=== PATIENT | female | born 1980 | race Caucasian/White ===

== ENCOUNTER 2016-11-07 22:29 | Emergency (ER) | payer OTHER ==
[~2016-11-07] VITALS: Ht 162.6 cm; Wt 69.0 kg
[2016-11-07] MEDS ORDERED: BENADRYL25 MG PO (22:58)
[2016-12-12] MEDS ORDERED: FLAX SEED OIL1000 MG PO (12:15)
[2016-12-12] MEDS ORDERED: FALMINA1 EACH PO (12:15)
[2016-12-12] MEDS ORDERED: OMEPRAZOLE20 MG PO (12:15)
[2016-12-12] MEDS ORDERED: PROBIOTIC1 EAC1 PO (12:16)
[2016-12-12] MEDS ORDERED: PEPTO-BISM262 MG/15 PO (12:16)
== END 2016-11-08 00:51 | disposition home or self-care (01) ==
LOC: ED 22:29
DX: T78.40XA Allergy, unspecified, initial encounter (principal); R13.10 Dysphagia, unspecified; Z88.1 Allergy status to other antibiotic agents; Z88.2 Allergy status to sulfonamides
CPT/HCPCS: 96372; 96374; 96375; 99284; J1200; J2930; J7030

== ENCOUNTER 2017-11-23 06:50 | Day surgery (SDC) | payer OTHER ==
[~2017-11-23] VITALS: Ht 162.6 cm; Wt 72.1 kg
--- NOTE | ~2017-11-23 | OR ---
[facility] [address], [place] [address] Draft DATE OF OPERATION: 11/23/2017 SURGEON: Kurt Campos DO PREOPERATIVE DIAGNOSES: 1. Abnormal uterine bleeding. 2. Crohn disease. POSTOPERATIVE DIAGNOSES: 1. Abnormal uterine bleeding. 2. Endometrial polyp. 3. Asherman syndrome. 4. Crohn disease. SURGERY PERFORMED: 1. Hysteroscopy, dilation and curettage. 2. Endometrial polypectomy. 3. Lysis of intrauterine adhesions. ANESTHESIA: MAC. ESTIMATED BLOOD LOSS: 25 mL. SPECIMENS: Endometrial polyps and curettings. COMPLICATIONS: None. FINDINGS: Normal external genitalia, vagina, and cervix. On hysteroscopy, normal endocervical canal. The endometrial cavity is approximately 50% adhesed from the fundus up to the mid portion of the uterus in the midline. The lower uterine segment and 50 percentile of the uterine cavity showed a thickened endometrium and multiple polyps. The intrauterine adhesions were lysed and normal uterine anatomy appreciated . INDICATION: Ms. Nye is a pleasant 37-year-old female, who presents with abnormal bleeding and PATIENT NAME: CHIARA NYE OPERATIVE REPORT DATE OF : 80 REPORT #: [id number] PHYSICIAN: KURT CAMPOS DO PCP: JULIO CESAR GUZMAN MD REPORT IS CONFIDENTIAL AND NOT TO BE RELEASED WITHOUT AUTHORIZATION [address] [address] [place] dysmenorrhea. An ultrasound was performed that demonstrated thickened endometrium cavitary lesion. She has previously undergone two prior C-sections with a history of DIC with multiple uterine procedures performed at that time including . Recommended hysteroscopy, D and C with possible polypectomy and myomectomy. Risks, benefits, alternatives were discussed in detail with the patient. Patient understands and wished to proceed with the procedure. DESCRIPTION OF PROCEDURE: The patient was taken the operating room. Time-out was performed to confirm correct patient, correct procedure. MAC anesthesia was adequately established. Then, the patient was prepped and draped in dorsal lithotomy . No preop antibiotics or heparin were indicated. ICPs were on and running and the bladder drained. A weighted speculum was placed in the vagina. The anterior lip of the cervix was grasped with an Allis clamp. The cervix was gently dilated using Hegar dilators the internal os was somewhat tight. The cervix was again dilated with a #7 Hegar dilator and the Allis clamp. This was replaced with single-tooth tenaculum. The operative hysteroscope was replaced and advanced without difficulty into the uterine cavity. Normal endocervical os was appreciated, however, the uterine cavity multiple fibroids and endometrial thickening. A MyoSure Lite device was selected and circumferential curettage and polypectomy was performed. Once the cavity was cleared of polyp, it became evident that significant intrauterine adhesions and by visualization of the placement of the tubal ostia. Hysteroscopic scissors were selected and the intrauterine adhesions were very gently and carefully lysed. No bleeding was noted while lysing the tissue and this was brought back until normal uterine configuration was noted. It does not appear that myometrium was entered whatsoever. Once normal anatomy was achieved, the hysteroscope was withdrawn and the single-tooth tenaculum was removed. Brisk bleeding was noted from both lubhyx-ba-abbhb sutures. Good hemostasis was appreciated and the patient was taken to PACU in good and stable condition. Sponge, needle, and instrument count were correct x2 at the end of the procedure. Due to the patient's desire to not pursue future fertility due to her poor obstetrical history and Crohn's, a pediatric catheter was not inserted due to the upon completion of the intrauterine adhesion lysis. The patient will be treated with estradiol postoperatively. Kurt Campos DO PATIENT NAME: CHIARA NYE OPERATIVE REPORT DATE OF : [birth year] REPORT #: [id number] PHYSICIAN: KURT CAMPOS DO PCP: JULIO CESAR GUZMAN MD REPORT IS CONFIDENTIAL AND NOT TO BE RELEASED WITHOUT AUTHORIZATION [address] [address] [place] LIBAN/CAROLINE /[id number] Copies: ~ PATIENT NAME: CHIARA NYE OPERATIVE REPORT DATE OF : [birth year] REPORT #: [id number] PHYSICIAN: KURT CAMPOS DO PCP: JULIO CESAR GUZMAN MD REPORT IS CONFIDENTIAL AND NOT TO BE RELEASED WITHOUT AUTHORIZATION
[~2017-11-23 06:50] MED LIST: BENADRYL25 MG PO; FALMINA1 EACH PO; FLAX SEED OIL1000 MG PO; HUMIRA40 MG/0.1 SUB-Q; OMEPRAZOLE20 MG PO; PEPTO-BISM262 MG/15 PO; PROBIOTIC1 EAC1 PO; UCERIS9 MG PO
--- NOTE | 2017-11-23 11:36 | NUR ---
11/23/17 1136 Angelica Simons 1124- PT ARRIVES TO PACU ON 6L VIA MASK. OXYGEN SAT 100% ON THIS. PT IS ABLE TO MAINTAIN HER OWN AIRWAY. PT IS AROUSABLE TO STIMULI, DOES NOT FOLLOW COMMANDS OR ANSWER QUESTIONS. 1127- PT IS MORE AROUSABEL AND ABLE TO ANSWER SOME QUESTIONS. REPORTS NO PAIN OR NAUSEA. 1132- OXYGEN TURNED OFF. OXYGEN SAT HIGH 90'S TO 100% ON RA.
--- NOTE | 2017-11-23 11:47 | NUR ---
PT RESTING IN BED, ALERT, ORIENTED AND SUPPORTED BY HER . HE SEEMED TO BE SOMEWHAT UNCOMFORTABLE WITH MY PRESENCE. PT WAS POLITE, I EXTENDED A BLESSING. WILL FOLLOW NEEDED
--- NOTE | 2017-11-23 12:10 | NUR ---
FAMILY @ BS. ICED WATER GIVEN. CALL LIGHT W/IN REACH. CRACKERS AND APPLESAUCE GIVEN.
--- NOTE | 2017-11-23 14:12 | NUR ---
FINA 1245: DR. CLAYTON IN TO SPEAK WITH PATIENT AND HER FAMILY. DC INSTRUCTIONS GIVEN IN PRESENCE OF FAMILY AND ALL VERBALIZE UNDERSTANDING. PT GETTING DRESSED AND TRANSFERS SELF TO WC AND PERSONAL VEHICLE WELL.
== END 2017-11-23 12:58 | disposition home or self-care (01) ==
LOC: DS 06:50
PROVIDERS: Obstetrics & Gynecology
PROC: 0UB98ZX Excision of Uterus, Via Natural or Artificial Opening Endoscopic, Diagnostic (ICD-10-PCS; principal; 2017-11-23 08:45)
PROC: 0UDB8ZX Extraction of Endometrium, Via Natural or Artificial Opening Endoscopic, Diagnostic (ICD-10-PCS; 2017-11-23 08:45)
DX: N84.0 Polyp of corpus uteri (principal); K50.90 Crohn's disease, unspecified, without complications; J45.909 Unspecified asthma, uncomplicated; Z79.52 Long term (current) use of systemic steroids; Z79.899 Other long term (current) drug therapy; Z88.2 Allergy status to sulfonamides; Z88.1 Allergy status to other antibiotic agents
CPT/HCPCS: 00952; J0131; J2250; J2704; J3010; J7120

== ENCOUNTER 2020-01-09 12:56 | Emergency (ER) | payer OTHER ==
[~2020-01-09] VITALS: Ht 162.6 cm; Wt 72.1 kg
--- OUTSIDE RECORDS SUMMARY | ~2020-01-09 | XMS | Encounter Summary ---
Demographics + + + | Address | [address] | | | [place] [address] | + + + | Home Phone | | + + + | Preferred Language | Unknown | + + + | Marital Status | | + + + | Sabianism Affiliation | Unknown | + + + | Race | White | + + + | Ethnic Group | Not or | + + + Author + + + | Author | [facility] | | | and [place] | + + + | Organization | [facility] | | | and [place] | + + + | Address | Unknown | + + + | Phone | Unavailable | + + + Support + + +---------+ + | Name | Relationship | Address | Phone | + + +---------+ + | Enrique Nye | ECON | Unknown | | + + +---------+ + | Liborio Combs/Celine Maria Isabel | ECON | Unknown | | | Jose Juaninger | | | | + + +---------+ + Care Team Providers + +------+ + | Care Huc Name | Role | Phone | + +------+ + | Bird Talbot | PCP | | | MD | | | + +------+ + Reason for Visit Insurance Referral (Routine) +--------+--------+ + + + + | Status | Reason | Specialty | Diagnoses / | Referred By | Referred To | | | | | Procedures | Contact | Contact | +--------+--------+ + + + + | Closed | | Infusion | Diagnoses | [place], | [facility] | | | | Therapy | Crohn's | Felix W, | Infusion [address] | | | | | disease, | PharmD [address] | [address] | | | | | unspecified, | [address] | [place], | | | | | with | [place] | [place] [address] | | | | | unspecified | [place], [place] | Phone: | | | | | complication | [id number] | [phone] | | | | | s (HCC) | Phone: | Fax: | | | | | Procedures | [phone] | [phone] | | | | | [facility] [id number] | Fax: | | | | | | STELARA [facility] | [phone] | | | | | | USTEKINUMAB | | | | | | | SUB CU INJ, | | | | | | | 1 MG VA | | | | | | | INJECTION, | | | | | | | VEDOLIZUMAB, | | | | | | | 1MG VA IV | | | | | | | INFUSION, | | | | | | | THERAP/PROPH | | | | | | | /DIAGNOST,IN | | | | | | | ITIAL,1ST | | | | | | | HOUR | | | | | | | Now-Entyvio | | | | | | | Dose and | | | | | | | frequency: | | | | | | | 300mg at | | | | | | | week 0, 2 , | | | | | | | and 6 weeks | | | | | | | then every | | | | | | | 8 weeks | | | | | | | thereafter. | | | | | | | | | | | | | | Was-Stelara | | | | | | | 390mg as | | | | | | | single IV | | | | | | | dose | | | | | | | followed by | | | | | | | 90 mg SubQ | | | | | | | dose every 8 | | | | | | | weeks | | | | | | | after IV | | | | | | | induction | | | | | | | dose. | | | +--------+--------+ + + + + Encounter Details +--------+ + + + + | Date | Type | Department | Care Team | Description | +--------+ + + + + | 04/05/ | Hospital | [facility] | Bird Talbot | Crohn's disease with | | 2019 | Encounter | [facility] OP [facility]FUSION | MD Alber [address] | complication, | | | | [address] | [address] | unspecified | | | | [place]UC[place] [address] | [place] | gastrointestinal | | | | [address] | [address] | tract location (HCC) | | | | [phone] | [phone] | | | | | | | | +--------+ + + + + Social History + +-------+ +--------+------+ | Tobacco Use | Types | Packs/Day | Years | Date | | | | | Used | | + +-------+ +--------+------+ | Never Smoker | | | | | + +-------+ +--------+------+ + +---+---+---+ | Smokeless Tobacco: | | | | | Never Used | | | | + +---+---+---+ + + +---------+ + | Alcohol Use | Drinks/Week | oz/Week | Comments | + + +---------+ + | Yes | | | social drinker | + + +---------+ + + + + | Sex Assigned at | Date Recorded | | | | + + + | Not on file | | + + + documented as of this encounter Last Filed Vital Signs + + + + + | Vital Sign | Reading | Time Taken | Comments | + + + + + | Blood Pressure | 101/67 | 04/05/2018 12:30 PM | | | | | PST | | + + + + + | Pulse | 56 | 04/05/2018 12:30 PM | | | | | PST | | + + + + + | Temperature | 36 C (96.8 F) | 04/05/2018 10:32 AM | | | | | PST | | + + + + + | Respiratory Rate | 16 | 04/05/2018 12:30 PM | | | | | PST | | + + + + + | Oxygen Saturation | 98% | 04/05/2018 12:30 PM | | | | | PST | | + + + + + | Inhaled Oxygen | - | - | | | Concentration | | | | + + + + + | Weight | 75.7 kg (166 lb 14.2 | 04/05/2018 10:32 AM | | | | oz) | PST | | + + + + + | Height | - | - | | + + + + + | Body Mass Index | 28.65 | 04/18/2017 9:29 AM | | | | | PST | | + + + + + documented in this encounter Medications at Time of Discharge + + + +---------+ + + | Medication | Sig | Dispensed | Refills | Start | End Date | | | | | | Date | | + + + +---------+ + + | cetirizine (ZYRTEC | Take 10 mg by mouth | | 0 | | | | ALLERGY) 10 mg | Daily. | | | | | | tablet | | | | | | + + + +---------+ + + | diphenhydrAMINE | Take 50 mg by mouth | | 0 | | | | (BENADRYL) 25 mg | every 4 hours. | | | | | | tablet | | | | | | + + + +---------+ + + | Lactobacillus | Take by mouth. | | 0 | | | | (PROBIOTIC | | | | | | | ACIDOPHILUS PO) | | | | | | + + + +---------+ + + | Multiple | Take 1 tablet by | | 0 | | | | Vitamins-Minerals | mouth Daily. | | | | | | (ADULT MULTIVITAMIN | | | | | | | WITH MINERALS/IRON) | | | | | | | TABS | | | | | | + + + +---------+ + + | Olopatadine HCl | 2 drops. | | 0 | 02/07/20 | | | 0.2 % SOLN | | | | 18 | | + + + +---------+ + + | psyllium (KONSYL) | Take 1 packet by | | 0 | | | | 28.3 % PACK | mouth Daily. | | | | | + + + +---------+ + + | budesonide | Take 3 capsules by | 90 | 1 | 04/04/19 | | | (ENTOCORT EC) 3 mg | mouth every morning. | capsule | | 19 | 0 | | 24 hr | Continue to wean | | | | | | capsuleIndications: | off the medcation | | | | | | Crohn's disease of | | | | | | | small intestine with | | | | | | | complication (HCC) | | | | | | + + + +---------+ + + | cholecalciferol | Take 6,000 Units by | | 0 | | | | (VITAMIN D-3) 5000 | mouth Daily. | | | | 9 | | units TABS | | | | | | + + + +---------+ + + | cyanocobalamin | Take 50 mcg by mouth | | 0 | | | | (VITAMIN B-12) 100 | Daily. | | | | 9 | | MCG tablet | | | | | | + + + +---------+ + + | ferrous sulfate | Take 325 mg by mouth | | 0 | | | | 325 mg tablet | daily (with | | | | 9 | | | breakfast). | | | | | + + + +---------+ + + | | Inject into the | | 0 | | | | MedroxyPROGESTERone | muscle. | | | | 9 | | Acetate | | | | | | | (DEPO-PROVERA IM) | | | | | | + + + +---------+ + + | Olopatadine HCl | Place 2 drops into | | 1 | 02/07/20 | | | 0.2 % SOLN | both eyes nightly. | | | 18 | 9 | + + + +---------+ + + | Specialty Vitamins | Take by mouth. | | 0 | | | | Products (BIOTIN | | | | | 9 | | PLUS KERATIN PO) | | | | | | + + + +---------+ + + documented as of this encounter Progress Notes Helen Juarez RN - 04/05/2018 12:30 PM PST Vitals: 04/05/18 1032 04/05/18 1118 04/05/18 1140 04/05/18 1200 BP: 122/64 102/63 103/63 101/63 Pulse: 58 60 56 57 Resp: 16 16 16 Temp: 36 C (96.8 F) TempSrc: Oral SpO2: 99% 100% 98% 98% Weight: 75.7 kg (166 lb 14.2 oz) Administrations This Visit acetaminophen (TYLENOL) tablet 650 mg Admin Date 04/05/2018 Action Given Dose 650 mg Route Oral Administered By Helen Juarez RN loratadine (CLARITIN) tablet 10 mg Admin Date 04/05/2018 Action Given Dose 10 mg Route Oral Administered By Helen Juarez RN vedolizumab (ENTYVIO) 300 mg in sodium chloride 0.9% 250 mL IVPB Admin Date 04/05/2018 Action New Bag Dose 300 mg Rate 510 mL/hr Route Intravenous Administered By Helen Juarez RN Monitored throughout treatment; treatment completed without untoward effects from medicatio n noted. Next visit 2 weeks. Verbalizes understanding of plan of care. VS stable. Discharged ambulatory to home in stable condition. Monitored for 30 minutes post infusion Electronically signed by: Helen Juarez RN 04/05/2018 14:31 Helen Moreau RN - 04/05/2018 11:00 AM PSTFormatting o f this note might be different from the original. Vitals: 04/05/18 1032 BP: 122/64 Pulse: 58 Temp: 36 C (96.8 F) Nyla Nye received into room 440, independent ambulation accompanied by . States here for entyvio infusion. Reports no change in condition, plan of care since last M D visit. Alert, oriented x 4, cooperative. Electronically signed by: Helen Juarez RN 04/05/2018 11:13 Felix Ramos PharmD - 04/05/2018 10:30 AM PSTFormatti ng of this note might be different from the original. [facility] Inflammatory Bowel Disease Follow Up Provider: Felix Troy PharmD Encounter Date: 04/05/2018 Patient: Nyla Nye : 1980 CSN: [id number] ASSESSMENT Entyvio initiation Nyla Nye is a 38 y.o. female who [facility] by MICAELA Snider for DMT management. Nyla has been prescribed ENTY LUCIEN (vedolizumab) for Crohn's disease. The purpose of today's discussion is to assess for co mpliance, adverse reactions, and answer Nyla's questions. Signs and Symptoms of IBD Recent onset of the following symptoms: Yes No Diarrhea [x] [] Blood in stool [] [x] Severe abdominal pain [x] [] Number of bowel movements a day: 1-8+ Describes that the budesonide steroid causes constipation and then one or two days in a row she will have significant diarrhea where she cant leave the bathroom. Signs and Symptoms of Infection/TB Recent onset of the following symptoms: Yes No Fever [] [x] Chills and sweats [] [x] Change in cough or new cough [] [x] If new cough, has it lasted longer than 3 weeks [] [x] Sore throat or new mouth sore [] [x] Coughing up blood or sputum [] [x] Shortness of breath [] [x] Nasal congestion [] [x] Stiff neck [] [x] Burning or pain with urination [] [x] Unusual vaginal discharge or irritation [] [x] Increased urination [] [x] Redness, soreness, or swelling in any area [] [x] Diarrhea [] [x] Vomiting [] [x] Pain in the abdomen or rectum [] [x] New onset of pain [] [x] Last Hep B screenin06/20/17 Last TB screenin06/20/17 Nyla had question about side effects and when might we see full benefit from the medicatio n. Described that the most common side effects for entyvio are headache (12%), antibody dev elopment (4% to 13%; neutralizin%), arthralgia (12%), and nasopharyngitis (13%). Also r eview the dosing schedule of 300 mg at 0, 2, and 6 weeks and then every 8 weeks thereafter. If no evidence of therapeutic benefit by week 14 recommendations are to discontinue use. PLAN 1. Compliance was discussed and Nyla is agreeable to the infusion schedule. 2. Medication reconciliation was done and Nyla does not report any changes or new medicati ons including prescription, OTC, or herbal/supplements. 3. Since Nyla is on ENTYVIO (vedolizumab) signs and symptoms of infection (including TB);Eron radha denies all signs/symptoms. 4. General adverse drug reaction monitoring was done and Nyla denies any adverse drug reac tions. 5. Nyla was reminded that labs (CBC w/diff and CMP) will be due on 06/01/2018. Labs were r eviewed with Nyla and results are appropriate. 6. Nyla is on a biologic and the importance of sunscreen was reinforced. Last skin exam wa s less than one year ago. 7. Nyla is on a biologic and the importance of reporting upcoming procedures was discussed . Nyla denies any upcoming procedures. 8. Nyla does not have any questions at this time. Laboratory Findings No results found for: QUANTTB, CRP, HGB, HCT, PLT, AST, ALT, ANC, LIPASE, WBC Lab Results Component Value Date HCV <0.1 06/20/2017 HBV Negative 06/20/2017 Total time spent on the phone with Nyla was 15 minutes with greater than 50% of time spent reviewing medications with patient, counseling, education, and/or coordinating care as outl ined above. Felix Troy PharmD DATE/TIME: 04/05/2018 10:30 documented in this encounter Plan of Treatment +--------+ + + + + | Date | Type | Specialty | Care Team | Description | +--------+ + + + + | 01/20/ | Appointment | Infusion Therapy | | | | 2019 | | | | | +--------+ + + + + documented as of this encounter Visit Diagnoses + + | Diagnosis | + + | Crohn's disease with complication, unspecified gastrointestinal tract location (HCC) | + + documented in this encounter Administered Medications + +--------+ +--------+------+------+ | Medication Order | MAR | Action | Dose | Rate | Site | | | Action | Date | | | | + +--------+ +--------+------+------+ | acetaminophen (TYLENOL) tablet | Given | 04/05/19 | 650 mg | | | | 650 mg 650 mg, Oral, ONCE, Shaylee | | 19 11:02 | | | | | 04/05/18 at 1110, For 1 dose | | AM PST | | | | + +--------+ +--------+------+------+ +---+---+ | | | +---+---+ + +-------+ +-------+---+---+ | loratadine (CLARITIN) tablet 10 | Given | 04/05/19 | 10 mg | | | | mg 10 mg, Oral, ONCE, Shaylee | | 19 11:02 | | | | | 04/05/18 at 1110, For 1 dose | | AM PST | | | | + +-------+ +-------+---+---+ +---+---+ | | | +---+---+ + +---------+ +--------+-------+---+ | vedolizumab (ENTYVIO) 300 mg in | New Bag | 04/05/19 | 300 mg | 510 | | | sodium chloride 0.9% 250 mL IVPB | | 19 11:17 | | mL/hr | | | 300 mg, Intravenous, Administer | | AM PST | | | | | over 30 Minutes, ONCE, Shaylee | | | | | | | 04/05/18 at 1110, For 1 dose, WEEK | | | | | | | 0. Flush with 30 mL NS after | | | | | | | giving. Keep in refrigerator., | | | | | | + +---------+ +--------+-------+---+ +---+---+ | | | +---+---+ documented in this encounter"
--- OUTSIDE RECORDS SUMMARY | ~2020-01-09 | XMS | Encounter Summary ---
Demographics + + + | Address | [address] | | | [place] [address] | + + + | Home Phone | | + + + | Preferred Language | Unknown | + + + | Marital Status | | + + + | Druze Affiliation | Unknown | + + + | Race | White | + + + | Ethnic Group | Not or | + + + Author + + + | Author | [facility] | | | and [place] | + + + | Organization | [facility] | | | [...] Team Providers + +------+ + | Care Lieutenant General Name | Role | Phone | + +------+ + | Bird Talbot | PCP | | | MD | | | + +------+ + Encounter Details +--------+ + + + + | Date | Type | Department | Care Team | Description | +--------+ + + + + | 08/18/ | Orders Only | [facility] [place] [facility] Crohn's disease of | | 2020 | | GASTROENTEROLOGY | [address] | small intestine with | | | | [address] | [address] | complication (HCC) | | | | [address] [place], [place] | [place], [place] | (Primary Dx) | | | | [address] | [address] | | | | | [phone] | | | +--------+ + + + [...] + + documented as of this encounter Plan of Treatment +--------+ + + + + | Date | Type | Specialty | Care Team | Description | +--------+ + + + + | 01/20/ | Appointment | Infusion Therapy | | | | 2019 | | | | | +--------+ + + + + + +------+--------+ + + | Name | Type | Priori | Associated Diagnoses | Order Schedule | | | | ty | | | + +------+--------+ + + | Genetics Testing: | Lab | Routin | Crohn's disease of | Ordered: 08/19/2019 | | Thiopurine | | e | small intestine | | | Methyltransferase | | | with complication | | | (TPMT) | | | (HCC) | | + +------+--------+ + + documented as of this encounter Visit Diagnoses + + | Diagnosis | + + | Crohn's disease of small intestine with complication (HCC) - [facility] | | enteritis of small intestine | + + documented in this encounter"
--- OUTSIDE RECORDS SUMMARY | ~2020-01-09 | XMS | Encounter Summary ---
Demographics + + + | Address | [address] | | | [place] [address] | + + + | Home Phone | | + + + | Preferred Language | Unknown | + + + | Marital Status | | + + + | Congregation Affiliation | Unknown | + + + | Race | White | + + + | Ethnic Group | Not or | + + + Author + + + | Author | [facility] | | | and [place] | + + + | Organization | [facility] | | | [...] Team Providers + +------+ + | Care Deli Cutter Slicer Name | Role | Phone | + +------+ + | Bird Talbot | PCP | | | MD | | | + +------+ + Encounter Details +--------+ + + + + | Date | Type | Department | Care Team | Description | +--------+ + + + + | 01/08/ | Abstract | [facility] | Sumit Mariee MD | | | 2017 | | GASTROENTEROLOGY | [address], [place] | | | | | [address] [place] | [address] [place], [place] | | | | | [address] [place], [place] | [address] | | | | | [address] | | | | | | [phone] | | | +--------+ + + + [...] + + documented as of this encounter Procedures + +--------+ + + + | Procedure Name | Priori | Date/Time | Associated Diagnosis | Comments | | | ty | | | | + +--------+ + + + | EXTERNAL LAB: BUN | Routin | 01/01/2018 | | Results for this | | | e | | | procedure are in the | | | | | | results section. | + +--------+ + + + | EXTERNAL LAB: | Routin | 01/01/2018 | | Results for this | | GLUCOSE | e | | | procedure are in the | | | | | | results section. | + +--------+ + + + | EXTERNAL LAB: ALT | Routin | 01/01/2018 | | Results for this | | | e | | | procedure are in the | | | | | | results section. | + +--------+ + + + | EXTERNAL LAB: AST | Routin | 01/01/2018 | | Results for this | | | e | | | procedure are in the | | | | | | results section. | + +--------+ + + + | EXTERNAL LAB: | Routin | 01/01/2018 | | Results for this | | ALKALINE PHOSPHATASE | e | | | procedure are in the | | | | | | results section. | + +--------+ + + + | EXTERNAL LAB: | Routin | 01/01/2018 | | Results for this | | BILIRUBIN, TOTAL | e | | | procedure are in the | | | | | | results section. | + +--------+ + + + | EXTERNAL LAB: | Routin | 01/01/2018 | | Results for this | | ALBUMIN | e | | | procedure are in the | | | | | | results section. | + +--------+ + + + | EXTERNAL LAB: | Routin | 01/01/2018 | | Results for this | | PROTEIN, TOTAL | e | | | procedure are in the | | | | | | results section. | + +--------+ + + + | EXTERNAL LAB: | Routin | 01/01/2018 | | Results for this | | CALCIUM | e | | | procedure are in the | | | | | | results section. | + +--------+ + + + | EXTERNAL LAB: CARBON | Routin | 01/01/2018 | | Results for this | | DIOXIDE | e | | | procedure are in the | | | | | | results section. | + +--------+ + + + | EXTERNAL LAB: | Routin | 01/01/2018 | | Results for this | | CHLORIDE | e | | | procedure are in the | | | | | | results section. | + +--------+ + + + | EXTERNAL LAB: | Routin | 01/01/2018 | | Results for this | | POTASSIUM | e | | | procedure are in the | | | | | | results section. | + +--------+ + + + | EXTERNAL LAB: SODIUM | Routin | 01/01/2018 | | Results for this | | | e | | | procedure are in the | | | | | | results section. | + +--------+ + + + | EXTERNAL LAB: CBC | Routin | 01/01/2018 | | Results for this | | | e | | | procedure are in the | | | | | | results section. | + +--------+ + + + | EXTERNAL LAB: CBC | Routin | 01/01/2018 | | Results for this | | | e | | | procedure are in the | | | | | | results section. | + +--------+ + + + | EXTERNAL LAB: CAN | Routin | 01/01/2018 | | Results for this | | | e | | | procedure are in the | | | | | | results section. | + +--------+ + + + | EXTERNAL LAB: | Routin | 01/01/2018 | | Results for this | | CREATININE | e | | | procedure are in the | | | | | | results section. | + +--------+ + + + | SEDIMENTATION RATE | Routin | 01/01/2018 | | Results for this | | | e | | | procedure are in the | | | | | | results section. | + +--------+ + + + | CBC WITH | Routin | 01/01/2018 | | Results for this | | DIFFERENTIAL | e | | | procedure are in the | | | | | | results section. | + +--------+ + + + | COMPREHENSIVE | Routin | 01/01/2018 | | Results for this | | METABOLIC PANEL | e | | | procedure are in the | | | | | | results section. | + +--------+ + + + documented in this encounter Results External Lab: ZURI (01/01/2018) + +-------+ + + + | Component | Value | Ref Range | Performed | Pathologist | | | | | At | Signature | + +-------+ + + + | Monocytes | 5.2 | 0 - 12 | EXTERNAL | | | %, External | | | LAB | | + +-------+ + + + | Eosinophils | 1.3 | 0 - 6 | EXTERNAL | | | %, | | | LAB | | | External | | | | | + +-------+ + + + + +---------+ + + | Performing | Address | City/State/Zipcode | Phone Number | | Organization | | | | + +---------+ + + | EXTERNAL LAB | | | | + +---------+ + + Sedimentation Rate (01/01/2018) + +-------+ + + + | Component | Value | Ref Range | Performed | Pathologist | | | | | At | Signature | + +-------+ + + + | Erythrocyte | 3 | 0 - 20 mm/hr | | | | | | | | | | Sedimentati | | | | | | on Rate | | | | | + +-------+ + + + + + | Specimen | + + | Blood | + + CBC with Differential (01/01/2018) + + + + + + | Component | Value | Ref Range | Performed | Pathologist | | | | | At | Signature | + + + + + + | MCH | 34.0 (A) | 26.0 - 33.0 pg | | | + + + + + + | MCHC | 34.0 | 30.0 - 36.0 % | | | + + + + + + | % Basophils | 1.3 | 0.0 - 2.0 % | | | + + + + + + + + | Specimen | + + | Blood | + + Comprehensive Metabolic Panel (01/01/2018) + +-------+ + + + | Component | Value | Ref Range | Performed | Pathologist | | | | | At | Signature | + +-------+ + + + | Anion Gap | 15 | 7 - 21 mmol/L | | | + +-------+ + + + | Bun/Creatin | 13.5 | 6 - 28.6 Ratio | | | | ine | | | | | + +-------+ + + + | Globulin | 3.4 | 1.8 - 3.5 g/dl | | | + +-------+ + + + | Albumin/Zohreh | 1.1 | 1.1 - 2.4 Ratio | | | | bulin Ratio | | | | | + +-------+ + + + + + | Specimen | + + | Blood | + + External Lab: BUN (01/01/2018) + +-------+ + + + | Component | Value | Ref Range | Performed | Pathologist | | | | | At | Signature | + +-------+ + + + | BUN, | 13 | 6 - 23 | EXTERNAL | | | External | | | LAB | | + +-------+ + + + + +---------+ + + | Performing | Address | City/State/Zipcode | Phone Number | | Organization | | | | + +---------+ + + | EXTERNAL LAB | | | | + +---------+ + + External Lab: Glucose (01/01/2018) + +-------+ + + + | Component | Value | Ref Range | Performed | Pathologist | | | | | At | Signature | + +-------+ + + + | Glucose, | 78 | 70 - 100 | EXTERNAL | | | External | | | LAB | | + +-------+ + + + + +---------+ + + | Performing | Address | City/State/Zipcode | Phone Number | | Organization | | | | + +---------+ + + | EXTERNAL LAB | | | | + +---------+ + + External Lab: ALT (01/01/2018) + +-------+ + + + | Component | Value | Ref Range | Performed | Pathologist | | | | | At | Signature | + +-------+ + + + | ALT, | 9 | 7 - 52 | EXTERNAL | | | External | | | LAB | | + +-------+ + + + + +---------+ + + | Performing | Address | City/State/Zipcode | Phone Number | | Organization | | | | + +---------+ + + | EXTERNAL LAB | | | | + +---------+ + + External Lab: AST (01/01/2018) + +-------+ + + + | Component | Value | Ref Range | Performed | Pathologist | | | | | At | Signature | + +-------+ + + + | AST, | 15 | 13 - 39 | EXTERNAL | | | External | | | LAB | | + +-------+ + + + + +---------+ + + | Performing | Address | City/State/Zipcode | Phone Number | | Organization | | | | + +---------+ + + | EXTERNAL LAB | | | | + +---------+ + + External Lab: Alkaline Phosphatase (01/01/2018) + +-------+ + + + | Component | Value | Ref Range | Performed | Pathologist | | | | | At | Signature | + +-------+ + + + | ALP, | 53 | 31 - 130 | EXTERNAL | | | External | | | LAB | | + +-------+ + + + + +---------+ + + | Performing | Address | City/State/Zipcode | Phone Number | | Organization | | | | + +---------+ + + | EXTERNAL LAB | | | | + +---------+ + + External Lab: Bilirubin, Total (01/01/2018) + +-------+ + + + | Component | Value | Ref Range | Performed | Pathologist | | | | | At | Signature | + +-------+ + + + | Bilirubin, | 0.7 | 0 - 1.2 | EXTERNAL | | | Total, | | | LAB | | | External | | | | | + +-------+ + + + + +---------+ + + | Performing | Address | City/State/Zipcode | Phone Number | | Organization | | | | + +---------+ + + | EXTERNAL LAB | | | | + +---------+ + + External Lab: Albumin (01/01/2018) + +-------+ + + + | Component | Value | Ref Range | Performed | Pathologist | | | | | At | Signature | + +-------+ + + + | Albumin, | 3.9 | 3.5 - 6 | EXTERNAL | | | External | | | LAB | | + +-------+ + + + + +---------+ + + | Performing | Address | City/State/Zipcode | Phone Number | | Organization | | | | + +---------+ + + | EXTERNAL LAB | | | | + +---------+ + + External Lab: Protein, Total (01/01/2018) + +-------+ + + + | Component | Value | Ref Range | Performed | Pathologist | | | | | At | Signature | + +-------+ + + + | Protein, | 7.3 | 6 - 8.3 | EXTERNAL | | | Total, | | | LAB | | | External | | | | | + +-------+ + + + + +---------+ + + | Performing | Address | City/State/Zipcode | Phone Number | | Organization | | | | + +---------+ + + | EXTERNAL LAB | | | | + +---------+ + + External Lab: Calcium (01/01/2018) + +-------+ + + + | Component | Value | Ref Range | Performed | Pathologist | | | | | At | Signature | + +-------+ + + + | Calcium, | 9.0 | 8.5 - 10.3 | EXTERNAL | | | External | | | LAB | | + +-------+ + + + + +---------+ + + | Performing | Address | City/State/Zipcode | Phone Number | | Organization | | | | + +---------+ + + | EXTERNAL LAB | | | | + +---------+ + + External Lab: Carbon Dioxide (01/01/2018) + +-------+ + + + | Component | Value | Ref Range | Performed | Pathologist | | | | | At | Signature | + +-------+ + + + | Carbon | 24 | 19 - 31 | EXTERNAL | | | Dioxide, | | | LAB | | | External | | | | | + +-------+ + + + + +---------+ + + | Performing | Address | City/State/Zipcode | Phone Number | | Organization | | | | + +---------+ + + | EXTERNAL LAB | | | | + +---------+ + + External Lab: Chloride (01/01/2018) + +-------+ + + + | Component | Value | Ref Range | Performed | Pathologist | | | | | At | Signature | + +-------+ + + + | Chloride, | 102 | 95 - 112 | EXTERNAL | | | External | | | LAB | | + +-------+ + + + + +---------+ + + | Performing | Address | City/State/Zipcode | Phone Number | | Organization | | | | + +---------+ + + | EXTERNAL LAB | | | | + +---------+ + + External Lab: Potassium (01/01/2018) + +-------+ + + + | Component | Value | Ref Range | Performed | Pathologist | | | | | At | Signature | + +-------+ + + + | Potassium, | 3.9 | 3.6 - 5.1 | EXTERNAL | | | External | | | LAB | | + +-------+ + + + + +---------+ + + | Performing | Address | City/State/Zipcode | Phone Number | | Organization | | | | + +---------+ + + | EXTERNAL LAB | | | | + +---------+ + + External Lab: Sodium (01/01/2018) + +-------+ + + + | Component | Value | Ref Range | Performed | Pathologist | | | | | At | Signature | + +-------+ + + + | Sodium, | 137 | 132 - 143 | EXTERNAL | | | External | | | LAB | | + +-------+ + + + + +---------+ + + | Performing | Address | City/State/Zipcode | Phone Number | | Organization | | | | + +---------+ + + | EXTERNAL LAB | | | | + +---------+ + + External Lab: CBC (01/01/2018) + +-------+ + + + | Component | Value | Ref Range | Performed | Pathologist | | | | | At | Signature | + +-------+ + + + | WBC, | 8.5 | 4.5 - 11 | EXTERNAL | | | External | | | LAB | | + +-------+ + + + | HGB, | 12.9 | 12 - 16 | EXTERNAL | | | External | | | LAB | | + +-------+ + + + | HCT, | 37.5 | 35 - 45 | EXTERNAL | | | External | | | LAB | | + +-------+ + + + | PLT, | 265 | 140 - 440 | EXTERNAL | | | External | | | LAB | | + +-------+ + + + | Neutrophils | 61.4 | 39 - 80 | EXTERNAL | | | %, | | | LAB | | | External | | | | | + +-------+ + + + | Lymphocytes | 30.8 | 24 - 44 | EXTERNAL | | | %, | | | LAB | | | External | | | | | + +-------+ + + + | RBC, | 3.81 | 3.8 - 5.1 | EXTERNAL | | | External | | | LAB | | + +-------+ + + + | MCV, | 99 | 81 - 99 | EXTERNAL | | | External | | | LAB | | + +-------+ + + + | RDW, | 14.1 | 10.5 - 15 | EXTERNAL | | | External | | | LAB | | + +-------+ + + + + +---------+ + + | Performing | Address | City/State/Zipcode | Phone Number | | Organization | | | | + +---------+ + + | EXTERNAL LAB | | | | + +---------+ + + External Lab: eGFR (01/01/2018) + +-------+ + + + | Component | Value | Ref Range | Performed | Pathologist | | | | | At | Signature | + +-------+ + + + | eGFR, | 65 | 60 - 99,999 | EXTERNAL | | | External | | | LAB | | + +-------+ + + + + + | Specimen | + + | Blood | + + + +---------+ + + | Performing | Address | City/State/Zipcode | Phone Number | | Organization | | | | + +---------+ + + | EXTERNAL LAB | | | | + +---------+ + + External Lab: Creatinine (01/01/2018) + +-------+ + + + | Component | Value | Ref Range | Performed | Pathologist | | | | | At | Signature | + +-------+ + + + | Creatinine, | 0.96 | 0.6 - 1.35 | EXTERNAL | | | External | | | LAB | | + +-------+ + + + + + | Specimen | + + | Blood | + + + +---------+ + + | Performing | Address | City/State/Zipcode | Phone Number | | Organization | | | | + +---------+ + + | EXTERNAL LAB | | | | + +---------+ + + documented in this encounter Visit Diagnoses Not on filedocumented in this encounter"
--- OUTSIDE RECORDS SUMMARY | ~2020-01-09 | XMS | Encounter Summary ---
Demographics + + + | Address | [address] | | | [place] [address] | + + + | Home Phone | | + + + | Preferred Language | Unknown | + + + | Marital Status | | + + + | Adventism Affiliation | Unknown | + + + | Race | White | + + + | Ethnic Group | Not or | + + + Author + + + | Author | [facility] | | | and [place] | + + + | Organization | [facility] | | | and [...] | ECON | Unknown | | | Redinger | | | | + + +---------+ + Care Team Providers + +------+ + | Care Chamber Worker Name | Role | Phone | + +------+ + | Bird Talbot | PCP | | | MD | | | + +------+ + Reason for Visit + +--------+ + | Reason | Onset | Comments | | | Date | | + +--------+ + | Medication Prior | 09/17/ | Humira Starter kit | | Authorization | 2017 | | + +--------+ + Encounter Details +--------+ + + + + | Date | Type | Department | Care Team | Description | +--------+ + + + + | 12/18/ | Telephone | [facility] | Felix Troy, | Medication Prior | | 2017 | | MED CTR OP INFUSION | PharmD [address] | Authorization | | | | [address] | [address] [place], [place] | (Humira Starter kit | | | | [place], [place] | [address] | ) | | | | [address] | | | | | | [phone] | | | +--------+ + + + [...] + + documented as of this encounter Miscellaneous Notes Telephone Encounter - Felix Troy PharmD - 12/25/2017 3:52 PM PDTReceived denial of pr ior authorization for new humira starter kit. Reason includes that drug level is considered therapeutic and additional induction would be considered experimental. However, authorizat ion was approved for 4 pens in 28 days. Discussed with Heather Ko about the prior authorization and to make the most of the approval without changing her to a different drug yet we will have her give a dose of 2 pen s then two weeks later another 2 pens. If no improvement will change therapy to different m edication. Called and relayed the information to patient and sent new script to [facility] pharmacy. Electro nically signed by Felix Troy PharmD at 12/25/2017 4:20 PM PDTTelephone Encounter - Odessa Montoya - 12/18/2017 12:20 PM PDTReceived note from Felix regarding needing prior auth re quest on Humira starter kit. Referral was created, please see referral#[id number] on status det ails. Pending processing. do cumented in this encounter Plan of Treatment +--------+ + + + + | Date | Type | Specialty | Care Team | Description | +--------+ + + + + | 01/20/ | Appointment | Infusion Therapy | | | | 2020 | | | | | +--------+ + + + + documented as of this encounter Visit Diagnoses + + | Diagnosis | + + | Crohn's disease with complication, unspecified gastrointestinal tract location (HCC) - | | Primary | + + documented in this encounter"
--- OUTSIDE RECORDS SUMMARY | ~2020-01-09 | XMS | Encounter Summary ---
Demographics + + + | Address | [address] | | | [place] [address] | + + + | Home Phone | | + + + | Preferred Language | Unknown | + + + | Marital Status | | + + + | Adventist Affiliation | Unknown | + + + | Race | White | + + + | Ethnic Group | Not or | + + + Author + + + | Author | [facility] | | | and [place] | + + + | Organization | [facility] | | [...] Team Providers + +------+ + | Care Court Stenographer Name | Role | Phone | + +------+ + | Bird Talbot | PCP | | | MD | | | + +------+ + Reason for Referral Evaluate & Treat (Routine) + + + + + + + | Status | Reason | Specialty | Diagnoses / | Referred By | Referred To | | | | | Procedures | Contact | Contact | + + + + + + + | Authorized | Specialty | Gastroenterol | Diagnoses | Evie, | Rianal, | | | Services | ogy | Stricture | Nilson | Alice Rick, | | | Required | | of small | MD Brandon | [address] | | | | | intestine | [address] | [address] | | | | | ([facility]) | [facility] | [address] | | | | | | [place], [place] | [place], [place] | | | | | | [address] | [address] | | | | | | Phone: | Phone: | | | | | | [phone] | [phone] | | | | | | Fax: | Fax: | | | | | | [phone] | [phone] | + + + + + + + Encounter Details +--------+ + + + + | Date | Type | Department | Care Team | Description | +--------+ + + + + | 09/09/ | Orders Only | [facility] | Nilson Case | Stricture of small | | 2020 | | GASTROENTEROLOGY | MD Brandon [address] | intestine (HCC) | | | | [address] [place] | [address] [place] | (Primary Dx) | | | | [address] [place], [place] | [place] [address] | | | | | [address] | [phone] | | | | | [phone] | | | +--------+ + + + [...] | +--------+ + + + + + + +--------+ + + | Name | Type | Priori | Associated Diagnoses | Order Schedule | | | | ty | | | + + +--------+ + + | Ambulatory referral | Outpatient | Routin | Stricture of small | Expected: | | to Gastroenterology | Referral | e | intestine ([facility]) | 09/23/2019, Expires: | | ([facility]) | | | | 09/09/2020 | + + +--------+ + + documented as of this encounter Visit Diagnoses + + | Diagnosis | + + | Stricture of small intestine (HCC) - Primary Unspecified intestinal obstruction | + + documented in this encounter"
--- OUTSIDE RECORDS SUMMARY | ~2020-01-09 | XMS | Encounter Summary ---
Demographics + + + | Address | [address] | | | [place] [address] | + + + | Home Phone | | + + + | Preferred Language | Unknown | + + + | Marital Status | | + + + | Catholic Affiliation | Unknown | + + + | Race | White | + + + | Ethnic Group | Not or | + + + Author + + + | Author | [facility] | | | and [place] | + + + | Organization | [facility] | | | and [...] Team Providers + +------+ + | Care Town Clerk Name | Role | Phone | + +------+ + | Bird Talbot | PCP | | | MD | | | + +------+ + Reason for Visit +--------+--------+ + | Reason | Onset | Comments | | | Date | | +--------+--------+ + | Other | 07/18/ | | | | 2018 | | +--------+--------+ + Encounter Details +--------+ + + + + | Date | Type | Department | Care Team | Description | +--------+ + + + + | 07/18/ | Telephone | [facility] | [facility], | Other | | 2018 | | GASTROENTEROLOGY | MICAELA Romero [address] | | | | | [address] | [address] [facility] [address] | | | | | [address] [place], [place] | [place] | | | | | [address] | [address] | | | | | [phone] | | | +--------+ + + + [...] this encounter Miscellaneous Notes Telephone Encounter - Kary Fowler CMA - 07/19/2017 11:32 AM PDTNotified patient ifeoma Horan would like her to discuss this with the pharmacist Felix at [facility] pharmacy. Patient verbalized understanding and said she will see him tomorrow and will discuss then.Electronic ally signed by Kary Fowler CMA at 07/19/2017 11:34 AM PDTTelephone Encounter - Cathryn Rodriguez RN - 07/18/2017 3:32 PM PDTSpoke with patient and explained a small section of s tool that color is not as concerning as if whole BM was white so advised she keep evaluating stool, and to to go ER if develops jaundice, fever, increased pain and nausea or more white stool, and I will discuss with Brpiotr in morning for any further recommendations, she agreed and verbalized understanding. elephone Encounter - Cathryn Rodriguez RN - 07/18/2017 3:04 PM PDTPatient with Crohn 's had BM today where section of stool was "chalky and white;" she has increased nausea toda y; she has slightly increased pain around mid abdomen, a bit more than her baseline "but not jill severe like I have had in past;" denies fever or jaundice; taking Lialda and budesonide , and will start Humira on ; explained I will discuss with one of our providers and call her back since Marline gone for day, she agreed and vocalized understanding. Electronicall y signed by Cathryn Rodriguez RN at 07/18/2017 3:13 PM PDTdocumented in this encounter Plan of Treatment +--------+ + + + + | Date | Type | Specialty | Care Team | Description | +--------+ + + + + | 01/20/ | Appointment | Infusion Therapy | | | | 2020 | | | | | +--------+ + + + + documented as of this encounter Visit Diagnoses Not on filedocumented in this encounter
--- OUTSIDE RECORDS SUMMARY | ~2020-01-09 | XMS | Encounter Summary ---
Demographics + + + | Address | [address] | | | [place] [address] | + + + | Home Phone | | + + + | Preferred Language | Unknown | + + + | Marital Status | | + + + | Adventist Affiliation | Unknown | + + + | Race | White | + + + | Ethnic Group | Not or | + + + Author + + + | Author | [facility] | | | and [place] | + + + | Organization | [facility] | | | and [place] | + + + | Address | Unknown | + + + | Phone | Unavailable | + + + Support + + +---------+ + | Name | Relationship | Address | Phone | + + +---------+ + | Enrique Nye | ECON | Unknown | | + + +---------+ + | Liborio Combs/Celnie Maria Isabel | ECON | Unknown | | | [place] | | | | + + +---------+ + Care Team Providers + +------+ + | Care Family Dentist Name | Role | Phone | + +------+ + | Bird Talbot | PCP | | | MD | | | + +------+ + Reason for Visit + +--------+ + | Reason | Onset | Comments | | | Date | | + +--------+ + | Lab Results | 10/10/ | | | | 2018 | | + +--------+ + Encounter Details +--------+ + + + + | Date | Type | Department | Care Team | Description | +--------+ + + + + | 10/10/ | Telephone | [facility] | Felix Troy, | Lab Results | | 2018 | | MED CTR OP INFUSION | PharmD [address] | | | | | [address] | [place], [place] | | | | | [place], [place] | [address] | | | | | [address] | | | | | | [phone] | | | +--------+ + + + [...] Telephone Encounter - Felix Troy PharmD - 10/10/2017 2:30 PM PDTFormatting of this no te might be different from the original. [facility] Inflammatory Bowel Disease Follow Up Provider: Felix Troy PharmD Encounter Date: 10/10/2017 Patient: Nyla Nye : 1980 CSN: [id number] ASSESSMENT 3 month follow up Nyla Nye is a 37 y.o. female who has been referred to the [facility] by MICAELA Snider for DMT management. Nyla has been prescribed HUMI RA (adalimumab) for Crohn's disease. The purpose of today's discussion is to assess for comp liance, adverse reactions, and answer Nyla's questions. Signs and Symptoms of IBD Recent onset of the following symptoms: Yes No Diarrhea [] [x] Blood in stool [] [x] Severe abdominal pain [] [x] Number of bowel movements: 1 every other day Signs and Symptoms of Infection/TB Recent onset [...] Hep B screenin06/20/17 Last TB screenin06/20/17 Nyla says that her GI symptoms have continued to improve since last talking with her. She reports having diarrhea only about once a month, but is having more constipation now. She is only going to the bathroom once every other day and reports needing Doculax as needed to help with her constipation. I educated that as long as she is not going 2-3 days without groves ving a bowel movement, or needing the Doculax for greater then 3 days in a row, she is fine to continue with her PRN use. I also requested that if she needs it multiple time during a month to please let me or Meera know so we may discuss what may be causing her symptoms. She reports that her diet is slowly expanding and she is having less symptoms with certain food. However, Nyla does still report finding certain foods that upset her stomach and cause ab dominal pain. Nyla has successfully been able to taper off her steroid and stopped her lialda due to her not finding much benefit from its use. She has followed up with a OBGYN to discuss her ble eding concerns and will continue to follow up with them for control recommendations. She has also followed up with her PCP Dr. Talbot due to a sinus infection that spread to he r ears. She said he lectured her for a while about the increase risks of infection and bein g on the humira and she agrees to not wait as long next time she has a problem. Overall, s he is currently feeling good. PLAN 1. Compliance was discussed and Nyla denies any missed doses of the medication therapy. Will be due for refills in December 2. Medication reconciliation was done and Nyla does not report any changes or new medicati ons including prescription, OTC, or herbal/supplements. 3. Since Nyla is on HUMIRA (adalimumab) signs and symptoms of infection (including TB) and change in cardiac function were assessed; Nyla denies all signs/symptoms. 4. General adverse drug reaction monitoring was done and Nyla denies any adverse drug reac tions. 5. Nyla was reminded that labs (CBC w/diff and CMP) will be due on 01/2018. Labs were revi ewed with Nyla and results are appropriate. 6. Nyla is on a biologic and the importance of sunscreen was reinforced. Last skin exam wa s less than one year ago. 7. Nyla is on a biologic and the importance of reporting upcoming procedures was discussed . Nyla denies any upcoming procedures. 8. Nyla is on an injectable DMT and reports no issues with medication administration. 9. Nyla does not have any questions at this time. Laboratory Findings @LASTCREAT@ No results found for: QUANTTB, CRP, HGB, HCT, PLT, AST, ALT, ANC, LIPASE, WBC Lab Results Component Value Date HCV <0.1 06/20/2017 HBV Negative 06/20/2017 Total time spent on the phone with Nyla was 15 minutes with greater than 50% of time spent reviewing medications with patient, counseling, education, and/or coordinating care as outl ined above. Felix Troy PharmD DATE/TIME: 10/10/2017 14:30 elephone Encounte r - Felix Troy PharmD - 10/10/2017 11:36 AM PDT1st attemp: tried to call to review lab results with Nyla. Here CBC is normal and wanted to get a update on her IBD symptoms. No answer will try again tomorrow. Felix Troy PharmD 10/10/2017 11:42Electronically signed by Felix Troy PharmD at 10/01 11:42 AM PDTdocumented in this encounter Plan of Treatment [...]
--- OUTSIDE RECORDS SUMMARY | ~2020-01-09 | XMS | Encounter Summary ---
Demographics + + + | Address | [address] | | | [place] [address] | + + + | Home Phone | | + + + | Preferred Language | Unknown | + + + | Marital Status | | + + + | Mormonism Affiliation | Unknown | + + + | Race | White | + + + | Ethnic Group | Not or | + + + Author + + + | Author | [facility] | | | and [place] | + + + | Organization | [facility] | | | and [place] | + + + | Address | Unknown | + + + | Phone | Unavailable | + + + Support + + +---------+ + | Name | Relationship | Address | Phone | + + +---------+ + | Enrique Nye | ECON | Unknown | | + + +---------+ + | Liborio Lauryn/Celine Nicolas | ECON | Unknown | | | [place] | | | | + + +---------+ + Care Team Providers + +------+ + | Care Application Support Administrator Name | Role | Phone | + +------+ + PCP | Unavailable | + +------+ + Encounter Details +--------+ + + + + | Date | Type | Department | Care Team | Description | +--------+ + + + + | 06/28/ | Hospital | [facility] | [facility], | Supervision of Other | | 2006 - | Encounter | [facility] | Joel Leal MD [address] | | | | [address] DEL[address] | [address] | | | 07/04/ | | [address] | [place] [address] | | | 2006 | | [place], [place] | [phone] | | | | | [address] | | | | | | [phone] | | | +--------+ + + + + Social History + +-------+ +--------+------+ | Tobacco Use | Types | Packs/Day | Years | Date | | | | | Used | | + +-------+ +--------+------+ | Never Assessed | | | | | + +-------+ +--------+------+ + + + | Sex Assigned at | Date Recorded | | | | + + + | Not on file | | + + + documented as of this encounter Plan of Treatment +--------+ + + + + | Date | Type | Specialty | Care Team | Description | +--------+ + + + + | 10/20/ | Appointment | Infusion Therapy | | | | 2020 | | | | | +--------+ + + + + documented as of this encounter Visit Diagnoses + + | Diagnosis | + + | Supervision of other normal | + + documented in this encounter"
--- OUTSIDE RECORDS SUMMARY | ~2020-01-09 | XMS | Encounter Summary ---
Demographics + + + | Address | [address] | | | [place] [address] | + + + | Home Phone | | + + + | Preferred Language | Unknown | + + + | Marital Status | | + + + | Advent Affiliation | Unknown | + + + | Race | White | + + + | Ethnic Group | Not or | + + + Author + + + | Author | [facility] | | | and [place] | + + + | Organization | [facility] | | | [...] Providers + +------+ + | Care Court Manager Name | Role | Phone | + +------+ + | Bird Talbot | PCP | | | MD | | | + +------+ + Encounter Details +--------+ + + + + | Date | Type | Department | Care Team | Description | +--------+ + + + + | 03/20/ | Episode | [facility] [place] | Jamin Terri | | | 2016 | Changes | GASTROENTEROLOGY | L, RN | | | | | [address] | | | | | | [address] [place] | | | | | | [address] | | | | | | [phone] | | | +--------+ + + + [...]
--- OUTSIDE RECORDS SUMMARY | ~2020-01-09 | XMS | Encounter Summary ---
Demographics + + + | Address | [address] | | | [place] [address] | + + + | Home Phone | | + + + | Preferred Language | Unknown | + + + | Marital Status | | + + + | Taoist Affiliation | Unknown | + + + | Race | White | + + + | Ethnic Group | Not or | + + + Author + + + | Author | [facility] | | | and [place] | + + + | Organization | [facility] | | | and [...] Team Providers + +------+ + | Care Editorial Clerk Name | Role | Phone | + +------+ + | Bird Talbot | PCP | | | MD | | | + +------+ + Reason for Referral Diagnostic/Screening (Routine) +--------+--------+ + + + + | Status | Reason | Specialty | Diagnoses / | Referred By | Referred To | | | | | Procedures | Contact | Contact | +--------+--------+ + + + + | Closed | | | Diagnoses | | [address] | | | | | Crohn's | [facility] | | | | | disease of | Heather, | [address] | | | | | small | [employer] [address] | | | | | intestine | [address] | [place], [place] | | | | | with | [address] | [address] | | | | | complication | SHI NOELA, | Phone: | | | | | ([facility]) | [place] [address] | [phone] | | | | | Procedures | Phone: | Fax: | | | | | CT Abdomen | [phone] | [phone] | | | | | Pelvis w | Fax: | | | | | | Contrast | [phone] | | | | | | CHG CT | | | | | | | SCAN,ABDOMEN | | | | | | | T AND | | | | | | | PELVIS,W | | | | | | | CONTRAST | | | +--------+--------+ + + + + Encounter Details +--------+ + + + + | Date | Type | Department | Care Team | Description | +--------+ + + + + | 11/06/ | Orders Only | [facility] [place] | [facility], | Crohn's disease of | | 2018 | | GASTROENTEROLOGY | MICAELA Romero [address] | small intestine with | | | | [address] | [address] | complication (HCC) | | | | [address] [place], [place] | [place], [place] | (Primary Dx) | | | | [address] | [address] | | | | | [phone] | | | +--------+ + + + [...] | +--------+ + + + + + +---------+--------+ + + | Name | Type | Priori | Associated Diagnoses | Order Schedule | | | | ty | | | + +---------+--------+ + + | CT Abdomen Pelvis w | Imaging | Routin | Crohn's disease of | Expected: | | Contrast | | e | small intestine | 11/06/2017, Expires: | | | | | with complication | 11/06/2018 | | | | | (HCC) | | + +---------+--------+ + + documented as of this encounter Visit Diagnoses + + | Diagnosis | + + | Crohn's disease of small intestine with complication (HCC) - [facility] | | enteritis of small intestine | + + documented in this encounter"
--- OUTSIDE RECORDS SUMMARY | ~2020-01-09 | XMS | Encounter Summary ---
Demographics + + + | Address | [address] | | | [place] [address] | + + + | Home Phone | | + + + | Preferred Language | Unknown | + + + | Marital Status | | + + + | Confucianist Affiliation | Unknown | + + + | Race | White | + + + | Ethnic Group | Not or | + + + Author + + + | Author | [facility] | | | and [place] | + + + | Organization | [facility] | | [...] Team Providers + +------+ + | Care Crowning Inspector Name | Role | Phone | + +------+ + | Bird Talbot | PCP | | | MD | | | + +------+ + Reason for Visit Evaluate & Treat (Routine) +--------+--------+ + + + + | Status | Reason | Specialty | Diagnoses / | Referred By | Referred To | | | | | Procedures | Contact | Contact | +--------+--------+ + + + + | Closed | | Infusion | Diagnoses | [place], | [facility] | | | | Therapy | Crohn | Felix W, | Infusion [address] | | | | | disease | PharmD [address] | | | | | ([facility] | [address] | [place], | | | | | Felix Mohl, | [place] | [place] [address] | | | | | Entyvio | [facility], [place] | Phone: | | | | | 300mg. Q 8 | [address] | [phone] | | | | | wks., | Phone: | Fax: | | | | | Crohn's | [phone] | [phone] | | | | | Procedures | Fax: | | | | | | [place] | [phone] | | | | | | INJECTION, | | | | | | | VEDOLIZUMAB, | | | | | | | 1MG [place] IV | | | | | | | INFUSION, | | | | | | | THERAP/PROPH | | | | | | | /DIAGNOST,IN | | | | | | | ITIAL,1ST | | | | | | | HOUR [facility] | | | | | | | INF | | | +--------+--------+ + + + + Encounter Details +--------+ + + + + | Date | Type | Department | Care Team | Description | +--------+ + + + + | 09/30/ | Hospital | [facility] | [facility], | Crohn's disease with | | 2019 | Encounter | MED CTR OP INFUSION | [address]ICAELA Romero [address] | complication, | | | | [address] | [address] | unspecified | | | | [place], [place] | [place], [place] | gastrointestinal | | | | [address] | [address] | tract location (HCC) | | | | [phone] | | (Primary Dx) | +--------+ + + + + Social [...] + + + | Blood Pressure | 105/56 | 10/01/2019 11:43 AM | | | | | PDT | | + + + + + | Pulse | 57 | 10/01/2019 11:43 AM | | | | | PDT | | + + + + + | Temperature | 37.6 C (99.7 F) | 10/01/2019 10:00 AM | | | | | PDT | | + + + + + | Respiratory Rate | 18 | 10/01/2019 10:00 AM | | | | | PDT | | + + + + + | Oxygen Saturation | 98% | 10/01/2019 11:43 AM | | | | | PDT | | + + + + + | Inhaled Oxygen | - | - | | | Concentration | | | | + + + + + | Weight | - | - | | + + + + + | Height | - | - | | + + + + + | Body Mass Index | - | - | | + + + + + documented in this encounter Medications at Time of Discharge + + + +---------+ + + | Medication | Sig | Dispensed | Refills | Start | End Date | | | | | | Date | | + + + +---------+ + + | adalimumab | Inject 40 mg under | | 0 | | | | (HUMIRA) 40 mg/0.8 | the skin every 14 | | | | | | mL injection | days. | | | | | | (syringe) | | | | | | + + + +---------+ + + | albuterol 90 | Inhale 2 puffs into | | 0 | 03/19/20 | | | mcg/puff inhaler | the lungs every 2 | | | 20 | | | | hours as needed. | | | | | + + + +---------+ + + | ALPRAZolam (XANAX) | Take 0.5 mg by mouth | | 0 | | | | 0.5 mg tablet | 3 times daily as | | | | | | | needed for Anxiety. | | | | | + + + +---------+ + + | | Take 1 tablet by | | 0 | 07/12/19 | | | amoxicillin-clavulan | mouth 2 times daily. | | | 20 | | | ate (AUGMENTIN) | | | | | | | 500-125 mg per | | | | | | | tablet | | | | | | + + + +---------+ + + | azithromycin | Take 1 tablet by | | 0 | 06/19/19 | | | (ZITHROMAX) 500 MG | mouth Daily. | | | 20 | | | tablet | | | | | | + + + +---------+ + + | budesonide | Take 3 capsules by | 105 | 0 | 08/27/19 | | | (ENTOCORT EC) 3 mg | mouth every morning. | capsule | | 20 | | | 24 hr capsule | Take 9 mg daily for | | | | | | | 4 weeks. Then | | | | | | | decrease by 3 mg | | | | | | | every 7 days. | | | | | + + + +---------+ + + | cetirizine (ZYRTEC | Take 10 mg by mouth | | 0 | | | | ALLERGY) 10 mg | Daily. | | | | | | tablet | | | | | | + + + +---------+ + + | ciprofloxacin | Take 1 tablet by | | 0 | 06/30/19 | | | (CIPRO) 250 mg | mouth 2 times daily. | | | 20 | | | tablet | | | | | | + + + +---------+ + + | dicyclomine | Take 1 tablet by | 120 | 0 | 04/18/19 | | | (BENTYL) 20 MG | mouth every 6 hours | tablet | | 19 | | | tabletIndications: | as needed (abdominal | | | | | | Crohn's disease with | discomfort). | | | | | | complication, | | | | | | | unspecified | | | | | | | gastrointestinal | | | | | | | tract location (HCC) | | | | | | + + + +---------+ + + | diphenhydrAMINE | Take 50 mg by mouth | | 0 | | | | (BENADRYL) 25 mg | every 4 hours. | | | | | | tablet | | | | | | + + + +---------+ + + | EPINEPHrine | inject 0.3 | | 0 | 03/17/20 | | | auto-injector 0.3 | milliliters ( 0.3 | | | 20 | | | mg/0.3 mL injection | milligrams ) | | | | | | | intramuscularly in | | | | | | | OUTE... (REFER TO | | | | | | | PRESCRIPTION NOTES). | | | | | + + + +---------+ + + | EPINEPHRINE HCL IJ | Inject 1 applicator | | 0 | | | | | as directed as | | | | | | | needed. | | | | | + + + +---------+ + + | escitalopram | Take 10 mg by mouth | | 0 | | | | (LEXAPRO) 10 mg | Daily. | | | | | | tablet | | | | | | + + + +---------+ + + | ferrous sulfate | Take 325 mg by | | 0 | | | | 325 mg tablet | mouth. | | | | | + + + +---------+ + + | guaiFENesin | Take 1,200 mg by | | 0 | | | | (MUCINEX) 600 mg 12 | mouth Twice daily | | | | | | hr tablet | as needed for | | | | | | | Congestion. | | | | | + + [...] + + + +---------+ + + | NALTREXONE HCL PO | Take 1 capsule by | | 0 | 05/16/19 | | | | mouth Daily. | | | 20 | | + + + +---------+ + + | NALTREXONE HCL PO | Take 4.5 mLs by | | 0 | | | | | mouth nightly. | | | | | + + + +---------+ + + | Olopatadine HCl | 2 drops. | | 0 | 02/07/20 | | | 0.2 % SOLN | | | | 18 | | + + + +---------+ + + | ondansetron | Take 1-2 tablets by | | 0 | 01/01/20 | | | (ZOFRAN) 4 mg tablet | mouth every 6 hours | | | 19 | | | | as needed. | | | | | + + + +---------+ + + | oxyCODONE | Take 1-2 tablets by | 42 | 0 | 12/28/19 | | | (ROXICODONE) 5 mg | mouth every 6 hours | tablet | | 19 | | | tablet | as needed for Pain. | | | | | + + + +---------+ + + | phenazopyridine | Take 1 tablet by | | 0 | 06/30/19 | | | (PYRIDIUM) 200 mg | mouth 3 times daily | | | 20 | | | tablet | as needed. | | | | | + + + +---------+ + + | pseudoePHEDrine | Take 1 tablet by | | 0 | 06/19/19 | | | (SUDAFED) 120 mg 12 | mouth every 12 hours | | | 20 | | | hr tablet | as needed. | | | | | + + + +---------+ + + | psyllium (KONSYL) | Take 1 packet by | | 0 | | | | 28.3 % PACK | mouth Daily. | | | | | + + + +---------+ + + | SIMETHICONE PO | Take 1 tablet by | | 0 | | | | | mouth as needed. | | | | | + + + +---------+ + + | vedolizumab | Inject 300 mg into | | 0 | | | | (ENTYVIO) 60 mg/mL | the vein. | | | | | | injection | | | | | | + + + +---------+ + + documented as of this encounter Progress Notes Reny Eduardo RN - 10/01/2019 10:00 AM PDT Vitals: 10/01/19 1000 10/01/19 1143 BP: 115/61 105/56 Pulse: 61 57 Resp: 18 Temp: 37.6 C (99.7 F) TempSrc: Oral SpO2: 100% 98% Administrations This Visit acetaminophen (TYLENOL) tablet 650 mg Admin Date 10/01/2019 Action Given Dose 650 mg Route Oral Administered By Reny Eduardo RN loratadine (CLARITIN) tablet 10 mg Admin Date 10/01/2019 Action Given Dose 10 mg Route Oral Administered By Reny Eduardo RN vedolizumab (ENTYVIO) 300 mg in sodium chloride 0.9% 250 mL IVPB Admin Date 10/01/2019 Action New Bag Dose 300 mg Rate 510 mL/hr Route Intravenous Administered By Melvi Salinas RN Monitored throughout treatment; treatment completed without untoward effects from medicatio n noted. Next visit Nov 26, 2019. Verbalizes understanding of plan of care. VS stable. Disch arged ambulatory to home in stable condition. Electronically signed by: Reny Eduardo RN 10/01/2019 11:54 AM PDT Reny Villatoro RN - 0 10/01/2019 10:00 AM PDT Vitals: 10/01/19 1000 BP: 115/61 Pulse: 61 Resp: 18 Temp: 37.6 C (99.7 F) Nyla Nye received into room 442, independent ambulation accompanied by her husb and. States here for Entyvio infusion. Reports no change in condition, plan of care since pattie [facility] visit. Alert, oriented x 4, cooperative. Electronically signed by: Reny Eduardo RN 10/01/2019 10:18 AM PDT documented in this enc ounter Plan of Treatment +--------+ + + + [...] Primary | + + documented in this encounter Administered Medications + +--------+ +--------+------+------+ | Medication Order | MAR | Action | Dose | Rate | Site | | | Action | Date | | | | + +--------+ +--------+------+------+ | acetaminophen (TYLENOL) tablet | Given | 10/01/19 | 650 mg | | | | 650 mg 650 mg, Oral, ONCE, Tue | | 20 10:33 | | | | | 10/01/19 at 1025, For 1 dose | | AM PDT | | | | + +--------+ +--------+------+------+ +---+---+ | | | +---+---+ + +-------+ +-------+---+---+ | loratadine (CLARITIN) tablet 10 | Given | 10/01/19 | 10 mg | | | | mg 10 mg, Oral, ONCE, Tue | | 20 10:33 | | | | | 10/01/19 at 1025, For 1 dose | | AM PDT | | | | + +-------+ +-------+---+---+ +---+---+ | | | +---+---+ + +---------+ +--------+-------+---+ | vedolizumab (ENTYVIO) 300 mg in | New Bag | 10/01/19 | 300 mg | 510 | | | sodium chloride 0.9% 250 mL IVPB | | 20 11:05 | | mL/hr | | | 300 mg, Intravenous, Administer | | AM PDT | | | | | over 30 Minutes, ONCE, Tue | | | | | | | 10/01/19 at 1025, For 1 dose, | | | | | | | EVERY 8 WEEKS MAINTENANCE. Flush | | | | | | | with 30 mL NS after giving. Keep | | | | | | | in refrigerator., | | | | | | + +---------+ +--------+-------+---+ +---+---+ | | | +---+---+ documented in this encounter"
--- OUTSIDE RECORDS SUMMARY | ~2020-01-09 | XMS | Encounter Summary ---
Demographics + + + | Address | [address] | | | [place] [address] | + + + | Home Phone | | + + + | Preferred Language | Unknown | + + + | Marital Status | | + + + | Sabianist Affiliation | Unknown | + + + | Race | White | + + + | Ethnic Group | Not or | + + + Author + + + | Author | [facility] | | | and [place] | + + + | Organization | [facility] | | | and [place] | + + + | Address | Unknown | + + + | Phone | Unavailable | + + + Support + + +---------+ + | Name | Relationship | Address | Phone | + + +---------+ + | Enrique Nye | ECON | Unknown | | + + +---------+ + | Liborio Comsb/Celine Maria Isabel | ECON | Unknown | | | [place] | | | | + + +---------+ + Care Team Providers + +------+ + | Care Urban Anthropologist Name | Role | Phone | + +------+ + | Bird Talbot | PCP | | | MD | | | + +------+ + Reason for Visit + +--------+ + | Reason | Onset | Comments | | | Date | | + +--------+ + | Request For Medical | 01/04/ | | | Records | 2018 | | + +--------+ + Encounter Details +--------+ + + + + | Date | Type | Department | Care Team | Description | +--------+ + + + + | 01/04/ | Telephone | [facility] | [facility] | Request For Medical | | 2018 | | GASTROENTEROLOGY | MICAELA Romero [address] | Records | | | | [address] | [address] | | | | | [address] [place], [place] | [place], [place] | | | | | [address] | [id number] | | | | | [phone] | | | +--------+ + + + [...] encounter Miscellaneous Notes Telephone Encounter - Kary Jaeger - 01/04/2018 11:26 AM PDTCalcarlos Interpath for L ab results. documente d in this encounter Plan of Treatment +--------+ [...]
--- OUTSIDE RECORDS SUMMARY | ~2020-01-09 | XMS | Encounter Summary ---
Demographics + + + | Address | [address] | | | [place] [address] | + + + | Home Phone | | + + + | Preferred Language | Unknown | + + + | Marital Status | | + + + | Oriental Orthodox Affiliation | Unknown | + + + | Race | White | + + + | Ethnic Group | Not or | + + + Author + + + | Author | [facility] | | | and [place] | + + + | Organization | [facility] | | | [...] Team Providers + +------+ + | Care [employer] Name | Role | Phone | + +------+ + | Bird Talbot | PCP | | | MD | | | + +------+ + Reason for Visit + +--------+ + | Reason | Onset | Comments | | | Date | | + +--------+ + | Medication Follow-up | 02/05/ | | | | 2018 | | + +--------+ + Encounter Details +--------+ + + + + | Date | Type | Department | Care Team | Description | +--------+ + + + + | 02/05/ | Telephone | [facility] | nAa Cervantes, | Medication Follow-up | | 2018 | | MED CTR OP INFUSION | PharmD [address] | | | | | [address] | [address] [facility] | | | | | [place] | [place] [address] | | | | | [address] | [phone] | | | | | [phone] | | | +--------+ + + + [...] Telephone Encounter - Felix Troy PharmD - 02/05/2018 2:06 PM PSTKelly called back. Imelda viera to check in with her now that she started 1 pen every week. She reports that she is d oing better but is remaining on a limited diet thus far. I encouraged her to continue takin g things slowly when expanding her diet and if she has any problems while on the humira to l et us know. She agrees and will reach back out with any problems. Felix Troy PharmD 02/05/2018 14:29 elephone Ana Berger, Equipment Maintenance Technician - 02/05/2018 12:09 PM PSTCalled patient to follow marilyn villela regarding humira. No answer, left message requesting call back at [phone]. documented in this encounter Plan of Treatment [...]
--- OUTSIDE RECORDS SUMMARY | ~2020-01-09 | XMS | Encounter Summary ---
Demographics + + + | Address | [address] | | | [place] [address] | + + + | Home Phone | | + + + | Preferred Language | Unknown | + + + | Marital Status | | + + + | Mandaeism Affiliation | Unknown | + + + | Race | White | + + + | Ethnic Group | Not or | + + + Author + + + | Author | [facility] | | | and [place] | + + + | Organization | [facility] | | | and [...] Team Providers + +------+ + | Care Siebel Consultant Name | Role | Phone | + +------+ + | Bird Talbot | PCP | | | MD | | | + +------+ + Reason for Referral Evaluate & Treat (Routine) +--------+ + + + + + | Status | Reason | Specialty | Diagnoses / | Referred By | Referred To | | | | | Procedures | Contact | Contact | +--------+ + + + + + | Denied | Specialty | | Diagnoses | | Provider | | | Services | | Terminal | [place], | Not, In | | | Required | | ileitis with | Heather, | System | | | | | | PUBLIC HEALTH DENTIST [address] | [place] | | | | | complication | [address] | Health and | | | | | (HCC) | [address] | Service | | | | | Abdominal | [place], | | | | | | pain, | [place] [address] | | | | | | unspecified | Phone: | | | | | | abdominal | [phone] | | | | | | location | Fax: | | | | | | Diarrhea, | [phone] | | | | | | unspecified | | | | | | | type | | | | | | | Procedures | | | | | | | CHG | | | | | | | IMMUNOASSAY | | | | | | | ANALYTE | | | | | | | QUANTITATIVE | | | | | | | NOS CHG | | | | | | | CHEMILUMINES | | | | | | | CENT ASSAY | | | | | | | CHG UNLISTED | | | | | | | MOLELCULAR | | | | | | | PATHOLOGY | | | | | | | PROCEDURE | | | | | | | CHG | | | | | | | C-REACTIVE | | | | | | | PROTEIN CHG | | | | | | | | | | | | | | IMMUNOFLUORE | | | | | | | SCENCE PER | | | | | | | SPEC 1ST | | | | | | | SINGL ANTB | | | | | | | STAIN CHG | | | | | | | IMMUNOFLUORE | | | | | | | SCENCE PER | | | | | | | SPEC ADD | | | | | | | SINGL ANTB | | | | | | | STAIN | | | +--------+ + + + + + Reason for Visit + + + | Reason | Comments | + + + | Follow-up | colonoscopy follow up | + + + Encounter Details +--------+---------+ + + + | Date | Type | Department | Care Team | Description | +--------+---------+ + + + | 04/18/ | Office | [facility] [place] | [facility], | Terminal ileitis | | 2018 | Visit | GASTROENTEROLOGY | MICAELA Romero [address] | with complication | | | | [address] | [address] | ([facility]) (Primary Dx); | | | | [address] [place], [place] | [place], [place] | Abdominal pain, | | | | [address] | [address] | unspecified | | | | [phone] | | abdominal location; | | | | | | Diarrhea, | | | | | | unspecified type | +--------+---------+ + + + Social History + +-------+ [...] + + + | Blood Pressure | 98/70 | 04/18/2017 9:29 AM | | | | | PST | | + + + + + | Pulse | 75 | 04/18/2017 9:29 AM | | | | | PST | | + + + + + | Temperature | - | - | | + + + + + | Respiratory Rate | 14 | 04/18/2017 9:29 AM | | | | | PST | | + + + + + | Oxygen Saturation | 98% | 04/18/2017 9:29 AM | | | | | PST | | + + + + + | Inhaled Oxygen | - | - | | | Concentration | | | | + + + + + | Weight | 70.5 kg (155 lb 6.8 | 04/18/2017 9:29 AM | | | | oz) | PST | | + + + + + | Height | 162.6 cm (5' 4") | 04/18/2017 9:29 AM | | | | | PST | | + + + + + | Body Mass Index | 26.68 | 04/18/2017 9:29 AM | | | | | PST | | + + + + + documented in this encounter Progress Heather Pendleton ARNP - 04/18/2017 9:30 AM PSTFormatting of this note might be differe nt from the original. PATIENT NAME: Nyla Nye : 1980: AGE: 37 y.o. REFERRED BY: No additional provider found PRIMARY CARE: Bird Talbot MD Subjective: CHIEF COMPLAINT: Nyla Nye is a 37 y.o. female is here for a follow up. She is being seen today for jaimes spected Crohn's disease following colonoscopy. HISTORY OF PRESENT ILLNESS: Patient here for follow up of colonoscopy. Since procedure, she was placed on budesonide 9 mg once daily. She feels better on the budesonide. However, she did drink a Redbull yesterda y and thinks that this is why she is not feeling well today. She is here with her with multiple questions regarding the new diagnosis. MEDICAL, SURGICAL, AND PERSONAL HISTORY Allergies Allergen Reactions Clarithromycin Nausea And Vomiting Nitrofuran Derivatives Hives, Diarrhea, Nausea And Vomiting and Rash Sulfa Antibiotics Hives and Rash Past Medical History: Diagnosis Date Abnormal weight gain Acrochordon Allergic rhinitis due to pollen Allergic urticaria Anaphylaxis Asthma, intrinsic Chronic pansinusitis Compound nevus Constipation Fecal urgency Heartburn Hemorrhagic condition (HCC) Nausea Umbilical hernia Past Surgical History: Procedure Laterality Date APPENDECTOMY 2003 CEASAREAN SECTION, MULTIPLES 2004 2004 and 2007 COLONOSCOPY COLONOSCOPY N/A 03/21/2017 Procedure: COLONOSCOPY; Surgeon: Sumit Mariee MD; Location: [facility] EGD AND COLONOSCOPY 12/13/2016 mild gastroduodenitis. Internal hemorrhoids.~ BRENDA Dr. Cason TONSILLECTOMY AND ADENOIDECTOMY 2005 UPPER GASTROINTESTINAL ENDOSCOPY WISDOM TOOTH EXTRACTION 1999 Family History Problem Relation Age of Onset Arthritis Mother Other (see comment) Mother lumbar problems Hepatitis C Father Cancer Father Stomach Social History Social History Marital status: Spouse name: N/A Number of children: N/A Years of education: N/A Occupational History Not on file. Social History Main Topics Smoking status: Never Smoker Smokeless tobacco: Never Used Alcohol use Yes Comment: social drinker Drug use: No Sexual activity: Not on file Other Topics Concern Not on file Social History Narrative No narrative on file Review Of Systems Constitutional: Denies any fevers, chills, or unintentional weight loss. Respiratory:Denies shortness of breath, cough or wheezing. Gastrointestinal:Negative except as stated above. Cardiovascular:Denies chest pain, palpitations, or swelling to legs Objective: PHYSICAL EXAM: General: Alert and oriented, NAD Eyes: Sclera clear Mouth: Mucous membranes moist Extremities: No clubbing or edema Skin: Warm, dry, intact. No rashes noted Neuro: Cranial nerves 2-12 grossly intact. Psych: Appropriate mood and affect. Abstract on 03/31/2017 Component Date Value Ref Range Status Colonoscopy Impression, External 03/21/2017 Impression: Redundant colon. One small poly p in the distal sigmoid colon, removed with a hot snare. Resected and retrieved. Stricture i n the terminal ileum and at the ileocecal valve. Biopsied. Friable (with contact bleeding), inflamed, scarred and ulcer Final Admission on 03/21/2017, Discharged on 03/21/2017 Component Date Value Ref Range Status Test, Urine, POC 03/21/2017 Negative Negative Final Internal QC 03/21/2017 Acceptable Acceptable Final Lot Number 03/21/2017 [id number] Final Expiration Date 03/21/2017 2018-07-19 Final Assessment: 1. Terminal ileitis with complication (HCC) Ambulatory referral to Gastroenterology 2. Abdominal pain, unspecified abdominal location Ambulatory referral to Gastroenterology 3. Diarrhea, unspecified type Ambulatory referral to Gastroenterology Plan: Due to ileitis with non-specific chronic inflammation, will order [employer] labs to ensure diagnosis. IBD diagnosis: Patient was diagnosed with inflammatory bowel disease last month. Last colo noscopy was 03/2017. Due for repeat endoscopy procedure in 8-10 years or sooner if symptoms indicate. IBD therapy: Patient is currently taking budesonide. Changes to medications include the ad dition of Delzicol 400 mg, 2 tabs three times daily. She is to remain on budesonide for 8 weeks total, then taper off by 3 mg every 7 days. Ideally abdominal pain and diarrhea will be adequately controlled with mesalamine alone. If symptoms return, will then need to discuss further treatment options. Would like to follow up in 3 months. IBD flare prevention: Discussed the avoidance of NSAID, avoidance of antibiotics without cl early documented bacterial infection, and avoidance of tobacco. Bone health: Recommend baseline DEXA scans PCP. It is known that extensive steroid use is found to cause osteoporosis. Depending on the results of DEXA scan, the patient may benefit from calcium, vitamin D, or bisphosphonate supplementation, as well as examination to evalu ate improvement in bone density. Nutrition: Do to our climate in the [facility], recommend periodic vitamin D testin g I PCP. If small bowel Crohn's disease present, patient also may benefit from periodic mon itoring of B12, ferritin, folate, and zinc. Healthcare maintenance: Recommend annual flu shots. Pneumovax every 5 years to reduce the risk of severe pneumonia. Recommend annual skin examinations by PCP or dermatology. Immunosuppressive therapy: While on immunosuppressive therapy, recommend CBC every 3 months . Reproductive health: Recommend routine pelvic exam/Pap smears as recommended by PCP or ObGy n. she only be considered if IBD is very well controlled. Will follow up with results. Patient is to call with any question or concerns. Any fevers, chills, chest pain, SOB or other serious symptoms patient is to call the office or go to ER . Cc: Bird Talbot MD This note was dictated using voice recognition software. Please contact me if there are an y questions regarding its content. Cathryn Dahl RN - 04/18/2017 9:30 AM PSTReferral entered for [facility] and will c all patient once approved or denied; given information on Links program to see cost to her i f denied and find out if certain labs will cost more to have drawn at. documented in this encounter Plan of Treatment [...] Ambulatory referral | Outpatient | Routin | Terminal ileitis | Expected: 04/18/2017 | | to Gastroenterology | Referral | e | with complication | (Approximate), | | | | | (HCC) Abdominal | Expires: 10/16/2017 | | | | | pain, unspecified | | | | | | abdominal location | | | | | | Diarrhea, | | | | | | unspecified type | | + + +--------+ + + documented as of this encounter Procedures + +--------+ + + + | Procedure Name | Priori | Date/Time | Associated Diagnosis | Comments | | | ty | | | | + +--------+ + + + | LABS - EXTERNAL SCAN | | 04/27/2017 | | Results for this | | | | 12:00 AM | | procedure are in the | | | | PST | | results section. | + +--------+ + + + | LABS - EXTERNAL SCAN | | 04/27/2017 | | Results for this | | | | 12:00 AM | | procedure are in the | | | | PST | | results section. | + +--------+ + + + | LABS - EXTERNAL SCAN | | 04/27/2017 | | Results for this | | | | 12:00 AM | | procedure are in the | | | | PST | | results section. | + +--------+ + + + documented in this encounter Results LABS - EXTERNAL SCAN (04/27/2017 12:00 AM PST) + + + | Narrative | Performed At | + + + | Ordered by an | | | unspecified provider. | | + + + LABS - EXTERNAL SCAN (04/27/2017 12:00 AM PST) + + + | Narrative | Performed At | + + + | Ordered by an | | | unspecified provider. | | + + + LABS - EXTERNAL SCAN (04/27/2017 12:00 AM PST) + + + | Narrative | Performed At | + + + | Ordered by an | | | unspecified provider. | | + + + documented in this encounter Visit Diagnoses + + | Diagnosis | + + | Terminal ileitis with complication (HCC) - Primary | + + | Abdominal pain, unspecified abdominal location | + + | Diarrhea, unspecified type | + + documented in this encounter
--- OUTSIDE RECORDS SUMMARY | ~2020-01-09 | XMS | Encounter Summary ---
Demographics + + + | Address | [address] | | | [place] [address] | + + + | Home Phone [...] + + + | Author | [facility] | | | and [place] | + + + | Organization | [facility] | | | and [...] Team Providers + +------+ + | Care Ball Rolling Machine Operator Name | Role | Phone | + +------+ + | Bird Talbot | PCP | | | MD | | | + +------+ + Encounter Details +--------+ + + + + | Date | Type | Department | Care Team | Description | +--------+ + + + + | 05/04/ | Orders Only | [facility] [place] | [facility], | Crohn's disease with | | 2018 | | GASTROENTEROLOGY | [address] Romero [address] | complication, | | | | [address] | [address] | unspecified | | | | [address] [place], [place] | [place], [place] | gastrointestinal | | | | [address] | [address] | tract location (HCC) | | | | [phone] | | (Primary Dx) | +--------+ + [...]
--- OUTSIDE RECORDS SUMMARY | ~2020-01-09 | XMS | Encounter Summary ---
Demographics + + + | Address | [address] | | | [place] [address] | + + + | Home Phone | | + + + | Preferred Language | Unknown | + + + | Marital Status | | + + + | Faith Affiliation | Unknown | + + + | Race | White | + + + | Ethnic Group | Not or | + + + Author + + + | Author | [facility] | | | and [place] | + + + | Organization | [facility] | | | and [...] Team Providers + +------+ + | Care Oncology Physician Name | Role | Phone | + [...] System | | | | | | WOODWORKER HELPER [address] | [place] | | | | | complication | [address] | Health and | | | | | (HCC) | [address] | Service | | | | | Diarrhea, | [place], | | | | | | unspecified | [place] [address] | | | | | | type | Phone: | | | | | | Abdominal | [phone] | | | | | | pain, | Fax: | | | | | | unspecified | [phone] | | | | | | abdominal | | | | | | | location | | | | | | | Procedures | | | | | | | CHG ENZYME | | | | | | | CELL | | | | | | | ACTIVITY, | | | | | | | EACH CHG | | | | | | | COL-CHR/MS | | | | | | | NONDRUG | | | | | | | ANALYTE JENNYFER | | | | | | | QUAL/AURORA EA | | | | | | | SPEC | | | +--------+ + + + + + Reason for Visit +--------+--------+ + | Reason | Onset | Comments | | | Date | | +--------+--------+ + | LABS | 05/11/ | TPMT | | | 2017 | | +--------+--------+ + Encounter Details +--------+ + + + + | Date | Type | Department | Care Team | Description | +--------+ + + + + | 05/11/ | Telephone | [facility] | [facility], | LABS (TPMT) | | 2017 | | GASTROENTEROLOGY | [address] | | | | | [address] | [address] | | | | | [address] [place] | [place], [place] | | | | | [address] | [id number] | | | | | [phone] | | | +--------+ + + + [...] Telephone Encounter - Kary Fowler CMA - 05/11/2017 11:24 AM PSTNotified patient by email. elephone En counter - Cathryn Rodriguez RN - 05/11/2017 8:23 AM PSTReferral for TPMT lab entered to be jessica strong at [facility] in [place]; will call patient once approved to have drawn documented in this encounter Plan of Treatment [...] | + + +--------+ + + | [facility]- | Outpatient | Routin | Terminal ileitis | Expected: 05/11/2017 | | Thiopurine | Referral | e | with complication | (Approximate), | | Methyltransferase | | | (HCC) Diarrhea, | Expires: 11/08/2017 | | Enzyme (TPMT) | | | unspecified type | | | | | | Abdominal pain, | | | | | | unspecified | | | | | | abdominal location | | + + +--------+ + + documented as of this encounter Visit Diagnoses + + | Diagnosis | + + | Terminal ileitis with complication (HCC) - Primary | + + | Diarrhea, unspecified type | + + | Abdominal pain, unspecified abdominal location | + + documented in this encounter"
--- OUTSIDE RECORDS SUMMARY | ~2020-01-09 | XMS | Encounter Summary ---
Demographics + + + | Address | [address] | | | [place] [address] | + + + | Home Phone [...] + + + | Author | [facility] | | | and [place] | + + + | Organization | [facility] | | | [...] Team Providers + +------+ + | Care Kiln Stoker Name | Role | Phone | + +------+ + | Bird Talbot | PCP | | | MD | | | + +------+ + Encounter Details +--------+ + + + + | Date | Type | Department | Care Team | Description | +--------+ + + + + | 08/26/ | Orders Only | [facility] [place] | [place], | Crohn's disease with | | 2019 | | GASTROENTEROLOGY | [address] Romero [address] | complication, | | | | [address] | [address] | unspecified | | | | [address] [place], [place] | [place], [place] | gastrointestinal | | | | [address] | [address] | tract location (HCC) | | | | [phone] | | (Primary Dx) | +--------+ + [...]
--- OUTSIDE RECORDS SUMMARY | ~2020-01-09 | XMS | Encounter Summary ---
Demographics + + + | Address | [address] | | | [place] [address] | + + + | Home Phone | | + + + | Preferred Language | Unknown | + + + | Marital Status | | + + + | Quaker Affiliation | Unknown | + + + | Race | White | + + + | Ethnic Group | Not or | + + + Author + + + | Author | [facility] | | | and [place] | + + + | Organization | [facility] | | | and [...] Team Providers + +------+ + | Care Continuous [employer] Supervisor Name | Role | Phone | + +------+ + | Bird Talbot | PCP | | | MD | | | + +------+ + Reason for Visit + + + | Reason | Comments | + + + | Abdominal Pain | | + + + Evaluate & Treat (Routine) +--------+--------+ + + + + | Status | Reason | Specialty | Diagnoses / | Referred By | Referred To | | | | | Procedures | Contact | Contact | +--------+--------+ + + + + | Closed | | Gastroenterol | Diagnoses | Juventino, | Jaylene, | | | | ogy | Unspecified | Brisa | Sumit Andres MD | | | | | abdominal | OTIS Sadler | [address], | | | | | pain | [address] | [address] | | | | | Procedures | Dg Quezada | SHI OSULLIVAN, | | | | | Office Visit | [place], | [place] [address] | | | | | | [place] | Phone: | | | | | | [address] | [phone] | | | | | | Phone: | Fax: | | | | | | [phone] | [phone] | | | | | | Fax: | | | | | | | [phone] | | +--------+--------+ + + + + Encounter Details +--------+---------+ + + + | Date | Type | Department | Care Team | Description | +--------+---------+ + + + | 02/13/ | Office | [facility] [place] | [place], | Diarrhea, | | 2016 | Visit | GASTROENTEROLOGY | MICAELA Romero [address] | unspecified type | | | | [address] [place] | [address] | (Primary Dx); | | | | [address], [place] | [place], [place] | Abdominal pain, | | | | [address] | [address] | generalized; | | | | [phone] | | Gastritis, presence | | | | | | of bleeding | | | | | | unspecified, | | | | | | unspecified | | | | | | chronicity, | | | | | | unspecified | | | | | | gastritis type; | | | | | | Duodenitis | +--------+---------+ + + + Social History [...] + + + | Blood Pressure | 116/66 | 02/13/2017 8:32 AM | | | | | PST | | + + + + + | Pulse | 69 | 02/13/2017 8:32 AM | | | | | PST | | + + + + + | Temperature | 37 C (98.6 F) | 02/13/2017 8:32 AM | | | | | PST | | + + + + + | Respiratory Rate | 14 | 02/13/2017 8:32 AM | | | | | PST | | + + + + + | Oxygen Saturation | 98% | 02/13/2017 8:32 AM | | | | | PST | | + + + + + | Inhaled Oxygen | - | - | | | Concentration | | | | + + + + + | Weight | 72.7 kg (160 lb 4.4 | 02/13/2017 8:32 AM | | | | oz) | PST | | + + + + + | Height | 162.6 cm (5' 4") | 02/13/2017 8:32 AM | | | | | PST | | + + + + + | Body Mass Index | 27.51 | 02/13/2017 8:32 AM | | | | | PST | | + + + + + documented in this encounter Patient Instructions Patient Instructions Heather KoMICAELA - 02/13/2017 12:14 PM PST Uncertain Causes of Diarrhea (Adult) Diarrhea is when stools are loose and watery. This can be caused by: Viral infections Bacterial infections Food poisoning Parasites Irritable bowel syndrome (IBS) Inflammatory bowel diseases such as ulcerative colitis, Crohn's disease, and celiac dise ase Food intolerance, such as to lactose, the sugar found in milk and milk products Reaction to medicines like antibiotics, laxatives, cancer drugs, and antacids Along with diarrhea, you may also have: Abdominal pain and cramping Nausea and vomiting Loss of bowel control Fever and chills Bloody stools In some cases, antibiotics may help to treat diarrhea. You may have a stool sample test. Th is is done to see what is causing your diarrhea, and if antibiotics will help treat it. The results of a stool sample test may take up to 2 days. The healthcare provider may not give y ou antibiotics until he or she has the stool test results. Diarrhea can cause dehydration. This is the loss of too much water and other fluids from th e body. When this occurs, body fluid must be replaced. This can be done with oral rehydratio n solutions. Oral rehydration solutions are available at drugstores and grocery stores witho ut a prescription. Home care Follow all instructions given by your healthcare provider. Rest at home for the next 24 veronica rs, or until you feel better. Avoid caffeine, tobacco, and alcohol. These can make diarrhea, cramping, and pain worse. If taking medicines: Don t take bafz-vxi-qugysaq diarrhea or nausea medicines unless your healthcare provid er tells you to. You may use acetaminophen or NSAID medicines like ibuprofen or naproxen to reduce pain a nd fever. Don t use these if you have chronic liver or kidney disease, or ever had a stoma ch ulcer or gastrointestinalbleeding. Don't use NSAID medicines if you are already taking one for another condition (like arthritis) or are on daily aspirin therapy (such as for hear t disease or after a stroke). Talk with your healthcare provider first. If antibiotics were prescribed, be sure you take them until they are finished. Don t s top taking them even when you feel better. Antibiotics must be taken as a full course. To prevent the spread of illness: Remember that washing with soap and water and using alcohol-based rn case mgr is the best way to prevent the spread of infection. Clean the toilet after each use. Wash your hands before eating. Wash your hands before and after preparing food. Keep in mind that people with diarrhea or vomiting should not prepare food for others. Wash your hands after using cutting boards, countertops, and knives that have been in co ntact with raw foods. Wash and then peel fruits and vegetables. Keep uncooked meats away from cooked and izuxu-km-tmg foods. Use a food thermometer when cooking. Cook poultry to at least 165F (74C). Cook groun d meat (beef, veal, pork, pat) to at least 160F (71C). Cook fresh beef, veal, pat, and pork to at least 145F (63C). Don t eat raw or undercooked eggs (poached or sheree side up), poultry, meat, or unpast eurized milk and juices. Food and drinks The main goal while treating vomiting or diarrhea is to prevent dehydration. This is done b y taking small amounts of liquids often. Keep in mind that liquids are more important than food right now. Drink only small amounts of liquids at a time. Don t force yourself to eat, especially if you arehaving cramping, vomiting, or diar dunia. Don t eat large amounts at a time, even if you are hungry. If you eat, avoid fatty, greasy, spicy, or fried foods. Don t eat dairy foods or drink milk if you have diarrhea.These can makediarrhea wo rse. During the first 24 hours you can try: Oral rehydration solutions. Do not use sports drinks. They have too much sugar and not e nough electrolytes. Soft drinks without caffeine Mara dariusz Water (plain or flavored) Decaf tea or coffee Clear broth, consomm, or bouillon Gelatin, popsicles, or frozen fruit juice bars The second 24 hours, if you are feeling better, you can add: Hot cereal, plain toast, bread, rolls, or crackers Plain noodles, rice, mashed potatoes, chicken noodle soup, or rice soup Unsweetened canned fruit (no pineapple) Bananas As you recover: Limit fat intake to less than 15 grams per day. Don t eat margarine, butter, oils, may onnaise, sauces, gravies, fried foods, peanut butter, meat, poultry, or fish. Limit fiber. Don t eat raw or cooked vegetables, fresh fruits except bananas, or bran cereals. Limit caffeine and chocolate. Limit dairy. Don t use spices or seasonings except salt. Go back to your normal diet over time, as you feel better and your symptoms improve. If the symptoms come back, go back to a simple diet or clear liquids. Follow-up care Follow up with your healthcare provider, or as advised. If a stool sample was taken or cult ures were done, call the healthcare provider for the results as instructed. Call 911 Call 911 if you have any of these symptoms: Trouble breathing Confusion Extreme drowsiness or trouble walking Loss of consciousness Rapid heart rate Chest pain Stiff neck Seizure When to seek medical advice Call your healthcare provider right away if any of these occur: Abdominal pain that gets worse Constant lower right abdominal pain Continued vomiting and inability to keep liquids down Diarrhea more than 5 times a day Blood in vomit or stool Dark urine or no urine for 8 hours, dry mouth and tongue, tiredness, weakness, or dizzin ess Drowsiness New rash You don t get better in 2 to 3 days Fever of 100.4F (38C) or higher that doesn t get lower with medicine Date Last Reviewed: 04/05/201519991336-9681 [employer] [address] [place] [id number]. All righ ts reserved. This information is not intended as a substitute for professional medical care. Always follow your healthcare professional's instructions. documented in this encounter Progress Notes Heather Ko ARNP - 02/13/2017 8:30 AM PSTFormatting of this note might be differe nt from the original. PATIENT NAME: Nyla Nye : 1980: AGE: 36 y.o. REFERRED BY: Brisa Anguiano PRIMARY CARE: Bird Talbot MD Subjective: CHIEF COMPLAINT: Nyla Nye is a 36 y.o. female referred by Bird Talbot MD for evaluation and treatment of diarrhea with Abdominal pain. HISTORY OF PRESENT ILLNESS: Patient reports that about 6 months ago, she started to have diarrhea since. She wakes up i n the night to have diarrhea. It is worse with eating anything. She has tried to discontinue coffee. On the days she is not having the diarrhea, she can have loose stools, formed, or n o BM at all. She is typically taking Pepto bismol on these days. This is when she wakes up i n the night due to abdominal cramping and diarrhea. She has not figured out what can cause t he days without diarrhea. She has had 2.5 days where she is not having diarrhea. On her days that she is having diarrhea, she is having about 8 BM per day. She had 1 episod e of rectal bleeding. Eating in general can worsen. She reports that she has significant abd ominal cramping with her diarrhea. She is having nocturnal diarrhea. She has not lost weight due to diarrhea. She reports that she has had increased abdominal issues since she childbirth in 2006. She h ad C-sections. She has had 3 abdominal surgeries including 2 C-sections and an appendectomy. She also reports a significant family history of endometriosis. She has recently restarted oral contraceptives due to long painful periods. She has never been diagnosed with endometri osis. She was in [facility] in [facility]. Denies fevers or chills. Reports that sugar substitutes can definitely cause diarrhea. She has been taking allergy shots. She remembers being told that she does not have Celiac d isease. She is lactose intolerant. She can have some dairy, just not milk. MEDICAL, SURGICAL, AND PERSONAL HISTORY: Vitals: 02/13/17 0832 BP: 116/66 Pulse: 69 Resp: 14 Temp: 37 C (98.6 F) PainSc: 2 PainLoc: Abdomen Allergies Allergen Reactions Clarithromycin Other (See Comments) Reaction unknown Nitrofuran Derivatives Hives, Diarrhea, Nausea And Vomiting and Rash Sulfa Antibiotics Hives and Rash Past Medical History: Diagnosis Date Abnormal weight gain Acrochordon Allergic rhinitis due to pollen Allergic urticaria Anaphylaxis Asthma, intrinsic Chronic pansinusitis Compound nevus Constipation Fecal urgency Heartburn Hemorrhagic condition (HCC) Nausea Umbilical hernia Past Surgical History: Procedure Laterality Date APPENDECTOMY 2002 CEASAREAN SECTION, MULTIPLES 2003 2003 and 2006 COLONOSCOPY EGD AND COLONOSCOPY 12/13/2016 mild gastroduodenitis. Internal hemorrhoids.~ BRENDA Dr. Cason TONSILLECTOMY AND ADENOIDECTOMY 2006 UPPER GASTROINTESTINAL ENDOSCOPY WISDOM TOOTH EXTRACTION 1999 [...] any fevers, chills, or unintentional weight loss. Skin: Denies rashes ENT: Complains of ringing or buzzing in ears, constantly runny nose, and hayfever. Denies hearing loss, use of hearing aids, or hoarseness for greater than one month. Eye: Denies using glaucoma eye drops. Denies dry, burning, painful eyes Cardiovascular: Complains of heart palpitations. Denies chest pain or bothersome ankle swe lling. Respiratory:Complains of shortness of breath. Denies constant coughing or wheezing. Gastrointestinal:complains of constipation, diarrhea, nausea, hemorrhoids, heartburn, or ab dominal pain. Denies bloody or black stools, Hematemesis, or dysphagia. Genitourinary: complains of urine incontinence. Denies painful urination, waking up on ave rage more than once per night to urinate, bloody urine, or impotence Musculoskeletal: Denies swollen joints, painful back, or painful joints. Endocrine: Denies enlarged thyroid Neurological: Complains of numbness and tingling. Denies memory difficulties, muscle weakn ess, paralysis of arms or legs, epilepsy or seizure, or frequent bothersome and headaches Hematology/ Lymph: Complains of anemia. Denies enlarged lymph glands. Psychiatric: Complains of depression. Denies anxiety. Objective: PHYSICAL EXAM: General: well developed, well nourished, in no acute distress. Head: normocephalic and atraumatic Eyes: Sclera clear Mouth: MMM Lungs: Clear to auscultate bilaterally and throughout Heart: regular rate and rhythm Abdomen: Soft, non tender, non distended, dullness with percussion over most of bowel tympany no theo over LUQ> bowel tones positive times 4 quadrants, negative Hathaway's sign, negative rebo und tenderness, no guarding, no hepatosplenomegaly palpated. Msk: symmetrical with no deformity, with normal posture and gait, normal strength. Extremities: no clubbing, cyanosis, edema, or deformity noted Neurologic: no focal deficits, cranial nerves II-XII grossly intact Skin: intact without lesions or rashes. Psych: alert and cooperative; normal mood and affect; normal attention span and concentration. Abstract on 02/09/2017 Component Date Value Ref Range Status Hemoccult 1 Result, External 10/13/2016 Negative Final Helicobactor pylori Ag 10/13/2016 Negative Final Result 10/13/2016 10-13-16 no white blood cells seen Final Result 10/13/2016 10-14-16 no growth of normal enteric gram-negative bacilli after overn ight Corrected Ova + Parasite Exam 10/13/2016 10-14-16 no ova and parasites seen. Final Giardia Antigen, Stool 10/13/2016 Negative Negative Final Clostridium Diff 12/13/2016 Negative Negative, X, Not Detected, Detected, Invalid, Mela t not performed, Pass, Fail Final Colonoscopy Impression, External 12/13/2016 mild gastroduodenitis. Internal hemorrhoids .~ [facility] Dr. Cason Final DIAGNOSIS: 12/13/2016 A) Mucosa, Duodenum, Biopsy: No pathologic diagnosis. Final DIAGNOSIS: 12/13/2016 B) Mucosa, Pyloric Bulb Biopsy: Mild chronic duodenitis. Final DIAGNOSIS: 12/13/2016 C) Mucosa, Antrum, Biopsy: Mild inactive gastritis Final DIAGNOSIS: 12/13/2016 D) Mucosa, Gastroesophageal Junction, Biopsy: Gastric type mucosa with mild to moderate chronic gastritis, diease activity minimal. Final DIAGNOSIS: 12/13/2016 E) Mucosa, Mid Esophagus, Biopsy: mild chronic esophagitis. no ev idence of eosinophilic esophagitis. Final DIAGNOSIS: 12/13/2016 F) Mucosa, Colon, Random Biopsies: No pathologic diagnosis. [place] EGD and colonoscopy 12/13/2016: Post operative diagnosis: Mild gastroduodenitis. Internal hemorrhoids. Pathology 12/13/2016: Diagnosis: A. Duodenum mucosa biopsy: - No pathologic diagnosis. B. Pyloric bulb biopy: - Mild chronic Duodenitis C. Antrum mucosa biopsy: - Mild inactive gastritis D. gastroesophageal junction Mucosa. - gastric catarina mucosa withmil to modrate chronic gastrti, iease activiy mimal. Assessment: 1. Diarrhea, unspecified type CT Abdomen Pelvis w Contrast Zinc Celiac Panel, IgA and IgG 2. Abdominal pain, generalized CT Abdomen Pelvis w Contrast Zinc Celiac Panel, IgA and IgG 3. Gastritis, presence of bleeding unspecified, unspecified chronicity, unspecified gastrit is type 4. Duodenitis Plan: Ordered CT abdomen pelvis due to continued diarrhea and abdominal pain. Patient given a prescription for Bentyl to help with abdominal pain. Ordered Zinc level due to chronic diarrhea. Ordered celiac sprue screen to check for potential allergy to wheat or gluten as cause for symptoms. Will follow up with results. Patient is to call with any question or concerns. Any fevers, chills, chest pain, SOB or other serious symptoms patient is to call the office or go to ER . Cc: Bird Talbot MD This note was dictated using voice recognition software. Please contact me if there are an y questions regarding its content. Electronically signed by MICAELA Snider at 02/01 12:14 PM PSTdocumented in this encounter Plan of Treatment +--------+ + + + + | Date | Type | Specialty | Care Team | Description | +--------+ + + + + | 01/20/ | Appointment | Infusion Therapy | | | | 2020 | | | | | +--------+ + + + + documented as of this encounter Results Celiac Panel, IgA and IgG (02/13/2017 10:23 AM PST) + + + + + + | Component | Value | Ref Range | Performed | Pathologist | | | | | At | Signature | + + + + + + | Tissue | <0.5Comment: Negative | <15.0 U/mL | REFERENCE | | | Transglutam | < | | [facility] | | | inase IgA | 15.0Positive | | | | | | Equal to or > | | | | | | 15.0 | | | | + + + + + + | Tissue | 0.8Comment: Negative | <15.0 U/mL | REFERENCE | | | Transglutam | < | | [facility] | | | inase IgG | 15.0Positive | | | | | | Equal to or > | | | | | | 15.0tTG antibody, | | | | | | especially IgA, is | | | | | | sensitive and specific | | | | | | for untreatedCeliac | | | | | | Disease. Levels can | | | | | | decrease significantly | | | | | | in response to agluten | | | | | | free diet. The IgG assay | | | | | | is used mainly to | | | | | | detect celiacpatients | | | | | | who are IgA | | | | | | deficient.Testing | | | | | | Performed: [facility], [address] | | | | | | [address], [place] | | | | | | [address] | | | | + + + + + + + + | Specimen | + + | Blood | + + + + + + + | Performing | Address | City/State/Zipcode | Phone Number | | Organization | | | | + + + + + | [facility] | [address] | [place] [address] | [phone] | + + + + + Zinc (02/13/2017 10:23 AM PST) + + + + + + | Component | Value | Ref Range | Performed | Pathologist | | | | | At | Signature | + + + + + + | ZINC | 78Comment: Circulating | 60 - 120 ug/dL | REFERENCE | | | | zinc concentrations are | | [facility] | | | | dependent on albumin | | | | | | status andare depressed | | | | | | with malnutrition. Zinc | | | | | | may also be lowered | | | | | | withinfection, | | | | | | inflammation, stress, | | | | | | oral contraceptives, and | | | | | | .Zinc may be | | | | | | elevated with zinc | | | | | | supplementation or | | | | | | fasting. Elevatedzinc | | | | | | concentrations may | | | | | | interfere with copper | | | | | | adsorption.This test was | | | | | | developed and its | | | | | | performance | | | | | | characteristics | | | | | | determinedby [facility]. The | | | | | | U.S. Food and Drug | | | | | | Administration (FDA) has | | | | | | not approvedor cleared | | | | | | this test. However, FDA | | | | | | approval or clearance is | | | | | | currentlynot required | | | | | | for clinical use of this | | | | | | test.The results are | | | | | | not intended to be used | | | | | | as the sole means for | | | | | | clinicaldiagnosis or | | | | | | patient management | | | | | | decisions. [facility] is | | | | | | authorized underClinical | | | | | | Laboratory Improvement | | | | | | Amendments (CLIA) to | | | | | | performhigh-complexity | | | | | | testing.Testing | | | | | | Performed: [facility], [address] | | | | | | [address], [place] | | | | | | [address] | | | | + + + + + + + + | Specimen | + + | Blood | + + + + + + + | Performing | Address | City/State/Zipcode | Phone Number | | Organization | | | | + + + + + | [facility] | [address] | [place] [address] | [phone] | + + + + + documented in this encounter Visit Diagnoses + + | Diagnosis | + + | Diarrhea, unspecified type - Primary | + + | Abdominal pain, generalized | + + | Gastritis, presence of bleeding unspecified, unspecified chronicity, unspecified | | gastritis type | + + | Duodenitis Duodenitis without mention of hemorrhage | + + documented in this encounter
--- OUTSIDE RECORDS SUMMARY | ~2020-01-09 | XMS | Encounter Summary ---
Demographics + + + | Address | [address] | | | [place] [address] | + + + | Home Phone | | + + + | Preferred Language | Unknown | + + + | Marital Status | | + + + | Christian Affiliation | Unknown | + + + | Race | White | + + + | Ethnic Group | Not or | + + + Author + + + | Author | [facility] | | | and [place] | + + + | Organization | [facility] | | | [...] Team Providers + +------+ + | Care Security Services Manager Name | Role | Phone | + +------+ + | Bird Talbot | PCP | | | MD | | | + +------+ + Encounter Details +--------+ + + + + | Date | Type | Department | Care Team | Description | +--------+ + + + + | 04/04/ | Orders Only | [facility] | Moh[facility]ix W, | Crohn's disease with | | 2019 | | [facility] | PharmD [address] | complication, | | | | PHARMACOTHERAPY | [facility] | unspecified | | | | CLINIC [address] | [id number] | gastrointestinal | | | | ST [place], [place] | | tract location (HCC) | | | | [address] | | (Primary Dx); | | | | [phone] | | Crohn's disease of | | | | | | small intestine with | | | | | | complication (HCC) | +--------+ + + + + Social [...] - | | Primary | + + | Crohn's disease of small intestine with complication (HCC) Regional enteritis of | | small intestine | + + documented in this encounter"
--- OUTSIDE RECORDS SUMMARY | ~2020-01-09 | XMS | Encounter Summary ---
Demographics + + + | Address | [address] | | | [place] [address] | + + + | Home Phone | | + + + | Preferred Language | Unknown | + + + | Marital Status | | + + + | Anglican Affiliation | Unknown | + + + | Race | White | + + + | Ethnic Group | Not or | + + + Author + + + | Author | [facility] | | | and [place] | + + + | Organization | [facility] | | | [...] Team Providers + +------+ + | Care Jail Keeper Name | Role | Phone | + [...] | disease, | PharmD [address] | | | | | unspecified, | [address] | [place], | | | | | with | [place] | [place] [address] | | | | | unspecified | [place], [place] | Phone: | | | | | complication | [phone] | [phone] | | | | | s (HCC) | Phone: | Fax: | | | | | Procedures | [phone] | [phone] | | | | | [facility] [place] [id number] | Fax: | | | | | | [place] | [phone] | | | | | | USTEKINUMAB | | | | | | | SUB CU INJ, | | | | | | | 1 MG NH | | | | | | | INJECTION, | | | | | | | VEDOLIZUMAB, | | | | | | | 1MG NH IV | | | | | | [...] | +--------+ + + + + | 05/17/ | Hospital | [facility] | Bird Talbot | Crohn's disease with | | 2019 | Encounter | MED CTR OP INFUSION | MD Alber [address] | complication, | | | | [address] | [address] | unspecified | | | | LUCINDA Enriquez | [place] | gastrointestinal | | | | [address] | [phone] | tract location (HCC) | | | | [phone] | [phone] | | | | | | | [...] + + + | Blood Pressure | 115/68 | 05/17/2018 1:00 PM | | | | | PST | | + + + + + | Pulse | 86 | 05/17/2018 1:00 PM | | | | | PST | | + + + + + | Temperature | 36.7 C (98.1 F) | 05/17/2018 1:00 PM | | | | | PST | | + + + + + | Respiratory Rate | 16 | 05/17/2018 1:00 PM | | | | | PST | | + + + + + | Oxygen Saturation | 100% | 05/17/2018 1:00 PM | | | | | PST [...] documented as of this encounter Progress Notes Monalisa Miranda RN - 05/17/2018 1:07 PM PSTMonitored throughout treatment; treatment c ompleted without untoward effects from medication noted. Next visit in July 12 Verbalizes understanding of plan of care. VS stable. Discharged ambulatory to home in stable condition . ohlFelix, Magan armD - 05/17/2018 12:02 PM PST [facility] Inflammatory Bowel Disease Follow Up Provider: Felix Troy, Pauline Encounter Date: 05/17/2018 Patient: Nyla Nye : 1980 CSN: [id number] ASSESSMENT 6 week follow up Nyla Nye is a 38 y.o. female who [facility] by MICAELA Snider for DMT management. Nyla has been prescribed ENTY LUCIEN (vedolizumab) for Crohn's disease. The purpose of today's discussion is to assess for co mpliance, adverse reactions, and answer Nyla's questions. Signs and Symptoms of IBD Recent onset of the following symptoms: Yes No Diarrhea [] [x] Blood in stool [] [x] Severe abdominal pain [] [x] Number of bowel movements a day: every other day Signs and Symptoms of [...] Hep B screenin06/20/17 Last TB screenin06/20/17 Nyla reports that she is feeling better on the Entyvio but is skeptical as this is how the Humira went for her. She reported no side effect or any additional GI symptoms then what i s listed above. Says that the Dicyclomine did help take away some of the cramping but she groves s only needed it once or twice. Symptoms overall appear improved and Nyla says she feels b francheska. Nyla asked about inflammatory markers and any other way to monitor the efficacy of the Entyvio. I explained that the inflammatory markers we could draw and asses are not spec ific to Crohns or Ulcerative Colitis. This means they can be miss leading and not show us w hat is really going on. Our main focus will be on her symptom management. PLAN 1. Compliance was discussed and Nyla denies any missed doses of the medication therapy. 2. Medication reconciliation was done and Nyla does not report any changes or new medicati ons including prescription, OTC, or herbal/supplements. 3. Since Nyla is on ENTYVIO (vedolizumab) signs and symptoms of infection (including TB);Eron garcia denies all signs/symptoms. 4. General adverse drug reaction monitoring was done and Nyla denies any adverse drug reac tions. 5. Nyla was reminded that labs (CBC w/diff and CMP) will be due on 07/12/18. 6. Nyla is on a biologic and [...] outl ined above. Felix Troy PharmD DATE/TIME: 05/17/2018 12:02 aterence, Reny Bolivar RN - 05/17/2018 11:55 AM PST Vitals: 05/17/18 1153 BP: 121/64 Pulse: 77 Resp: 16 Temp: 37.3 C (99.1 F) Nyla Nye received into room 441, independent ambulation accompanied by her husb and. States here for Entyvio infusion. Reports no change in condition, plan of care since [facility] visit. Alert, oriented x 4, cooperative. Electronically signed by: Reny Eduardo RN 05/17/2018 11:55 documented in this enc ounter Plan of [...] | acetaminophen (TYLENOL) tablet | Given | 05/17/19 | 650 mg | | | | 650 mg 650 mg, Oral, ONCE, Shaylee | | 19 12:11 | | | | | 05/17/18 at 1210, For 1 dose | | PM PST | | | | + +--------+ +--------+------+------+ +---+---+ | | | +---+---+ + +-------+ +-------+---+---+ | loratadine (CLARITIN) tablet 10 | Given | 05/17/19 | 10 mg | | | | mg 10 mg, Oral, ONCE, Shaylee | | 19 12:11 | | | | | 05/17/18 at 1210, For 1 dose | | PM PST | | | | + +-------+ +-------+---+---+ +---+---+ | | | +---+---+ + +---------+ +--------+-------+---+ | vedolizumab (ENTYVIO) 300 mg in | New Bag | 05/17/19 | 300 mg | 510 | | | sodium chloride 0.9% 250 mL IVPB | | 19 12:26 | | mL/hr | | | 300 mg, Intravenous, Administer | | PM PST | | | | | over 30 Minutes, ONCE, Shaylee | | | | | | | 05/17/18 at 1225, For 1 dose, WEEK | | | | | | | 6. Flush with 30 mL NS after | | | | | | | giving. Keep in refrigerator., | | | | | | + +---------+ +--------+-------+---+ +---+---+ | | | +---+---+ documented in this encounter"
--- OUTSIDE RECORDS SUMMARY | ~2020-01-09 | XMS | Encounter Summary ---
Demographics + + + | Address | [address] | | | [place] [address] | + + + | Home Phone | | + + + | Preferred Language | Unknown | + + + | Marital Status | | + + + | Hinduism Affiliation | Unknown | + + + | Race | White | + + + | Ethnic Group | Not or | + + + Author + + + | Author | [facility] | | | and [place] | + + + | Organization | [facility] | | | [...] Team Providers + +------+ + | Care Value Engineer Name | Role | Phone | + +------+ + | Bird Talbot | PCP | | | MD | | | + +------+ + Reason for Visit + +--------+ + | Reason | Onset | Comments | | | Date | | + +--------+ + | Financial | 06/05/ | | | | 2019 | | + +--------+ + Encounter Details +--------+ + + + + | Date | Type | Department | Care Team | Description | +--------+ + + + + | 06/05/ | Telephone | [facility] | Felix Troy W, | Financial | | 2019 | | MED CTR | PharmD [address] | | | | | PHARMACOTHERAPY | [place], [place] | | | | | CLINIC [address] | [phone] | | | | | [place], [place] | | | | | | [address] | | | | | | [phone] | | | +--------+ + + + [...] Telephone Encounter - Felix Troy PharmD - 06/05/2018 3:32 PM PSTKelly called asking a bout copay assistance through the [employer]. I suggested that she go the [employer] web site and click on the tab that talks about financial support. There she can get jaquan venegas with who she needs to about copay assistance or free drug from the company. If there wa s issues she was instructed to call me back and I can help facilitate the conversation. Felix Troy PharmD 06/05/2018 15:34 documented in this encounter Plan of Treatment [...]
--- OUTSIDE RECORDS SUMMARY | ~2020-01-09 | XMS | Encounter Summary ---
Demographics + + + | Address | [address] | | | [place] [address] | + + + | Home Phone | | + + + | Preferred Language | Unknown | + + + | Marital Status | | + + + | Scientologist Affiliation | Unknown | + + + | Race | White | + + + | Ethnic Group | Not or | + + + Author + + + | Author | [facility] | | | and [place] | + + + | Organization | [facility] | | | and [place] | + + + | Address | Unknown | + + + | Phone | Unavailable | + + + Support + + +---------+ + | Name | Relationship | Address | Phone | + + +---------+ + | Enrique Nye | ECON | Unknown | | + + +---------+ + | Liborio Combs/Celine Nicolas | ECON | Unknown | | | Jose Juaninger | | | | + + +---------+ + Care Team Providers + +------+ + | Care Histology Assistant Name | Role | Phone | + +------+ + | Bird Talbot | PCP | | | MD | | | + +------+ + Reason for Visit Auth/Cert +--------+--------+ + + + + | Status | Reason | Specialty | Diagnoses / | Referred By | Referred To | | | | | Procedures | Contact | Contact | +--------+--------+ + + + + | | | | Diagnoses | | | | | | | Abnormal CT | | | | | | | of the | | | | | | | abdomen | | | | | | | (R93.5), | | | | | | | Diarrhea, | | | | | | | unspecified | | | | | | | type | | | | | | | (R19.7), | | | | | | | Generalized | | | | | | | abdominal | | | | | | | pain | | | | | | | (R10.84) | | | | | | | Procedures | | | | | | | NC | | | | | | | COLONOSCOPY | | | | | | | FLX DX | | | | | | | W/COLLJ SPEC | | | | | | | WHEN PFRMD | | | | | | | NC | | | | | | | COLONOSCOPY | | | | | | | W/BIOPSY | | | | | | | SINGLE/MULTI | | | | | | | PLE NC | | | | | | | COLSC FLX | | | | | | | W/RMVL OF | | | | | | | TUMOR POLYP | | | | | | | LESION SNARE | | | | | | | TQ | | | | | | | COLONOSCOPY | | | +--------+--------+ + + + + Encounter Details +--------+ + + + + | Date | Type | Department | Care Team | Description | +--------+ + + + + | 03/21/ | Hospital | [facility] | Sumit Mariee MD | Diarrhea, | | 2017 | Encounter | [facility] | [address], [place] | unspecified type | | | | [address] | [address] [place], [place] | (Primary Dx); | | | | [place], [place] | [address] | Generalized | | | | [id number] | | abdominal pain; | | | | [phone] | | Abnormal CT of the | | | | | | abdomen | +--------+ + + + + Social [...] + + + | Blood Pressure | 103/53 | 03/21/2017 12:00 PM | | | | | PST | | + + + + + | Pulse | 60 | 03/21/2017 12:00 PM | | | | | PST | | + + + + + | Temperature | 36.6 C (97.9 F) | 03/21/2017 9:22 AM | | | | | PST | | + + + + + | Respiratory Rate | 16 | 03/21/2017 12:00 PM | | | | | PST | | + + + + + | Oxygen Saturation | 97% | 03/21/2017 12:00 PM | | | | | PST | | + + + + + | Inhaled Oxygen | - | - | | | Concentration | | | | + + + + + | Weight | 70.8 kg (156 lb 1.4 | 03/21/2017 9:22 AM | | | | oz) | PST | | + + + + + | Height | 162.6 cm (5' 4") | 03/21/2017 9:22 AM | | | | | PST | | + + + + + | Body Mass Index | 26.79 | 03/21/2017 9:22 AM | | | | | PST | | + + + + + documented in this encounter Discharge Instructions Instructions Mini Angel RN - 03/21/2017 Recovery After Procedural Sedation (Adult) You have been given medicine by vein to make you sleep during your surgery. This may have i ncluded both a pain medicine and sleeping medicine. Most of the effects have worn off. But y ou may still have some drowsiness for the next 6 to 8 hours. Home care Follow these guidelines when you get home: For the next 8 hours, you should be watched by a responsible adult. This person should m jessica sure your condition is not getting worse. Don't drink any alcoholfor the next [address], operate dangerous machinery, or make important business or personal decisio nsduring the next 24 hours. Note: Your healthcare provider may tell you not to take any medicine by mouth for pain or s leep in the next 4 hours. These medicines may react with the medicines you were given in the hospital. This could cause a much stronger response than usual. Follow-up care Follow up with your healthcare provider if you are not alert and back to your usual level o f activity within 12 hours. When to seek medical advice Call your healthcare provider right away if any of these occur: Drowsiness gets worse Weakness or dizziness gets worse Repeated vomiting You can't be awakened Date Last Reviewed: 01/19/201619997826-3297 [employer]. [address] [place] [address], [place] [address]. All righ ts reserved. This information is not intended as a substitute for professional medical care. Always follow your healthcare professional's instructions. Understanding Colon and Rectal Polyps The colon (also called the large intestine) is a muscular tube that forms the last part of the digestive tract. It absorbs water and stores food waste. The colon is about 4 to 6 feet long. The rectum is the last 6 inches of the colon. The colon and rectum have a smooth linin g composed of millions of cells. Changes in these cells can lead to growths in the colon ifeoma t can become cancerous and should be removed. Multiple tests are available to screen for col on cancer, but the colonoscopy is the most recommended test. During colonoscopy, these polyp s can be removed. How often you need this test depends on many things including your conditi on, your family history, symptoms, and what the findings were at the previous colonoscopy. When the colon lining changes Changes that happen in the cells that line the colon or rectum can lead to growths called p olyps. Over a period of years, polyps can turn cancerous. Removing polyps early may prevent cancer from ever forming. Polyps Polyps are fleshy clumps of tissue that form on the lining of the colon or rectum. Small po lyps are usually benign (not cancerous). However, over time, cells in a polyp can change and become cancerous. Certain types of polyps known as adenomatous polyps are premalignant. The risk for invasive cancer increases with the size of the polyp and certain cell and gene fea tures. This means that they can become cancerous if they're not removed.Hyperplastic polyp s are benign. They can grow quite large and not turn cancerous. Cancer Almost all colorectal cancers start when polyp cells begin growing abnormally. As a cancero us tumor grows, it may involve more and more of the colon or rectum. In time, cancer can als o grow beyond the colon or rectum and spread to nearby organs or to glands called lymph node s. The cells can also travel to other parts of the body. This is known as metastasis. The ea rlier a cancerous tumor is removed, the better the chance of preventing its spread. Date Last Reviewed: 11/02/201519999412-4352 [employer]. [address] [place] [address]. All righ ts reserved. This information is not intended as a substitute for professional medical care. Always follow your healthcare professional's instructions. documented in this encounter Medications at Time of Discharge + + + +---------+--------+ + | Medication | Sig | Dispensed | Refills | Start | End Date | | | | | | Date | | + + + +---------+--------+ + | cetirizine (ZYRTEC | Take 10 mg by mouth | | 0 | | | | ALLERGY) 10 mg | Daily. | | | | | | tablet | | | | | | + + + +---------+--------+ + | diphenhydrAMINE | Take 50 mg by mouth | | 0 | | | | (BENADRYL) 25 mg | every 4 hours. | | | | | | tablet | | | | | | + + + +---------+--------+ + | psyllium (KONSYL) | Take 1 packet by | | 0 | | | | 28.3 % PACK | mouth Daily. | | | | | + + + +---------+--------+ + documented as of this encounter H&P Notes Sumit Mariee MD - 03/21/2017 10:37 AM PSTThe patient's questions are answered consent fo rm is signed pulse is 86 O2 sat 100% blood pressure 120/83 we will proceed with colonoscopyE lectronically signed by Sumit Mariee MD at 03/21/2017 10:45 AM Heather Crespo ARN P - 03/20/2017 9:00 AM PST PATIENT NAME: Nyla Nye : 1980: AGE: 37 y.o. REFERRED BY: No additional provider found PRIMARY CARE: Bird Talbot MD Subjective: CHIEF COMPLAINT: Nyla Nye is a 37 y.o. female is here for a follow up. She is being seen today for fo llow-up CT scan due to abdominal pain. HISTORY OF PRESENT ILLNESS: Patient is here following up CT scan for abdominal pain. She has had upper endoscopy and c olonoscopy 12/2016. Upper endoscopy and colonoscopy did not show any cause for her abdominal pain. She continues report discomfort in the right side of her abdomen. It is worse with eating. She reports alternating thin narrow stools and diarrhea. Denies blood in her stool. Does feel as though there is significant mucus in her bowel movements. Stool studies have been negative for infection. No evidence of celiac disease. Testing has been negative for celiac disease. LMP: 03/12/2017. She is not taking oral contraceptives at this time. However, her and hus band report that due to her abdominal pain they have not been sexually active. MEDICAL, SURGICAL, AND PERSONAL HISTORY Allergies Allergen Reactions Clarithromycin Other (See Comments) [...] SECTION, MULTIPLES 2004 2004 and 2007 COLONOSCOPY EGD AND COLONOSCOPY 12/13/2016 mild gastroduodenitis. Internal hemorrhoids.~ BRENDA Dr. Cason TONSILLECTOMY AND ADENOIDECTOMY 2006 UPPER GASTROINTESTINAL ENDOSCOPY WISDOM TOOTH EXTRACTION 2000 Family History Problem Relation Age of Onset [...] swelling to legs Objective: PHYSICAL EXAM: General: well developed, well nourished, in no acute distress. Head: normocephalic and atraumatic Eyes: Sclera clear Mouth: MMM Lungs: Clear to auscultate bilaterally and throughout Heart: regular rate and rhythm Abdomen: Soft, tender to palpation over right side of abdomen, non distended, bowel tones positi ve times 4 quadrants, negative Hathaway's sign, negative rebound tenderness, no guarding, no h epatosplenomegaly palpated. Rectal: Will be done prior to procedure Msk: symmetrical with no deformity, with normal posture and gait, normal strength. Extremities: no clubbing, cyanosis, edema, or deformity noted Neurologic: no focal deficits, cranial nerves II-XII grossly intact Skin: intact without lesions or rashes. Psych: alert and cooperative; normal mood and affect; normal attention span and concentration. No visits with results within 1 Month(s) from this visit. Latest known visit with results is: Appointment on 02/13/2017 Component Date Value Ref Range Status ZINC 02/14/2017 78 60 - 120 ug/dL Final Tissue Transglutaminase IgA 02/14/2017 <0.5 <15.0 U/mL Final Tissue Transglutaminase IgG 02/14/2017 0.8 <15.0 U/mL Final EGDT 02/13/2017 Done Final Assessment: 1. Abnormal CT of the abdomen Case request: colonoscopy; N/A 2. Diarrhea, unspecified type Case request: colonoscopy; N/A 3. Generalized abdominal pain Case request: colonoscopy; N/A Plan: Patient to have colonoscopy for further evaluation. The procedural techniques, risks, indic ations, and alternatives were discussed. Among the risks, are perforation, bleeding, infect ion, allergic/adverse reactions to medications, and cardiovascular complications. Each of t hese could result in hospitalization, additional procedures (including surgery), or other li fe threatening complications. Patient verbalized understanding. Risk factors to colo-rectal cancer discussed with patient including smoking, obesity, excessive red meat ingestion, adv ancing age and first degree family relative with history of colo-rectal cancer discussed wit h patient. Patient to call with any questions or concerns prior to procedure. Will follow up with results of colonoscopy. Considered starting budesonide or prednisone. However, due to procedure being completed so quickly, will wait to results of colonoscopy. Will follow up with results. Patient is to call with any question or concerns. Any fevers, chills, chest pain, SOB or other serious symptoms patient is to call the office or go to ER . Cc: Bird Talbot MD This note was dictated using voice recognition software. Please contact me if there are an y questions regarding its content. documented in t his encounter Miscellaneous Notes Op Note - Sumit Mariee MD - 03/21/2017 11:31 AM PSTColonoscopy was remarkable for extra sitting in the entire colon. The terminal ileum was intubated and was scarred and there was active inflammation with linear ulcerations. Terminal ileum could not be deeply intubated due to the limited length of the scope available and the scarring and narrowing of the termi nal ileum. Biopsies were obtained however from the distal terminal ileum. In addition ther e was a small benign-appearing polyp removed from the sigmoid colon via polypectomy techniqu e. The patient will be discharged with post polypectomy instructions, the patient will follow up with. Maikel with respect to biopsy and polypectomy results and possible therapeutic interventions directed by the same IV conscious sedation was administered or supervised from 10:40 AM until 11:20 AMElectronic ally signed by Sumit Mariee MD at 03/21/2017 11:33 AM PSTD-C Instructions Provation - Sumit Jones i, MD - 03/21/2017 10:27 AM PSTDischarge Instructions for Colonoscopy Exams Patient: Nyla Nye : 1980 Acct: [id number] Exam Date: Tuesday, March 21, 2017 Doctor: Sumit Mariee MD You have had an examination of the gastrointestinal tract. The chances of difficulty following this procedure are minimal. The following instructions will assist you in your recovery. ACTIVITIES: Rest quietly until sedation wears off. DO NOT drive a motor vehicle or operate machinery for 24 hours after sedation. Be cautious making critical decisions for 24 hours after sedation. DIET: If throat has been sprayed, do not eat or drink for 1 hour after. Start with a swallow of tap water, if you experience any lack of sensation in your throat, wait another 30 - 60 minutes and start with water again. Once swallowing has returned to normal you may resume your usual diet unless otherwise instructed by your physician. DISCOMFORT: If you had a bowel exam, you may have some abdominal discomfort from the air put into your bowel during the exam. Moving about will help you pass this air. Sometimes the medications given to you during the exam can aggravate the veins. The chemical irritation can cause inflammation or pain along the arm with redness, swelling and warmth. This does not mean there is an infection. You can treat the affected area by applying warm,wet compresses (towels) 4 times a day for 20 minutes at a time until inflammation is resolved. REPORT TO YOUR DOCTOR: Unusual abdominal pain Chest pain or unusual shortness of breath Shoulder pain Nausea, vomiting Fever over 100 degrees, chills Signs of rectal bleeding (red or black stools) Any concern you have resulting from procedure You may reach your physician at Work: . If unable to reach your physician, call [facility] Emergency Department at Ext. [phone] Your doctor recommends these additional instructions: You have a contact number available for emergencies. The signs and symptoms of potential delayed complications were discussed with you. You may return to normal activities tomorrow. Written discharge instructions were provided to you. You are being discharged to home. Eat a mechanical soft diet for three days. Continue your present medications. We are waiting for your pathology results. Telephone your GI clinic for pathology results in one week. Return to your nurse practitioner as previously scheduled. These instructions have been explained to the patient and/or escort. A copy has been given to the patient/escort. Nurse Signature Patient Signature Escort Signature Date Sumit Mariee MD 03/21/2017 11:39:17 AM This report has been signed electronically.Electronically signed by Sumit Mariee MD at 11:39 AM PSTdocumented in this encounter Plan of Treatment [...] | + +--------+ + + + | COLONOSCOPY | | 03/21/2017 | Abnormal CT of the | | | | | 10:38 AM | abdomen (R93.5), | | | | | PST | Diarrhea, | | | | | | unspecified type | | | | | | (R19.7), Generalized | | | | | | abdominal pain | | | | | | (R10.84) | | + +--------+ + + + | COLONOSCOPY | Routin | 03/21/2017 | | Results for this | | | e | 10:27 AM | | procedure are in the | | | | PST | | results section. | + +--------+ + + + | POCT TEST, | STAT | 03/21/2017 | | Results for this | | URINE, QUAL | | 10:01 AM | | procedure are in the | | | | PST | | results section. | + +--------+ + + + | SURGICAL PATHOLOGY | Routin | 03/21/2017 | | Results for this | | EXAM | e | 12:00 AM | | procedure are in the | | | | PST | | results section. | + +--------+ + + + documented in this encounter Results COLONOSCOPY (03/21/2017 10:27 AM PST) + + | Specimen | + + | | + + + + -+ | Narrative | Performed At | + + -+ | | [facility] | | GastroenterologyPatient Name: Nyla Bose Date: 03/21/2017 | [facility]ATION | | 10:27 AMMRN: [id number] #: [id number] of : | | | 1980Admit Type: AmbulatoryAge: 37Room: [facility]Gender: | | | FemaleNote Status: FinalizedAttending MD: Sumit Mariee , | | | MDProcedure: ColonoscopyIndications: Generalized | | | abdominal pain, Clinically significant | | | diarrhea of unexplained origin, Abnormal CT of the GI tractProviders: | | | Sumit Mariee MD, Liya Hollins RN, Tiffanie Dougherty | | | SANJANA Quispe, Gisselle Juarez, | | | TechnicianReferring MD: Hiram Talbot MD (Referring | | | MD)Medicines: Midazolam 3 mg IV, Meperidine 125 mg | | | IVComplications: No immediate complications. Estimated blood | | | loss: Minimal.Procedure: Pre-Anesthesia Assessment: - | | | Prior to the procedure, a History and Physical was performed, and | | | patient medications, allergies and sensitivities were reviewed. The | | | patient's tolerance of previous anesthesia was reviewed. | | | - Prior to the procedure, a History and Physical was performed, and | | | patient medications and allergies were reviewed. The patient is | | | competent. The risks and benefits of the procedure and the | | | sedation options and risks were discussed with the patient. All | | | questions were answered and informed consent was obtained. | | | Patient identification and proposed procedure were verified by | | | the physician, the nurse and the park maintenance technician in the endoscopy | | | suite. Mental Status Examination: alert and oriented. Airway | | | Examination: normal oropharyngeal airway and neck mobility and | | | Mallampati Class II (the uvula but not tonsillar pillars | | | visualized). Respiratory Examination: clear to auscultation. CV | | | Examination: normal. Prophylactic Antibiotics: The patient does not | | | require prophylactic antibiotics. Prior Anticoagulants: The | | | patient has taken no previous anticoagulant or antiplatelet | | | agents. ASA Grade Assessment: II - A patient with mild systemic | | | disease. After reviewing the risks and benefits, the patient | | | was deemed in satisfactory condition to undergo the procedure. | | | The anesthesia plan was to use moderate sedation / analgesia | | | (conscious sedation). Immediately prior to administration of | | | medications, the patient was re-assessed for adequacy to | | | receive sedatives. The heart rate, respiratory rate, oxygen | | | saturations, blood pressure, adequacy of pulmonary ventilation, and | | | response to care were monitored throughout the procedure. The | | | physical status of the patient was re-assessed after the | | | procedure. - After reviewing the risks and benefits, the patient | | | was deemed in satisfactory condition to undergo the procedure. | | | - Immediately prior to administration of medications, the | | | patient was re-assessed for adequacy to receive sedatives. | | | - The heart rate, respiratory rate, oxygen saturations, blood | | | pressure, adequacy of pulmonary ventilation, and response to | | | care were monitored throughout the procedure. - The | | | physical status of the patient was re-assessed after the procedure. | | | After I obtained informed consent, the scope was passed under | | | direct vision. Throughout the procedure, the patient's blood | | | pressure, pulse, and oxygen saturations were monitored | | | continuously. The Colonoscope was introduced through the anus | | | and advanced to 10 cm into the ileum. The colonoscopy was | | | unusually difficult due to significant looping and a tortuous | | | colon. Successful completion of the procedure was aided by | | | using manual pressure and straightening and shortening the scope to | | | obtain bowel loop reduction. The patient tolerated the procedure | | | well. The quality of the bowel preparation was | | | excellent.Findings: The perianal and digital rectal examinations | | | were normal. Pertinent negatives include normal sphincter tone | | | and no palpable rectal lesions. The colon (entire examined | | | portion) was grossly redundant. Advancing the scope required | | | using manual pressure. A small polyp was found in the distal | | | sigmoid colon. The polyp was sessile. The polyp was removed | | | with a hot snare. Resection and retrieval were complete. | | | Verification of patient identification for the specimen was | | | done. Estimated blood loss was minimal. The terminal ileum and | | | ileocecal valve contained a benign-appearing, intrinsic | | | moderate stenosis that was traversed. Biopsies were taken with | | | a cold forceps for histology. Verification of patient identification | | | for the specimen was done. Estimated blood loss was minimal. | | | A diffuse area of mucosa in the terminal ileum and at the | | | ileocecal valve was severely friable (with contact bleeding), | | | inflamed, scarred and ulcerated. Biopsies were taken with a | | | cold forceps for histology. Verification of patient | | | identification for the specimen was done. Estimated blood loss | | | was minimal. The exam was otherwise without abnormality. | | | The retroflexed view of the distal rectum and anal verge was normal | | | and showed no anal or rectal abnormalities.Impression: - | | | Redundant colon. - One small polyp in the distal sigmoid colon, | | | removed with a hot snare. Resected and retrieved. 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 Biopsied. | | | - Friable (with contact bleeding), inflamed, scarred and | | | ulcerated mucosa in the terminal ileum and at the ileocecal | | | valve. Biopsied. - The examination was otherwise normal. - | | | The distal rectum and anal verge are normal on retroflexion | | | view.Recommendation: - Patient has a contact number available | | | for emergencies. The signs and symptoms of potential delayed | | | complications were discussed with the patient. Return to normal | | | activities tomorrow. Written discharge instructions were | | | provided to the patient. - Discharge patient to home | | | (ambulatory). - Mechanical soft diet for 3 days. - | | | Continue present medications. - Await pathology results. - | | | Telephone GI clinic for pathology results in 1 week. - Return | | | to nurse practitioner as previously scheduled.Sumit Mariee, | | | 03/21/2017 11:39:17 AMThis report has been signed | | | electronically.Number of Addenda: 0Note Initiated On: 03/21/2017 10:27 | | | AMScope Withdrawal Time: 0 hours 7 minutes 51 seconds Total Procedure | | | Duration: 0 hours 26 minutes 12 seconds Scope In: 10:49:59 AMScope | | | Out: 11:16:11 AM [facility], [address] | | | [place] [address] | | | - Await pathology results. | | | - Telephone GI clinic for pathology results in 1 week. | | | - Return to nurse practitioner as previously scheduled. | | |Sumit Mariee MD | | |03/21/2017 11:39:17 AM | | |This report has been signed electronically. | | |Number of Addenda: 0 | | |Note Initiated On: 03/21/2017 10:27 AM | | |Scope Withdrawal Time: 0 hours 7 minutes 51 seconds | | |Total Procedure Duration: 0 hours 26 minutes 12 seconds | | |Scope In: 10:49:59 AM | | |Scope Out: 11:16:11 AM | | | [facility], [address] [facility], [place], [place] | | | [id number] | | + + -+ + +---------+ + + | Performing | Address | City/State/Zipcode | Phone Number | | Organization | | | | + +---------+ + + | [facility] | | | | + +---------+ + + POCT Test, Urine, QUAL (03/21/2017 10:01 AM PST) + + + + + + | Component | Value | Ref Range | Performed | Pathologist | | | | | At | Signature | + + + + + + | | Negative | Negative | | | | Test, | | | | | | Urine, POC | | | | | + + + + + + | Internal QC | Acceptable | Acceptable | | | + + + + + + | Specific | | 1.010, 1.015, | | | | [place], | | 1.020, 1.025 | | | | POC | | | | | + + + + + + | Lot Number | [id number] | | | | + + + + + + | Expiration | 2018-07-19 | | | | | Date | | | | | + + + + + + + + | Specimen | + + | Urine | + + Surgical Pathology Exam (03/21/2017 12:00 AM PST) + + | Specimen | + + | | + + + + + | Narrative | Performed At | + + + | SPECIMEN(S): A ILEUM BIOPSY SPECIMEN(S): B SIGMOID POLYP SPECIMEN | [facility] | | SOURCE: A. ILEUM BIOPSY B. SIGMOID POLYP CLINICAL HISTORY: R19.7 | [facility] | | (diarrhea, unspecified), R93.5 (abnormal findings on diagnostic | | | imaging of other abdominal regions, including retroperitoneum), R10.84 | | | (generalized abdominal pain) MICROSCOPIC DESCRIPTION: Histologic | | | sections of all submitted blocks are examined by light microscopy. | | | These findings, together with the gross examination, support the | | | pathologic diagnosis. A. A CK AE1/3 immunostain is performed on block | | | (A1) with appropriate controls and is negative for occult malignancy. | | | J[facility] FINAL PATHOLOGIC DIAGNOSIS: A. Ileum biopsy: - Small | | | bowel mucosa with epithelial erosion and focal ulceration with mixed | | | acute and chronic inflammation. - Negative for unequivocal | | | dysplasia. B. Sigmoid polyp, biopsy: - Polypoid colonic mucosa | | | with adenomatous change (one fragment). JVR:[facility]:[email or web address] GROSS | | | DESCRIPTION: Received in two parts. A. Received in formalin labeled | | | "Nyla Nye, biopsy ileum" is a multiple mccain-pink and joshi colored | | | tissue fragment, measuring from 0.25-0.5 cm, submitted, all in (A1). | | | B. Received in formalin labeled "Nyla Nye, sigmoid polyp" is a | | | 0.4 x 0.35 x 0.25 cm red-pink colored tissue fragment, submitted, all | | | in (B1). ka:JVR:[facility] PERFORMING LABORATORY: Tissue processing and | | | slide preparation were performed by [facility], [facility] | | | [address], [address], [place] [address] (Health Information Clerk: Daniel Hester | | | [place] CLIA#: [id number]). Professional interpretation was performed | | | by [employer], [facility], [address] | | | [place] [address] (Health Information Clerk: Daniel | | | [place] Hester; CLIA#: [id number]). Diagnostician: Daniel Jones | | | Kacie [facility] Pathologist Electronically Signed 03/22/2017 | | + + + + +---------+ + + | Performing | Address | City/State/Zipcode | Phone Number | | Organization | | | | + +---------+ + + | [facility] | | | | | [facility] | | | | + +---------+ + + documented in this encounter Visit Diagnoses + + | Diagnosis | + + | Diarrhea, unspecified type - Primary | + + | Generalized abdominal pain Abdominal pain, generalized | + + | Abnormal CT of the abdomen Nonspecific (abnormal) findings on radiological and other | | examination of abdominal area, including retroperitoneum | + + documented in this encounter Administered Medications + +---------+ +------+-------+--------+ | Medication Order | MAR | Action | Dose | Rate | Site | | | Action | Date | | | | + +---------+ +------+-------+--------+ | lactated ringers (LR) infusion | New Bag | 03/21/20 | | 100 | Right | | at 100 mL/hr, Intravenous, | | 17 11:13 | | mL/hr | Arm | | CONTINUOUS, Starting Mon03/21/17 | | AM PST | | | | | at 1000, Pre-op | | | | | | + +---------+ +------+-------+--------+ +---------+ +---+-------+--------+ | New Bag | 03/21/20 | | 100 | Right | | | 17 10:00 | | mL/hr | Arm | | | AM PST | | | | +---------+ +---+-------+--------+ +---+---+ | | | +---+---+ + +-------+ +-------+---+---+ | meperidine (DEMEROL) 100 mg/mL | Given | 03/21/20 | 25 mg | | | | injection PRN, Starting Mon | | 17 10:47 | | | | | 03/21/17 at 1044 | | AM PST | | | | + +-------+ +-------+---+---+ +-------+ +--------+---+---+ | Given | 03/21/20 | 100 mg | | | | | 17 10:44 | | | | | | AM PST | | | | +-------+ +--------+---+---+ +---+---+ | | | +---+---+ + +-------+ +------+---+---+ | midazolam (VERSED) 5 mg/mL | Given | 03/21/20 | 1 mg | | | | injection PRN, Starting Tue | | 17 11:07 | | | | | 03/21/17 at 1048 | | AM PST | | | | + +-------+ +------+---+---+ +-------+ +------+---+---+ | Given | 03/21/20 | 1 mg | | | | | 17 10:48 | | | | | | AM PST | | | | +-------+ +------+---+---+ | Given | 03/21/20 | 1 mg | | | | | 17 10:48 | | | | | | AM PST | | | | +-------+ +------+---+---+ + +---+ | | | + +---+ | ondansetron (ZOFRAN) injection | | | 4 mg 4 mg, Oral, EVERY 4 HOURS | | | PRN, Nausea, Vomiting, Starting | | | 03/21/17 at 1141, | | | Recovery/Phase I | | + +---+ | | | + +---+ documented in this encounter
--- OUTSIDE RECORDS SUMMARY | ~2020-01-09 | XMS | Encounter Summary ---
Demographics + + + | Address | [address] | | | [place] [address] | + + + | Home Phone | | + + + | Preferred Language | Unknown | + + + | Marital Status | | + + + | Mormonism Affiliation | Unknown | + + + | Race | White | + + + | Ethnic Group | Not or | + + + Author + + + | Author | [facility] | | | and [place] | + + + | Organization | [facility] | | | and [...] Team Providers + +------+ + | Care Neurology Technologist Name | Role | Phone | + +------+ + | Bird Talbot | PCP | | | MD | | | + +------+ + Reason for Visit + +--------+ + | Reason | Onset | Comments | | | Date | | + +--------+ + | Medication Refill | 05/04/ | | | | 2017 | | + +--------+ + Encounter Details +--------+--------+ + + + | Date | Type | Department | Care Team | Description | +--------+--------+ + + + | 05/04/ | Refill | [facility] | [facility] | Medication Refill | | 2017 | | GASTROENTEROLOGY | MICAELA Romero [address] | | | | | [address] | [address] | | | | | [address] [place] | [place] | | | | | [address] | [id number] | | | | | [phone] | | | +--------+--------+ + + + Social History + +-------+ [...]
--- OUTSIDE RECORDS SUMMARY | ~2020-01-09 | XMS | Encounter Summary ---
Demographics + + + | Address | [address] | | | [place] [address] | + + + | Home Phone | | + + + | Preferred Language | Unknown | + + + | Marital Status | | + + + | Shinto Affiliation | Unknown | + + + | Race | White | + + + | Ethnic Group | Not or | + + + Author + + + | Author | [facility] | | | and [place] | + + + | Organization | [facility] | | [...] Team Providers + +------+ + | Care Sewer Pipe Cleaner Name | Role | Phone | + +------+ + | Bird Talbot | PCP | | | MD | | | + +------+ + Encounter Details +--------+ + + + + | Date | Type | Department | Care Team | Description | +--------+ + + + + | 03/31/ | Abstract | [facility] | [facility], | | | 2016 | | GASTROENTEROLOGY | Heather MICAELA [address] | | | | | [address] | [address] | | | | | [address] [place], [place] | [place], [place] | | | | | [address] | [address] | | | | | [phone] | | | +--------+ + + + [...] | +--------+ + + + + | 10// Appointment | Infusion Therapy | | | | 2020 | | | | | +--------+ + + + + documented as of this encounter Procedures + +--------+ + + + | Procedure Name | Priori | Date/Time | Associated Diagnosis | Comments | | | ty | | | | + +--------+ + + + | EXTERNAL: | Routin | 03/21/2017 | | Results for this | | COLONOSCOPY | e | | | procedure are in the | | | | | | results section. | + +--------+ + + + documented in this encounter Results EXTERNAL: COLONOSCOPY (03/21/2017) + + + + + + | Component | Value | Ref Range | Performed | Pathologist | | | | | At | Signature | + + + + + + | Colonoscopy | Impression: Redundant | | | | | | colon. One small polyp | | | | | Impression, | in the distal sigmoid | | | | | External | colon, removed with a | | | | | | hot snare. Resected and | | | | | | retrieved. Stricture in | | | | | | the terminal ileum and | | | | | | at the ileocecal valve. | | | | | | Biopsied. Friable (with | | | | | | contact bleeding), | | | | | | inflamed, scarred and | | | | | | ulcer | | | | + + + + + + documented in this encounter Visit Diagnoses Not on filedocumented in this encounter"
--- OUTSIDE RECORDS SUMMARY | ~2020-01-09 | XMS | Encounter Summary ---
Demographics + + + | Address | [address] | | | [place] [address] | + + + | Home Phone | | + + + | Preferred Language | Unknown | + + + | Marital Status | | + + + | Congregational Affiliation | Unknown | + + + | Race | White | + + + | Ethnic Group | Not or | + + + Author + + + | Author | [facility] | | | and [place] | + + + | Organization | [facility] | | [...] Team Providers + +------+ + | Care Washroom Cleaner Name | Role | Phone | + +------+ + | Bird Talbot | PCP | | | MD | | | + +------+ + Encounter Details +--------+ + + + + | Date | Type | Department | Care Team | Description | +--------+ + + + + | 12/25/ | Imaging | [facility] | Provider, | | | 2019 | Exam | [facility] | [address] | | | | | IMAGING [address] | [address] | | | | | [address] [place] | [place] [address] | | | | | [place] [address] | | | | | | [phone] | | | +--------+ + + + [...] | + +--------+ + + + | XR SHOULDER RIGHT 2 | Routin | 07/14/2017 | | Results for this | | + VW | e | 12:00 AM | | procedure are in the | | | | PDT | | results section. | + +--------+ + + + documented in this encounter Results XR Shoulder Right 2 + Vw (07/14/2017 12:00 AM PDT) + + | Specimen | + + | | + + + + + | Narrative | Performed At | + + + | External films for comparison only | [facility] | | | | | No results will be in the chart. | | + + + + +---------+ + + | Performing | Address | City/State/Zipcode | Phone Number | | Organization | | | | + +---------+ + + | [facility] | | | | + +---------+ + + documented in this encounter Visit Diagnoses Not on filedocumented in this encounter"
--- OUTSIDE RECORDS SUMMARY | ~2020-01-09 | XMS | Encounter Summary ---
Demographics + + + | Address | [address] | | | [place] [address] | + + + | Home Phone | | + + + | Preferred Language | Unknown | + + + | Marital Status | | + + + | Anabaptism Affiliation | Unknown | + + + [...] | + + +---------+ + | Liborio Lauryn/eCline Nicolas | ECON | Unknown | | | Redinger | | | | + + +---------+ + Care Team Providers + +------+ + | Care Hot Mill Observer Name | Role | Phone | + +------+ + PCP | Unavailable | + +------+ + Encounter Details +--------+ + + + + | Date | Type | Department | Care Team | Description | +--------+ + + + + | 06/17/ | Hospital | [facility] | [place], | | | 2007 | Encounter | [facility] | Joel Leal MD [address] | | | | [address] | [address] | | | | | [address] | [place] [address] | | | | | [place], [place] | [phone] | | | | | [address] | | | | | | [phone] | | | +--------+ + + + [...]
--- OUTSIDE RECORDS SUMMARY | ~2020-01-09 | XMS | Encounter Summary ---
Demographics + + + | Address | [address] | | | [place] [address] | + + + | Home Phone | | + + + | Preferred Language | Unknown | + + + | Marital Status | | + + + | Adventism Affiliation | Unknown | + + + | Race | White | + + + | Ethnic Group | Not or | + + + Author + + + | Author | [facility] | | | and [place] | + + + | Organization | [facility] | | | and [...] Team Providers + +------+ + | Care Bailiff Name | Role | Phone | + +------+ + | Bird Talbot | PCP | | | MD | | | + +------+ + Encounter Details +--------+ + + + + | Date | Type | Department | Care Team | Description | +--------+ + + + + | 03/29/ | Orders Only | [facility] | Mohl, Felix W, | Crohn's disease with | | 2018 | | MED CTR | PharmD [address] | complication, | | | | PHARMACOTHERAPY | [place], [place] | unspecified | | | | CLINIC [address] | [address] | gastrointestinal | | | | [place], [place] | | tract location (HCC) | | | | [address] | | | | | | [phone] | | | +--------+ + + + [...] (HCC) | + + documented in this encounter"
--- OUTSIDE RECORDS SUMMARY | ~2020-01-09 | XMS | Encounter Summary ---
Demographics + + + | Address | [address] | | | [place] [address] | + + + | Home Phone | | + + + | Preferred Language | Unknown | + + + | Marital Status | | + + + | Druze Affiliation | Unknown | + + + | Race | White | + + + | Ethnic Group | Not or | + + + Author + + + | Author | [facility] | | | and [place] | + + + | Organization | [facility] | | | [...] Team Providers + +------+ + | Care Analog Ic Design Engineer Name | Role | Phone | + +------+ + | Bird Talbot | PCP | | | MD | | | + +------+ + Reason for Visit + +--------+ + | Reason | Onset | Comments | | | Date | | + +--------+ + | Appointment | 04/09/ | | | | 2020 | | + +--------+ + Encounter Details +--------+ + + + + | Date | Type | Department | Care Team | Description | +--------+ + + + + | 04/09/ | Telephone | [facility] | Felix Troy, | Appointment | | 2020 | | MED CTR | PharmD [address] | | | | | PHARMACOTHERAPY | [place], [place] | | | | | CLINIC [address] | [address] | | | | | [place], [place] | | | | | | [address] | | | | | | [phone] | | | +--------+ + + + [...] Telephone Encounter - Felix Troy PharmD - 04/09/2019 10:53 AM MELVAKelly called wanting to move her appointment from 04/17/2019 @1300 to 04/19/2019 @ 1300. The schedule is open and said I would move her appointment. This has been done. Felix Troy PharmD 04/09/2019 10:54 AM documented in this encounter Plan of Treatment [...]
--- OUTSIDE RECORDS SUMMARY | ~2020-01-09 | XMS | Encounter Summary ---
Demographics + + + | Address | [address] | | | [place] [address] | + + + | Home Phone | | + + + | Preferred Language | Unknown | + + + | Marital Status | | + + + | Tenriism Affiliation | Unknown | + + + [...] Team Providers + +------+ + | Care Tank Terminal Gauger Name | Role | Phone | + +------+ + | Bird Talbot | PCP | | | MD | | | + +------+ + Reason for Visit + + + | Reason | Comments | + + + | Follow-up | CT | + + + Encounter Details +--------+---------+ + + + | Date | Type | Department | Care Team | Description | +--------+---------+ + + + | 03/20/ | Office | [facility] | [facility], | Abnormal CT of the | | 2017 | Visit | GASTROENTEROLOGY | MICAELA Romero [address] | abdomen (Primary | | | | [address] | [address] | Dx); Diarrhea, | | | | [address] [place], [place] | [place], [place] | unspecified type; | | | | [address] | [address] | Generalized | | | | [phone] | | abdominal pain | +--------+---------+ + + + Social History [...] + + + | Blood Pressure | 104/72 | 03/20/2017 9:16 AM | | | | | PST | | + + + + + | Pulse | 74 | 03/20/2017 9:16 AM | | | | | PST | | + + + + + | Temperature | 36.8 C (98.2 F) | 03/20/2017 9:16 AM | | | | | PST | | + + + + + | Respiratory Rate | 16 | 03/20/2017 9:16 AM | | | | | PST | | + + + + + | Oxygen Saturation | 98% | 03/20/2017 9:16 AM | | | | | PST | | + + + + + | Inhaled Oxygen | - | - | | | Concentration | | | | + + + + + | Weight | 72.8 kg (160 lb 7.9 | 03/20/2017 9:16 AM | | | | oz) | PST | | + + + + + | Height | - | - | | + + + + + | Body Mass Index | 27.55 | 02/13/2017 8:32 AM | | | | | PST | | + + + + + documented in this encounter Progress Notes Heather Ko ARNP - 03/20/2017 9:00 AM PSTFormatting of this note might be [...] Date APPENDECTOMY 2003 CEASAREAN SECTION, MULTIPLES 2004 2003 and 2006 COLONOSCOPY EGD AND COLONOSCOPY [...] its content. documented in t his encounter Plan of Treatment +--------+ + + [...] | + +--------+ + + + | IMAGING REPORT - | | 03/03/2017 | | Results for this | | EXTERNAL SCAN | | 12:00 AM | | procedure are in the | | | | PST | | results section. | + +--------+ + + + documented in this encounter Results IMAGING REPORT - EXTERNAL SCAN (03/03/2017 12:00 AM PST) + + + | Narrative | Performed At | + + + | Ordered by an | | | unspecified provider. | | + + + documented in this encounter Visit Diagnoses + + | Diagnosis | + + | Abnormal CT of the abdomen - Primary Nonspecific (abnormal) findings on radiological | | and other examination of abdominal area, including retroperitoneum | + + | Diarrhea, unspecified type | + + | Generalized abdominal pain Abdominal pain, generalized | + + documented in this encounter"
--- OUTSIDE RECORDS SUMMARY | ~2020-01-09 | XMS | Encounter Summary ---
Demographics + + + | Address | [address] | | | [place] [address] | + + + | Home Phone | | + + + | Preferred Language | Unknown | + + + | Marital Status | | + + + | Sikhism Affiliation | Unknown | + + + | Race | White | + + + | Ethnic Group | Not or | + + + Author + + + | Author | [facility] | | | and [place] | + + + | Organization | [facility] | | | [...] Team Providers + +------+ + | Care Personal Banking Assistant Name | Role | Phone | [...] W Anamaria | | | | | ([facility]) | [address] | [place], | | | | | Felix Mohl, | [place] | [place] [address] | | | | | Entyvio | [place], [place] | Phone: | | | | | 300mg. Q 8 | [address] | [phone] | | | | | wks., | Phone: | Fax: | | | | | Crohn's | [phone] | [phone] | | | | | Procedures | Fax: | | | | | | NV | [phone] | | | | | | INJECTION, | | | | | | | VEDOLIZUMAB, | | | | | | | 1MG NV IV | | | | | | [...] | +--------+ + + + + | 08/05/ | Hospital | [facility] | [facility], | Crohn's disease with | | 2019 | Encounter | MED CTR OP INFUSION | MICAELA Romero [address] | complication, | | | | [address] | [address] | unspecified | | | | [place], [place] | [place], [place] | gastrointestinal | | | | [address] | [id number] | tract location (HCC) | | | | [phone] | | (Primary Dx) | +--------+ + [...] + + + | Blood Pressure | 113/65 | 08/06/2019 11:16 AM | | | | | PDT | | + + + + + | Pulse | 52 | 08/06/2019 11:16 AM | | | | | PDT | | + + + + + | Temperature | 37.1 C (98.8 F) | 08/06/2019 11:16 AM | | | | | PDT | | + + + + + | Respiratory Rate | 16 | 08/06/2019 11:16 AM | | | | | PDT | | + + + + + | Oxygen Saturation | 99% | 08/06/2019 11:16 AM | | | | | PDT [...] 2 puffs into | | 0 | 06/20/19 | | | mcg/puff inhaler | the [...] | inject 0.3 | | 0 | 06/18/19 | | | auto-injector 0.3 | milliliters [...] encounter Progress Notes Reny Eduardo RN - 08/06/2019 10:00 AM PDT Vitals: 08/06/19 0900 08/06/19 1116 BP: 122/74 113/65 Pulse: 70 52 Resp: 18 16 Temp: 37.2 C (99 F) 37.1 C (98.8 F) TempSrc: Oral Oral SpO2: 98% 99% Administrations This Visit acetaminophen (TYLENOL) tablet 650 mg Admin Date 08/06/2019 Action Given Dose 650 mg Route Oral Administered By Reny Eduardo RN loratadine (CLARITIN) tablet 10 mg Admin Date 08/06/2019 Action Given Dose 10 mg Route Oral Administered By Reny Eduardo RN vedolizumab (ENTYVIO) 300 mg in sodium chloride 0.9% 250 mL IVPB Admin Date 08/06/2019 Action New Bag Dose 300 mg Rate 510 mL/hr Route Intravenous Administered By Reny Eduardo RN Monitored throughout treatment; treatment completed without untoward effects from medicatio n noted. Next visit October 01, 2019. Verbalizes understanding of plan of care. VS stable. Disc harged ambulatory to home in stable condition. Electronically signed by: Reny Eduardo RN 08/06/2019 11:32 AM Reny Villatoro RN - 0 08/06/2019 10:00 AM PDT Vitals: 08/06/19 1116 BP: 113/65 Pulse: 52 Resp: 16 Temp: 37.1 C (98.8 F) Nyla Nye received into room 438, independent ambulation . States here for Entyv io infusion. Reports no change in condition, plan of care since last MD visit. Alert, orient ed x 4, cooperative. Electronically signed by: Reny Eduardo RN 08/06/2019 11:32 AM documented in this enc ounter Plan of [...] | LABS - EXTERNAL SCAN | | 08/19/2019 | | Results for this | | | | 12:00 AM | | procedure are in the | | | | PDT | | results section. | + +--------+ + + + | COMPREHENSIVE | Routin | 08/06/2019 | Crohn's disease | Results for this | | METABOLIC PANEL | e | 10:02 AM | with complication, | procedure are in the | | | | PDT | unspecified | results section. | | | | | gastrointestinal | | | | | | tract location (HCC) | | + +--------+ + + + | CBC WITH | STAT | 08/06/2019 | Crohn's disease | Results for this | | DIFFERENTIAL | | 9:47 AM | with complication, | procedure are in the | | | | PDT | unspecified | results section. | | | | | gastrointestinal | | | | | | tract location (HCC) | | + +--------+ + + + documented in this encounter Results LABS - EXTERNAL SCAN (08/19/2019 12:00 AM PDT) + + + | Narrative | Performed At | + + + | Ordered by an | | | unspecified provider. | | + + + Comprehensive Metabolic Panel (08/06/2019 10:02 AM PDT) + + + + + + | Component | Value | Ref Range | Performed | Pathologist | | | | | At | Signature | + + + + + + | Na | 140 | 136 - 145 | [facility] | | | | | mmol/L | [facility] | | | | | | [facility] | | | | | | [facility] - | | | | | | LABORATORY | | + + + + + + | K | 3.8 | 3.4 - 5.1 | [facility] | | | | | mmol/L | [facility] | | | | | | [facility] | | | | | | CENTER - | | | | | | LABORATORY | | + + + + + + | Cl | 105 | 98 - 107 mmol/L | [facility] | | | | | | [facility] | | | | | | MEDICAL | | | | | | CENTER - | | | | | | LABORATORY | | + + + + + + | CO2 | 28 | 20 - 31 mmol/L | [facility] | | | | | | [facility] | | | | | | MEDICAL | | | | | | CENTER - | | | | | | LABORATORY | | + + + + + + | Anion Gap | 7 | 3 - 16 mmol/L | [facility] | | | | | | [facility] | | | | | | [facility]ICAL | | | | | | CENTER - | | | | | | LABORATORY | | + + + + + + | Glucose | 114 (H) | 60 - 106 mg/dL | [facility] | | | | | | [facility] | | | | | | MEDICAL | | | | | | CENTER - | | | | | | LABORATORY | | + + + + + + | BUN | 9 | 9 - 23 mg/dL | [facility] | | | | | | [facility] | | | | | | MEDICAL | | | | | | CENTER - | | | | | | LABORATORY | | + + + + + + | Creatinine | 0.88 | 0.55 - 1.02 | [facility] | | | | | mg/dL | [facility] | | | | | | MEDICAL | | | | | | CENTER - | | | | | | LABORATORY | | + + + + + + | eGFR, | >60Comment: GLOMERULAR | >=60 | [facility] | | | non- | FILTRATION | mL/min/1.73m2 | [facility] | | | Faroese | RATE,ESTIMATED | | MEDICAL | | | | mL/min/1.47g9Pvfg than | | CENTER - | | | | 60 Chronic kidney | | LABORATORY | | | | disease,if found over a | | | | | | 3-month period.Less than | | | | | | 15 Kidney failureFor | | | | | | | | | | | | Americans,multiply the | | | | | | calculated GFR by 1.21. | | | | | | | | | | + + + + + + | Calcium | 9.4 | 8.7 - 10.4 | [facility] | | | | | mg/dL | [facility] | | | | | [facility] | | | | | | CENTER - | | | | | | LABORATORY | | + + + + + + | Albumin | 4.4 | 3.2 - 4.8 g/dL | [facility] | | | | | | [facility] | | | | | | [facility] | | | | | | CENTER - | | | | | | LABORATORY | | + + + + + + | Bilirubin | 1.0 | 0.3 - 1.2 mg/dL | [facility] | | | Total | | | [facility] | | | | | | MEDICAL | | | | | | CENTER - | | | | | | LABORATORY | | + + + + + + | Total | 6.9 | 5.7 - 8.2 g/dL | [facility] | | | Protein | | | [facility] | | | | | | MEDICAL | | | | | | CENTER - | | | | | | LABORATORY | | + + + + + + | AST | 14 | 0 - 34 U/L | [facility] | | | | | | [facility] | | | | | | MEDICAL | | | | | | CENTER - | | | | | | LABORATORY | | + + + + + + | ALT | 8 (L) | 10 - 49 U/L | [facility] | | | | | | [facility] | | | | | | MEDICAL | | | | | | CENTER - | | | | | | LABORATORY | | + + + + + + | Alkaline | 50 | 46 - 116 U/L | [facility] | | | Phosphatase | | | [facility] | | | | | | MEDICAL | | | | | | CENTER - | | | | | | LABORATORY | | + + + + + + | Globulin | 2.5 | 2.1 - 3.8 g/dL | [facility] | | | | | | [facility] | | | | | | MEDICAL | | | | | | CENTER - | | | | | | LABORATORY | | + + + + + + | Albumin/Zohreh | 1.8 | 0.8 - 1.9 | [facility] | | | bulin Ratio | | | [facility] | | | | | | MEDICAL | | | | | | CENTER - | | | | | | LABORATORY | | + + + + + + | BUN/Creatin | 10.2 | | [facility] | | | ine Ratio | | | [facility] | | | | | | [facility]ICAL | | | | | | CENTER - | | | | | | LABORATORY | | + + + + + + + + | Specimen | + + | Blood | + + + + + + + | Performing | Address | City/State/Zipcode | Phone Number | | Organization | | | | + + + + + | [facility] | [address] | [place] | [phone] | | [facility] | | [address] | | | - LABORATORY | | | | + + + + + CBC with Differential (08/06/2019 9:47 AM PDT) + + + + + + | Component | Value | Ref Range | Performed | Pathologist | | | | | At | Signature | + + + + + + | White Blood | 7.5 | 4.0 - 11.0 K/uL | [facility] | | | Cells | | | [facility] | | | | | | MEDICAL | | | | | | CENTER - | | | | | | LABORATORY | | + + + + + + | Red Blood | 3.98 | 3.70 - 5.20 | [facility] | | | Cells | | M/uL | [facility] | | | | | | MEDICAL | | | | | | CENTER - | | | | | | LABORATORY | | + + + + + + | Hemoglobin | 13.5 | 11.5 - 16.0 | [facility] | | | | | g/dL | [facility] | | | | | | MEDICAL | | | | | | CENTER - | | | | | | LABORATORY | | + + + + + + | Hematocrit | 39.1 | 34.0 - 47.0 % | [facility] | | | | | | [facility] | | | | | | MEDICAL | | | | | | CENTER - | | | | | | LABORATORY | | + + + + + + | MCV | 98.2 | 83.0 - 101.0 fL | [facility] | | | | | | [facility] | | | | | | MEDICAL | | | | | | CENTER - | | | | | | LABORATORY | | + + + + + + | MCH | 33.9 | 28.0 - 35.0 pg | [facility] | | | | | | [facility] | | | | | | MEDICAL | | | | | | CENTER - | | | | | | LABORATORY | | + + + + + + | MCHC | 34.5 | 32.0 - 36.0 | [facility] | | | | | g/dL | [facility] | | | | | | MEDICAL | | | | | | CENTER - | | | | | | LABORATORY | | + + + + + + | RDW-CV | 12.7 | <15.0 % | [facility] | | | | | | [facility] | | | | | | MEDICAL | | | | | | CENTER - | | | | | | LABORATORY | | + + + + + + | RDW-SD | 45.6 | 35.1 - 46.3 fL | [facility] | | | | | | [facility] | | | | | | MEDICAL | | | | | | CENTER - | | | | | | LABORATORY | | + + + + + + | Platelet | 262 | 140 - 440 K/uL | [facility] | | | Count | | | [facility] | | | | | | MEDICAL | | | | | | CENTER - | | | | | | LABORATORY | | + + + + + + | MPV | 9.8 | 6.5 - 12.4 fL | [facility] | | | | | | [facility] | | | | | | MEDICAL | | | | | | CENTER - | | | | | | LABORATORY | | + + + + + + | % | 76.6 | 45.0 - 82.0 % | [facility] | | | Neutrophils | | | [facility] | | | | | | MEDICAL | | | | | | CENTER - | | | | | | LABORATORY | | + + + + + + | % | 17.6 (L) | 20.0 - 45.0 % | [facility] | | | Lymphocytes | | | [facility] | | | | | | MEDICAL | | | | | | CENTER - | | | | | | LABORATORY | | + + + + + + | % Monocytes | 3.7 (L) | 4.0 - 12.0 % | [facility] | | | | | | [facility] | | | | | | MEDICAL | | | | | | CENTER - | | | | | | LABORATORY | | + + + + + + | % | 0.8 | 0.0 - 5.0 % | [facility] | | | Eosinophils | | | [facility] | | | | | | MEDICAL | | | | | | CENTER - | | | | | | LABORATORY | | + + + + + + | % Basophils | 0.8 | 0.0 - 1.0 % | [facility] | | | | | | [facility] | | | | | | MEDICAL | | | | | | CENTER - | | | | | | LABORATORY | | + + + + + + | % Immature | 0.5 (H)Comment: | 0.0 - 0.4 % | [facility] | | | Granulocyte | Preliminary studies have | | [facility] | | | s | indicated the IG% | | MEDICAL | | | | and/or IG# show promise | | CENTER - | | | | as an early indicator | | LABORATORY | | | | for infection. For | | | | | | patients, use | | | | | | the special reference | | | | | | ranges listed below. | | | | + + + + + + | Absolute | 5.76 | 1.80 - 8.50 | [facility] | | | Neutrophils | | K/uL | [facility] | | | | | | MEDICAL | | | | | | CENTER - | | | | | | LABORATORY | | + + + + + + | Absolute | 1.32 | 0.60 - 3.20 | [facility] | | | Lymphocytes | | K/uL | [facility] | | | | | | MEDICAL | | | | | | CENTER - | | | | | | LABORATORY | | + + + + + + | Absolute | 0.28 | 0.00 - 1.00 | [facility] | | | Monocytes | | K/uL | [facility] | | | | | | MEDICAL | | | | | | CENTER - | | | | | | LABORATORY | | + + + + + + | Absolute | 0.06 | 0.00 - 0.40 | [facility] | | | Eosinophils | | K/uL | [facility] | | | | | | MEDICAL | | | | | | CENTER - | | | | | | LABORATORY | | + + + + + + | Absolute | 0.06 | 0.00 - 0.10 | [facility] | | | Basophils | | K/uL | [facility] | | | | | | MEDICAL | | | | | | CENTER - | | | | | | LABORATORY | | + + + + + + | Absolute | 0.04 (H)Comment: For | 0.00 - 0.03 | [facility] | | | Immature | patients, use | K/uL | [facility] | | | Granulocyte | the special reference | | MEDICAL | | | s | ranges listed below. | | CENTER - | | | | | | LABORATORY | | + + + + + + | % nRBC | 0 | 0 - 2 per 100 | [facility] | | | | | WBCs | [facility] | | | | | | MEDICAL | | | | | | CENTER - | | | | | | LABORATORY | | + + + + + + | Absolute | 0.00 | 0.00 - 0.01 | [facility] | | | nRBC | | K/uL | [facility] | | | | | | MEDICAL | | | | | | CENTER - | | | | | | LABORATORY | | + + + + + + + + | Specimen | + + | Blood | + + + + + | Narrative | Performed At | + + + | IMMATURE GRANULOCYTES - For patients, use the following | [facility] | | reference ranges: Trim. Absolute (K/uL) Percentage (%) | [facility] | | 1st 0.003-0.091 K/uL 0.0-0.9% 2nd 0.007-0.247 K/uL | [facility] | | 0.1-2.0% 3rd 0.018-0.456 K/uL 0.1-2.0% | - LABORATORY | + + + + + + + + | Performing | Address | City/State/Zipcode | Phone Number | | Organization | | | | + + + + + | [facility] | [address] | [place] | [phone] | | [facility] | | [address] | | | - LABORATORY | | | | + + + [...] | acetaminophen (TYLENOL) tablet | Given | 08/06/19 | 650 mg | | | | 650 mg 650 mg, Oral, ONCE, Tue | | 20 9:59 | | | | | 08/06/19 at 1000, For 1 dose | | AM PDT | | | | + +--------+ +--------+------+------+ +---+---+ | | | +---+---+ + +-------+ +-------+---+---+ | loratadine (CLARITIN) tablet 10 | Given | 08/06/19 | 10 mg | | | | mg 10 mg, Oral, ONCE, Tue | | 20 9:59 | | | | | //20 at 1000, For 1 dose | | AM PDT | | | | + +-------+ +-------+---+---+ +---+---+ | | | +---+---+ + +---------+ +--------+-------+---+ | vedolizumab (ENTYVIO) 300 mg in | New Bag | 08/06/19 | 300 mg | 510 | | | sodium chloride 0.9% 250 mL IVPB | | 20 10:33 | | mL/hr | | | 300 mg, Intravenous, Administer | | AM PDT | | | | | over 30 Minutes, ONCE, Tue | | | | | | | 08/06/19 at 1000, For 1 dose, EVERY | | | | | | | 8 WEEKS MAINTENANCE. Flush with | | | | | | | 30 mL NS after giving. Keep in | | | | | | | refrigerator., | | | | | | + +---------+ +--------+-------+---+ +---+---+ | | | +---+---+ documented in this encounter"
--- OUTSIDE RECORDS SUMMARY | ~2020-01-09 | XMS | Encounter Summary ---
Demographics + + + | Address | [address] | | | [place] [address] | + + + | Home Phone [...] + + | Author | [facility] | | | and [place] | + + + | Organization | [facility] | | [...] Team Providers + +------+ + | Care Event Set Up Specialist Name | Role | Phone | + [...] | disease, | PharmD [address] | | | | | unspecified, | [address] | [place], | | | | | with | [place] | [place] [address] | | | | | unspecified | [place], [place] | Phone: | | | | | complication | [phone] | [phone] | | | | | s (HCC) | Phone: | Fax: | | | | | Procedures | [phone] | [phone] | | | | | [place] | Fax: | | | | | | ADALIMUMAB | [phone] | | | | | | INJECTION, | | | | | | | 20 MG | | | | | | | Provider | | | | | | | Felix Mohl | | | | | | | Humira: | | | | | | | Inject the | | | | | | | contents of | | | | | | | 4 pens for | | | | | | | an initial | | | | | | | dose. Then | | | | | | | two weeks | | | | | | | later inject | | | | | | | the | | | | | | | contents of | | | | | | | 2 pens. | | | | | | | Then two | | | | | | | weeks later | | | | | | | start | | | | | | | injecting 1 | | | | | | | pen every | | | | | | | other week. | | | +--------+--------+ + + + + Encounter Details +--------+ + + + + | Date | Type | Department | Care Team | Description | +--------+ + + + + | 07/20/ | Hospital | [facility] | [facility], | Crohn's disease with | | 2018 | Encounter | MED [facility] OP [facility]ION | MICAELA Romero [address] | complication, | | | | [address] | [address] | unspecified | | | | [place], [place] | [place], [place] | gastrointestinal | | | | [phone] | [phone] | tract location ([facility]) | | | | [phone] | | | | | | | Felix Troy W, | | | | | | PharmBenjamin [address] | | | | | [address] [place], [place] | | | | | | [id number] | | | | | | | [...] + + + | Blood Pressure | 111/68 | 07/20/2017 9:00 AM | | | | | PDT | | + + + + + | Pulse | 62 | 07/20/2017 9:00 AM | | | | | PDT | | + + + + + | Temperature | 36.2 C (97.2 F) | 07/20/2017 9:00 AM | | | | | PDT | | + + + + + | Respiratory Rate | - | - | | + + + + + | Oxygen Saturation | 98% | 07/20/2017 9:00 AM | | | | | PDT [...] documented in this encounter Discharge Instructions Instructions Felix Troy, PharmD - 07/20/2017 HUMIRA AFTER VISIT SUMMARY [facility] Pharmac[facility] [phone] INSTRUCTIONS FOR TODAY 1. Start HUMIRA (adilimamab) subcutaneous injections. Inject 160 mg subcutaneously as soon as you receive your medication. Inject 80 mg subcutaneously 2 weeks after your first dose (d ay 15). Maintain with 40 mg every other week starting at week 4 (day 29). 2. Lab will be due in September. You will receive a phone call or [employer] message as a reminder to have them drawn.. 3. You will receive a phone call in 2 weeks from me to see how you are doing with your IBD. . 4. Please call our clinic if you plan to receive a vaccine. Some vaccines are live and shou ld not be given when on immune suppressing therapy. 5. Please call our clinic if you plan to have a procedure. Sometimes disease modifying ther apy must be held prior to or after certain procedures. 6. Seek emergency medical attention right away if you experience any hypersensitivity react ion (including anaphylaxis) or signs/symptoms of infection, tuberculosis and new or worsenin g heart failure. 7. Please call our clinic right away if you experience any injection site reaction that is intolerable. 8. Start Budesonide taper August 03 by decreasing dose to 6mg daily. Then continue to taper down one capsule every 2 weeks. Dates and doses are as follows: 07/20-08/02: 9mg daily 08/03-08/16: 6mg daily 08/17-08/30: 3mg daily 08/31: Stop If you have any issues or flares while on your taper please stop decreasing your dose and c all the clinic to discuss how you should continue. For urgent needs, call 911 or go to the nearest urgent care clinic or emergency room. WHAT YOU NEED TO KNOW* Medical treatment for Crohn s disease and ulcerative colitis has two main goals: achievin g remission (control or resolution of inflammation leading to symptom resolution) and then m aintaining remission. Over the last several years, new treatments called biologics have been available for the tr eatment of inflammatory bowel disease (IBD) and other inflammatory diseases. These treatment s are called biologics because, unlike chemical medications, they are made out of materials found in life. Biologics are antibodies grown in the laboratory that stop certain proteins in the body fro m causing inflammation. Biologic therapies offer a distinct advantage in IBD treatment becau se their mechanisms of action are more precisely targeted to the factors responsible for IBD . For example, unlike corticosteroids, which affect the whole body and may produce major derek e effects, biologic agents act more selectively. These therapies are targeted to particular proteins that have already been proven to be involved in people with IBD. Biologics known as anti-tumor necrosis factor (anti-TNF) agents bind and block a small prot ein called tumor necrosis factor alpha (TNF-alpha) that promotes inflammation in the intesti ne as well as other organs and tissues. All anti-TNF medications have been shown to not only reduce the symptoms of IBD, but also result in healing of inflamed intestine. While anti-TN F medications are not effective for every individual, many patients benefit from this class of medication. It may take up to 8 weeks after starting an anti-TNF to notice an improvement in symptoms, though many experience more immediate improvement. HUMIRA (adilimamab) is a biologic medication that is injected under the skin and used for m [id number]-wrbmdf inflammatory bowel disease (IBD). HUMIRA (adilimamab) reduces signs and sy mptoms, and maintains clinical response, in adult patients with moderatey to severely active IBD who have had inadequate response to conventional therapy. The most common side effects of HUMIRA (adilimamab) are injection site reactions such as redness, rash, swelling, itching , pain, or bruising; upper respiratory infections (including sinus infections); headaches, r rajesh, and nausea. On rare occasion certain types of cancer, including lymphoma, have been rep orted. Biologic therapies have been rarely associated with changes in liver function. If you develop jaundice (yellowing of skin and/or eyes) while using biologics, inform your gastroe nterologist immediately. Since HUMIRA (adilimamab) suppresses your immune system you are at an increased risk for de veloping an infection that could progress to a serious infection that could lead to hospital ization or . Infections could be bacterial, viral, or fungal. Please remember that even if you have tested negative for tuberculosis (TB) we will still monitor for signs and sympt oms and you will need to be retested every 1-2 years while on therapy. Signs and symptoms of infection include fever (sometimes this is the only sign of an infect ion), chills and sweats, change in cough or a new cough, sore throat or new mouth sore(s), s hortness of breath, nasal congestion, stiff neck, burning or pain with urination, increased urination, redness, soreness, or swelling in any area, diarrhea, vomiting, pain in the abdom en or rectum, and new onset of pain. Signs and symptoms of TB a bad cough that lasts 3 weeks or longer, pain in the chest, cough ing up blood or sputum (mucus from deep inside the lungs), weakness or fatigue, unintentiona l weight loss, loss of appetite, chills, fever, and night sweats. Very rarely HUMIRA (adilimamab) can also cause worsening or new onset heart failure. Signs and symptoms of heart failure include shortness of breath, chronic coughing or wheezing, elmore ld-up of fluid in your lower extremities, nausea or lack of appetite, confusion or impaired thinking, and elevated heart rate. If you experience any of the above symptoms of infection, TB and heart failure or think yo u might be experiencing any of these conditions please seek emergency medical attention righ t away. Your IBD therapy can put you at risk for developing certain types of skin cancer. Try to re main in the shade and wear a hat if able. If you are out in the sun it is very important to apply a water resistant sunscreen (SPF 45) to your skin or wear clothing that will provid e sufficient protection. Apply sunscreen to clean dry skin and reapply at least every 90 min utes (more often if you get wet). In addition to wearing sunscreen you will need to have yea rly skin checks for non-melonoma skin cancers. Due to increase risk of cancer you will need to have annual PAP, annual skin examinations, you will be checked for lymphoma, and any changes in lab work (RBC/PLT) Avoid supplements as the contents may be highly variable as they are not tested for effecti veness, dose authenticity, or for interactions with other medications. Limit your exposure to antibiotics as your IBD therapy will put you at greater risk of developing opportunistic infections associated with antibiotic use such as Colstridum Difficile (also known as C. Dif f). *The majority of the information provided is taken directly from the [facility] [place] [facility] [place] ([facility]) patient education materials HOW TO ADMINISTER YOUR DOSE You will inject HUMIRA (adilimamab) just under your skin using a pre-filled syringe and nee dle. Administer your injection at the same time of day each time it is due. What supplies do I need? Alcohol Wipes Adhesive Bandage Sharps Container Medication INSTRUCTIONS FOR USE HUMIRA (Hu-MARE-ah) (adalimumab) 40 MG/0.8 ML SINGLE-USE PEN Do not try to inject HUMIRA yourself until you have been shown the right way to give the injections and have read and understand this Instructions for Use. If your doctor decides t hat you or a caregiver may be able to give your injections of HUMIRA at home, you should rec eive training on the right way to prepare and inject HUMIRA. It is important that you read, understand, and follow these instructions so that you inject HUMIRA the right way. It is als o important to talk to your doctor to be sure you understand your HUMIRA dosing instructions . To help you remember when to inject HUMIRA, you can deja your calendar ahead of time. Call your healthcare provider if you or your caregiver have any questions about the right way to inject HUMIRA. IMPORTANT: Do not use HUMIRA if frozen, even if it has been thawed. The HUMIRA Pen contains glass. Do not drop or crush the Pen because the glass inside may break. Each HUMIRA Pen has 2 caps on it. Do not remove the seo cap (Cap #1) or the plum colore d cap (Cap #2) until right before your injection. When the plum-colored button on the HUMIRA Pen is pressed to give your dose of HUMIRA, you will hear a loud click sound. You must practice injecting HUMIRA with your doctor or nurse so that you are not startle d by this click when you start giving yourself the injections at home. The loud click sound means the start of the injection. You will know that the injection has finished when the yellow marker appears fully in th e window view and stops moving. If more comfortable, take your HUMIRA Pen out of the refrigerator 15 to 30 minutes before i njecting to allow the liquid to reach room temperature. Do not remove the seo cap (Cap #1) or the plum-colored cap (Cap #2) while allowing it to reach room temperature. Do not warm HU ESTEFANIA in any other way (for example, do not warm it in a microwave or in hot water). How should I dispose of the used HUMIRA Pen? Put your Pen in a FDA-cleared sharps disposal container right away after use. Do not thr ow away the Pen in your household trash. Do not try to touch the needle. The white needle sleeve is there to prevent you from court trish the needle. If you do not have a FDA-cleared sharps disposal container, you may use a household cont ainer that is: made of a heavy-duty plastic, can be closed with a tight-fitting, puncture-resistant lid, without sharps being able to come out, upright and stable during use, leak-resistant, and properly labeled to warn of hazardous waste inside the container. When your sharps disposal container is almost full, you will need to follow your communi ty guidelines for the right way to dispose of your sharps disposal container. There may be s [place] or local laws about how you should throw away used needles and syringes. For more infor mation about safe sharps disposal, and for specific information about sharps disposal in the state that you live in, go to the FDA s website at: http://www.fda.gov/safesharpsdisposal . For the safety and health of you and others, never re-use your HUMIRA Pens. The used alcohol pads, cotton balls, dose trays and packaging may be placed in your hous ehold trash. Do not dispose of your used sharps disposal container in your household trash unless you r community guidelines permit this. Do not recycle your used sharps disposal container. Always keep the sharps container out of the reach of children. How should I store HUMIRA? Store HUMIRA in the refrigerator between 36F to 46F (2C to 8C). Store HUMIRA in the original carton until use to protect it from light. Do not freeze HUMIRA. Do not use HUMIRA if frozen, even if it has been thawed. Refrigerated HUMIRA may be used until the expiration date printed on the HUMIRA carton, dose tray or Pen. Do not use HUMIRA after the expiration date. If needed, for example when you are traveling, you may also store HUMIRA at room tempera ture up to 77F (25C) for up to 14 days. Store HUMIRA in the original carton until use to protect it from light. Throw away HUMIRA if it has been kept at room temperature and not been used within 14 da ys. Record the date you first remove HUMIRA from the refrigerator in the spaces provided on the carton and dose tray. Do not store HUMIRA in extreme heat or cold. Do not use a Pen if the liquid is cloudy, discolored, or has flakes or particles in it. Do not drop or crush HUMIRA. Keep HUMIRA, injection supplies, and all other medicines out of the reach of children. This Instructions for Use has been approved by the U.S. Food and Drug Administration. Manufactured by: [place] [address], [place] License Number [id number] Revised: 01/2017 Step 1: CHECK THE CARTON, DOSE TRAY, AND HUMIRA PEN Make sure the name HUMIRA appears on the carton, dose tray, and HUMIRA pen label. DO NOT US E and call the clinic right away if: you drop or crush your HUMIRA Pen. the seals on the top or bottom of the carton are broken or missing. the expiration date on the carton, dose tray, and Pen has passed. the HUMIRA Pen has been frozen or left in direct sunlight. HUMIRA has been kept at room temperature for longer than 14 days or HUMIRA has been stor ed above 77F (25C). Step 2: CHECK THE AMOUNT OF MEDICATION Hold the pen with the seo cap (cap 1) pointed down. Make sure the amount of liquid in the pen is at the fill line or close to the fill line seen through the window. This is the full dose of HUMIRA that you will inject. If the pen does not have the full amount of liquid, DO NOT USE THAT PEN and call our cli viri right away. Step 3: CHECK THE COLOR OF THE MEDICATION Turn the pen over and hold the pen with the seo cap (cap 1) pointed up. Check the solution through the windows on the side of the pen to make sure the liquid is clear and colorless. DO NOT USE your HUMIRA pen if the liquid is cloudy, discolored, or if it has flakes or p articles in it and call our clinic right away. It is normal to see one or more bubbles in the window. Step 4: WASH YOUR HANDS Wash and dry your hands well Step 5: CHOOSE AN INJECTION SITE Site can be on the front of your thighs or your lower abdomen (belly). If you choose your abdomen, do not use the area 2 inches around your belly button (navel ). Choose a different site each time you give yourself an injection. Each new injection should be given at least one inch from the site you used before. DO NOT inject into skin that is sore (tender), bruised, red, hard, scarred, or where you have stretch herbert. If you have psoriasis, DO NOT inject directly into any raised, thick, red or scaly skin patches, or lesions on your skin. Do not inject through your clothes. Step 6: PREPARE THE INJECTION SITE Wipe the injection site with an alcohol prep (swab) using a circular motion. DO NOT touch this area again before giving the injection. Allow the skin to dry before injecting. DO NOT fan or blow on the clean area Step 7: PREPARE THE HUMIRA PEN DO NOT remove the seo cap (cap 1) or the plum-colored cap (cap 2) until right before yo ur injection. Hold the middle of the pen (seo body) with one hand so that you are not touching the gr ay cap (cap 1) or the plum-colored cap (cap 2). Turn the pen so that the seo cap (cap 1) is pointing up. Step 8: REMOVE THE SEO CAP With your other hand, pull the seo cap (cap 1) straight off (do not twist the cap); elliott e sure the small needle cover of the syringe has come off with the seo cap (cap 1). Throw away the seo cap. DO NOT put the seo cap (cap 1) back on the pen because that could damage the needle. The white needle sleeve, which covers the needle, can now be seen. DO NOT tough the needle with your fingers or let the needle touch anything. You may see a few drops of liquid come out of the needle; that is normal. Step 9: REMOVE THE PLUM-COLORED CAP Remove the plum-colored cap (cap 2) from the bottom of the pen by pulling it straight of f (do not twist the cap). The pen is now activated. Throw away the plum colored cap (cap 2); do not put the plum-colored cap (cap 2) back on the pen because it could cause medicine to come out of the syringe. Turn the pen so the plum-colored activator button is pointed up. DO NOT press the plum-colored activator button until you are ready to inject HUMIRA; pre ssing the plum-colored activator button will release the medicine from the pen. Hold the pen so that you can see the window. Step 10: SQUEEZE THE SKIN Gently squeeze the area of the cleaned skin and hold it firmly, you will inject into thi s raised area of skin. Step 12: PLACE THE PEN Place the white end of the pen straight up (at a 90 degree angle) and flat against the r aised area of your skin that you are squeezing. Place the pen so that it will not inject the needle into your fingers that are holding t he raised skin. Step 11: INJECT HUMIRA With your index finger or your thumb, press the plum-colored activator button to begin t he injection. Try not to cover the window. You will hear a loud 'click' when you press the plum-colored activator button. The loud click means the start of the injection. Keep pressing the plum-colored activator button and continue to hold the pen against you r squeezed, raised skin until all the medicine is injected. This can take up to 10 seconds, so count slowly to ten. Keep holding the pen against the squeezed, raised skin of your injection site for the wh ole time so you get the full dose of the medicine. Step 12: COMPLETE THE INJECTION You will know that the injection has finished when the yellow marker fully appears in th e window view and stops moving. When the injection is finished, slowly pull the pen from your skin. The white needle sleeve will move to cover the needle tip DO NOT touch the needle. The white needle sleeve is there to prevent you from touching t he needle. Press a cotton ball or gauze pad over the injection site and hold it for 10 seconds. DO NOT rub the injection site. You may have slight bleeding; this is normal. Step 13: DISPOSE OF THE PEN Throw away (dispose of) your used HUMIRA pen in a sharps disposal container right away a fter use. Keep a record of the dates and location of your injection sites. To help you remember when to take HUMIRA, you can deja your calendar ahead of time. documented in this encounter Medications at Time [...] + + +---------+ + + | adalimumab (HUMIRA | Inject 160 mg | 1 kit | 0 | 07/05/19 | | | PEN - CROHN'S | (contents of 4 pens) | | | 18 | 8 | | STARTER KIT) 40 | sub-q as initial | | | | | | mg/0.8 mL injection | dose, then, 2 weeks | | | | | | (pen)Indications: | after initial dose, | | | | | | Crohn's disease with | inject 80 mg | | | | | | complication, | (contents of 2 pens) | | | | | | unspecified | sub-q. | | | | | | gastrointestinal | | | | | | | tract location (HCC) | | | | | | + + + +---------+ + + | adalimumab (HUMIRA | Inject 0.8 mLs under | 2 each | 5 | 07/21/19 | | | PEN) 40 mg/0.8 mL | the skin every 14 | | | 18 | 8 | | injection | days. | | | | | | (pen)Indications: | | | | | | | Crohn's disease with | | | | | | | complication, | | | | | | | unspecified | | | | | | | gastrointestinal | | | | | | | tract location (HCC) | | | | | | + + + +---------+ + + | budesonide | Take 3 capsules by | 90 | 2 | 06/21/19 | | | (ENTOCORT EC) 3 mg | mouth every morning. | capsule | | 18 | 8 | | 24 hr | Take 3 tablets by | | | | | | capsuleIndications: | mouth daily. | | | | | | Crohn's disease of | Continue to wean off | | | | | | small intestine with | the medcation | | | | | | complication (HCC) | | | | | | + + + +---------+ + + | mesalamine | Take 3 tablets by | 90 | 2 | 05/04/19 | | | (LIALDA) 1.2 g EC | mouth Daily. | tablet | | 18 | 8 | | tablet | | | | | | + + + +---------+ + + documented as of this encounter Progress Notes Felix Troy, Pauline - 07/20/2017 8:23 AM PDT [facility] Inflammatory Bowel Disease Follow Up Provider: Felix Troy PharmD Encounter Date: 07/20/2017 Patient: Nyla Nye : 1980 CSN: [id number] ASSESSMENT New Biologic Start Nyla Nye is a 37 y.o. female who has been referred to the [facility] by MICAELA Snider for DMT management. Nyla has been prescribed HUMI RA (adalimumab) for Crohn's disease. The purpose of today's discussion is to assess for comp liance, adverse reactions, and answer Nyla's questions. Signs and Symptoms of IBD Recent onset of the following symptoms: Yes No Diarrhea [x] [] Blood in stool [x] [] Severe abdominal pain [x] [] Number of bowel movements a day: 4-6 depending on diet Signs and Symptoms of Infection/TB Recent onset [...] Hep B screenin06/20/17 Last TB screenin06/20/17 Nyla was educated on how to do Humira self injections today at the clinic. She gave herse lf 4 injections and will plan on giving herself 2 more on 08/03. She reported that she is h aving more abdominal pain today but has also started her period which she says always makes things worse. Decided that because she is not sick and having GI symptoms that it would be best to start her biologic today. Vitals: 07/20/17 0900 BP: 111/68 Pulse: 62 Temp: 36.2 C (97.2 F) PLAN 1. Compliance was discussed and Nyla has been educated about the importaince of staying on her humira schedule 2. Medication reconciliation was done and Nyla does not report any changes or new medicati ons including prescription, OTC, or herbal/supplements. 3. Will call Nyla in 2 weeks to follow up with how she is doing with her Humira and educat e to start her budesonide taper. 4. Plan will be to decrease budesonide dose by 1 capsule (3mg) every 2 weeks. This will familia th allow adequate time for her humira to start working and the body to adjust to a lower dos e of steroid. 5. Nyla was reminded that labs (CBC w/diff and CMP) will be due in September. 6. Nyla is on a biologic and [...] spent on the phone with Nyla was 30 minutes with greater than 50% of time spent reviewing medications with patient, counseling, education, and/or coordinating care as outl ined above. Felix Troy, PharmD DATE/TIME: 07/20/2017 8:23 documented in this encounter Plan of Treatment [...]
--- OUTSIDE RECORDS SUMMARY | ~2020-01-09 | XMS | Encounter Summary ---
Demographics + + + | Address | [address] | | | [place] [address] | + + + | Home Phone | | + + + | Preferred Language | Unknown | + + + | Marital Status | | + + + | Yarsani Affiliation | Unknown | + + + [...] Team Providers + +------+ + | Care Horse And Wagon Driver Name | Role | Phone | + [...] [facility] | | | | | ([facility]LY [facility]) | [address] | [place], | | | | | Felix Mohl, | [place] | [place] [address] | | | | | Entyvio | [facility], [place] | Phone: | | | | | 300mg. Q 8 | [address] | [phone] | | | | | wks., | Phone: | Fax: | | | | | Crohn's | [phone] | [phone] | | | | | Procedures | Fax: | | | | | | CA | [phone] | | | | | | INJECTION, | | | | | | | VEDOLIZUMAB, | | | | | | | 1MG CA IV | | | | | | [...] | +--------+ + + + + | 11/01/ | Hospital | [facility] | [facility], | Crohn's disease with | | 2019 | Encounter | MED CTR OP INFUSION | MICAELA Romero [address] | complication, | | | | [address] | [address] | unspecified | | | | [place], [place] | [place], [place] | gastrointestinal | | | | [address] | [address] | tract location (HCC) | | | | [phone] | | (Primary Dx) | +--------+ + [...] + + + | Blood Pressure | 108/69 | 11/01/2018 2:07 PM | | | | | PDT | | + + + + + | Pulse | 67 | 11/01/2018 2:07 PM | | | | | PDT | | + + + + + | Temperature | 36.8 C (98.2 F) | 11/01/2018 2:07 PM | | | | | PDT | | + + + + + | Respiratory Rate | 16 | 11/01/2018 2:07 PM | | | | | PDT | | + + + + + | Oxygen Saturation | 98% | 11/01/2018 2:07 PM | | | | | PDT | [...] | | 0 | | | | Levonorgestrel-Ethin | mouth Daily. | | | | 9 | | yl Estrad (ALESSE, | | | | | | | 28, PO) | | | | | | [...] encounter Progress Notes Reny Eduardo RN - 11/01/2018 2:15 PM PDT Vitals: 11/01/18 1300 11/01/18 1407 BP: 132/60 108/69 Pulse: 74 67 Resp: 18 16 Temp: 36.8 C (98.2 F) 36.8 C (98.2 F) TempSrc: Oral Oral SpO2: 98% 98% Administrations This Visit acetaminophen (TYLENOL) tablet 650 mg Admin Date 11/01/2018 Action Given Dose 650 mg Route Oral Administered By Reny Eduardo RN loratadine (CLARITIN) tablet 10 mg Admin Date 11/01/2018 Action Given Dose 10 mg Route Oral Administered By Reny Eduardo RN vedolizumab (ENTYVIO) 300 mg in sodium chloride 0.9% 250 mL IVPB Admin Date 11/01/2018 Action New Bag Dose 300 mg Rate 510 mL/hr Route Intravenous Administered By Reny Eduardo RN Monitored throughout treatment; treatment completed without untoward effects from medicatio n noted. Next visit December 26. Verbalizes understanding of plan of care. VS stable. Disch arged ambulatory to home in stable condition. Electronically signed by: Reny Eduardo RN 11/01/2018 17:35 Felix Godoy PharmD - 11/01/2018 1:30 PM PDT [facility] Inflammatory Bowel Disease Follow Up Provider: Felix Troy PharmD Encounter Date: 11/01/2018 Patient: Nyla Nye : 1980 CSN: [id number] ASSESSMENT Entyvio follow up Nyla Nye is a 38 y.o. female who has [facility] by MICAELA Snider for DMT management. Nyla has been prescribed ENTYV IO (vedolizumab) for Crohn's disease. The purpose of today's discussion is to assess for com pliance, adverse reactions, and answer Nyla's questions. Inflamatory Bowel Disease Therapy Medication being managed: ENTYVIO (vedolizumab) Referring Provider: MICAELA Snider Diagnosis: Crohn's disease Next Referral Needed: 11/01/19 PA Exp: 09/04/19 Last TB Test: 06/20/17 Last Hep B Test: 06/20/17 Next Lab Monitorin11/01/18 Signs and Symptoms of IBD Recent onset of the following symptoms: Yes No Diarrhea [] [x] Blood in stool [] [x] Severe abdominal pain [x] [] Number of bowel movements a day: once daily to every other day Signs and Symptoms of [...] [x] New onset of pain [] [x] Nyla reports that she is still doing well. However, she has continued to have some break through symptoms. Symptoms include abdominal pain and urgency to go. Symptoms only last fo r a few days but they seem to occur more frequently closer to her next infusion. Last time she had a issue was yesterday. Nyla then asked about doing a small dose of steroid for a week to help control her pain. I am reluctant to put her back on steroids but as she has be en having these small breakthroughs am open to as short course. We also discussed her upcomming rotator cuff surgery. Explained that as long as she has di scussed with Dr. Newsome and Meera about getting a surgery and being on a biologic then we ar e good to move forkacy. She has done both and everyone is ok with the plan. Reassured her t hat the way Entyvio works it mainly works in the gut so we dont have all the same risks as o ther biologics and surgeries issues. PLAN 1. Compliance was discussed and Nyla [...] (CBC w/diff and CMP) will be due 4th quarter. Labs were rev iewed with Nyla and results are appropriate. 6. Nyla is on a biologic and the importance of sunscreen was reinforced. Last skin exam wa s less than one year ago. 7. Nyla is on a biologic and the importance of reporting upcoming procedures was discussed . Plan has already been discuss with both GI and Surgeon. 8. Nyla will take 3mg of budesonide for 1 week. I will mychart her to check in and if bet ter we can just stop the steroid. If not improved will discuss with Meera her thoughts. 9. Nyla does not have any questions at this time. Laboratory Findings Lab Results Component Value Date HGB 14.4 11/01/2018 HCT 42.8 11/01/2018 PLT 280 11/01/2018 AST 22 07/12/2018 ALT 12 07/12/2018 WBC 9.8 11/01/2018 Lab Results Component Value Date HCV <0.1 06/20/2017 HBV Negative 06/20/2017 Total time spent on the phone with Nyla was 15 minutes with greater than 50% of time spent reviewing medications with patient, counseling, education, and/or coordinating care as outl ined above. Felix Troy PharmD DATE/TIME: 11/01/2018 13:31 Reny Villatoro RN - 11/01/2018 1:06 PM PDT Vitals: 11/01/18 1300 BP: 132/60 Pulse: 74 Resp: 18 Temp: 36.8 C (98.2 F) Nyla Nye received into room 440, independent ambulation accompanied by her fami ly. States here for Entyvio infusion. Reports no change in condition, plan of care since juliette lainez MD visit. Alert, oriented x 4, cooperative. Electronically signed by: Reny Eduardo, RN 11/01/2018 13:07 documented in this enc ounter Plan of [...] + | CBC WITH | STAT | 11/01/2018 | Crohn's disease | Results for this | | DIFFERENTIAL | | 1:12 PM | with complication, | procedure are in the | | | | PDT | unspecified | results section. | | | | | gastrointestinal | | | | | | tract location (HCC) | | + +--------+ + + + | COMPREHENSIVE | Routin | 11/01/2018 | Crohn's disease | Results for this | | METABOLIC PANEL | e | 1:12 PM | with complication, | procedure are in the | | | | PDT | unspecified | results section. | | | | | gastrointestinal | | | | | | tract location (HCC) | | + +--------+ + + + documented in this encounter Results Comprehensive Metabolic Panel (11/01/2018 1:12 PM PDT) + + + + + + | Component | Value | Ref Range | Performed | Pathologist | | | | | At | Signature | + + + + + + | Na | 138 | 136 - 145 | [facility] | | | | | mmol/L | [facility] | | | | | | MEDICAL | | | | | | CENTER - | | | | | | LABORATORY | | + + + + + + | K | 3.8 | 3.4 - 5.1 | [facility] | | | | | mmol/L | [facility] | | | | | | MEDICAL | | | | | | CENTER - | | | | | | LABORATORY | | + + + + + + | Cl | 104 | 98 - 107 mmol/L | [facility] | | | | | | [facility] | | | | | | MEDICAL | | | | | | CENTER - | | | | | | LABORATORY | | + + + + + + | CO2 | 27 | 20 - 31 mmol/L | [facility] [...] + + + + | Glucose | 77 | 60 - 106 mg/dL | [facility] | | | | | | [facility] | | | | | | MEDICAL | | | | | | CENTER - | | | | | | LABORATORY | | + + + + + + | BUN | 11 | 9 - 23 mg/dL | [facility] | | | | | | [facility] | | | | | | MEDICAL | | | | | | CENTER - | | | | | | LABORATORY | | + + + + + + | Creatinine | 0.91 | 0.55 - 1.02 | [facility] | | | | | mg/dL | [facility] | | | | | | MEDICAL | | | | | | CENTER - | | | | | | LABORATORY | | + + + + + + | eGFR, | >60Comment: GLOMERULAR | >=60 | [facility] | | | non- | FILTRATION | mL/min/1.73m2 | [facility] | | | Indonesian | RATE,ESTIMATED | | MEDICAL | | | | mL/min/1.48m3Pvnu than | | CENTER - | | [...] | 9.4 | 8.7 - 10.4 | [facility] | | | | | mg/dL | [facility] | | | | | | MEDICAL | | | | | | CENTER - | | | | | | LABORATORY | | + + + + + + | Albumin | 4.6 | 3.2 - 4.8 g/dL | [facility] | | | | [...] + + + + | Total | 7.5 | 5.7 - 8.2 g/dL | [facility] | | | Protein | | | [facility] | | | | | | MEDICAL | | | | | | CENTER - | | | | | | LABORATORY | | + + + + + + | AST | 20 | 0 - 34 U/L | [facility] | | | | | | [facility] | | | | | | MEDICAL | | | | | | CENTER - | | | | | | LABORATORY | | + + + + + + | ALT | 12 | 10 - 49 U/L | [facility] | | | | | | [facility] | | | | | | MEDICAL | | | | | | CENTER - | | | | | | LABORATORY | | + + + + + + | Alkaline | 73 | 46 - 116 U/L | [facility] | | | Phosphatase | | | [facility] | | | | | | MEDICAL | | | | | | CENTER - | | | | | | LABORATORY | | + + + + + + | Globulin | 2.9 | 2.1 - 3.8 g/dL | [facility] | | | | | | [facility] | | | | | | MEDICAL | | | | | | CENTER - | | | | | | LABORATORY | | + + + + + + | Albumin/Zohreh | 1.6 | 0.8 - 1.9 | [facility] | | | bulin Ratio | | | [facility] | | | | | | MEDICAL | | | | | | CENTER - | | | | | | LABORATORY | | + + + + + + | BUN/Creatin | 12.1 | | [facility] | | | ine Ratio | | | [facility] | [...] | + + + + + | [facility] | [address] | [place] | [phone] | | [facility] | | [address] | | | - LABORATORY | | | | + + + + + CBC with Differential (11/01/2018 1:12 PM PDT) + + + + + + | Component | Value | Ref Range | Performed | Pathologist | | | | | At | Signature | + + + + + + | White Blood | 9.8 | 4.0 - 11.0 K/uL | [facility] | | | Cells | | | [facility] | | | | | | MEDICAL | | | | | | CENTER - | | | | | | LABORATORY | | + + + + + + | Red Blood | 4.37 | 3.70 - 5.20 | [facility] | | | Cells | | M/uL | [facility] | | | | | | MEDICAL | | | | | | CENTER - | | | | | | LABORATORY | | + + + + + + | Hemoglobin | 14.4 | 11.5 - 16.0 | [facility] | | | | | g/dL | [facility] | | | | | | MEDICAL | | | | | | CENTER - | | | | | | LABORATORY | | + + + + + + | Hematocrit | 42.8 | 34.0 - 47.0 % | [facility] | | | | | | [facility] | | | | | | MEDICAL | | | | | | CENTER - | | | | | | LABORATORY | | + + + + + + | MCV | 97.9 | 83.0 - 101.0 fL | [facility] | | | | | | [facility] | | | | | | MEDICAL | | | | | | CENTER - | | | | | | LABORATORY | | + + + + + + | MCH | 33.0 | 28.0 - 35.0 pg | [facility] | | | | | | [facility] | | | | | | MEDICAL | | | | | | CENTER - | | | | | | LABORATORY | | + + + + + + | MCHC | 33.6 | 32.0 - 36.0 | [facility] | [...] + + + + | RDW-SD | 45.3 | 35.1 - 46.3 fL | [facility] | | | | | | [facility] | | | | | | MEDICAL | | | | | | CENTER - | | | | | | LABORATORY | | + + + + + + | Platelet | 280 | 140 - 440 K/uL | [facility] | | | Count | | | [facility] | | | | | | MEDICAL | | | | | | CENTER - | | | | | | LABORATORY | | + + + + + + | MPV | 9.7 | 6.5 - 12.4 fL | [facility] | | | | | | [facility] | | | | | | MEDICAL | | | | | | CENTER - | | | | | | LABORATORY | | + + + + + + | % | 63.6 | 45.0 - 82.0 % | [facility] | | | Neutrophils | | | [facility] | | | | | | MEDICAL | | | | | | CENTER - | | | | | | LABORATORY | | + + + + + + | % | 25.7 | 20.0 - 45.0 % | [facility] | | | Lymphocytes | | | [facility] | | | | | | MEDICAL | | | | | | CENTER - | | | | | | LABORATORY | | + + + + + + | % Monocytes | 6.9 | 4.0 - 12.0 % | [facility] | | | | | | [facility] | | | | | | MEDICAL | | | | | | CENTER - | | | | | | LABORATORY | | + + + + + + | % | 2.8 | 0.0 - 5.0 % | [facility] | | | Eosinophils | | | [facility] | | | | | | MEDICAL [...] + + + | % Immature | 0.2Comment: For | 0.0 - 0.4 % | [facility] | | | Granulocyte | patients, use the | | [facility] | | | s | special reference ranges | | MEDICAL | | | | listed below. | | CENTER - | | | | | | LABORATORY | | + + + + + + | Absolute | 6.21 | 1.80 - 8.50 | [facility] | | | Neutrophils | | K/uL | [facility] | | | | | | MEDICAL | | | | | | CENTER - | | | | | | LABORATORY | | + + + + + + | Absolute | 2.51 | 0.60 - 3.20 | [facility] | | | Lymphocytes | | K/uL | [facility] | | | | | | MEDICAL | | | | | | CENTER - | | | | | | LABORATORY | | + + + + + + | Absolute | 0.67 | 0.00 - 1.00 | [facility] | | | Monocytes | | K/uL | [facility] | | | | | | MEDICAL | | | | | | CENTER - | | | | | | LABORATORY | | + + + + + + | Absolute | 0.27 | 0.00 - 0.40 | [facility] | | | Eosinophils | | K/uL | [facility] | | | | | | MEDICAL | | | | | | CENTER - | | | | | | LABORATORY | | + + + + + + | Absolute | 0.08 | 0.00 - 0.10 | [facility] | | | Basophils | | K/uL | [facility] | | | | | | MEDICAL | | | | | | CENTER - | | | | | | LABORATORY | | + + + + + + | Absolute | 0.02Comment: For | 0.00 - 0.03 | [facility] [...] ranges: Trim. Absolute (K/uL) Percentage (%) | [facility] | | 1st 0.003-0.091 K/uL 0.0-0.9% 2nd 0.007-0.247 K/uL | [facility] | | 0.1-2.0% 3rd 0.018-0.456 K/uL 0.1-2.0% | - LABORATORY | + + + + + + + + | Performing | Address | City/State/Zipcode | Phone Number | | Organization | | | | + + + + + | [facility] | [address] | [place] | [phone] | | [facility] | | [address] | | | - LABORATORY | | [...] | acetaminophen (TYLENOL) tablet | Given | 11/02/19 | 650 mg | | | | 650 mg 650 mg, Oral, ONCE, Shaylee | | 19 1:16 | | | | | 11/01/18 at 1320, For 1 dose | | PM PDT | | | | + +--------+ +--------+------+------+ +---+---+ | | | +---+---+ + +-------+ +-------+---+---+ | loratadine (CLARITIN) tablet 10 | Given | 11/02/19 | 10 mg | | | | mg 10 mg, Oral, ONCE, Shaylee | | 19 1:16 | | | | | 11/01/18 at 1320, For 1 dose | | PM PDT | | | | + +-------+ +-------+---+---+ +---+---+ | | | +---+---+ + +---------+ +--------+-------+---+ | vedolizumab (ENTYVIO) 300 mg in | New Bag | 11/02/19 | 300 mg | 510 | | | sodium chloride 0.9% 250 mL IVPB | | 19 1:35 | | mL/hr | | | 300 mg, Intravenous, Administer | | PM PDT | | | | | over 30 Minutes, ONCE, Shaylee | | | | | | | 11/01/18 at 1320, For 1 dose, EVERY | | | | | | | 8 WEEKS MAINTENANCE. Flush with | | | | | | | 30 mL NS after giving. Keep in | | | | | | | refrigerator., | | | | | | + +---------+ +--------+-------+---+ +---+---+ | | | +---+---+ documented in this encounter"
--- OUTSIDE RECORDS SUMMARY | ~2020-01-09 | XMS | Encounter Summary ---
Demographics + + + | Address | [address] | | | [place] [address] | + + + | Home Phone | | + + + | Preferred Language | Unknown | + + + | Marital Status | | + + + | Mandaeism Affiliation | Unknown | + + + | Race | White | + + + | Ethnic Group | Not or | + + + Author + + + | Author | [facility] | | | and [place] | + + + | Organization | [facility] | | [...] Team Providers + +------+ + | Care Coder Operator Name | Role | Phone | + +------+ + | Bird Talbot | PCP | | | MD | | | + +------+ + Reason for Visit + +--------+ + | Reason | Onset | Comments | | | Date | | + +--------+ + | Lab Results | 12/15/ | | | | 2018 | | + +--------+ + Encounter Details +--------+ + + + + | Date | Type | Department | Care Team | Description | +--------+ + + + + | 12/15/ | Telephone | [facility] | Felix Troy, | Lab Results | | 2018 | | MED CTR OP INFUSION | PharmD [address] | | | | | [address] | [place], [place] | | | | | [place], [place] | [address] | | | | | [address] | | | | | | [phone] | | | +--------+ + + + [...] this encounter Miscellaneous Notes Telephone Encounter - Heather Ko ARNP - 12/25/2017 10:12 AM PDTLet me know how th ings are going. Thank you 10 :12 AM PDTTelephone Encounter - Felix Troy PharmD - 12/15/2017 12:00 PM PDTFormatting o f this note might be different from the original. [facility]ARMACOTHERAPY CLINIC Inflammatory Bowel Disease Follow Up Provider: Feilx Troy PharmD Encounter Date: 12/15/2017 Patient: Nyla Nye : 1980 CSN: [id number] ASSESSMENT Humira follow up Nyla Nye is a 37 y.o. female who has been referred to the [facility] by MICAELA Snider for DMT management. Nyla has been prescribed HUMI RA (adalimumab) for Crohn's disease. The purpose of today's discussion is to assess for comp liance, adverse reactions, and answer Nyla's questions. Signs and Symptoms of IBD Recent onset of the following symptoms: Yes No Diarrhea [x] [] Blood in stool [] [x] Mild abdominal pain [x] [] Number of bowel movements a day: 1-2 Signs and Symptoms of Infection/TB Recent onset [...] Hep B screenin06/20/17 Last TB screenin06/20/17 Nyla in the last month had a flare of her crohn's disease that promoted us to start a burs t of steroid. This has helped her with her disease control but she continues to have bout o f diarrhea and mild abdominal pain. She had a CT of her Abdomen and Pelvis that showed "Si gnificant thickening of the distal and terminal ileum wall, consistent with crohn's disease. This is not significantly changed from the prior study." Adalimumab drug level and test for antibodies was also assessed. These test resulted to sh ow a adalimumab level of 13.1 ug/mL and a antibody concentration of <1.7U/mL. Guidelines jaimes ggest that a therapeutic level for adalimumab is >7.5 ug/mL, however the quality of evidence to support that is rated as "very low quality" and the comes with a conditional recommendat ion. Discussed these results with MICAELA Snider and plan was decided to re-induc e patient to the adalimumab. Because she has no antibodies detected the drug class of TNF-a lpha is still a option for treatment. She was a responder after initial induction to being almost fully controlled on adalimumab alone. Re-inducing Nyla would help provide valuable information to if we will be able to continue to use adalimumab or any of the TNF-alphas to control her crohn's disease. ~Kamla BolivarD, Destiny GC, Will SS, Aubrey Y, Jason S. [employer] [place] Guideline on Therapeutic Drug Monitoring in Inflammatory Bowel Disease . Gastroenterology. 2017;153(3):827-834. PLAN 1. Compliance was discussed and Nyla denies any missed doses of the medication therapy. N ext dose would be due 12/28/17. Has been instructed to stay on 1 capsule of the 3 mg budeson sancho until we get her more adalimumab pens. 2. Medication reconciliation was done and Nyla [...] w/diff and CMP) will be due on 01/01/18. 6. Will start to begin working on getting Nyla set up with another Humira starter kit so t hat we may have to redo the induction dosing. Laboratory Findings @LASTCREAT@ No results found for: QUANTTB, CRP, HGB, HCT, PLT, AST, ALT, ANC, LIPASE, WBC Lab Results Component Value Date HCV <0.1 06/20/2017 HBV Negative 06/20/2017 Total time spent on the phone with Nyla was 15 minutes with greater than 50% of time spent reviewing medications with patient, counseling, education, and/or coordinating care as outl ined above. Felix Troy PharmD DATE/TIME: 12/15/2017 12:04 documented in this encounter Plan of Treatment [...] intestine | + + documented in this encounter
--- OUTSIDE RECORDS SUMMARY | ~2020-01-09 | XMS | Encounter Summary ---
Demographics + + + | Address | [address] | | | [place] [address] | + + + | Home Phone | | + + + | Preferred Language | Unknown | + + + | Marital Status | | + + + | Evangelical Affiliation | Unknown | + + + | Race | White | + + + | Ethnic Group | Not or | + + + Author + + + | Author | [facility] | | | and [place] | + + + | Organization | [facility] | | [...] Team Providers + +------+ + | Care Odd Piece Checker Name | Role | Phone | + +------+ + | Bird Talbot | PCP | | | MD | | | + +------+ + Encounter Details +--------+ + + + + | Date | Type | Department | Care Team | Description | +--------+ + + + + | 03/13/ | Abstract | [facility] [place] | [facility], | | | 2017 | | GASTROENTEROLOGY | Heather MICAELA [address] | | | | | [address] | [address] | | | | | [address] [place], [place] | [place], [place] | | | | | [address] | [address] | | | | | [phone] | | | +--------+ + + + [...] +--------+ + + + + | 10// | Appointment | Infusion Therapy | | | | 2020 | | | | | +--------+ + + + + documented as of this encounter Visit Diagnoses Not on filedocumented in this encounter"
--- OUTSIDE RECORDS SUMMARY | ~2020-01-09 | XMS | Encounter Summary ---
Demographics + + + | Address | [address] | | | [place] [address] | + + + | Home Phone | | + + + | Preferred Language | Unknown | + + + | Marital Status | | + + + | Buddhist Affiliation | Unknown | + + + | Race | White | + + + | Ethnic Group | Not or | + + + Author + + + | Author | [facility] | | | and [place] | + + + | Organization | [facility] | | | [...] Team Providers + +------+ + | Care Core Checker Name | Role | Phone | + +------+ + | Bird Talbot | PCP | | | MD | | | + +------+ + Reason for Visit + +--------+ + | Reason | Onset | Comments | | | Date | | + +--------+ + | Medication Question | 11/17/ | | | | 2017 | | + +--------+ + Encounter Details +--------+ + + + + | Date | Type | Department | Care Team | Description | +--------+ + + + + | 11/17/ | Telephone | [facility] | Felix Troy, | Medication Question | | 2018 | | MED CTR OP INFUSION | PharmD [address] | | | | | [address] | [place], [place] | | | | | [place] | [address] | | | | | [address] | | | | | | [phone] | | | +--------+ + + + [...] Telephone Encounter - Felix Troy PharmD - 11/17/2017 9:[address] Campos's off ice and passed along the message. They will not do stress dose of steroid. Felix Troy PharmD 11/17/2017 9:21Electronically signed by Felix Troy PharmD at 11/17 9:22 AM PDTTelephone Encounter - Felix Troy PharmD - 11/17/2017 8:54 AM PDTKell y called with a question from her wom[facility] clinic provider Dr. Campos. She has a small elective surgery planned for Monday next week that Dr. Campos is wondering if she will need a stress dose of steroids as I recently just started her back on the budesonide for her Crohn's disea se flare. I discussed with Heather Olguinmoo who agree with me that because she was just p ut back on this burst she will not need a stress dose of steroid. Will call Dr. Campos office and let them know as well. Felix Troy PharmD 11/17/2017 9:17 documented in this encounter Plan of Treatment [...]
--- OUTSIDE RECORDS SUMMARY | ~2020-01-09 | XMS | Encounter Summary ---
Demographics + + + | Address | [address] | | | [place] [address] | + + + | Home Phone | | + + + | Preferred Language | Unknown | + + + | Marital Status | | + + + | Jew Affiliation | Unknown | + + + [...] Team Providers + +------+ + | Care Technology Auditor Name | Role | Phone | + [...] | | | | Diagnoses | | [place], | | | | | Incomplete | | Rm Bolivar DO | | | | | tear of | | [address] | | | | | right | | [address] [place] | | | | | rotator | | [place], [place] | | | | | cuff, | | [id number] | | | | | unspecified | | Phone: | | | | | whether | | [phone] | | | | | traumatic | | Fax: | | | | | Impingement | | [phone] | | | | | syndrome of | | | | | | | right | | | | | | | shoulder | | | | | | | Solitary | | | | | | | bone cyst of | | | | | | | humerus, | | | | | | | unspecified | | | | | | | laterality | | | | | | | Procedures | | | | | | | LA EXCIS | | | | | | | BENNAYAN TUMR | | | | | | | PROX | | | | | | | HUMER,JOANNA | | | | | | | FT LA | | | | | | | SHOULDER | | | | | | | SCOPE BONE | | | | | | | SHAVING LA | | | | | | | SHLDR | | | | | | | ARTHROSCOP,S | | | | | | | URG,W/ROTAT | | | | | | | CUFF REPR | | | | | | | Right | | | | | | | Shoulder | | | | | | | Scope, | | | | | | | Rotator Cuff | | | | | | | Repair, | | | | | | | Subacromial | | | | | | | Decompressio | | | | | | | n, Bone | | | | | | | Grafting of | | | | | | | Humeral Head | | | | | | | Bone Cyst | | | +--------+--------+ + + + + Encounter Details +--------+---------+ + + + | Date | Type | Department | Care Team | Description | +--------+---------+ + + + | 12/27/ | Surgery | [facility] | Rm Garcia | Right Shoulder | | 2019 | | [facility] | DO Osmel [address] | Scope, Rotator Cuff | | | | [address] | [place] | Repair, Subacromial | | | | [place] | [address] | Decompression, Bone | | | | [phone] | [phone] | Grafting of Humeral | | | | [phone] | | Head Bone Cyst | +--------+---------+ + + + Social History [...] + + + | Blood Pressure | 120/69 | 12/27/2018 12:10 PM | | | | | PDT | | + + + + + | Pulse | 78 | 12/27/2018 12:10 PM | | | | | PDT | | + + + + + | Temperature | 36.4 C (97.5 F) | 12/27/2018 11:42 AM | | | | | PDT | | + + + + + | Respiratory Rate | 14 | 12/27/2018 12:10 PM | | | | | PDT | | + + + + + | Oxygen Saturation | 96% | 12/27/2018 12:10 PM | | | | | PDT | | + + + + + | Inhaled Oxygen | - | - | | | Concentration | | | | + + + + + | Weight | 75.4 kg (166 lb 3.6 | 12/27/2018 7:57 AM | | | | oz) | PDT | | + + + + + | Height | 162.6 cm (5' 4") | 12/27/2018 7:57 AM | | | | | PDT | | + + + + + | Body Mass Index | 28.53 | 12/27/2018 7:57 AM | | | | | PDT | | + + + + + documented in this encounter Discharge Instructions Instructions Rm Garcia DO - 12/25/2018[facility] Post-op Instructions - Shoulder Surgery The following instructions are meant to guide you following any shoulder surgery until your first post-operative visit 7-12 days later. For any problems or questions, please call our office at [phone], Monday through Monday, 9:00 am - 5:00 pm. 1) Sleep at least 45 degrees upright from the horizontal position (there is less pain and s welling that way) until comfortable laying flat. A recliner works best. 2) Ice the shoulder for at least the first 3-5 days. 3) Keep the dressing clean and dry for 2 days. You may remove the dressing and shower for t he first time, 2 days after surgery. Then cover your incisions with gauze or band-aids depen ding on incision size. Do not immerse your wound in a bath, pool, or hot tub. Do not put oin tments, peroxide or creams on your incisions 4) Begin pendulum exercises the next day after your surgery. Bend at the waist and let your arm dangle at your side. Gentle 6 to 12 inch circles (let gravity do the work) for 1-2 carli rebecca, then put the arm back in the sling. Repeat 4-6 times daily. 5) Remain in your sling at all times, except when you are showering or doing your pendulum exercises. 6) Unless you enjoy shoulder surgery so much that you want to do it again, please do not re ach / push / pull / lift / or carry anything with your operative arm. Writing and typing (wi th arm in the sling) are about the only appropriate and safe uses of your arm. 7) Take your pain medications on a regular scheduled dose (every 4-6 hours) for the first 2 4 hours, starting the moment you get home. When the nerve block wears off, it is usually taylor y abrupt. You will be chasing the pain (bad strategy) if you are not already medicated. 8) After the first 24 hours, you can adjust your intake of pain medications on an as needed basis. Try not to completely cut off all medications at once. 9) All medicine refills must be handled during regular business hours. On-call doctors afte r hours and on week-ends don't know you and will not give you any refills. These instructions supersede any conflicting orders that you may have received from the [facility], advice from friends, family members, [employer], grocery store clerks, Arnold mendez, Dr. Antoine, Dr. Carvalho, sports heroes, etc. If unsure, please call our office. Thank you, Rm Garcia D.O. [facility] [address] [place] [address] Your post op appointment is scheduled for Sunday 01/07 at 9:30 am. Please check in at 9:15 am for X-rays at the [facility]. documented in this encounter Medications at Time [...] + + documented as of this encounter H&P Notes Rm Garcia DO - 12/27/2018 9:35 AM PDTSURGICAL INTERIM HISTORY & PHYSICAL UPDATE Pt. Name/Age/: Nyla Nye 38 y.o. 1980 Date of admission: 12/27/2018 The current H&P was reviewed. The patient was reexamined. Re-evaluation of the patient co nfirms the necessity for the scheduled procedure. No change has occurred in the patient s condition since the H&P was completed less than 30 days ago. VERIFICATION OF CONSENT (PARQ) The patient was counseled regarding the procedure, its indications, risks, potential compli cations and alternatives. Any questions were answered. Consent was obtained. Electronically signed by: Rm Garcia DO, 12/27/2018 9:37 [facility] Nikolay Mendoza PA-C - 12/26/2018 7:42 AM PDTSubjective F/u Right Shoulder Pain History of Present Illness Nyla is scheduled to undergo a right shoulder scope with RTC, SAD, and Bone Grafting of H umeral Head Bone Cyst on , 12/27/18, at [facility]. To Review: Nyla is a 38 year old RHD female,originally referred by Dr. Talbot, with right shoulder pain due to a humeral cyst and incomplete rotator cuff tear. I last evaluated her on 05/30/18 and administered a subacromial injection. She has been receiving very short term relief from the injections. She states it has been bothering her again for the last couple o f months. She states the shoulder is bothering her again and waking her from sleep at night. She states she has spoken with her GI doctor concerning her Crohn's disease and her medicat ions. Her doctor is worried about the stress from the surgery creating a flare-up, but she h as no other concerns. She was evaluated by Dr. Paul about a year ago and was diagnosed with calcific tendonitis . She had a previous MRI of the shoulder done at [facility] in 2016. She had a subacromia l injection administered by Dr. Paul and received about a year of relief until she "tweake d" her shoulder at the gym. She states her pain initially started around 2 years ago with no known injury or incident occurring. She complains of constant pain. She rates her pain a t a 5/10. Her pain does wake her from sleep at night. Aggravating factors include abduct ion of the shoulder. She is currently taking nothing for pain. She states she was recently d iagnosed with Crohn's disease and is unable to take NSAIDs. She states that her shoulder pérez sn't feel unstable but reports frequent popping in the shoulder. She has participated in p hysical therapy at [facility] about a year or so ago for 12 weeks with some relief. She states she continues to perform the exercises she learned in therapy at home. Review of Systems Constitutional: no fever and no chills. . The patient presents with complaints of right shoulder pain. Integumentary: no rashes and no skin lesions. Social History ?? Never a smoker Current Meds ?? Entocort EC 3 MG CP24; Therapy: (Recorded:14Jul2017) to Recorded ?? Lialda 1.2 GM Oral Tablet Delayed Release; Therapy: (Recorded:14Jul2017) to Recorded Allergies ?? Sulfa Drugs ?? clarithromycin ?? Macrobid Vitals Vitals Panel Recorded: 10Dec2018 03:45PM Heart Rate: 56 Blood Pressure: 130 / 78 Height: 5 ft 4 in Weight: 167 lb BMI Calculated: 28.67 BSA Calculated: 1.81 Physical Exam Nyla remains well appearing 38yo female seen with her son today Heart - regular and no murmurs Lungs - Clear to auscultation bilaterally Neuro - intact and without lateralizing deficits Abs - soft, non tender and non distended Neurologic: Mental status:. the patient was oriented to person, place and time. Observed mood and affect was appropriate. Cervical Spine: no deformity, erythema, ecchymosis, edema, or tenderness, ROM full in all planes of motion, strength normal in all planes of motion and no instability appreciated. Right Shoulder: Appearance: no AC joint hypertrophy, but no biceps abraham deformity, no superior migration of the proximal portion of the clavicle, no proximal clavicle deformity, no midshaft clavicl e deformity, no deformity, no ecchymosis, no erythema, no scapular winging, no skin blanchin g, no skin tenting and no swelling. Tenderness: no AC joint tenderness and lesser tuberosity, but tenderness in the bicipital groove, tenderness in the subacromial bursa, tenderness in the supraspinatus muscle, tendern ess in the greater tuberosity and all other anatomic structures non-tender. Forward flexion: active range of motion ~U degrees, painful and 4/5 strength. Extension: painful and 5-/5 strength. Abduction: active range of motion 95 degrees, painful, passive range of motion 145 degrees, painful and 4/5 strength. Adduction: 5-/5 strength. Internal rotation: painful and 4+/5 strength. External rotation: painful and 3+/5 strength. Rotator Cuff: equivocal Drop Arm test, but positive Painful Arc, positive Roa test, pos itive Neer test and positive Empty Can test. Labrum and Stability: equivocal Wilkerson's test, but negative Anterior-Posterior Slide, negat kristan Sulcus sign and negative Apprehension test. Biceps Testing: positive Yergason's test. ---- Left Shoulder: Appearance: no AC joint hypertrophy, no belly of the biceps abraham deformity, no superior m igration of the proximal portion of the clavicle, no proximal clavicle deformity, no midshaf t clavicle deformity, no deformity, no ecchymosis, no erythema, no scapular winging, no skin blanching, no skin tenting and no swelling. Tenderness: None, not the AC joint, not the bicipital groove, not the deltoid, not the scap alivia, not the subacromial bursa, not the supraspinatus muscle, not the trapezius, not the gre ater tuberosity, not the lesser tuberosity and all other anatomic structures non-tender. Palpatory Findings: no crepitus, no warmth and no masses. Range of Motion: Full. Strength Testing: Normal strength examination . Forward flexion: normal active ROM, not painful, normal passive ROM, not painful and 5/5 st rength. Extension: normal active ROM, not painful, normal passive ROM, not painful and 5/5 strength . Abduction: normal active ROM, not painful, normal passive ROM, not painful and 5/5 strength . Adduction: normal active ROM, not painful, normal passive ROM, not painful and 5/5 strength . Internal rotation: normal active ROM, not painful, normal passive ROM, not painful and 5/5 strength. External rotation: normal active ROM, not painful, normal passive ROM, not painful and 5/5 strength. Rotator Cuff: negative Painful Arc, negative Roa test, negative Neer test, negative Donte p Arm test and negative Empty Can test. Labrum and Stability: negative Wilkerson's test, negative Anterior-Posterior Slide, negative S ulcus sign and negative Apprehension test. AC Joint: negative AC provocation and negative Scarf test. Biceps Testing: negative Yergason's test and negative Speed's test. Results/Data MRI reviewed again today showing the partial RTC tear and her humeral head bone cysts Assessment ?? Incomplete rotator cuff tear or rupture of right shoulder, not specified as traumatic (M75.111) ?? Right shoulder pain (M25.511) ?? Shoulder impingement, right (M75.41) ?? 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 The se include, but are not limited to, bleeding; infection; blood clots; breathing difficulty; pulmonary embolism; need for more surgery; damage to nerves, blood vessels, muscles and othe r anatomic structures; complications associated with anesthesia, up to and including . The patient understands that orthopedic implants may be used during the surgery. The patient understands these risks and understands the proposed surgery and has had their questions an swered. CS-Active Problems 1. Crohn's disease (K50.90) 2. Incomplete rotator cuff tear or rupture of right shoulder, not specified as traumatic (M75.111) 3. Right shoulder pain (M25.511) 4. Shoulder impingement, right (M75.41) 5. 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 Tendinopathy of right biceps tendon (M67.921) Signatures Electronically signed by : Rm Garcia D.O.; Dec 10 2018 3:58PM PST (Author)Electro nically signed by Nikolay Duncan PA-C at 12/26/2018 7:42 AM PDTdocumented in this enc ounter Miscellaneous Notes Op Note - Rm Garcia DO - 12/27/2018 11:29 AM PDT OPERATIVE REPORT PREOPERATIVE DIAGNOSES: 1. right shoulder rotator cuff tear. 2. right shoulder impingement. 3. right shoulder humeral head bone cyst POSTOPERATIVE DIAGNOSES: 1. same PROCEDURES: 1. right shoulder arthroscopy with rotator cuff repair. 2. right shoulder arthroscopy with subacromial decompression. 3. right shoulder arthroscopy humeral head bone graft SURGEON: Rm Garcia DO. HORSE RACE TIMER: Nikolay Duncan PA-C ANESTHESIA: General with interscalene block. ESTIMATED BLOOD LOSS: 10 mL. INDICATIONS FOR SURGERY: The patient is a 38 y.o.. female who has had pain in her shoulder over the past several months. she has a feeling of a arm and an exam consistent with a rotator cuff tear. An MRI confirms this diagnosis, but also shows significant biceps and jaimes perior labral degeneration. He presents for the above-mentioned procedures after lengthy dis cussion with me regarding the surgery and its risks and benefits. DESCRIPTION OF OPERATIVE EVENTS: In the preoperative area, the operative shoulder was gabrielle d. The patient was then taken back to the operative suite, and placed in the supine position whereupon all bony prominences were well padded. Gaivno Kraus DO had administered an ultrasound-guided interscalene block in the preoperative area. At this time, general anes thetic was then administered through an LMA. The patient was then sat upright in the beach c hair position and again all bony prominences were well padded. I then examined his right cali ulder under anesthesia, and it showed full range of motion without evidence of instability. The operative shoulder was then sterilely prepped and draped in the standard fashion. A oanh gical pause was then performed ensuring the proper operative field. I then anesthetized the portal sites using 0.5% Marcaine with epinephrine and entered the shoulder using a standard posterior approach. I inspected the shoulder in a stepwise fashion and the following finding s were encountered: GLENOHUMERAL JOINT: The humeral head was well centered in the glenoid. There was no chondro malacia of the humeral head and no chondromalacia of the glenoid surface. The superior labrum and biceps tendon attachment were normal. ANTERIOR SHOULDER: The subscapularis tendon was normal. The middle glenohumeral ligament wa s normal. There were no loose bodies noted in the anterior shoulder. AXILLARY RECESS: This was of normal size and consistency and free of loose bodies. POSTERIOR SHOULDER: Posterior labrum was normal. There were no loose bodies noted in the po sterior shoulder. ROTATOR CUFF: The undersurface of the supraspinatus was nomral. The infraspinatus had a par tial-thickness undersurface tear. At this point, I established an anterior incision and use a probe to define the pathology a s noted above. I then inserted the camera into the subacromial space and debrided the thick bursa which wa s noted there. There was a decent sized spur on the anterior acromion was then resected usin g a 4 mm barrel bur. A flat acromion was achieved. Attention was then directed out laterally to the rotator cuff where I further cleaned out b ursa in the deltoid gutter and then also noted the area of the torn infraspinatus that we groves d marked with Prolene suture. I completed the tear and cleaned up the torn portions of the t endon and also denuded the rotator cuff attachment of soft tissue and gently decorticated th e area with the bur to achieve a bleeding bed of bone. I then noted the bone cyst and curetted the cyst. We mixed Ossilix bone graft on the back t able and then this was injected into the cyst and held in place while it cured. I then repai red the rotator cuff over the cyst and bone graft, using an Arthrex SpeedBridge pattern of r epair with 2 medial and 2 lateral anchors with FiberTape bridging over the top. I also tied the medial row of sutures. This was a very nice repair and the rotator cuff laid down very n icely on its footprint and, taking the arm through a range of motion, I noted no lifting up of the repair, nor was there any further impingement noted in the subacromial space. The arthroscopy equipment was removed from the shoulder and the portals were closed using a 3-0 nylon. A sterile dressing was then applied as well as a shoulder immobilizer. A PolarCa re cooling unit will be applied in the postoperative area. The patient was then awakened, ex tubated, and transferred to the recovery room in stable condition, having tolerated this pro cedure well. DICTATED BY: Rm Garcia DO 12/27/2018 documented in this encounter Plan of Treatment [...] | + +--------+ + + + | ARTHROSCOPY SHOULDER | | 12/27/2018 | Incomplete tear of | | | OPEN | | 10:03 AM | right rotator cuff, | | | | | PDT | unspecified whether | | | | | | traumatic | | | | | | Impingement syndrome | | | | | | of right shoulder | | | | | | Solitary bone cyst | | | | | | of humerus, | | | | | | unspecified | | | | | | laterality | | + +--------+ + + + +---+--------+ | | | | | Specia | | | l | | | Needs | | | | | | Arthre | | | x | | | Suture | | | | | | Clayhole | | | sOssil | | | ix 5cc | | | & | | | 10cc | | | bone | | | filler | | | in | | | Bea | | | 's | | | office | | | (Hold | | | for | | | case) | +---+--------+ + +--------+ +---+ + | POCT TEST, | Routin | 12/27/2018 | | Results for this | | URINE, QUAL | e | 8:27 AM | | procedure are in the | | | | PDT | | results section. | + +--------+ +---+ + documented in this encounter Results POCT Test, Urine, QUAL (12/27/2018 8:27 AM PDT) + + + + + [...] + + + + | Specific | 1.010 | 1.010, 1.015, | | | | [place], | | 1.020, 1.025 | | | | POC | | | | | + + + + + + | Lot Number | [id number] | | | | + + + + + + | Expiration | 2020-04-11 | | | | | Date | | | | | + + + + + + + + | Specimen | + + | Urine | + + documented in this encounter Visit Diagnoses + + | Diagnosis | + + | Incomplete tear of right rotator cuff, unspecified whether traumatic | + + | Impingement syndrome of right shoulder Other affections of shoulder region, not | | elsewhere classified | + + | Solitary bone cyst of humerus, unspecified laterality | + + documented in this encounter Administered Medications + +--------+ + +------+------+ | Medication Order | MAR | Action | Dose | Rate | Site | | | Action | Date | | | | + +--------+ + +------+------+ | acetaminophen (TYLENOL) tablet | Given | 12/28/19 | 1,000 mg | | | | 1,000 mg 1,000 mg, Oral, ONCE, | | 19 8:27 | | | | | Shaylee 12/27/18 at 0830, For 1 dose, | | AM PDT | | | | | Pre-op | | | | | | + +--------+ + +------+------+ + +---+ | | | + +---+ | albuterol 2.5 mg/3 mL nebulizer | | | solution 2.5 mg 2.5 mg, | | | Nebulization, ONCE PRN, Wheezing, | | | Starting [facility] 12/27/18 at 1132, | | | For 1 dose, Notify anesthesia if | | | patient is wheezing and does not | | | have a history of asthma or COPD | | | or current smoking., | | | Recovery/Phase I | | + +---+ | | | + +---+ + +-------+ +--------+---+ + | bupivacaine 0.5%-EPINEPHrine | Given | 12/28/19 | 30 mLs | | Surgical | | 1:200,000 injection PRN, | | 19 10:31 | | | Site | | Starting [facility] 12/27/18 at 1031, | | AM PDT | | | | | Intra-op | | | | | | + +-------+ +--------+---+ + + +---+ | | | + +---+ | dextrose 50% injection 12.5-25 | | | g 12.5-25 g, Intravenous, EVERY | | | 15 MIN PRN, Low Blood Sugar, Give | | | 12.5g (25 mL) IV if blood | | | glucose 50-69 mg/dL. Give 25g | | | (50 mL) IV if blood glucose < 50, | | | Starting [facility] 12/27/18 at 0813, | | | Repeat in 15 min if blood glucose | | | remains < 70 mg/dL. Repeat | | | blood glucose in 30 min once | | | blood glucose > 70., Pre-op | | + +---+ | | | + +---+ | dextrose 50% injection 12.5-25 | | | g 12.5-25 g, Intravenous, EVERY | | | 15 MIN PRN, Low Blood Sugar, For | | | hypoglycemia. Give 12.5g (25ml) | | | IV if blood glucose 50-69 | | | mg/dL. Give 25g (50ml) IV if | | | blood glucose < 50, Starting Shaylee | | | 12/27/18 at 1132, Give over 2 min. | | | Repeat in 15 min if blood | | | glucose remains < 70 mg/dL. | | | Repeat blood glucose in 30 min | | | once blood glucose > 70., | | | Recovery/Phase I | | + +---+ | | | + +---+ | fentaNYL (PF) injection 25-50 | | | mcg 25-50 mcg, Intravenous, | | | EVERY 5 MIN PRN, Pain, Initial | | | postop urgent pain or escalating | | | pain, Starting Shaylee 12/27/18 at | | | 1132, For 4 doses, Every 5 | | | minutes PRN for initial postop | | | urgent pain or escalating pain up | | | to 2 doses maximum. If patient | | | meets opioid tolerant definition, | | | can give up to 4 doses maximum. | | | First dose must be lowest dose. | | | Use Pasero Sedation Scale. | | | [Opioid tolerant = One week or | | | longer, [id number] use of | | | at least the following DAILY | | | dose: 60mg oral morphine, 60mg | | | oral hydrocodone, 30mg oral | | | oxycodone, 8mg oral | | | hydromorphone, fentanyl patch | | | 25mcg/hr, or equivalent dose of | | | another opioid], Recovery/Phase I | | + +---+ | | | + +---+ + +-------+ +--------+---+---+ | gabapentin (NEURONTIN) capsule | Given | 12/28/19 | 600 mg | | | | 600 mg 600 mg, Oral, ONCE, Shaylee | | 19 8:27 | | | | | 12/27/18 at 0830, For 1 dose, | | AM PDT | | | | | Pre-op | | | | | | + +-------+ +--------+---+---+ + +---+ | | | + +---+ | HYDROmorphone (DILAUDID) | | | injection 0.2-0.6 mg 0.2-0.6 mg, | | | Intravenous, EVERY 5 MIN PRN, | | | Pain, Starting Shaylee 12/27/18 at | | | 1132, First dose must be lowest | | | dose, can increase subsequent | | | doses by 0.2mg within dosing | | | range. If patient meets opioid | | | tolerant definition, can start | | | with 0.4mg dose. [Maximum total | | | PACU dose 4mg] Use Pasero | | | Sedation Scale. [Opioid tolerant | | | = One week or longer, | | | [id number]-ijb-zhhmk use of at least | | | the following DAILY dose: 60mg | | | oral morphine, 60mg oral | | | hydrocodone, 30mg oral oxycodone, | | | 8mg oral hydromorphone, fentanyl | | | patch 25mcg/hr, or equivalent | | | dose of another opioid], | | | Recovery/Phase I | | + +---+ | | | + +---+ | labetalol (TRANDATE) 5 mg/mL | | | injection 5 mg 5 mg, | | | Intravenous, EVERY 5 MIN PRN, For | | | SBP > 180, DBP > 100, Starting | | | Shaylee 12/27/18 at 1132, Hold if HR < | | | 60. Maximum total dose 300mg. | | | Notify anesthesia if patient | | | requires more than 50mg., | | | Recovery/Phase I | | + +---+ | | | + +---+ + +---------+ +---+ +---+ | lactated ringers (LR) infusion | New Bag | 12/28/19 | | 50 mL/hr | | | at 10-100 mL/hr, Intravenous, | | 19 8:30 | | | | | CONTINUOUS, Starting Shaylee 12/27/18 | | AM PDT | | | | | at 0830, TKO., Pre-op | | | | | | + +---------+ +---+ +---+ + +---+ | | | + +---+ | meperidine (DEMEROL) injection | | | 12.5-25 mg 12.5-25 mg, | | | Intravenous, PRN, Shivering, | | | Starting Shaylee 12/27/18 at 1132, For | | | 2 doses, May Repeat once in 5 | | | min., Recovery/Phase I | | + +---+ | | | + +---+ + +-------+ +------+---+---+ | ondansetron (ZOFRAN) injection | Given | 12/28/19 | 4 mg | | | | 4 mg 4 mg, Intravenous, ONCE | | 19 12:00 | | | | | PRN, Nausea, Starting Shaylee 12/27/18 | | PM PDT | | | | | at 1132, For 1 dose, | | | | | | | Recovery/Phase I | | | | | | + +-------+ +------+---+---+ +---+---+ | | | +---+---+ + +---------+ +---------+---+ + | scopolamine (TRANSDERM-SCOP) 1 | Patch | 12/28/19 | 1 patch | | Ear-Behi | | mg/3 days 1 patch 1 patch, | Applied | 19 8:53 | | | nd Left | | Transdermal, ONCE, Shaylee 12/27/18 at | | AM PDT | | | | | 0900, For 1 dose, If prophylaxis | | | | | | | fails, do not repeat dose. Use | | | | | | | drug from a different class. Each | | | | | | | patch is designed to deliver 1 | | | | | | | mg over 3 days. DO NOT CUT | | | | | | | patch., Pre-op | | | | | | + +---------+ +---------+---+ + +---+---+ | | | +---+---+ documented in this encounter
--- OUTSIDE RECORDS SUMMARY | ~2020-01-09 | XMS | Encounter Summary ---
Demographics + + + | Address | [address] | | | [place] [address] | + + + | Home Phone | | + + + | Preferred Language | Unknown | + + + | Marital Status | | + + + | Hinduism Affiliation | Unknown | + + + | Race | White | + + + | Ethnic Group | Not or | + + + Author + + + | Author | [facility] | | | and [place] | + + + | Organization | [facility] | | | [...] Team Providers + +------+ + | Care Coal Tower Operator Name | Role | Phone | + +------+ + | Bird Talbot | PCP | | | MD | | | + +------+ + Reason for Visit + +--------+ + | Reason | Onset | Comments | | | Date | | + +--------+ + | Medication Problem | 11/15/ | | | | 2017 | | + +--------+ + Encounter Details +--------+ + + + + | Date | Type | Department | Care Team | Description | +--------+ + + + + | 11/15/ | Telephone | [facility] | Felix Troy, | Medication Problem | | 2018 | | MED CTR OP INFUSION | PharmD [address] | | | | | [address] | [place], [place] | | | | | [place], [place] | [address] | | | | | [address] | | | | | | [phone] | | | +--------+ + + + [...] Telephone Encounter - Felix Troy PharmD - 11/15/2017 3:29 PM PDTNyla sent a [employer] message complaining of some GI symptoms for about 3 weeks. She has been having constipation and diarrhea bouts, abdominal pain, and needing to use Pepto Bismol the last few days. She also has a rash on her front/back that she thinks is allergy related to the smoke in the ai r as she had something similar last year. She said she should have said something sooner bu t does say she does not feel good. I explained it does sound like she is in a flair and rec ommended she start back on the 9mg of budesonide. If she does not have any improvement in t he next couple weeks we can look at getting some humira lab levels and assess if her dosing frequency needs to be adjusted. As well her Humira PA is . Will have referral team start work on updating the paper work. Plan: 1. Start Budesonide 9mg daily will follow up in a week to see how she is doing. If doing we ll will provide tapering schedule 2. Work on updating Humira PA 3. Nyla will call sooner if she does not start to feel better. Felix Troy PharmD 11/15/2017 15:53 documented in this encounter Plan of Treatment [...]
--- OUTSIDE RECORDS SUMMARY | ~2020-01-09 | XMS | Encounter Summary ---
Demographics + + + | Address | [address] | | | [place] [address] | + + + | Home Phone | | + + + | Preferred Language | Unknown | + + + | Marital Status | | + + + | Nondenominational Affiliation | Unknown | + + + | Race | White | + + + | Ethnic Group | Not or | + + + Author + + + | Author | [facility] | | | and [place] | + + + | Organization | [facility] | | | [...] Providers + +------+ + | Care Technology Program Manager Name | Role | Phone | + +------+ + | Bird Talbot | PCP | | | MD | | | + +------+ + Reason for Visit + +--------+ + | Reason | Onset | Comments | | | Date | | + +--------+ + | Inflammatory Bowel | 03/09/ | | | Disease | 2018 | | + +--------+ + Encounter Details +--------+ + + + + | Date | Type | Department | Care Team | Description | +--------+ + + + + | 03/09/ | Telephone | [facility] | Felix Troy, | Inflammatory Bowel | | 2018 | | MED CTR OP INFUSION | PharmD [address] | Disease | | | | [address] | [address] [place] | | | | | [place] | [id number] | | | | | [address] | | | | | | [phone] | | | +--------+ + + + [...] Telephone Encounter - Felix Troy PharmD - 03/09/2018 10:29 AM Андрей called as I was replying to her [employer] message. She has had more symptoms develop and has not been able t o get away from the bathroom today. I restarted her on 9mg of budesonide and instructed her to take this through the weekend and will discuss with Meera on Monday about her overall ther apy. We could either add an oral immune suppressant to her humira or change drug class to s telara / entyvio. Nyla did not have a preference, she just wants to start feeling better. Please call me Monday to discuss her therapy plan. I will not be in the clinic Monday and Monday as I will orienting a pharmacy services director to the ICU. But please call [phone] an d they can transfer you to me. Patient will probably need visit with Bir or me to discuss the change in therapy and have a ny questions answered. Will request that GI take care of contacting the patient until I can get back on Monday to the clinic. Felix Troy PharmD 03/09/2018 10:40 documented in this encounter Plan of Treatment [...]
--- OUTSIDE RECORDS SUMMARY | ~2020-01-09 | XMS | Encounter Summary ---
Demographics + + + | Address | [address] | | | [place] [address] | + + + | Home Phone [...] + + + | Author | [facility] | | | and [place] | + + + | Organization | [facility] | | | [...] Team Providers + +------+ + | Care Cast Shell Grinder Name | Role | Phone | + [...] | | | | | | | NM | | | | | | | COLONOSCOPY | | | | | | | FLX DX | | | | | | | W/COLLJ SPEC | | | | | | | WHEN PFRMD | | | | | | | NM | | | | | | | COLONOSCOPY | | | | | | | W/BIOPSY | | | | | | | SINGLE/MULTI | | | | | | | PLE NM | | | | | | | [...] Description | +--------+---------+ + + + | 03/21/ | Surgery | [facility] | Sumit Mariee MD | COLONOSCOPY | | 2017 | | MED CTR MP INTRA OP | [address], [place] | | | | | [address] | [address] [place], [place] | | | | | [place], [place] | [address] | | | | | [address] | | | | | | [phone] | | | +--------+---------+ + + + Social History [...] + + + | Blood Pressure | 117/89 | 03/21/2017 11:00 AM | | | | | PST | | + + + + + | Pulse | 107 | 03/21/2017 11:00 AM | | | | | PST | | + + + + + | Temperature | 36.6 C (97.9 F) | 03/21/2017 9:22 AM | | | | | PST | | + + + + + | Respiratory Rate | 21 | 03/21/2017 11:00 AM | | | | | PST | | + + + + + | Oxygen Saturation | 100% | 03/21/2017 11:00 AM | | | | | PST [...] You can't be awakened Date Last Reviewed: 01/19/201619990092-2939 [employer] [address] [place] [address]. All righ ts reserved. This information is [...] of preventing its spread. Date Last Reviewed: 11/02/201519995873-4284 [employer] [address] [place] [address], [place] [address]. All righ ts reserved. This information is [...] Exams Patient: Nyla Nye : 1980 Acct: [id number] Exam Date: Tuesday, March 21, 2017 Doctor: [...] If unable to reach your physician, call [facility] Emergency Department at [address]. [address] Your doctor [...] | [facility] | | GastroenterologyPatient Name: Nyla Juice Date: 03/21/2017 | PROVATION | | 10:27 AMMRN: [id number] #: [id number] of : | | | 1980Admit Type: AmbulatoryAge: 37Room: WSMMP 01Gender: | | | FemaleNote Status: FinalizedAttending [...] | the physician, the nurse and the special effects technician in the endoscopy | | | [...] | to nurse practitioner as previously scheduled.Sumit Mariee | | | 03/21/2017 11:39:17 AMThis report has been signed | | | electronically.Number of Addenda: 0Note Initiated On: 03/21/2017 10:27 | | | AMScope Withdrawal Time: 0 hours 7 minutes 51 seconds Total Procedure | | | Duration: 0 hours 26 minutes 12 seconds Scope In: 10:49:59 AMScope | | | Out: 11:16:11 AM [facility], [address] | | | [place] [address] | | | - Await pathology results. [...] |Scope Out: 11:16:11 AM | | | [facility], [address] [facility], [place], [place] | | | [address] | | + + -+ + +---------+ [...] | 1.010, 1.015, | | | | [place], | | 1.020, 1.025 | | | | POC | | | | | + + + + + + | Lot Number | [id number] | | | | + + + [...] negative for occult malignancy. | | | JVR:[facility] FINAL PATHOLOGIC DIAGNOSIS: A. Ileum biopsy: - Small | | | bowel mucosa with epithelial erosion and focal ulceration with mixed | | | acute and chronic inflammation. - Negative for unequivocal | | | dysplasia. B. Sigmoid polyp, biopsy: - Polypoid colonic mucosa | | | with adenomatous change (one fragment). JVR:[facility]:C2NR GROSS | | | DESCRIPTION: Received in [...] submitted, all | | | in (B1). ka:JVR:[facility] PERFORMING LABORATORY: Tissue processing and | | | slide preparation were performed by [facility], [address] [place] [address] | | | [facility] [place] [address] (Manager State: Daniel Hester | | | [place] CLIA#: [id number]). Professional interpretation was performed | | | by [facility], [facility], [facility] | | | [place] [address] (Manager State: Daniel | | | [place] Hester; CLIA#: [id number]). Diagnostician: Daniel Jones | | | Kacie [...] Diagnoses Not on filedocumented in this encounter Administered Medications + +---------+ [...] mL/hr | Arm | | CONTINUOUS, Starting 03/21/17 | | AM PST | | | [...] | | | | injection PRN, Starting Tu | | 17 10:47 | | | [...]
--- OUTSIDE RECORDS SUMMARY | ~2020-01-09 | XMS | Encounter Summary ---
Demographics + + + | Address | [address] | | | [place] [address] | + + + | Home Phone | | + + + | Preferred Language | Unknown | + + + | Marital Status | | + + + | Rastafarian Affiliation | Unknown | + + + | Race | White | + + + | Ethnic Group | Not or | + + + Author + + + | Author | [facility] | | | and [place] | + + + | Organization | [facility] | | [...] Team Providers + +------+ + | Care University Demonstrator Name | Role | Phone | + +------+ + | Bird Talbot | PCP | | | MD | | | + +------+ + Reason for Visit + +--------+ + | Reason | Onset | Comments | | | Date | | + +--------+ + | Abdominal Pain | 03/28/ | | | | 2016 | | + +--------+ + Encounter Details +--------+ + + + + | Date | Type | Department | Care Team | Description | +--------+ + + + + | 03/28/ | Telephone | [facility] | Sumit Mariee MD | Abdominal Pain | | 2017 | | GASTROENTEROLOGY | [address], [place] | | | | | [address] [place] | [address] [place], [place] | | | | | [address] [place], [place] | [address] | | | | | [address] | | | | | | [phone] | | | +--------+ + + + [...] this encounter Miscellaneous Notes Telephone Encounter - Oralia Burgos RN - 03/29/2017 12:52 PM PSTNotified patient th at Dr. Mariee recommends a trial of budesonide 9 mg every morning. [facility] Per [facility]. Mariee must be controlled ileal release formulation not the MMX formulat ion She will call if cost prohibitive.Electronically signed by Oralia Burgos RN at 12:56 PM PSTTelephone Encounter - Oralia Burgos RN - 03/28/2017 9:36 AM PS TNotified patient that biopsies from terminal ileum positive for ulceration. Suspect Crohn' s disease. Patient has follow-up appointment with Marline on April 17. Patient asks if we c an phone her in something like a steroid to "get her through this flare". Questioned patien t what she means by flare and she says diarrhea and every time she eats she feels sick. Elec tronically signed by Oralia Burgos RN at 03/28/2017 9:38 AM PSTdocumented in this en counter Plan of Treatment +--------+ + + + [...]
--- OUTSIDE RECORDS SUMMARY | ~2020-01-09 | XMS | Encounter Summary ---
Demographics + + + | Address | [address] | | | [place] [address] | + + + | Home Phone | | + + + | Preferred Language | Unknown | + + + | Marital Status | | + + + | Hoahaoism Affiliation | Unknown | + + + | Race | White | + + + | Ethnic Group | Not or | + + + Author + + + | Author | [facility] | | | and [place] | + + + | Organization | [facility] | | | [...] Team Providers + +------+ + | Care Biodiesel Operations Manager Name | Role | Phone | + +------+ + | Bird Talbot | PCP | | | MD | | | + +------+ + Reason for Visit + + + | Reason | Comments | + + + | Medication Refill | | + + + Encounter Details +--------+--------+ + + + | Date | Type | Department | Care Team | Description | +--------+--------+ + + + | 01/19/ | Refill | [facility] | Felix Troy, | Medication Refill | | 2017 | | MED CTR OP INFUSION | PharmD [address] | | | | | [address] | [place] | | | | | [place] | [id number] | | | | | [address] | | | | | | [phone] | | | +--------+--------+ + + + [...]
--- OUTSIDE RECORDS SUMMARY | ~2020-01-09 | XMS | Encounter Summary ---
Demographics + + + | Address | [address] | | | [place] [address] | + + + | Home Phone | | + + + | Preferred Language | Unknown | + + + | Marital Status | | + + + | Zoroastrian Affiliation | Unknown | + + + | Race | White | + + + | Ethnic Group | Not or | + + + Author + + + | Author | [facility] | | | and [place] | + [...] Team Providers + +------+ + | Care Aeronautical Inspector Name | Role | Phone | + +------+ + | Bird Talbot | PCP | | | MD | | | + +------+ + Encounter Details +--------+---------+ + + + | Date | Type | Department | Care Team | Description | +--------+---------+ + + + | 10/05/ | E-Visit | [facility] | Felix Troy, | 3 month labs | | 2018 | | MED CTR OP INFUSION | PharmD [address] | | | | | [address] | [address] [place], [place] | | | | | [place], [place] | [address] | | | | | [address] | | | | | | [phone] | | | +--------+---------+ + + + [...]
--- OUTSIDE RECORDS SUMMARY | ~2020-01-09 | XMS | Encounter Summary ---
Demographics + + + | Address | [address] | | | [place] [address] | + + + | Home Phone [...] Team Providers + +------+ + | Care Broiler Supervisor Name | Role | Phone | [...] | disease, | PharmD [address] | | | | | unspecified, | [address] | [place], | | | | | with | [place] | [place] [address] | | | | | unspecified | [place] | Phone: | | | | | complication | [phone] | [phone] | | | | | s (HCC) | Phone: | Fax: | | | | | Procedures | [phone] | [phone] | | | | | [place] [id number] | Fax: | | | | | | [place] | [phone] | | | | | | USTEKINUMAB | | | | | | | SUB CU INJ, | | | | | | | 1 MG AK | | | | | | | INJECTION, | | | | | | | VEDOLIZUMAB, | | | | | | | 1MG AK IV | | | | | | [...] | +--------+ + + + + | 04/19/ | Hospital | [facility] | Bird Talbot | Crohn's disease with | | 2019 | Encounter | MED CTR OP INFUSION | MD Alber [address] | complication, | | | | [address] | [address] | unspecified | | | | [place] | [place] | gastrointestinal | | | | [address] | [address] | tract location (HCC) | | | | [phone] | [phone] | | | | | | | [...] + + + | Blood Pressure | 103/60 | 04/19/2018 3:39 PM | | | | | PST | | + + + + + | Pulse | 61 | 04/19/2018 3:39 PM | | | | | PST | | + + + + + | Temperature | 36.1 C (97 F) | 04/19/2018 3:39 PM | | | | | PST | | + + + + + | Respiratory Rate | 16 | 04/19/2018 3:39 PM | | | | | PST | | + + + + + | Oxygen Saturation | 100% | 04/19/2018 3:39 PM | | | | | PST [...] encounter Progress Notes Reny Eduardo RN - 04/19/2018 3:48 PM PST Vitals: 04/19/18 1416 04/19/18 1539 BP: 116/71 103/60 Pulse: 56 61 Resp: 16 16 Temp: 36.1 C (97 F) 36.1 C (97 F) TempSrc: Oral Oral SpO2: 100% 100% Administrations This Visit acetaminophen (TYLENOL) tablet 650 mg Admin Date 04/19/2018 Action Given Dose 650 mg Route Oral Administered By Reny Eduardo RN loratadine (CLARITIN) tablet 10 mg Admin Date 04/19/2018 Action Given Dose 10 mg Route Oral Administered By Reny Eduardo RN vedolizumab (ENTYVIO) 300 mg in sodium chloride 0.9% 250 mL IVPB Admin Date 04/19/2018 Action New Bag Dose 300 mg Rate 510 mL/hr Route Intravenous Administered By Reny Eduardo RN Monitored throughout treatment; treatment completed without untoward effects from medicatio n noted. Next visit May 17. Verbalizes understanding of plan of care. VS stable. Discha rged ambulatory to home in stable condition. Electronically signed by: Reny Eduardo RN 04/19/2018 15:48 ason, Reny Bolivar RN - 0 04/19/2018 2:22 PM PST Vitals: 04/19/18 1416 BP: 116/71 Pulse: 56 Resp: 16 Temp: 36.1 C (97 F) Nyla Nye received into room 440, independent ambulation accompanied by her husb and. States here for Entyvio infusion. Reports no change in condition, plan of care since [facility] visit. Alert, oriented x 4, cooperative. Electronically signed by: Reny Eduardo RN 04/19/2018 14:23 documented in this enc ounter Plan of [...] | acetaminophen (TYLENOL) tablet | Given | 04/19/19 | 650 mg | | | | 650 mg 650 mg, Oral, ONCE, Shaylee | | 19 2:35 | | | | | 04/19/18 at 1440, For 1 dose | | PM PST | | | | + +--------+ +--------+------+------+ +---+---+ | | | +---+---+ + +-------+ +-------+---+---+ | loratadine (CLARITIN) tablet 10 | Given | 04/19/19 | 10 mg | | | | mg 10 mg, Oral, ONCE, Shaylee | | 19 2:35 | | | | | 04/19/18 at 1440, For 1 dose | | PM PST | | | | + +-------+ +-------+---+---+ +---+---+ | | | +---+---+ + +---------+ +--------+-------+---+ | vedolizumab (ENTYVIO) 300 mg in | New Bag | 04/19/19 | 300 mg | 510 | | | sodium chloride 0.9% 250 mL IVPB | | 19 3:06 | | mL/hr | | | 300 mg, Intravenous, Administer | | PM PST | | | | | over 30 Minutes, ONCE, Shaylee | | | | | | | 04/19/18 at 1440, For 1 dose, WEEK | | | | | | | 2. Flush with 30 mL NS after | | | | | | | giving. Keep in refrigerator., | | | | | | + +---------+ +--------+-------+---+ +---+---+ | | | +---+---+ documented in this encounter"
--- OUTSIDE RECORDS SUMMARY | ~2020-01-09 | XMS | Encounter Summary ---
Demographics + + + | Address | [address] | | | [place] [address] | + + + | Home Phone | | + + + | Preferred Language | Unknown | + + + | Marital Status | | + + + | Gnosticism Affiliation | Unknown | + + + | Race | White | + + + | Ethnic Group | Not or | + + + Author + + + | Author | [facility] | | | and [place] | + + + | Organization | [facility] | | [...] Team Providers + +------+ + | Care Barrel Inspector Tight Name | Role | Phone | + +------+ + | Bird Talbot | PCP | | | MD | | | + +------+ + Reason for Visit +---------+--------+ + | Reason | Onset | Comments | | | Date | | +---------+--------+ + | Imaging | 08/26/ | | | | 2020 | | +---------+--------+ + Encounter Details +--------+ + + + + | Date | Type | Department | Care Team | Description | +--------+ + + + + | 08/26/ | Telephone | [facility] | [facility], | Imaging | | 2019 | | GASTROENTEROLOGY | MICAELA Romero [address] | | | | | [address] | [address] [facility] [address] | | | | | [address] [place], [place] | [place], [place] | | | | | [address] | [phone] | | | | | [phone] | | | +--------+ + + + [...] Telephone Encounter - Kary Fowler CMA - 08/27/2019 12:57 PM PDTNotified patient ifeoma t CT has been approved to schedule. Patient is wanting this to be done in [place]. Will as k authorizations to change location on referral. documented in this encounter Plan of Treatment [...]
--- OUTSIDE RECORDS SUMMARY | ~2020-01-09 | XMS | Encounter Summary ---
Demographics + + + | Address | [address] | | | [place] [address] | + + + | Home Phone | | + + + | Preferred Language | Unknown | + + + | Marital Status | | + + + | Restoration Affiliation | Unknown | + + + | Race | White | + + + | Ethnic Group | Not or | + + + Author + + + | Author | [facility] | | | and [place] | + + + | Organization | [facility] | | | [...] Team Providers + +------+ + | Care Welder Gas Name | Role | Phone | + +------+ + | Bird Talbot | PCP | | | MD | | | + +------+ + Reason for Visit + +--------+ + | Reason | Onset | Comments | | | Date | | + +--------+ + | Imaging Only | 02/28/ | CT | | | 2016 | | + +--------+ + Encounter Details +--------+ + + + + | Date | Type | Department | Care Team | Description | +--------+ + + + + | 02/28/ | Telephone | [facility] | [facility] | Imaging Only (CT) | | 2016 | | GASTROENTEROLOGY | MICAELA Romero [address] | | | | | [address] | [address] | | | | | [address] [place] | [facility] [place] | | | | | [address] | [id number] | | | | | [phone] | | | +--------+ + + + [...] Telephone Encounter - Kary Fowler CMA - 02/28/2017 4:26 PM PSTPatient called [facility] she is to have CT done? (she spoke to PSR) PSR told her for me that CT has just b een approved by insurance and I am faxing to [facility] for her to call and schedule.Electro nically signed by Kary Fowler CMA at 02/28/2017 4:28 PM PSTdocumented in this encoun ter Plan of Treatment +--------+ + + + [...]
--- OUTSIDE RECORDS SUMMARY | ~2020-01-09 | XMS | Encounter Summary ---
Demographics + + + | Address | [address] | | | [place] [address] | + + + | Home Phone | | + + + | Preferred Language | Unknown | + + + | Marital Status | | + + + | Synagogue Affiliation | Unknown | + + + [...] Providers + +------+ + | Care Kiln Tester Name | Role | Phone | + +------+ + | Bird Talbot | PCP | | | MD | | | + +------+ + Reason for Visit + +--------+ + | Reason | Onset | Comments | | | Date | | + +--------+ + | Appointment | 11/06/ | | | | 2018 | | + +--------+ + Encounter Details +--------+ + + + + | Date | Type | Department | Care Team | Description | +--------+ + + + + | 11/06/ | Telephone | [facility] | [facility], | [facility] | | 2018 | | GASTROENTEROLOGY | MICAELA Romero [address] | | | | | [address] | [address] | | | | | [address] [place], [place] | [place], [place] | | | | | [address] | [address] | | | | | [phone] | | | +--------+ + + + [...] this encounter Miscellaneous Notes Telephone Encounter - Misty Milan RN - 11/07/2017 2:59 PM PDTCalled patient and she prefers to have CT scan completed at [facility] in [place]. Notified authorizations. El ectronically signed by Misty Milan RN at 11/07/2017 3:01 PM PDTTelephone Encounter - N reMisty RN - 11/06/2017 10:11 AM PDTCalled and left a message for patient to return call. Called Nyla to ask where she would like to have the CT scan completed, [facility] in [place] or [facility] in [place]. documented in this encounter Plan of Treatment [...]
--- OUTSIDE RECORDS SUMMARY | ~2020-01-09 | XMS | Encounter Summary ---
Demographics + + + | Address | [address] | | | [place] [address] | + + + | Home Phone [...] + + + | Author | [facility] | | | and [place] | + + + | Organization | [facility] | | | [...] Team Providers + +------+ + | Care Chargemaster Specialist Name | Role | Phone | + +------+ + | Bird Talbot | PCP | | | MD | | | + +------+ + Encounter Details +--------+ + + + + | Date | Type | Department | Care Team | Description | +--------+ + + + + | 12/19/ | Orders Only | [facility] | Sydni, Felix W, | | | 2019 | | MED CTR OP INFUSION | PharmD [address] | | | | | [address] | [address] [place], [place] | | | | | [place], [place] | [address] | | | | | [address] | | | | | | [phone] | | | +--------+ + + + [...]
--- OUTSIDE RECORDS SUMMARY | ~2020-01-09 | XMS | Encounter Summary ---
Demographics + + + | Address | [address] | | | [place] [address] | + + + | Home Phone | | + + + | Preferred Language | Unknown | + + + | Marital Status | | + + + | Synagogue Affiliation | Unknown | + + + | Race | White | + + + | Ethnic Group | Not or | + + + Author + + + | Author | [facility] | | | and [place] | + + + | Organization | [facility] | | | [...] Team Providers + +------+ + | Care Quality Assurance Qa Lab Technician Name | Role | Phone | + [...] +--------+ + + + + + | Closed | Specialty | Infusion | Diagnoses | | Mohl, | | | Services | Therapy | Crohn's | [place], | Felix W, | | | Required | | disease of | Heather, | PharmD [address] | | | | | small | BANK 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 AND SERVICE 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 [address] | | | | | intestine | [address] | [place], | | | | | with | [address] | [place] [address] | | | | | complication | [place], | Phone: | | | | | ([facility]) | [place] [address] | [phone] | | | | | | Phone: | Fax: | | | | | | [phone] | [phone] | | | | | | Fax: | | | | | | | [phone] | | +--------+ + + + + + Encounter Details +--------+ + + + + | Date | Type | Department | Care Team | Description | +--------+ + + + + | 06/21/ | Orders Only | [facility] [place] | [facility], | Crohn's disease of | | 2018 | | GASTROENTEROLOGY | MICAELA Romero [address] | small intestine with | | | | [address] | [address] | complication (HCC) | | | | [address] [place], [place] | [place], [place] | (Primary Dx) | | | | [address] | [address] | | | | | [phone] | | | +--------+ + + + [...] documented as of this encounter Progress Notes Cathryn Rodriguez RN - 06/21/2017 9:20 AM PDTReferral entered for [facility] out-patient infusion/ Felix Mohl for Crohn's disease; will call to schedule once approved. documented in this encounter Plan of Treatment [...] | + + +--------+ + + | * [facility] OP Infusion | Outpatient | Routin | Crohn's disease of | Expected: 06/21/2017 | | PharmD - AMB | Referral | e | small intestine | (Approximate), | | Referral | | | with complication | Expires: 06/21/2018 | | | | | (HCC) | | + + +--------+ + + documented as of this encounter Visit Diagnoses + + | Diagnosis | + + | Crohn's disease of small intestine with complication (HCC) - [facility] | | enteritis of small intestine | + + documented in this encounter"
--- OUTSIDE RECORDS SUMMARY | ~2020-01-09 | XMS | Encounter Summary ---
Demographics + + + | Address | [address] | | | [place] [address] | + + + | Home Phone | | + + + | Preferred Language | Unknown | + + + | Marital Status | | + + + | Yazidism Affiliation | Unknown | + + + | Race | White | + + + | Ethnic Group | Not or | + + + Author + + + | Author | [facility] | | | and [place] | + + + | Organization | [facility] | | [...] Team Providers + +------+ + | Care Aerophysicist Name | Role | Phone | + +------+ + | Bird Talbot | PCP | | | MD | | | + +------+ + Encounter Details +--------+ + + + + | Date | Type | Department | Care Team | Description | +--------+ + + + + | 03/20/ | Episode | [facility] [place] | Oralia Burgos | | | 2016 | Changes | GASTROENTEROLOGY | M, RN | | | | | [address] | | | | | | [address] [place], [place] | | | | | | [address] | | | | | | [phone] | | | +--------+ + + + [...]
--- OUTSIDE RECORDS SUMMARY | ~2020-01-09 | XMS | Encounter Summary ---
Demographics + + + | Address | [address] | | | [place] [address] | + + + | Home Phone [...] Team Providers + +------+ + | Care Automotive Lot Attendant Name | Role | Phone | + [...] [address] | | | | | ([facility]) | [address] | [place], | | | | | Felix Mohl, | [place] | [place] [address] | | | | | Entyvio | [facility], [place] | Phone: | | | | | 300mg. Q 8 | [address] | [phone] | | | | | wks., | Phone: | Fax: | | | | | Crohn's | [phone] | [phone] | | | | | Procedures | Fax: | | | | | | [place] | [phone] | | | | | | INJECTION, | | | | | | | VEDOLIZUMAB, | | | | | | | 1MG [place] IV | | | | | | [...] | +--------+ + + + + | 12/26/ | Hospital | [facility] | [facility], | Crohn's disease with | | 2019 | Encounter | MED CTR OP INFUSION | MICAELA Romero [address] | complication, | | | | [address] | [address] | unspecified | | | | [place], [place] | [place], [place] | gastrointestinal | | | | [address] | [address] | tract location (HCC) | | | | [phone] | | (Primary Dx) | +--------+ + [...] + + + | Blood Pressure | 110/63 | 12/26/2018 5:48 PM | | | | | PDT | | + + + + + | Pulse | 54 | 12/26/2018 5:48 PM | | | | | PDT | | + + + + + | Temperature | 36.9 C (98.4 F) | 12/26/2018 4:28 PM | | | | | PDT | | + + + + + | Respiratory Rate | 16 | 12/26/2018 5:48 PM | | | | | PDT | | + + + + + | Oxygen Saturation | 100% | 12/26/2018 4:28 PM | | | | | PDT [...] documented as of this encounter Progress Notes Melvi Salinas RN - 12/26/2018 6:33 PM PDTFormatting of this note might be diffe rent from the original. Vitals: 12/26/18 1628 12/26/18 1748 BP: 131/63 110/63 Pulse: 63 54 Resp: 16 16 Temp: 36.9 C (98.4 F) TempSrc: Oral SpO2: 100% Administrations This Visit acetaminophen (TYLENOL) tablet 650 mg Admin Date 12/26/2018 Action Given Dose 650 mg Route Oral Administered By Melvi Salinas RN loratadine (CLARITIN) tablet 10 mg Admin Date 12/26/2018 Action Given Dose 10 mg Route Oral Administered By Melvi Salinas RN vedolizumab (ENTYVIO) 300 mg in sodium chloride 0.9% 250 mL IVPB Admin Date 12/26/2018 Action New Bag Dose 300 mg Rate 510 mL/hr Route Intravenous Administered By Melvi Salinas RN Monitored throughout treatment; treatment completed without untoward effects from medicatio n noted. Next visit February 20. Verbalizes understanding of plan of care. VS stable. Disc harged ambulatory to home in stable condition. Electronically signed by: Melvi Salinas RN 12/26/2018 18:33 Melvi Deleon RN - 019 4:30 PM PDT Vitals: 12/26/18 1748 BP: 110/63 Pulse: 54 Resp: 16 Temp: Nyla Nye received into room 441, independent ambulation accompanied by spouse. States here for entyvio infusion. Reports no change in condition, plan of care since last MD visit. Alert, oriented x 4, cooperative. Electronically signed by: Melvi Salinas RN 12/26/2018 18:34 documented in this encounter Plan of Treatment [...] | acetaminophen (TYLENOL) tablet | Given | 12/27/19 | 650 mg | | | | 650 mg 650 mg, Oral, ONCE, Mon | | 19 4:44 | | | | | 12/26/18 at 1645, For 1 dose | | PM PDT | | | | + +--------+ +--------+------+------+ +---+---+ | | | +---+---+ + +-------+ +-------+---+---+ | loratadine (CLARITIN) tablet 10 | Given | 12/27/19 | 10 mg | | | | mg 10 mg, Oral, ONCE, Mon | | 19 4:44 | | | | | 12/26/18 at 1645, For 1 dose | | PM PDT | | | | + +-------+ +-------+---+---+ +---+---+ | | | +---+---+ + +---------+ +--------+-------+---+ | vedolizumab (ENTYVIO) 300 mg in | New Bag | 12/27/19 | 300 mg | 510 | | | sodium chloride 0.9% 250 mL IVPB | | 19 5:07 | | mL/hr | | | 300 mg, Intravenous, Administer | | PM PDT | | | | | over 30 Minutes, ONCE, Wed | | | | | | | 12/26/18 at 1645, For 1 dose, | | | | | | | EVERY 8 WEEKS MAINTENANCE. Flush | | | | | | | with 30 mL NS after giving. Keep | | | | | | | in refrigerator., | | | | | | + +---------+ +--------+-------+---+ +---+---+ | | | +---+---+ documented in this encounter"
--- OUTSIDE RECORDS SUMMARY | ~2020-01-09 | XMS | Encounter Summary ---
Demographics + + + | Address | [address] | | | [place] [address] | + + + | Home Phone | | + + + | Preferred Language | Unknown | + + + | Marital Status | | + + + | Worship Affiliation | Unknown | + + + | Race | White | + + + | Ethnic Group | Not or | + + + Author + + + | Author | [facility] | | | and [place] | + + + | Organization | [facility] | | [...] Team Providers + +------+ + | Care Landscaping Manager Name | Role | Phone | + +------+ + | Bird Talbot | PCP | | | MD | | | + +------+ + Reason for Visit + +--------+ + | Reason | Onset | Comments | | | Date | | + +--------+ + | Medication Problem | 01/02/ | | | | 2017 | | + +--------+ + Encounter Details +--------+ + + + + | Date | Type | Department | Care Team | Description | +--------+ + + + + | 01/02/ | Telephone | [facility] | Felix Troy, | Medication Problem | | 2018 | | MED CTR OP INFUSION | PharmD [address] | | | | | [address] | [address] [place], [place] | | | | | [place], [place] | [address] | | | | | [address] | | | | | | [phone] | | | +--------+ + + + [...] Telephone Encounter - Kary Fowler CMA - 01/04/2018 10:46 AM PDTAsked PSR Mirella lorenzo call PCP to get the labs. 10: 46 AM PDTTelephone Encounter - Heather Ko ARNP - 01/03/2018 1:[address] ease look for labs that were supposed to be sent from PCP. Thank you elephone Encounter - Felix Troy P harmD - 01/02/2018 9:36 AM PDTCalled and spoke with Nyla as Meera had a voicemail from her P A saying that Nyla may be having a crohn's disease flare. Nyla said that they were unsure if it was a crohn's flare or a stomach bug that has made her feel ill. She reports a eleva theo temp/low grade fever for the last two weeks (99.4-101*F) and general body fatigue/pain. She has not taken any over the counter medication for her symptoms and did get some blood w ork completed yesterday. Nyla is still on her steroid and is excepted to get a double dose (80mg) of her humira on thrusday. Only GI symptom she reports are some diarrhea and mild st omach upset/pain, these are no change from when we last discussed about her crohn's control. I suggested she take some tylenol to help with her fever and body pain as it was not gettin g improved with out any intervention. I did say that depending on her lab work there may be a delay in humira therapy or if further tests are needed, howeverI still encouraged her to back tender pulp drier herself the humira injection on thrusday when it arrives. Discussed this with Meera and apparently the lab work they did yesterday showed a normal WBC, ESR, and CRP. Meera did order stool cultures based off of patient symptom of diarrhea but is in agreement with wanting to give the humira dose in the presence of a elevated temp. Suzy arzate PA is supposed to reach back out to her with the plan later today. Felix Troy PharmD 01/02/2018 10:44 documented in this encounter Plan of Treatment [...]
--- OUTSIDE RECORDS SUMMARY | ~2020-01-09 | XMS | Encounter Summary ---
Demographics + + + | Address | [address] | | | [place] [address] | + + + | Home Phone | | + + + | Preferred Language | Unknown | + + + | Marital Status | | + + + | Uatsdin Affiliation | Unknown | + + + | Race | White | + + + | Ethnic Group | Not or | + + + Author + + + | Author | [facility] | | | and [place] | + + + | Organization | [facility] | | | and [...] Team Providers + +------+ + | Care Clinical Care Manager Name | Role | Phone | + +------+ + | Bird Talbot | PCP | | | MD | | | + +------+ + Reason for Visit +--------+--------+ + | Reason | Onset | Comments | | | Date | | +--------+--------+ + | LABS | 05/05/ | | | | 2020 | | +--------+--------+ + Encounter Details +--------+ + + + + | Date | Type | Department | Care Team | Description | +--------+ + + + + | 08/05/ | Telephone | [facility] [place] | [facility] | LABS | | 2020 | | GASTROENTEROLOGY | MICAELA Romero [address] | | | | | [address] | [address] [facility] [address] | | | | | [address] [place], [place] | [place] | | | | | [address] | [address] | | | | | [phone] | | | +--------+ + + + [...] Telephone Encounter - Kary Fowler CMA - 08/06/2019 1:00 PM PDTNotified patient ifeoma Horan has ordered stool studies. Patient would like these faxed to [facility] in [place].E lectronically signed by Kary Fowler CMA at 08/06/2019 1:01 PM PDTdocumented in this encounter Plan of Treatment +--------+ + + + + | Date | Type | Specialty | Care Team | Description | +--------+ + + + + | 01/20/ | Appointment | Infusion Therapy | | | 2019 | | | | | +--------+ + + + + documented as of this encounter Visit Diagnoses Not on filedocumented in this encounter"
--- OUTSIDE RECORDS SUMMARY | ~2020-01-09 | XMS | Encounter Summary ---
Demographics + + + | Address | [address] | | | [place] [address] | + + + | Home Phone | | + + + | Preferred Language | Unknown | + + + | Marital Status | | + + + | Shinto Affiliation | Unknown | + + + | Race | White | + + + | Ethnic Group | Not or | + + + Author + + + | Author | [facility] | | | and [place] | + + + | Organization | [facility] | | | and [...] Team Providers + +------+ + | Care Chemical Preparer Name | Role | Phone | + [...] [address] | | | | | ([facility]) | [address] | [place], | | | | | Felix Mohl, | [place] | [place] [address] | | | | | Entyvio | [facility], [place] | Phone: | | | | | 300mg. Q 8 | [address] | [phone] | | | | | wks., | Phone: | Fax: | | | | | Crohn's | [phone] | [phone] | | | | | Procedures | Fax: | | | | | | [place] | [phone] | | | | | | INJECTION, | | | | | | | VEDOLIZUMAB, | | | | | | | 1MG [place] IV | | | | | | [...] | +--------+ + + + + | 06/13/ | Hospital | [facility] | [facility], | Crohn's disease with | | 2019 | Encounter | MED CTR OP INFUSION | MICAELA Romero [address] | complication, | | | | [address] | [address] | unspecified | | | | [place], [place] | [place], [place] | gastrointestinal | | | | [address] | [address] | tract location (HCC) | | | | [phone] | | (Primary Dx) | +--------+ + [...] + + + | Blood Pressure | 110/58 | 06/14/2019 2:29 PM | | | | | PDT | | + + + + + | Pulse | 65 | 06/14/2019 1:04 PM | | | | | PDT | | + + + + + | Temperature | 36.6 C (97.9 F) | 06/14/2019 1:04 PM | | | | | PDT | | + + + + + | Respiratory Rate | 18 | 06/14/2019 2:29 PM | | | | | PDT | | + + + + + | Oxygen Saturation | 99% | 06/14/2019 2:29 PM | | | | | PDT [...] encounter Progress Notes Helen Juarez RN - 06/14/2019 2:33 PM PDT Vitals: 06/14/19 1304 06/14/19 1429 BP: 120/69 110/58 Pulse: 65 Resp: 18 18 Temp: 36.6 C (97.9 F) TempSrc: Oral SpO2: 100% 99% Administrations This Visit acetaminophen (TYLENOL) tablet 650 mg Admin Date 06/14/2019 Action Given Dose 650 mg Route Oral Administered By Luz Andrade RN loratadine (CLARITIN) tablet 10 mg Admin Date 06/14/2019 Action Given Dose 10 mg Route Oral Administered By Luz Andrade RN vedolizumab (ENTYVIO) 300 mg in sodium chloride 0.9% 250 mL IVPB Admin Date 06/14/2019 Action New Bag Dose 300 mg Rate 510 mL/hr Route Intravenous Administered By Luz Andrade RN Monitored throughout treatment; treatment completed without untoward effects from medicatio n noted. Next visit 08/05. Verbalizes understanding of plan of care. VS stable. Discharged amb ulatory to home in stable condition. Electronically signed by: Helen Juarez RN 06/14/2019 2:33 PM Helen pitts RN - 0 06/14/2019 1:00 PM PDT Vitals: 06/14/19 1429 BP: 110/58 Pulse: Resp: 18 Temp: Nyla Nye received into room 440, independent ambulation accompanied by self. St ates here for entivio infusion. Reports no change in condition, plan of care since last MD ashish florence. Alert, oriented x 4, cooperative. Electronically signed by: Helen Juarez RN 06/14/2019 2:34 PM Felix Godoy PharmD - 06/14/2019 1:00 PM PDT [facility] Inflammatory Bowel Disease Follow Up Provider: Felix Troy PharmD Encounter Date: 06/14/2019 Patient: Nyla Nye : 1980 CSN: [id number] ASSESSMENT Entyvio follow up Nyla Nye is a 39 y.o. female who [facility] by MICAELA Snider for DMT management. [...] [] [x] Severe abdominal pain [] [x] Signs and Symptoms of Infection/TB Recent onset [...] [x] New onset of pain [] [x] Checked in with Nyla and she has been doing well. Reports that her symptoms are controlle d for the most part. Every so often she has some diarrhea, which she controls with imodium. No other symptoms or updates to report. Discussed with Nyla about COVID-19. She understands to remain vigilant of her own symptom s and seek treatment if she feels ill. Recommended she call her providers office first if s he develops sign of infection but to seek treatment because she is on a biologic medication. PLAN 1. Compliance was discussed and Nyla [...] w/diff and CMP) will be due on . 6. Nyla is on a biologic and the importance of sunscreen was reinforced. Last skin exam wa s less than one year ago. 7. Nyla is on a biologic and the importance of reporting upcoming procedures was discussed . Nyla denies any upcoming procedures. 8. Nyla does not have any questions at this time. Laboratory Findings Lab Results Component Value Date HGB 12.3 04/19/2019 HCT 36.1 04/19/2019 PLT 282 04/19/2019 AST 23 04/19/2019 ALT 21 04/19/2019 WBC 8.2 04/19/2019 Lab Results Component Value Date HCV <0.1 06/20/2017 HBV Negative 06/20/2017 Total time spent on the phone with Nyla was 10 minutes with greater than 50% of time spent reviewing medications with patient, counseling, education, and/or coordinating care as outl ined above. Felix Troy PharmD DATE/TIME: 06/14/2019 1:03 PM documented in this encounter Plan of Treatment [...] | acetaminophen (TYLENOL) tablet | Given | 06/14/19 | 650 mg | | | | 650 mg 650 mg, Oral, ONCE, Fri | | 20 1:29 | | | | | 06/14/19 at 1320, For 1 dose | | PM PDT | | | | + +--------+ +--------+------+------+ +---+---+ | | | +---+---+ + +-------+ +-------+---+---+ | loratadine (CLARITIN) tablet 10 | Given | 06/14/19 | 10 mg | | | | mg 10 mg, Oral, ONCE, Fri | | 20 1:29 | | | | | 06/14/19 at 1320, For 1 dose | | PM PDT | | | | + +-------+ +-------+---+---+ +---+---+ | | | +---+---+ + +---------+ +--------+-------+---+ | vedolizumab (ENTYVIO) 300 mg in | New Bag | 06/14/19 | 300 mg | 510 | | | sodium chloride 0.9% 250 mL IVPB | | 20 1:47 | | mL/hr | | | 300 mg, Intravenous, Administer | | PM PDT | | | | | over 30 Minutes, ONCE, Fri | | | | | | | 06/14/19 at 1320, For 1 dose, | | | | | | | EVERY 8 WEEKS MAINTENANCE. Flush | | | | | | | with 30 mL NS after giving. Keep | | | | | | | in refrigerator., | | | | | | + +---------+ +--------+-------+---+ +---+---+ | | | +---+---+ documented in this encounter"
--- OUTSIDE RECORDS SUMMARY | ~2020-01-09 | XMS | Encounter Summary ---
Demographics + + + | Address | [address] | | | [place] [address] | + + + | Home Phone | | + + + | Preferred Language | Unknown | + + + | Marital Status | | + + + | Buddhism Affiliation | Unknown | + + + [...] Team Providers + +------+ + | Care Laborer Sawmill Name | Role | Phone | + [...] | | | | cuff, | | [address] | | | | | unspecified | | Phone: | | | | | whether | | [phone] | | | | | traumatic | | Fax: | | | | | Impingement | | [phone] | | | | | syndrome of [...] | | | | | | | MD EXCIS | | | | | | | BENNAYAN TUMR | | | | | | | PROX | | | | | | | HUMER,JOANNA | | | | | | | FT MD | | | | | | | SHOULDER | | | | | | | SCOPE BONE | | | | | | | SHAVING MD | | | | | | | [...] | +--------+ + + + + | 12/27/ | Hospital | [facility] | Rm Garcia | | | 2019 | Encounter | MED CTR OR INTRA OP | J, DO [address] | | | | | [address] | [address] [place], [place] | | | | | [place], [place] | [address] | | | | | [address] | [phone] | | | | | [phone] | | | +--------+ + + + [...] + + + | Blood Pressure | 105/64 | 12/27/2018 1:30 PM | | | | | PDT | | + + + + + | Pulse | 91 | 12/27/2018 1:30 PM | | | | | PDT | | + + + + + | Temperature | 36.4 C (97.5 F) | 12/27/2018 11:42 AM | | | | | PDT | | + + + + + | Respiratory Rate | 14 | 12/27/2018 1:30 PM | | | | | PDT | | + + + + + | Oxygen Saturation | 98% | 12/27/2018 1:30 PM | | | | | PDT [...] in this encounter Discharge Instructions Instructions Rm Garcia, - 12/25/2018[facility] Post-op Instructions - Shoulder Surgery The following instructions are meant to guide you following any shoulder surgery until your first post-operative visit 7-12 days later. For any problems or questions, please call our office at [phone], Monday through Monday, 9:00 am - 5:00 [...] that you may have received from the [facility], advice from friends, family members, Sport/Life leaders, Raiseworks[employer] store clerks, christie smith, Arnold, Dr. Antoine, Dr. Carvalho, sports heroes, etc. If unsure, please call our office. Thank you, Rm Garcia D.O. [facility] [address] [place] [address] Your post op appointment is scheduled for Sunday 01/07 at 9:30 am. Please check in at 9:15 am for X-rays at the [facility]. documented in this encounter Medications [...] signed by: Rm Garcia DO, 12/27/2018 9:37 [facility] Nikolay Mendoza PA-C - 12/26/2018 7:42 AM PDTSubjective F/u Right Shoulder Pain History of Present Illness Nyla is scheduled to undergo a right shoulder scope with RTC, SAD, and Bone Grafting of H umeral Head Bone Cyst on , 12/27/18, at [facility]. To Review: Nyla is a 38 year [...] previous MRI of the shoulder done at [facility] in 2016. She had a subacromia l [...] clarithromycin ?? Macrobid Vitals Vitals Panel Recorded: [id number] 03:45PM Heart Rate: 56 Blood Pressure: 130 [...] head bone graft SURGEON: Rm Garcia DO. TELEPHONE APPOINTMENT CLERK: Nikolay Duncan PA-C ANESTHESIA: General with interscalene [...] whereupon all bony prominences were well padded. Gavino Kraus DO had administered an ultrasound-guided interscalene [...] on the anterior acromion was then resected ricardo rodarte a 4 mm barrel bur. A flat [...] +--------+ + + + + | 01/20/ Appointment | Infusion Therapy | | | [...] Suture | | | | | | [place] | | | [place] | | | [...] | 1.010, 1.015, | | | | [place], | | 1.020, 1.025 | | | | POC | | | | | + + + + + + | Lot Number | [id number] | | | | + + + + + + | Expiration | 2020-04-11 | | | | | Date | | | | | + + + + + + + + | Specimen | + + | Urine | + + documented in this encounter Visit Diagnoses + + | Diagnosis | + + | Incomplete tear of right rotator cuff - Primary | + + | Asthma, intrinsic Intrinsic asthma, unspecified | + + | Crohn's disease with complication (HCC) Regional enteritis of unspecified site | + + documented in this encounter [...] ONCE PRN, Wheezing, | | | Starting Shaylee 12/27/18 at 1132, | | | For [...] glucose < 50, | | | Starting Shaylee 12/27/18 at 0813, | | | Repeat [...] One week or | | | longer, awneca-fuo-votlx use of | | | at least [...] One week or longer, | | | kqaypw-rck-ijwhx use of at least | | | [...] Intravenous, PRN, Shivering, | | | Starting [facility] 12/27/18 at 1132, For | | | [...] | | | | PRN, Nausea, Starting [facility] 12/27/18 | | PM PDT | | [...]
--- OUTSIDE RECORDS SUMMARY | ~2020-01-09 | XMS | Encounter Summary ---
Demographics + + + | Address | [address] | | | [place] [address] | + + + | Home Phone | | + + + | Preferred Language | Unknown | + + + | Marital Status | | + + + | Scientologist Affiliation | Unknown | + + + | Race | White | + + + | Ethnic Group | Not or | + + + Author + + + | Author | [facility] | | | and [place] | + + + | Organization | [facility] | | [...] Team Providers + +------+ + | Care Marketing Underwriter Name | Role | Phone | + +------+ + | Bird Talbot | PCP | | | MD | | | + +------+ + Encounter Details +--------+ + + + + | Date | Type | Department | Care Team | Description | +--------+ + + + + | 09/09/ | Virtual | [facility] [place] | [place], | Stricture of small | | 2019 | Office | GASTROENTEROLOGY | [address] | intestine (HCC) | | | Visit | [address] | [address] | (Primary Dx); | | | | [address] [place], [place] | [place], [place] | Unintentional weight | | | | [address] | [address] | loss; Abdominal | | | | [phone] | | pain, generalized; | | | | | | Renal calculi | +--------+ + + + + Social [...] documented as of this encounter Progress Notes Heather Ko ARNP - 09/10/2019 9:30 AM PDTFormatting of this note might be differe nt from the original. This exam was initially conducted via a secure 256-bit AES encrypted bidirectional video se [employer]. Service was provided esnw-pe-fbrs with the patient via interactive videoconferencing Video start time 926 Video end time 949 Total time (in minutes) including non hbhi-em-yzhw time (reviewing records, documentation, etc..) 23 minutes You have chosen to receive care through the use of telemedicine. Telemedicine enables [facility] care providers at different locations to provide safe, effective and convenient care throu gh the use of technology. As with any health care service, there are risks associated with t he use of telemedicine, including equipment failure, poor image resolution and information s ecurity issues. Do you understand the risks and benefits of telemedicine as I have explained them to you? " Yes" Have your questions regarding telemedicine been answered? "Yes" Patient is currently at home Do you consent to the use of telemedicine in your medical care today? Yes. Last question, I need to confirm where are you physically located right now? [place], [place] Answer: Patient confirms they are located in a state where Heather Thao ARNP i s licensed. PATIENT NAME: Nyla Nye : 1980: AGE: 39 y.o. REFERRED BY: No additional provider found PRIMARY CARE: Bird Talbot MD Subjective: CHIEF COMPLAINT: Nyla Nye is a 39 y.o. female is here for a follow up. She is being seen today for Crohn's disease. HISTORY OF PRESENT ILLNESS: Patient states that she continues to have pain. She feels like she is unable to eat because of pain. She will also have urgency with her bowel movements. The majority of discomfort is in RLQ. The discomfort can move. She has lost about 20 lbs over the last 1.5 months. She restarted budesonide about 3 days ago. She is unsure if this has helped as of yet. She has had some increased anxiety. Lexapro has been increased. The stress with the Crohn's has caused increased stress. She has taken her vital signs. Weight 146, BP 110/68, Pulse 61 MEDICAL, SURGICAL, AND PERSONAL HISTORY There were no vitals taken for this visit. Allergies Allergen Reactions Nitrofuran Derivatives Hives, Diarrhea, Nausea And Vomiting and Rash Sulfa Antibiotics Hives and Rash Clarithromycin Nausea And Vomiting Past Medical History: Diagnosis Date Abnormal weight gain Acrochordon; one skin tag in the past, removed Acute allergic otitis media of right ear Acute pansinusitis Acute pharyngitis Acute right otitis media Allergic rhinitis due to pollen Allergic urticaria Anaphylaxis Asthma, intrinsic Chronic pansinusitis Compound nevus Constipation Crohn's disease of colon (moderate to severe) with complication (HCC) Fecal urgency Heartburn Hemorrhagic condition (HCC) Nausea Pharyngitis, acute Umbilical hernia Past Surgical History: Procedure Laterality Date APPENDECTOMY 2003 CEASAREAN SECTION, MULTIPLES 2004 2004 and 2007 COLONOSCOPY COLONOSCOPY N/A 03/21/2017 Procedure: COLONOSCOPY; Surgeon: Sumit Mariee MD; Location: [facility] MEDICAL PROCEDURE UNIT EGD AND COLONOSCOPY 12/13/2016 mild gastroduodenitis. Internal hemorrhoids.~ BRENDA Dr. Cason SHOULDER ARTHROSCOPY Right 12/27/2018 Procedure: Right Shoulder Scope, Rotator Cuff Repair, Subacromial Decompression, Bone [place] ting of Humeral Head Bone Cyst; Surgeon: Rm Garcia DO; Location: [facility] MAIN OR TONSILLECTOMY AND ADENOIDECTOMY 2006 UPPER GASTROINTESTINAL ENDOSCOPY UTERINE FIBROID SURGERY WISDOM TOOTH EXTRACTION 1999 Family History Problem Relation Age of Onset Arthritis Mother Other (see comment) Mother lumbar problems Hepatitis C Father Cancer Father Stomach Social History Socioeconomic History Marital status: Spouse name: Not on file Number of children: Not on file Years of education: Not on file Highest education level: Not on file Occupational History Not on file Social Needs Financial resource strain: Not on file Food insecurity: Worry: Not on file Inability: Not on file Transportation needs: Medical: Not on file Non-medical: Not on file Tobacco Use Smoking status: Never Smoker Smokeless tobacco: Never Used Substance and Sexual Activity Alcohol use: Yes Comment: social drinker Drug use: No Sexual activity: Not on file Comment: Not on file Lifestyle Physical activity: Days per week: Not on file Minutes per session: Not on file Stress: Not on file Relationships Social connections: Talks on phone: Not on file Gets together: Not on file Attends baptism service: Not on file Active member of club or organization: Not on file Attends meetings of clubs or organizations: Not on file Relationship status: Not on file Intimate partner violence: Fear of current or ex partner: Not on file Emotionally abused: Not on file Physically abused: Not on file Forced sexual activity: Not on file Other Topics Concern Not on file Social History Narrative Not on file Review of Systems Constitutional: Negative for chills, fever and unexpected weight change. Respiratory: Negative for cough, shortness of breath and wheezing. Cardiovascular: Negative for chest pain, palpitations and leg swelling. Gastrointestinal: Negative except as stated above Objective: Physical Exam Nursing note reviewed. Constitutional: General: She is not in acute distress. Appearance: Normal appearance. She is not ill-appearing. Comments: Complete physical exam not performed-this was a telephone visit. HENT: Head: Normocephalic and atraumatic. Pulmonary: Effort: Pulmonary effort is normal. Neurological: General: No focal deficit present. Mental Status: She is alert. Psychiatric: Attention and Perception: Attention normal. Mood and Affect: Mood normal. Speech: Speech normal. Behavior: Behavior normal. Thought Content: Thought content normal. Abstract on 09/03/2019 Component Date Value Ref Range Status Result 08/08/2019 08/09/2019 Specimen has been received and plated by Microbiology Lab. Final Result 08/08/2019 08/10/2019 Heavy growth normal enteric anyi. Final Result 08/08/2019 08/12/2019 No change in growth. No Salmonella, Shigella, Escherichia coli O157, Campylobacter, or yersinia isolated. Not specifically tested for other enteric p athogens. Final Ova + Parasite Exam 08/08/2019 08/09/2019 No ova and parasites seen. (Direct, concentr ate, and trichrome performed as indicated.) Final CALPROTECTIN FECAL 08/08/2019 179* 0 - 50 ug/g Final Assessment: 1. 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 Unintentional weight loss 3. Abdominal pain, generalized 4. Renal calculi Plan: Due to distal ileum stricture, will refer to [facility] in [place]. Will determine i f she should have consult with colo-rectal surgeon. Continue with budesonide. If this does not help with symptoms, she may need a more systemic steroid. Continue follow up with GI pharmacy. Follow up with PCP regarding renal calculi. Patient is to call with any question or concerns. Any fevers, chills, chest pain, SOB or o ther serious symptoms patient is to call the office or go to ER Spent 23 minutes with over half of the time spent in discussion with the patient regarding diagnostics and possible treatment options for Crohn's disease. CC: MD Felix Greene, Pharm-D This note was dictated using voice recognition [...] + | IMAGING REPORT - | | 09/03/2019 | | Results for this | | EXTERNAL SCAN | | 12:00 AM | | procedure are in the | | | | PDT | | results section. | + +--------+ + + + documented in this encounter Results IMAGING REPORT - EXTERNAL SCAN (09/03/2019 12:00 AM PDT) + + + | Narrative | Performed At | + + + | Ordered by an | | | unspecified provider. | | + + + documented in this encounter Visit Diagnoses + + | Diagnosis | + + | Stricture of small intestine (HCC) - Primary Unspecified intestinal obstruction | + + | Unintentional weight loss Loss of weight | + + | Abdominal pain, generalized | + + | Renal calculi Calculus of kidney | + + documented in this encounter
--- OUTSIDE RECORDS SUMMARY | ~2020-01-09 | XMS | Clinical Summary ---
Demographics + + + | Address | [address] [facility] | | | [place] [address] | + + + | Home Phone | | + + + | Preferred Language | Unknown | + + + | Marital Status | | + + + | Episcopal Affiliation | Unknown | + + + | Race | White | + + + | Ethnic Group | Not or | + + + Author + + + | Author | [facility] | | | and [place] | + + + | Organization | [facility] | | | [...] Team Providers + +------+ + | Care Recordist Chief Name | Role | Phone | + +------+ + | Bird Talbot | PCP | | | MD | | | + +------+ + Allergies + + + + + + | Active Allergy | Reactions | Severity | Noted | Comments | | | | | Date | | + + + + + + | Clarithromycin | Nausea And Vomiting | Low | 02/10/20 | | | | | | 17 | | + + + + + + | Nitrofuran | Hives, Diarrhea, | Medium | 02/10/20 | | | Derivatives | Nausea And Vomiting, | | 17 | | | | Rash | | | | + + + + + + | Sulfa Antibiotics | Hives, Rash | Medium | 02/10/20 | | | | | | 17 | | + + + + + + Medications + + + +---------+------+------+-------+ | Medication | Sig | Dispensed | Refills | Star | End | Statu | | | | | | t | Date | s | | | | | | Date | | | + + + +---------+------+------+-------+ | diphenhydrAMINE | Take 50 mg by mouth | | 0 | | | Activ | | (BENADRYL) 25 mg | every 4 hours. | | | | | e | | tablet | | | | | | | + + + +---------+------+------+-------+ | cetirizine (ZYRTEC | Take 10 mg by mouth | | 0 | | | Activ | | ALLERGY) 10 mg | Daily. | | | | | e | | tablet | | | | | | | + + + +---------+------+------+-------+ | psyllium (KONSYL) | Take 1 packet by | | 0 | | | Activ | | 28.3 % PACK | mouth Daily. | | | | | e | + + + +---------+------+------+-------+ | Multiple | Take 1 tablet by | | 0 | | | Activ | | Vitamins-Minerals | mouth Daily. | | | | | e | | (ADULT MULTIVITAMIN | | | | | | | | WITH MINERALS/IRON) | | | | | | | | TABS | | | | | | | + + + +---------+------+------+-------+ | Lactobacillus | Take by mouth. | | 0 | | | Activ | | (PROBIOTIC | | | | | | e | | ACIDOPHILUS PO) | | | | | | | + + + +---------+------+------+-------+ | dicyclomine | Take 1 tablet by | 120 | 0 | 01/1 | | Activ | | (BENTYL) 20 MG | mouth every 6 hours | tablet | | 6/20 | | e | | tabletIndications: | as needed (abdominal | | | 19 | | | | Crohn's disease with | discomfort). | | | | | | | complication, | | | | | | | | unspecified | | | | | | | | gastrointestinal | | | | | | | | tract location (HCC) | | | | | | | + + + +---------+------+------+-------+ | guaiFENesin | Take 1,200 mg by | | 0 | | | Activ | | (MUCINEX) 600 mg 12 | mouth Twice daily | | | | | e | | hr tablet | as needed for | | | | | | | | Congestion. | | | | | | + + + +---------+------+------+-------+ | vedolizumab | Inject 300 mg into | | 0 | | | Activ | | (ENTYVIO) 60 mg/mL | the vein. | | | | | e | | injection | | | | | | | + + + +---------+------+------+-------+ | ferrous sulfate | Take 325 mg by | | 0 | | | Activ | | 325 mg tablet | mouth. | | | | | e | + + + +---------+------+------+-------+ | Olopatadine HCl | 2 drops. | | 0 | 11/0 | | Activ | | 0.2 % SOLN | | | | 6/20 | | e | | | | | | 18 | | | + + + +---------+------+------+-------+ | oxyCODONE | Take 1-2 tablets by | 42 | 0 | 09/2 | | Activ | | (ROXICODONE) 5 mg | mouth every 6 hours | tablet | | 6/20 | | e | | tablet | as needed for Pain. | | | 19 | | | + + + +---------+------+------+-------+ | escitalopram | Take 10 mg by mouth | | 0 | | | Activ | | (LEXAPRO) 10 mg | Daily. | | | | | e | | tablet | | | | | | | + + + +---------+------+------+-------+ | ALPRAZolam (XANAX) | Take 0.5 mg by mouth | | 0 | | | Activ | | 0.5 mg tablet | 3 times daily as | | | | | e | | | needed for Anxiety. | | | | | | + + + +---------+------+------+-------+ | budesonide | Take 3 capsules by | 105 | 0 | 05/2 | | Activ | | (ENTOCORT EC) 3 mg | mouth every morning. | capsule | | 6/20 | | e | | 24 hr capsule | Take 9 mg daily for | | | 20 | | | | | 4 weeks. Then | | | | | | | | decrease by 3 mg | | | | | | | | every 7 days. | | | | | | + + + +---------+------+------+-------+ | NALTREXONE HCL PO | Take 1 capsule by | | 0 | 02/1 | | Activ | | | mouth Daily. | | | 3/20 | | e | | | | | | 20 | | | + + + +---------+------+------+-------+ | EPINEPHRINE HCL IJ | Inject 1 applicator | | 0 | | | Activ | | | as directed as | | | | | e | | | needed. | | | | | | + + + +---------+------+------+-------+ | NALTREXONE HCL PO | Take 4.5 mLs by | | 0 | | | Activ | | | mouth nightly. | | | | | e | + + + +---------+------+------+-------+ | SIMETHICONE PO | Take 1 tablet by | | 0 | | | Activ | | | mouth as needed. | | | | | e | + + + +---------+------+------+-------+ | albuterol 90 | Inhale 2 puffs into | | 0 | 03/1 | | Activ | | mcg/puff inhaler | the lungs every 2 | | | 9/20 | | e | | | hours as needed. | | | 20 | | | + + + +---------+------+------+-------+ | | Take 1 tablet by | | 0 | 04/1 | | Activ | | amoxicillin-clavulan | mouth 2 times daily. | | | 0/20 | | e | | ate (AUGMENTIN) | | | | 20 | | | | 500-125 mg per | | | | | | | | tablet | | | | | | | + + + +---------+------+------+-------+ | azithromycin | Take 1 tablet by | | 0 | 03/1 | | Activ | | (ZITHROMAX) 500 MG | mouth Daily. | | | 8/20 | | e | | tablet | | | | 20 | | | + + + +---------+------+------+-------+ | ciprofloxacin | Take 1 tablet by | | 0 | 03/2 | | Activ | | (CIPRO) 250 mg | mouth 2 times daily. | | | 9/20 | | e | | tablet | | | | 20 | | | + + + +---------+------+------+-------+ | EPINEPHrine | inject 0.3 | | 0 | 03/1 | | Activ | | auto-injector 0.3 | milliliters ( 0.3 | | | 7/20 | | e | | mg/0.3 mL injection | milligrams ) | | | 20 | | | | | intramuscularly in | | | | | | | | OUTE... (REFER TO | | | | | | | | PRESCRIPTION NOTES). | | | | | | + + + +---------+------+------+-------+ | ondansetron | Take 1-2 tablets by | | 0 | 09/3 | | Activ | | (ZOFRAN) 4 mg tablet | mouth every 6 hours | | | 0/20 | | e | | | as needed. | | | 19 | | | + + + +---------+------+------+-------+ | phenazopyridine | Take 1 tablet by | | 0 | 03/2 | | Activ | | (PYRIDIUM) 200 mg | mouth 3 times daily | | | 9/20 | | e | | tablet | as needed. | | | 20 | | | + + + +---------+------+------+-------+ | pseudoePHEDrine | Take 1 tablet by | | 0 | 03/1 | | Activ | | (SUDAFED) 120 mg 12 | mouth every 12 hours | | | 8/20 | | e | | hr tablet | as needed. | | | 20 | | | + + + +---------+------+------+-------+ | adalimumab | Inject 40 mg under | | 0 | | | Activ | | (HUMIRA) 40 mg/0.8 | the skin every 14 | | | | | e | | mL injection | days. | | | | | | | (syringe) | | | | | | | + + + +---------+------+------+-------+ Active Problems + + + | Problem | Noted Date | + + + | Acute pharyngitis | 09/03/2019 | + + + | Allergic rhinitis | 09/03/2019 | + + + | Anemia | 09/03/2019 | + + + | Asymptomatic varicose veins | 09/03/2019 | + + + | Neoplasm of digestive system | 09/03/2019 | + + + | Other diseases of pharynx, not elsewhere classified | 09/03/2019 | + + + | Syncope and collapse | 09/03/2019 | + + + | Urinary tract infection | 09/03/2019 | + + + | Depression | 03/19/2019 | + + + | Incomplete tear of right rotator cuff | 12/26/2018 | + + + | Altered nutrition greater than body requirements | 04/09/2018 | + + + + + | Overview: Last Assessment & Plan: | | Not addressed during this call. | | Noreen Mccauley RN 03/19/2019 | + + + + + | Crohn's disease with complication | 03/29/2018 | + + + | Diarrhea | 03/20/2017 | + + + | Generalized abdominal pain | 03/20/2017 | + + + | Abnormal CT of the abdomen | 03/20/2017 | + + + | Asthma, intrinsic | | + + + | Cannabis use, unspecified, CBD Oil | | + + + + + | Overview: CBD Oil; taking multivitamin for supplement. | | Notes increased pain after eating (taking bentyl, CBD oil- pain | | goes from 6 to 2) | + + Encounters +--------+ + + + + | Date | Type | Specialty | Care Team | Description | +--------+ + + + + | 09/18/ | Orders Only | Infusion Therapy | Felix Troy, | | | 2019 | | | PharmD | | +--------+ + + + + | 12/03/ | Telephone | Pharmacotherapy | Felix Troy, | Referral | | 2020 | | | PharmD | (PreAuthorization) | +--------+ + + + + | 11/25/ | Hospital | Infusion Therapy | [facility], | Crohn's disease with | | 2019 | Encounter | | MICAELA Romero | complication, | | | | | | unspecified | | | | | | gastrointestinal | | | | | | tract location (HCC) | | | | | | (Primary Dx) | +--------+ + + + + from Last 3 Months Family History + + +------+ + | Medical History | Relation | Name | Comments | + + +------+ + | Cancer | Father | | Stomach | + + +------+ + | Hepatitis C | Father | | | + + +------+ + | Arthritis | Mother | | | + + +------+ + | Other (see comment) | Mother | | lumbar problems | + + +------+ + + +------+ + + | Relation | Name | Status | Comments | + +------+ + + | Father | | | | | | | (Age | | | | | 59) | | + +------+ + + | Mother | | Alive | | + +------+ + + Social History + +-------+ +--------+------+ [...] on file | | + + + Last Filed Vital Signs + + + + + | Vital Sign | Reading | Time Taken | Comments | + + + + + | Blood Pressure | 103/62 | 11/26/2019 11:31 AM | | | | | PDT | | + + + + + | Pulse | 57 | 11/26/2019 11:31 AM | | | | | PDT | | + + + + + | Temperature | 37.6 C (99.7 F) | 11/26/2019 9:56 AM | | | | | PDT | | + + + + + | Respiratory Rate | 16 | 11/26/2019 11:31 AM | | | | | PDT | | + + + + + | Oxygen Saturation | 100% | 11/26/2019 9:56 AM | | | | | PDT [...] | | + + + + + Plan of Treatment +--------+ + + + + | Date | Type | Specialty | Care Team | Description | +--------+ + + + + | 01/20/ | Appointment | Infusion Therapy | | | | 2020 | | | | | +--------+ + + + + + + + + + | Health Maintenance | Due Date | Last | Comments | | | | Done | | + + + + + | Vaccine: | | | | | Pneumococcal 19-64 | 6 | | | | (1 of 1 - PPSV23) | | | | + + + + + | Vaccine: | | 11/03/18 | | | Dtap/Tdap/Td (2 - | 1 | 99 | | | Tdap) | | | | + + + + + | Cervical Cancer | | | | | Screening (Pap) | 0 | | | + + + + + | Vaccine: Influenza | | 03/13/20 | | | (#1) | 0 | 19, | | | | | 03/16/20 | | | | | 12, | | | | | 12/01/19 | | | | | 11 | | + + + + + | Med Mgmt: HCT | | 11/26/19 | | | | 1 | 20, | | | | | 08/06/19 | | | | | 20, | | | | | 04/19/19 | | | | | 20, | | | | | Addition | | | | | al | | | | | history | | | | | exists | | + + + + + | Med Mgmt: HGB | | 11/26/19 | | | | 1 | 20, | | | | | 08/06/19 | | | | | 20, | | | | | 04/19/19 | | | | | 20, | | | | | Addition | | | | | al | | | | | history | | | | | exists | | + + + + + | Med Mgmt: PLT | | 11/26/19 | | | | 1 | 20, | | | | | 08/06/19 | | | | | 20, | | | | | 04/19/19 | | | | | 20, | | | | | Addition | | | | | al | | | | | history | | | | | exists | | + + + + + | Med Mgmt: WBC | | 11/26/19 | | | | 1 | 20, | | | | | 08/06/19 | | | | | 20, | | | | | 04/19/19 | | | | | 20, | | | | | Addition | | | | | al | | | | | history | | | | | exists | | + + + + + | Medication | | 11/26/19 | | | Management | 1 | 20 | | + + + + + | Hepatitis C | Completed | 06/21/19 | | | Screening | | 18 | | + + + + + Implants + +--------+--------+ +--------+--------+--------+ | Implanted | Type | Area | Manufacture | Device | Shelf | Model | | | | | r | | Expira | / | | | | | | Identi | tion | Serial | | | | | | fier | Date | / Lot | + +--------+--------+ +--------+--------+--------+ | Gertrudis Ordoñez [id number] | Generi | Right: | [employer] | | 07/31/ | AR-260 | | - [id number]: Qty: | c | | - ARTX | | 2020 | [id number] | | 1 on 12/27/2018 by Radha, | | Should | | | | / | | Rm Bolivar DO at [facility] | | er | | | | /[id number] | | LOCATED WITHIN [facility] | | | | | | [facility] | | CENTER | | | | | | | + +--------+--------+ +--------+--------+--------+ | Ca Phos Fast Set 5cc - | | Right: | SKELETAL | | 02/01/ | - | | [id number]: Qty: 1 | | | KINETICS - | | 2018 | -05 / | | on 12/27/2018 by Radha, | | Should | SKIN | | | /[id number] | | Rm Bolivar DO at [facility] | | er | | | | [phone] | | LOCATED WITHIN [facility] | | | | | | | | CENTER | | | | | | | + +--------+--------+ +--------+--------+--------+ Procedures + +--------+ + + + | Procedure Name | Priori | Date/Time | Associated Diagnosis | Comments | | | ty | | | | + +--------+ + + + | CBC WITH | STAT | 11/26/2019 | Crohn's disease | Results for this | | DIFFERENTIAL | | 10:00 AM | with complication, | procedure are in the | | | | PDT | unspecified | results section. | | | | | gastrointestinal | | | | | | tract location (HCC) | | + +--------+ + + + | COMPREHENSIVE | Routin | 11/26/2019 | Crohn's disease | Results for this | | METABOLIC PANEL | e | 9:55 AM | with complication, | procedure are in the | | | | PDT | unspecified | results section. | | | | | gastrointestinal | | | | | | tract location (HCC) | | + +--------+ + + + from Last 3 Months Results CBC with Differential (11/26/2019 10:00 AM PDT) + + + + + + | Component | Value | Ref Range | Performed | Pathologist | | | | | At | Signature | + + + + + + | White Blood | 10.4 | 4.0 - 11.0 K/uL | [facility] | | | Cells | | | [facility] | | | | | | [facility] | | | | | | [facility] - | | | | | | LABORATORY | | + + + + + + | Red Blood | 3.76 | 3.70 - 5.20 | [facility] | | | Cells | | M/uL | [facility] | | | | | | [facility] | | | | | | C[facility] - | | | | | | LABORATORY | | + + + + + + | Hemoglobin | 13.0 | 11.5 - 16.0 | [facility] | | | | | g/dL | [facility] | | | | | | [facility] | | | | | | C[facility] - | | | | | | LABORATORY | | + + + + + + | Hematocrit | 38.0 | 34.0 - 47.0 % | [facility] | | | | | | [facility] | | | | | | [facility] | | | | | | C[facility] - | | | | | | LABORATORY | | + + + + + + | MCV | 101.1 (H) | 83.0 - 101.0 fL | [facility] | | | | | | [facility] | | | | | | [facility] | | | | | | C[facility] - | | | | | | LABORATORY | | + + + + + + | MCH | 34.6 | 28.0 - 35.0 pg | [facility] | | | | | | [facility] | | | | | | [facility] | | | | | | CENTER - | | | | | | LABORATORY | | + + + + + + | MCHC | 34.2 | 32.0 - 36.0 | [facility] | | | | | g/dL | [facility] | | | | | | [facility]ICAL | | | | | | CENTER - | | | | | | LABORATORY | | + + + + + + | RDW-CV | 12.9 | <15.0 % | [facility] | | | | | | [facility] | | | | | | [facility] | | | | | | CENTER - | | | | | | LABORATORY | | + + + + + + | RDW-SD | 47.8 (H) | 35.1 - 46.3 fL | [facility] | | | | | | [facility] | | [facility] | | | [facility] | | | | | | C[facility] - | | | | | | LABORATORY | | + + + + + + | Platelet | 272 | 140 - 440 K/uL | [facility] | | | Count | | | [facility] | | | | | | [facility]ICAL | | | | | | C[facility] - | | | | | | LABORATORY | | + + + + + + | MPV | 9.0 | 6.5 - 12.4 fL | [facility] | | | | | | [facility] | | | | | | [facility]ICAL | | | | | | CENTER - | | | | | | LABORATORY | | + + + + + + | % | 72.2 | 45.0 - 82.0 % | [facility] | | | Neutrophils | | | [facility] | | | | | | MEDICAL | | | | | | CENTER - | | | | | | LABORATORY | | + + + + + + | % | 19.0 (L) | 20.0 - 45.0 % | [facility] | | | Lymphocytes | | | [facility] | | | | | | MEDICAL | | | | | | CENTER - | | | | | | LABORATORY | | + + + + + + | % Monocytes | 6.3 | 4.0 - 12.0 % | [facility] | | | | | | [facility] | | | | | | [facility] | | | | | | C[facility] - | | | | | | LABORATORY | | + + + + + + | % | 1.3 | 0.0 - 5.0 % | [facility] | | | Eosinophils | | | [facility] | | | | | | MEDICAL | | | | | | CENTER - | | | | | | LABORATORY | | + + + + + + | % Basophils | 0.6 | 0.0 - 1.0 % | [facility] | | | | | | [facility] | | | | | | [facility] | | | | | | CENTER - | | | | | | LABORATORY | | + + + + + + | % Immature | 0.6 (H)Comment: | 0.0 - 0.4 % | [facility] | | | Granulocyte | Preliminary studies have | | [facility] | | | s | indicated the [...] + + + + | Absolute | 7.53 | 1.80 - 8.50 | [facility] | | | Neutrophils | | K/uL | [facility] | | | | | | MEDICAL | | | | | | CENTER - | | | | | | LABORATORY | | + + + + + + | Absolute | 1.98 | 0.60 - 3.20 | [facility] | | | Lymphocytes | | K/uL | [facility] | | | | | | MEDICAL | | | | | | CENTER - | | | | | | LABORATORY | | + + + + + + | Absolute | 0.66 | 0.00 - 1.00 | [facility] | | | Monocytes | | K/uL | [facility] | | | | | | MEDICAL | | | | | | CENTER - | | | | | | LABORATORY | | + + + + + + | Absolute | 0.14 | 0.00 - 0.40 | [facility] | [...] + + + | Absolute | 0.06 (H)Comment: For | 0.00 - 0.03 | [...] | nRBC | | K/uL | [facility] | [...] ranges: Trim. Absolute (K/uL) Percentage (%) | [facility] | | 1st 0.003-0.091 K/uL 0.0-0.9% 2nd 0.007-0.247 K/uL | [facility] | | 0.1-2.0% 3rd 0.018-0.456 K/uL 0.1-2.0% | - LABORATORY | + + + + + + + + | Performing | Address | City/State/Zipcode | Phone Number | | Organization | | | | + + + + + | [facility] | [address] | [place] | [phone] | | [facility] | | [address] | | | - LABORATORY | | | | + + + + + Comprehensive Metabolic Panel (11/26/2019 9:55 AM PDT) + + + + + [...] + + + + | K | 3.7 | 3.4 - 5.1 | [facility] | | | | | mmol/L | [facility] | | | | | | MEDICAL | | | | | | CENTER - | | | | | | LABORATORY | | + + + + + + | Cl | 103 | 98 - 107 mmol/L | [facility] | | | | | | [facility] | | | | | | MEDICAL | | | | | | CENTER - | | | | | | LABORATORY | | + + + + + + | CO2 | 31 | 20 - 31 mmol/L | [facility] | | | | | | [facility] | | | | | | MEDICAL | | | | | | CENTER - | | | | | | LABORATORY | | + + + + + + | Anion Gap | 6 | 3 - 16 mmol/L | [facility] | | | | | | [facility] | | [facility] | | | MEDICAL | | | | | | CENTER - | | | | | | LABORATORY | | + + + + + + | Glucose | 76 | 60 - 106 mg/dL | [facility] | | | | | | [facility] | | | | | | MEDICAL | | | | | | CENTER - | | | | | | LABORATORY | | + + + + + + | BUN | 9 | 9 - 23 mg/dL | [facility] | | | | | | [facility] | | | | | | MEDICAL | | | | | | CENTER - | | | | | | LABORATORY | | + + + + + + | Creatinine | 0.97 | 0.55 - 1.02 | [facility] | | | | | mg/dL | [facility] | | | | | | MEDICAL | | | | | | CENTER - | | | | | | LABORATORY | | + + + + + + | eGFR, | >60Comment: GLOMERULAR | >=60 | [facility] | | | non- | FILTRATION | mL/min/1.73m2 | [facility] | | | [place] | RATE,ESTIMATED | | MEDICAL | | | | mL/min/1.34a8Kgzw than | | CENTER - | | | | 60 Chronic kidney | | LABORATORY | | | | disease,if found over a | | | | | | 3-month period.Less than | | | | | | 15 Kidney failure | | | | + + + + + + | eGFR, | >60Comment: GLOMERULAR | >=60 | [facility] | | | | FILTRATION | mL/min/1.73m2 | [facility] | | | [place] | RATE,ESTIMATED | | MEDICAL | | | | mL/min/1.27u8Ehek than | | CENTER - | | | | 60 Chronic kidney | | LABORATORY | | | | disease,if found over a | | | | | | 3-month period.Less than | | | | | | 15 Kidney failure | | | | + + + + + + | Calcium | 9.1 | 8.7 - 10.4 | [facility] | | | | | mg/dL | [facility] | | | | | | MEDICAL | | | | | | CENTER - | | | | | | LABORATORY | | + + + + + + | Albumin | 4.1 | 3.2 - 4.8 g/dL | [facility] | | | | | | [facility] | | | | | | MEDICAL | | | | | | CENTER - | | | | | | LABORATORY | | + + + + + + | Bilirubin | 0.9 | 0.3 - 1.2 mg/dL | [facility] | | | Total | | | [facility] | | | | | | MEDICAL | | | | | | CENTER - | | | | | | LABORATORY | | + + + + + + | Total | 6.4 | 5.7 - 8.2 g/dL | [facility] [...] + + + + | ALT | <7 (L) | 10 - 49 U/L | [facility] | | | | | | [facility] | | | | | | MEDICAL | | | | | | CENTER - | | | | | | LABORATORY | | + + + + + + | Alkaline | 51 | 46 - 116 U/L | [facility] | | | Phosphatase | | | [facility] | | | | | | MEDICAL | | | | | | CENTER - | | | | | | LABORATORY | | + + + + + + | Globulin | 2.3 | 2.1 - 3.8 g/dL | [facility] [...] + + + + | BUN/Creatin | 9.3 | | [facility] | | | ine [...] | + + + + + | [facility] | [address] | [place] | [phone] | | [facility] | | [address] | | | - LABORATORY | | | | + + + + + from Last 3 Months Insurance + +--------+ +--------+ +---------+------+ | Payer | Benefi | Subscriber | Effect | Phone | Address | Type | | | t Plan | ID | kristan | | | | | | / | | Dates | | | | | | Group | | | | | | + +--------+ +--------+ +---------+------+ | [employer] | [employer] | [id number] | 11/02/19 | [phone] | | PPO | | | [employer] | | 17-Pre | 2 | | | | | E | | sent | | | | | | VOYAGE | | | | | | | | R | | | | | | + +--------+ +--------+ +---------+------+ + +--------+ +--------+ + + | Guarantor Name | Accoun | Relation to | Date | Phone | Billing Address | | | t Type | Patient | of | | | | | | | | | | + +--------+ +--------+ + + | Nyla Nye | Person | Self [birth year] | [address] | | | al/Fam | | [phone] | [phone] | [place] [address] | | | ty | | | 5 (Home) | | | | | | | [phone] | | | | | | | 8 (Work) | | + +--------+ +--------+ + + Advance Directives + + + + + | Type | Date Recorded | Patient | Explanation | | | | 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
--- OUTSIDE RECORDS SUMMARY | ~2020-01-09 | XMS | Encounter Summary ---
Demographics + + + | Address | [address] | | | [place] [address] | + + + | Home Phone | | + + + | Preferred Language | Unknown | + + + | Marital Status | | + + + | Yazdanism Affiliation | Unknown | + + + | Race | White | + + + | Ethnic Group | Not or | + + + Author + + + | Author | [facility] | | | and [place] | + + + | Organization | [facility] | | [...] Providers + +------+ + | Care Security System Administrator Name | Role | Phone | [...] [address] Anamaria | | | | | ([facility]) | [address] | [place], | | | | | Felix Mohl, | [place] | [place] [address] | | | | | Entyvio | [facility], [place] | Phone: | | | | | 300mg. Q 8 | [address] | [phone] | | | | | wks., | Phone: | Fax: | | | | | Crohn's | [phone] | [phone] | | | | | Procedures | Fax: | | | | | | NE | [phone] | | | | | | INJECTION, | | | | | | | VEDOLIZUMAB, | | | | | | | 1MG NE IV | | | | | | [...] + + | 04/19/ | Hospital | [facility] | [facility], | Crohn's disease with | | 2019 | Encounter | MED CTR OP INFUSION | MICAELA Romero [address] | complication, | | | | [address] | [address] | unspecified | | | | [place], [place] | [place], [place] | gastrointestinal | | | | [address] | [address] | tract location (HCC) | | | | [phone] | | (Primary Dx) | +--------+ + [...] + + + | Blood Pressure | 120/75 | 04/19/2019 1:36 PM | | | | | PST | | + + + + + | Pulse | 81 | 04/19/2019 1:36 PM | | | | | PST | | + + + + + | Temperature | 36.8 C (98.2 F) | 04/19/2019 12:22 PM | | | | | PST | | + + + + + | Respiratory Rate | 18 | 04/19/2019 12:22 PM | | | | | PST | | + + + + + | Oxygen Saturation | 100% | 04/19/2019 1:36 PM | | | | | PST [...] encounter Progress Notes Helen Juarez RN - 04/19/2019 1:45 PM PST Vitals: 04/19/19 1222 04/19/19 1336 BP: 126/73 120/75 Pulse: 74 81 Resp: 18 Temp: 36.8 C (98.2 F) TempSrc: Oral SpO2: 100% 100% Administrations This Visit acetaminophen (TYLENOL) tablet 650 mg Admin Date 04/19/2019 Action Given Dose 650 mg Route Oral Administered By Helen Juarez RN loratadine (CLARITIN) tablet 10 mg Admin Date 04/19/2019 Action Given Dose 10 mg Route Oral Administered By Helen Juarez RN vedolizumab (ENTYVIO) 300 mg in sodium chloride 0.9% 250 mL IVPB Admin Date 04/19/2019 Action New Bag Dose 300 mg Rate 510 mL/hr Route Intravenous Administered By Helen Juarez RN Monitored throughout treatment; treatment completed without untoward effects from medicatio n noted. Next visit 06/13. Verbalizes understanding of plan of care. VS stable. Discharged am bulatory to home in stable condition. Electronically signed by: Helen Juarez RN 04/19/2019 2:09 PM / Helen Moreau RN - 04/19/2019 1:00 PM PST Vitals: 04/19/19 1222 BP: 126/73 Pulse: 74 Resp: 18 Temp: 36.8 C (98.2 F) Nyla Nye received into room 441, independent ambulation accompanied by self. [facility] here for entvio infusion. Reports no change in condition, plan of care since last MD berg sit. Alert, oriented x 4, cooperative. Electronically signed by: Helen Juarez RN 04/19/2019 12:26 PM documented in this enc ounter Plan of [...] + | CBC WITH | STAT | 04/19/2019 | Crohn's disease | Results for this | | DIFFERENTIAL | | 12:37 PM | with complication, | procedure are in the | | | | PST | unspecified | results section. | | | | | gastrointestinal | | | | | | tract location (HCC) | | + +--------+ + + + | COMPREHENSIVE | Routin | 04/19/2019 | Crohn's disease | Results for this | | METABOLIC PANEL | e | 12:37 PM | with complication, | procedure are in the | | | | PST | unspecified | results section. | | | | | gastrointestinal | | | | | | tract location (HCC) | | + +--------+ + + + documented in this encounter Results Comprehensive Metabolic Panel (04/19/2019 12:37 PM PST) + + + + + + | Component | Value | Ref Range | Performed | Pathologist | | | | | At | Signature | + + + + + + | Na | 139 | 136 - 145 | [facility] | | | | | mmol/L | [facility] | | | | | | MEDICAL | | | | | | CENTER - | | | | | | LABORATORY | | + + + + + + | K | 3.3 (L) | 3.4 - 5.1 | [facility] | [...] + + + + | CO2 | 29 | 20 - 31 mmol/L | [facility] | | | | | | [facility] | | | | | | MEDICAL | | | | | | CENTER - | | | | | | LABORATORY | | + + + + + + | Anion Gap | 7 | 3 - 16 mmol/L | [facility] | | | | | | [facility] | | | | | | MEDICAL | | | | | | CENTER - | | | | | | LABORATORY | | + + + + + + | Glucose | 87 | 60 - 106 mg/dL | [facility] | | | | | | [facility] | | | | | | MEDICAL | | | | | | CENTER - | | | | | | LABORATORY | | + + + + + + | BUN | 11 | 9 - 23 mg/dL | [facility] | | | | | | [facility] | | | | | | MEDICAL | | | | | | CENTER - | | | | | | LABORATORY | | + + + + + + | Creatinine | 0.90 | 0.55 - 1.02 | [facility] | [...] | mL/min/1.73m2 | [facility] | | | [place] | RATE,ESTIMATED | | MEDICAL | | | | mL/min/1.97k8Uhog than | | CENTER - | | [...] | 9.1 | 8.7 - 10.4 | [facility] | | | | | mg/dL | [facility] | | | | | | MEDICAL | | | | | | CENTER - | | | | | | LABORATORY | | + + + + + + | Albumin | 4.2 | 3.2 - 4.8 g/dL | [facility] [...] + + + + | Total | 6.8 | 5.7 - 8.2 g/dL | [facility] | | | Protein | | | [facility] | | | | | | MEDICAL | | | | | | CENTER - | | | | | | LABORATORY | | + + + + + + | AST | 23 | 0 - 34 U/L | [facility] | | | | | | [facility] | | | | | | MEDICAL | | | | | | CENTER - | | | | | | LABORATORY | | + + + + + + | ALT | 21 | 10 - 49 U/L | [facility] | | | | | | [facility] | | | | | | MEDICAL | | | | | | CENTER - | | | | | | LABORATORY | | + + + + + + | Alkaline | 65 | 46 - 116 U/L | [facility] | | | Phosphatase | | | [facility] | | | | | | MEDICAL | | | | | | CENTER - | | | | | | LABORATORY | | + + + + + + | Globulin | 2.6 | 2.1 - 3.8 g/dL | [facility] [...] + + + + | BUN/Creatin | 12.2 | | [facility] | | | ine [...] + | [facility] | [address] | [place] | [phone] | | [facility] | | [address] | | | - LABORATORY | | | | + + + + + CBC with Differential (04/19/2019 12:37 PM PST) + + + + + + | Component | Value | Ref Range | Performed | Pathologist | | | | | At | Signature | + + + + + + | White Blood | 8.2 | 4.0 - 11.0 K/uL | [facility] | | | Cells | | | [facility] | | | | | | MEDICAL | | | | | | CENTER - | | | | | | LABORATORY | | + + + + + + | Red Blood | 3.70 | 3.70 - 5.20 | [facility] | | | Cells | | M/uL | [facility] | | | | | | MEDICAL | | | | | | CENTER - | | | | | | LABORATORY | | + + + + + + | Hemoglobin | 12.3 | 11.5 - 16.0 | [facility] | | | | | g/dL | [facility] | | | | | | MEDICAL | | | | | | CENTER - | | | | | | LABORATORY | | + + + + + + | Hematocrit | 36.1 | 34.0 - 47.0 % | [facility] | | | | | | [facility] | | | | | | MEDICAL | | | | | | CENTER - | | | | | | LABORATORY | | + + + + + + | MCV | 97.6 | 83.0 - 101.0 fL | [facility] | | | | | | [facility] | | | | | | MEDICAL | | | | | | CENTER - | | | | | | LABORATORY | | + + + + + + | MCH | 33.2 | 28.0 - 35.0 pg | [facility] | | | | | | [facility] | | | | | | MEDICAL | | | | | | CENTER - | | | | | | LABORATORY | | + + + + + + | MCHC | 34.1 | 32.0 - 36.0 | [facility] | | | | | g/dL | [facility] | | | | | | MEDICAL | | | | | | CENTER - | | | | | | LABORATORY | | + + + + + + | RDW-CV | 12.1 | <15.0 % | [facility] | | | | | | [facility] | | | | | | MEDICAL | | | | | | CENTER - | | | | | | LABORATORY | | + + + + + + | RDW-SD | 43.9 | 35.1 - 46.3 fL | [facility] | | | | | | [facility] | | | | | | MEDICAL | | | | | | CENTER - | | | | | | LABORATORY | | + + + + + + | Platelet | 282 | 140 - 440 K/uL | [facility] | | | Count | | | [facility] | | | | | | MEDICAL | | | | | | CENTER - | | | | | | LABORATORY | | + + + + + + | MPV | 10.1 | 6.5 - 12.4 fL | [facility] | | | | | | [facility] | | | | | | MEDICAL | | | | | | CENTER - | | | | | | LABORATORY | | + + + + + + | % | 57.9 | 45.0 - 82.0 % | [facility] | | | Neutrophils | | | [facility] | | | | | | MEDICAL | | | | | | CENTER - | | | | | | LABORATORY | | + + + + + + | % | 33.4 | 20.0 - 45.0 % | [facility] | | | Lymphocytes | | | [facility] | | | | | | MEDICAL | | | | | | CENTER - | | | | | | LABORATORY | | + + + + + + | % Monocytes | 6.1 | 4.0 - 12.0 % | [facility] | | | | | | [facility] | | | | | | MEDICAL | | | | | | CENTER - | | | | | | LABORATORY | | + + + + + + | % | 1.8 | 0.0 - 5.0 % | [facility] | | | Eosinophils | | | [facility] | | | | | | MEDICAL | | | | | | CENTER - | | | | | | LABORATORY | | + + + + + + | % Basophils | 0.7 | 0.0 - 1.0 % | [facility] | | | | | | [facility] | | | | | | MEDICAL | | | | | | CENTER - | | | | | | LABORATORY | | + + + + + + | % Immature | 0.1Comment: For | 0.0 - 0.4 % | [facility] | | | Granulocyte | patients, use the | | [facility] | | | s | special reference ranges | | MEDICAL | | | | listed below. | | CENTER - | | | | | | LABORATORY | | + + + + + + | Absolute | 4.76 | 1.80 - 8.50 | [facility] | | | Neutrophils | | K/uL | [facility] | | | | | | MEDICAL | | | | | | CENTER - | | | | | | LABORATORY | | + + + + + + | Absolute | 2.75 | 0.60 - 3.20 | [facility] | | | Lymphocytes | | K/uL | [facility] | | | | | | MEDICAL | | | | | | CENTER - | | | | | | LABORATORY | | + + + + + + | Absolute | 0.50 | 0.00 - 1.00 | [facility] | | | Monocytes | | K/uL | [facility] | | | | | | MEDICAL | | | | | | CENTER - | | | | | | LABORATORY | | + + + + + + | Absolute | 0.15 | 0.00 - 0.40 | [facility] | [...] + + + + | Absolute | 0.01Comment: For | 0.00 - 0.03 | [facility] [...] ranges: Trim. Absolute (K/uL) Percentage (%) | [facility] | | 1st 0.003-0.091 K/uL 0.0-0.9% 2nd 0.007-0.247 K/uL | [facility] | | 0.1-2.0% 3rd 0.018-0.456 K/uL 0.1-2.0% | - LABORATORY | + + + + + + + + | Performing | Address | City/State/Zipcode | Phone Number | | Organization | | | | + + + + + | [facility] | [address] | [place] | [phone] | | [facility] | | [address] | | | - LABORATORY | | [...] mg, Oral, ONCE, Fri | | 20 12:32 | | | | | 04/19/19 at 1240, For 1 dose | | PM PST | | | | + +--------+ +--------+------+------+ +---+---+ | | | +---+---+ + +-------+ +-------+---+---+ | loratadine (CLARITIN) tablet 10 | Given | 04/19/19 | 10 mg | | | | mg 10 mg, Oral, ONCE, Fri | | 20 12:32 | | | | | 04/19/19 at 1240, For 1 dose | | PM PST | | | | + +-------+ +-------+---+---+ +---+---+ | | | +---+---+ + +---------+ +--------+-------+---+ | vedolizumab (ENTYVIO) 300 mg in | New Bag | 04/19/19 | 300 mg | 510 | | | sodium chloride 0.9% 250 mL IVPB | | 20 12:52 | | mL/hr | | | 300 mg, Intravenous, Administer | | PM PST | | | | | over 30 Minutes, ONCE, Fri | | | | | | | 04/19/19 at 1240, For 1 dose, | | | | | | | EVERY 8 WEEKS MAINTENANCE. Flush | | | | | | | with 30 mL NS after giving. Keep | | | | | | | in refrigerator., | | | | | | + +---------+ +--------+-------+---+ +---+---+ | | | +---+---+ documented in this encounter"
--- OUTSIDE RECORDS SUMMARY | ~2020-01-09 | XMS | Encounter Summary ---
Demographics + + + | Address | [address] | | | [place] [address] | + + + | Home Phone | | + + + | Preferred Language | Unknown | + + + | Marital Status | | + + + | Yazdanism Affiliation | Unknown | + + + | Race | White | + + + | Ethnic Group | Not or | + + + Author + + + | Author | [facility] | | | and [place] | + + + | Organization | [facility] | | | [...] Team Providers + +------+ + | Care Library Circulation Clerk Name | Role | Phone | [...] W Anamaria | | | | | ([facility]) | [address] | [place], | | | | | Felix Mohl, | [place] | [place] [address] | | | | | Entyvio | [facility], [place] | Phone: | | | | | 300mg. Q 8 | [address] | [phone] | | | | | wks., | Phone: | Fax: | | | | | Crohn's | [phone] | [phone] | | | | | Procedures | Fax: | | | | | | [place] | [phone] | | | | | | INJECTION, | | | | | | | VEDOLIZUMAB, | | | | | | | 1MG [place] IV | | | | | | [...] + + | 11/25/ | Hospital | [facility] | [facility], | Crohn's disease with | | 2019 | Encounter | MED CTR OP INFUSION | MICAELA Romero [address] | complication, | | | | [address] | [address] | unspecified | | | | [place], [place] | [place], [place] | gastrointestinal | | | | [address] | [address] | tract location (HCC) | | | | [phone] | | (Primary Dx) | +--------+ + [...] encounter Progress Notes Melvi Salinas RN - 11/26/2019 11:32 AM PDTFormatting of this note might be diffe rent from the original. Vitals: 11/26/19 0956 11/26/19 1131 BP: 104/67 103/62 Pulse: 58 57 Resp: 18 16 Temp: 37.6 C (99.7 F) TempSrc: Tympanic SpO2: 100% Administrations This Visit acetaminophen (TYLENOL) tablet 650 mg Admin Date 11/26/2019 Action Given Dose 650 mg Route Oral Administered By Reny Eduardo RN loratadine (CLARITIN) tablet 10 mg Admin Date 11/26/2019 Action Given Dose 10 mg Route Oral Administered By Reny Eduardo RN vedolizumab (ENTYVIO) 300 mg in sodium chloride 0.9% 250 mL IVPB Admin Date 11/26/2019 Action New Bag Dose 300 mg Rate 510 mL/hr Route Intravenous Administered By Reny Eduardo RN Monitored throughout treatment; treatment completed without untoward effects from medicatio n noted. Next visit January. Verbalizes understanding of plan of care. VS stable. Discharged ambulatory with spouse to home in stable condition. Electronically signed by: Melvi Salinas RN 11/26/2019 11:32 AM PDTElectronically s igned by Melvi Salinas RN at 11/26/2019 11:32 AM Felix Godoy PharmD - 11/25 10:00 AM PDT [facility] Inflammatory Bowel Disease Follow Up Provider: Felix Troy PharmD Encounter Date: 11/26/2019 Patient: Nyla Nye : 1980 CSN: [id number] ASSESSMENT Entyvio follow up Nyla Nye is a 39 y.o. female who [facility] by MICAELA Snider for DMT management. Nyla has been prescribed ENTYV IO (vedolizumab) for Crohn's disease. The purpose of today's discussion is to assess for com pliance, adverse reactions, and answer Nyla's questions. Inflamatory Bowel Disease Therapy Medication being managed: ENTYVIO (vedolizumab) Referring Provider: MICAELA Snider Diagnosis: Crohn's disease Next Referral Needed: 11/01/19 PA Exp: 12/03/2019 Last TB Test: 06/20/17 Last Hep B Test: 06/20/17 Next Lab Monitorinrd quarter Signs and Symptoms of IBD Recent onset of the following symptoms: Yes No Diarrhea [x] [] Blood in stool [] [x] Severe abdominal pain [] [x] Signs and Symptoms of Infection/TB Recent onset of the following symptoms: Yes No Fever [] [x] Chills and sweats [] [x] Change in cough or new cough [] [x] Nyla is here today for her entyvio infusion. Since I have last seen her she has followed up with the [facility] gastroenterology team and they are doing several labs and assessme nts. Most recently she has been having some GI symptoms and they started her back on steroi ds. She also had a entvyio level drawn (11/20) to see if it is reaching a therapeutic troug h. Discussed that since Meera is not with our GI clinic any more to continue to follow up wit h the [facility] team until GI symptoms have stabilized. We are having some more turn ove r in our GI clinic and I dont want to try and get her set up with someone, only to have to d o it again a few months later. Her Entyvio PA is going to 12/02 but her continued tr eatment will depend on her entyvio level. I will reach out to the [facility] next week a nd ask for an update on their plan for her and if they need anything from me. PLAN 1. Compliance was discussed and Nyla denies any missed doses of the medication therapy. 2. Since Nyla is on ENTYVIO (vedolizumab) signs and symptoms of infection (including TB);Eron garcia denies all signs/symptoms. 3. General adverse drug reaction monitoring was done and Nyla denies any adverse drug reac tions. 4. Nyla labs were drawn today and are at baseline for her CBC and CMP. If therapy remains unchanged will plan on next labs again during quarter. 5. Nyla does not have any questions at this time. Laboratory Findings Lab Results Component Value Date HGB 13.0 11/26/2019 HCT 38.0 11/26/2019 PLT 272 11/26/2019 AST 14 11/26/2019 ALT <7 (L) 11/26/2019 WBC 10.4 11/26/2019 Lab Results Component Value Date HCV <0.1 06/20/2017 HBV Negative 06/20/2017 Total time spent on the phone with Nyla was 5 minutes with greater than 50% of time spent reviewing medications with patient, counseling, education, and/or coordinating care as blank baron above. Felix Troy, ChapinD DATE/TIME: 11/26/2019 11:02 AM PDT Reny Villatoro RN - 11/26/2019 10:00 AM PDT Vitals: 11/26/19 0956 BP: 104/67 Pulse: 58 Resp: 18 Temp: 37.6 C (99.7 F) Nyla Nye received into room 438, independent ambulation accompanied by her husb and. States here for Entyvio infusion. Reports no change in condition, plan of care since pattie [facility] visit. Alert, oriented x 4, cooperative. Electronically signed by: Reny Eduardo RN 11/26/2019 10:01 AM PDT documented in this enc ounter [...] + + documented in this encounter Results CBC with Differential (11/26/2019 10:00 AM [...] | | | Neutrophils | | | [facility] | | [...] | | Lymphocytes | | K/uL | [facility] | [...] ranges: Trim. Absolute (K/uL) Percentage (%) | [facility] | | 1st 0.003-0.091 K/uL 0.0-0.9% 2nd 0.007-0.247 K/uL | [facility] | | 0.1-2.0% 3rd 0.018-0.456 K/uL 0.1-2.0% | - LABORATORY | + + + + + + + + | Performing | Address | City/State/Zipcode | Phone Number | | Organization | | | | + + + + + | [facility] | [address] | [place] | [phone] | | [facility] | | [address] | | | - LABORATORY | | [...] | | | | mmol/L | [facility] | | | | [...] | 0.97 | 0.55 - 1.02 | [facility] | | | | | mg/dL | [facility] | | | | | | MEDICAL | | | | | | CENTER - | | | | | | LABORATORY | | + + + + + + | eGFR, | >60Comment: GLOMERULAR | >=60 | [facility] | | | non- | FILTRATION | mL/min/1.73m2 | [facility] | | | [place] | RATE,ESTIMATED | | MEDICAL | | | | mL/min/1.37a1Zysh than | | CENTER - | | | | 60 Chronic kidney | | LABORATORY | | | | disease,if found over a | | | | | | 3-month period.Less than | | | | | | 15 Kidney failure | | | | + + + + + + | eGFR, | >60Comment: GLOMERULAR | >=60 | [facility] | | | | FILTRATION | mL/min/1.73m2 | [facility] | | | [place] | RATE,ESTIMATED | | MEDICAL | | | | mL/min/1.53v5Zvjp than | | CENTER - | | [...] 4.1 | 3.2 - 4.8 g/dL | [facility] [...] [address] | [place] | [phone] | | [facility] | | [address] | | | - LABORATORY | | [...] | acetaminophen (TYLENOL) tablet | Given | 11/26/19 | 650 mg | | | | 650 mg 650 mg, Oral, ONCE, Tue | | 20 10:01 | | | | | 11/26/19 at 1005, For 1 dose | | AM PDT | | | | + +--------+ +--------+------+------+ +---+---+ | | | +---+---+ + +-------+ +-------+---+---+ | loratadine (CLARITIN) tablet 10 | Given | 11/26/19 | 10 mg | | | | mg 10 mg, Oral, ONCE, Tue | | 20 10:52 | | | | | 11/26/19 at 1005, For 1 dose | | AM PDT | | | | + +-------+ +-------+---+---+ +---+---+ | | | +---+---+ + +---------+ +--------+-------+---+ | vedolizumab (ENTYVIO) 300 mg in | New Bag | 11/26/19 | 300 mg | 510 | | | sodium chloride 0.9% 250 mL IVPB | | 20 10:53 | | mL/hr | | | 300 mg, Intravenous, Administer | | AM PDT | | | | | over 30 Minutes, ONCE, Tue | | | | | | | 11/26/19 at 1100, For 1 dose, | | | | | | | EVERY 8 WEEKS MAINTENANCE. Flush | | | | | | | with 30 mL NS after giving. Keep | | | | | | | in refrigerator., | | | | | | + +---------+ +--------+-------+---+ +---+---+ | | | +---+---+ documented in this encounter"
--- OUTSIDE RECORDS SUMMARY | ~2020-01-09 | XMS | Encounter Summary ---
Demographics + + + | Address | [address] | | | [place] [address] | + + + | Home Phone | | + + + | Preferred Language | Unknown | + + + | Marital Status | | + + + | Religion Affiliation | Unknown | + + + [...] Team Providers + +------+ + | Care Typo Machine Operator Name | Role | Phone | + +------+ + | Bird Talbot | PCP | | | MD | | | + +------+ + Encounter Details +--------+ + + + + | Date | Type | Department | Care Team | Description | +--------+ + + + + | 02/09/ | Abstract | [facility] [place] | [facility], | | | 2017 | | GASTROENTEROLOGY | Heather MICAELA [address] | | | | | [address] | [address] | | | | | [address] [place], [place] | [place], [place] | | | | | [address] | [address] | | | | | [phone] | | | +--------+ + + + [...] + + | EXTERNAL: | Routin | 12/13/2016 | | Results for this | | COLONOSCOPY | e | | | procedure are in the | | | | | | results section. | + +--------+ + + + | CLOSTRIDIUM | Routin | 12/13/2016 | | Results for this | | DIFFICILE | e | | | procedure are in the | | | | | | results section. | + +--------+ + + + | SPECIMEN TO | Routin | 12/13/2016 | | Results for this | | PATHOLOGY | e | | | procedure are in the | | | | | | results section. | + +--------+ + + + | EXTERNAL LAB: OCCULT | Routin | 10/13/2016 | | Results for this | | BLOOD, SCREENING | e | | | procedure are in the | | | | | | results section. | + +--------+ + + + | HC HELICOBACTER | Routin | 10/13/2016 | | Results for this | | PYLORI ANTIGEN | e | | | procedure are in the | | | | | | results section. | + +--------+ + + + | OVA AND PARASITE | Routin | 10/13/2016 | | Results for this | | EXAMINATION | e | | | procedure are in the | | | | | | results section. | + +--------+ + + + | FECAL LEUKOCYTES | LISSETT | 10/13/2016 | | Results for this | | | | | | procedure are in the | | | | | | results section. | + +--------+ + + + | CULTURE, STOOL | Routin | 10/13/2016 | | Results for this | | | e | | | procedure are in the | | | | | | results section. | + +--------+ + + + | GIARDIA ANTIGEN, IF, | Routin | 10/12/2016 | | Results for this | | STOOL | e | | | procedure are in the | | | | | | results section. | + +--------+ + + + documented in this encounter Results EXTERNAL: COLONOSCOPY (12/13/2016) + + + + + + | Component | Value | Ref Range | Performed | Pathologist | | | | | At | Signature | + + + + + + | Colonoscopy | mild gastroduodenitis. | | EXTERNAL | | | | Internal hemorrhoids.~ | | LAB | | | Impression, | BRENDA Dr. Cason | | | | | External | | | | | + + + + + + + +---------+ + + | Performing | Address | City/State/Zipcode | Phone Number | | Organization | | | | + +---------+ + + | EXTERNAL LAB | | | | + +---------+ + + Specimen to Pathology (12/13/2016) + + + + + + | Component | Value | Ref Range | Performed | Pathologist | | | | | At | Signature | + + + + + + | DIAGNOSIS: | | | | | + + + + + + | DIAGNOSIS: | A) Mucosa, Duodenum, | | | | | | Biopsy: No pathologic | | | | | | diagnosis. | | | | + + + + + + | DIAGNOSIS: | B) Mucosa, Pyloric Bulb | | | | | | Biopsy: Mild chronic | | | | | | duodenitis. | | | | + + + + + + | DIAGNOSIS: | C) Mucosa, Antrum, | | | | | | Biopsy: Mild inactive | | | | | | gastritis | | | | + + + + + + | DIAGNOSIS: | D) Mucosa, | | | | | | Gastroesophageal | | | | | | Junction, Biopsy: | | | | | | Gastric type mucosa with | | | | | | mild to moderate | | | | | | chronic gastritis, | | | | | | diease activity minimal. | | | | + + + + + + | DIAGNOSIS: | E) Mucosa, Mid | | | | | | Esophagus, Biopsy: mild | | | | | | chronic esophagitis. no | | | | | | evidence of eosinophilic | | | | | | esophagitis. | | | | + + + + + + | DIAGNOSIS: | F) Mucosa, Colon, Random | | | | | | Biopsies: No pathologic | | | | | | diagnosis. | | | | + + + + + + + + | Specimen | + + | Tissue | + + Clostridium difficile (12/13/2016) + + + + + + | Component | Value | Ref Range | Performed | Pathologist | | | | | At | Signature | + + + + + + | Clostridium | Negative | Negative, X, | | | | Diff | | Not Detected, | | | | | | Detected, | | | | | | Invalid, Test | | | | | | not performed, | | | | | | Pass, Fail | | | + + + + + + + + | Specimen | + + | Stool - Stool | | specimen (specimen) | + + HC HELICOBACTER PYLORI ANTIGEN (10/13/2016) + + + + + + | Component | Value | Ref Range | Performed | Pathologist | | | | | At | Signature | + + + + + + | Helicobacto | Negative | | | | | r pylori Ag | | | | | + + + + + + + + | Specimen | + + | | + + Ova and Parasite Examination (10/13/2016) + + + + + + | Component | Value | Ref Range | Performed | Pathologist | | | | | At | Signature | + + + + + + | Ova + | 10-14-16 no ova and | | | | | Parasite | parasites seen. | | | | | Exam | | | | | + + + + + + + + | Specimen | + + | Stool - Stool | | specimen (specimen) | + + Culture, Stool (10/13/2016) + + + + + + | Component | Value | Ref Range | Performed | Pathologist | | | | | At | Signature | + + + + + + | Result | 10-14-16 no growth of | | | | | | normal enteric | | | | | | gram-negative bacilli | | | | | | after overnight | | | | + + + + + + + + | Specimen | + + | Stool - Stool | | specimen (specimen) | + + Fecal leukocytes (10/13/2016) + + + + + + | Component | Value | Ref Range | Performed | Pathologist | | | | | At | Signature | + + + + + + | Result | 10-13-16 no white blood | | | | | | cells seen | | | | + + + + + + + + | Specimen | + + | Stool - Stool | | specimen (specimen) | + + External Lab: Occult Blood, Screening (10/13/2016) + + + + + + | Component | Value | Ref Range | Performed | Pathologist | | | | | At | Signature | + + + + + + | Hemoccult 1 | Negative | | EXTERNAL | | | Result, | | | LAB | | | External | | | | | + + + + + + + + | Specimen | + + | Stool | + + + +---------+ + + | Performing | Address | City/State/Zipcode | Phone Number | | Organization | | | | + +---------+ + + | EXTERNAL LAB | | | | + +---------+ + + Giardia Ag, IF, Stool (10/12/2016) + + + + + + | Component | Value | Ref Range | Performed | Pathologist | | | | | At | Signature | + + + + + + | Giardia | Negative | Negative | | | | Antigen, | | | | | | Stool | | | | | + + + + + + + + | Specimen | + + | Stool - Stool | | specimen (specimen) | + + documented in this encounter Visit Diagnoses Not on filedocumented in this encounter"
--- OUTSIDE RECORDS SUMMARY | ~2020-01-09 | XMS | Encounter Summary ---
Demographics + + + | Address | [address] | | | [place] [address] | + + + | Home Phone | | + + + | Preferred Language | Unknown | + + + | Marital Status | | + + + | Jewish Affiliation | Unknown | + + + | Race | White | + + + | Ethnic Group | Not or | + + + Author + + + | Author | [facility] | | | and [place] | + + + | Organization | [facility] | | | [...] Team Providers + +------+ + | Care Emergency Detail Driver Name | Role | Phone | + +------+ + PCP | Unavailable | + +------+ + Encounter Details +--------+ + + + + | Date | Type | Department | Care Team | Description | +--------+ + + + + | 03/09/ | Hospital | [facility] | | | | 1994 | Encounter | MED CTR XRAY [address] | | | | | | [address] | | | | | | [place] [address] | | | | | | [phone] | | | +--------+ + + + [...]
--- OUTSIDE RECORDS SUMMARY | ~2020-01-09 | XMS | Encounter Summary ---
Demographics + + + | Address | [address] | | | [place] [address] | + + + | Home Phone [...] + + | Author | [facility] | | | and [place] | + + + | Organization | [facility] | | | [...] Team Providers + +------+ + | Care Pharmacoepidemiologist Name | Role | Phone | + +------+ + | Bird Talbot | PCP | | | MD | | | + +------+ + Reason for Visit + +--------+ + | Reason | Onset | Comments | | | Date | | + +--------+ + | Results, Imaging | 03/08/ | CT | | | 2016 | | + +--------+ + Encounter Details +--------+ + + + + | Date | Type | Department | Care Team | Description | +--------+ + + + + | 03/08/ | Telephone | [facility] | [facility] | Results, Imaging | | 2017 | | GASTROENTEROLOGY | MICAELA Romero [address] | (CT) | | | | [address] | [address] | | | | | [address] [place], [place] | [place] | | | | | [address] | [address] | | | | | [phone] | | | +--------+ + + + [...] Telephone Encounter - Oralia Burgos RN - 03/08/2017 3:35 PM PSTSpoke with patient and discussed with her that Marline reviewed the CT scan report along with Dr. Mariee and they r ecommend repeat colonoscopy with biopsy of the terminal ileum. Patient states she is disapp ointed as she had difficulty with the bowel prep. She asks if the PillCam is an option. Sh sharonda prefers to call and make a follow-up appointment with Marline to discuss options. She was in the car with her kids at the time so she will call back and make an appointment with Marline lemus or CT results. do cumented in this encounter Plan of [...]
--- OUTSIDE RECORDS SUMMARY | ~2020-01-09 | XMS | Encounter Summary ---
Demographics + + + | Address | [address] | | | [place] [address] | + + + | Home Phone [...] Team Providers + +------+ + | Care Foreign Policy Officer Name | Role | Phone | + +------+ + | Bird Talbot | PCP | | | MD | | | + +------+ + Reason for Visit + + + | Reason | Comments | + + + | Follow-up | medication | + + + Encounter Details +--------+---------+ + + + | Date | Type | Department | Care Team | Description | +--------+---------+ + + + | 06/20/ | Office | [facility] | [facility], | Crohn's disease of | | 2018 | Visit | GASTROENTEROLOGY | MICAELA Romero [address] | small intestine with | | | | [address] | [address] | complication (HCC) | | | | [address] | [place] | | | | | [address] | [address] | | | | | [phone] | | | +--------+---------+ + + + [...] + + + | Blood Pressure | 104/62 | 06/20/2017 9:22 AM | | | | | PDT | | + + + + + | Pulse | 64 | 06/20/2017 9:22 AM | | | | | PDT | | + + + + + | Temperature | 36.7 C (98 F) | 06/20/2017 9:22 AM | | | | | PDT | | + + + + + | Respiratory Rate | 14 | 06/20/2017 9:22 AM | | | | | PDT | | + + + + + | Oxygen Saturation | - | - | | + + + + + | Inhaled Oxygen | - | - | | | Concentration | | | | + + + + + | Weight | 71.8 kg (158 lb 4.6 | 06/20/2017 9:22 AM | | | | oz) | PDT | | + + + + + | Height | - | - | | + + + + + | Body Mass Index | 27.17 | 04/18/2017 9:29 AM | | | | | PST | | + + + + + documented in this encounter Progress Notes Heather Ko ARNP - 06/20/2017 9:30 AM PDTFormatting of this note might be differe nt from the original. PATIENT NAME: Nyla Nye : 1980: AGE: 37 y.o. REFERRED BY: No additional provider found PRIMARY CARE: Bird Talbot MD Subjective: CHIEF COMPLAINT: Nyla Nye is a 37 y.o. female is here for a follow up. She is being seen today for fo llow up Crohn's disease. HISTORY OF PRESENT ILLNESS: Patient states that she is feeling better than she had before. She reports less episodes of diarrhea. She continues to have pain in left upper abdomen. She is gaining weight because she is only able to eat bread. If she eats anything other ifeoma n bread, she will having increased pain and diarrhea. She feels like she is having hair loss. MEDICAL, SURGICAL, AND PERSONAL HISTORY Allergies Allergen [...] SECTION, MULTIPLES 2003 2003 and 2006 COLONOSCOPY COLONOSCOPY N/A 03/21/2017 Procedure: COLONOSCOPY; Surgeon: Sumit Mariee MD; Location: [facility] MEDICAL PROCEDURE UNIT EGD AND COLONOSCOPY [...] pain, palpitations, or swelling to legs Objective: Physical Exam Constitutional: She is oriented to person, place, and time. She appears well-developed and well-nourished. No distress. HENT: Head: Normocephalic and atraumatic. Eyes: No scleral icterus. Musculoskeletal: Normal range of motion. She exhibits no edema or deformity. Neurological: She is alert and oriented to person, place, and time. Skin: Skin is warm and dry. No rash noted. Psychiatric: She has a normal mood and affect. Her speech is normal and behavior is normal. Nursing note and vitals reviewed. No visits with results within 1 Month(s) from this visit. Latest known visit with results is: Abstract on 03/31/2017 Component Date Value Ref Range Status Colonoscopy Impression, External 03/21/2017 Impression: Redundant colon. One small poly p in the distal sigmoid colon, removed with a hot snare. Resected and retrieved. Stricture i n the terminal ileum and at the ileocecal valve. Biopsied. Friable (with contact bleeding), inflamed, scarred and ulcer Final Assessment: 1. Crohn's disease of small intestine with complication (HCC) budesonide (ENTOCORT EC) 3 m g 24 hr capsule Hepatitis B Core Ab, IgM Hepatitis B Surface Ab Hepatitis B Surface Ag Hepatitis C Ab Plan: She will need TB skin testing in preparation for possible biologic therapy for Crohn's dise ase. Ordered Hepatitis B and C prior to GI pharmacist evaluation. Refilled Entocort to help with symptoms until stable on stronger medication for Crohn's dis ease. Still having symptoms of diarrhea and abdominal pain despite Lialda. Patient to be referred to GI pharmacist, Felix Troy PharmD to initiate biologic therapy. Patient is to call with any question or concerns. Any fevers, chills, chest pain, SOB or o ther serious symptoms patient is to call the office or go to ER. Cc: Bird Talbot MD This note was [...] + | IMAGING REPORT - | | 12/01/2017 | | Results for this | | EXTERNAL SCAN | | 12:00 AM | | procedure are in the | | | | PDT | | results section. | + +--------+ + + + documented in this encounter Results IMAGING REPORT - EXTERNAL SCAN (12/01/2017 12:00 AM PDT) + + + | Narrative | Performed At | + + + | Ordered by an | | | unspecified provider. | | + + + Hepatitis C Ab (06/20/2017 10:46 AM PDT) + + + + + + | Component | Value | Ref Range | Performed | Pathologist | | | | | At | Signature | + + + + + + | Hepatitis C | <0.1Comment: | 0.0 - 0.9 s/co | REFERENCE | | | Ab | | ratio | LAB [facility] | | | | | | [facility] | | | | Negative: < 0.8 | | | | | | | | | | | | | | | | | | Indeterminate: 0.8 - 0.9 | | | | | | | | | | | | | | | | | | Positive: > 0.9 | | | | | | The CDC recommends that | | | | | | a positive HCV antibody | | | | | | result be followed up | | | | | | with a HCV Nucleic Acid | | | | | | Amplification test | | | | | | ([id number]). | | | | + + + + + + + + | Specimen | + + | Blood | + + + + + | Narrative | Performed At | + + + | Performed at: 01 - [facility] [address], | REFERENCE LAB | | [place], [place] [id number] Shared Services Manager: Jamie Orta MD, Phone: | JEANNIE STEARNS | | [phone] | | + + + + + + + + | Performing | Address | City/State/Zipcode | Phone Number | | Organization | | | | + + + + + | REFERENCE LAB | [address] | [place], [place] | [phone] | | [facility] | [address] | [address] | | + + + + + Hepatitis B Surface Ag (06/20/2017 10:46 AM PDT) + + + + + + | Component | Value | Ref Range | Performed | Pathologist | | | | | At | Signature | + + + + + + | Hepatitis B | Negative | Negative | REFERENCE | | | Surface Ag | | | LAB [facility] | | | | | | - [place] | | + + + + + + + + | Specimen | + + | Blood | + + + + + | Narrative | Performed At | + + + | Performed at: 01 - [facility] [address], | REFERENCE LAB | | [place], [place] [id number] Shared Services Manager: Jamie Orta MD, Phone: | [facility] | | [phone] | | + + + + + + + + | Performing | Address | City/State/Zipcode | Phone Number | | Organization | | | | + + + + + | REFERENCE LAB | [address] | [place], [place] | [phone] | | [facility] | [place] | [address] | | + + + + + Hepatitis B Surface Ab (06/20/2017 10:46 AM PDT) + + + + + + | Component | Value | Ref Range | Performed | Pathologist | | | | | At | Signature | + + + + + + | Hepatitis B | ReactiveComment: | | REFERENCE | | | Surface | Non | | LAB [facility] | | | Antibody | Reactive: Inconsistent | | - [facility] | | | Qual | with immunity, | | | | | | | | | | | | less than 10 | | | | | | mIU/mL | | | | | | Reactive: | | | | | | Consistent with | | | | | | immunity, | | | | | | | | | | | | greater than 9.9 | | | | | | mIU/mL | | | | + + + + + + + + | Specimen | + + | Blood | + + + + + | Narrative | Performed At | + + + | Performed at: [address] - [facility] [place] [address], | REFERENCE LAB | | [place], [place] [id number] Shared Services Manager: Jamie Orta MD, Phone: | [facility] | | [phone] | | + + + + + + + + | Performing | Address | City/State/Zipcode | Phone Number | | Organization | | | | + + + + + | REFERENCE LAB | [address] | [place], [place] | [phone] | | [facility] | [facility] | [address] | | + + + + + Hepatitis B Core Ab, IgM (06/20/2017 10:46 AM PDT) + + + + + + | Component | Value | Ref Range | Performed | Pathologist | | | | | At | Signature | + + + + + + | HEP B Core | Negative | Negative | REFERENCE | | | IGM | | | LAB [facility] | | | Antibody | | | - [facility] | | + + + + + + + + | Specimen | + + | Blood | + + + + + | Narrative | Performed At | + + + | Performed at: 01 - [facility] [place] [address], | REFERENCE LAB | | [place], [place] [id number] Shared Services Manager: Jamie Orta MD, Phone: | [facility] | | [phone] | | + + + + + + + + | Performing | Address | City/State/Zipcode | Phone Number | | Organization | | | | + + + + + | REFERENCE LAB | [address] | [place], [place] | [phone] | | [facility] | [facility] | [address] | | + + + + + documented in this encounter Visit Diagnoses + + | Diagnosis | + + | Crohn's disease of small intestine with complication (HCC) Regional enteritis of | | small intestine | + + documented in this encounter"
--- OUTSIDE RECORDS SUMMARY | ~2020-01-09 | XMS | Encounter Summary ---
Demographics + + + | Address | [address] | | | [place] [address] | + + + | Home Phone | | + + + | Preferred Language | Unknown | + + + | Marital Status | | + + + | Pentecostal Affiliation | Unknown | + + + [...] Team Providers + +------+ + | Care Solvent Mixer Name | Role | Phone | + +------+ + | Bird Talbot | PCP | | | MD | | | + +------+ + Encounter Details +--------+ + + + + | Date | Type | Department | Care Team | Description | +--------+ + + + + | /03/ | Orders Only | [facility] | Felix Troy W, | Crohn's disease with | | 2018 | | [facility] | PharmD [address] | complication, | | | | [address] [place] | [address] [place], [place] | unspecified | | | | [place] [address] | [address] | gastrointestinal | | | | [phone] | | tract location (HCC) | | [...]
--- OUTSIDE RECORDS SUMMARY | ~2020-01-09 | XMS | Encounter Summary ---
Demographics + + + | Address | [address] | | | [place] [address] | + + + | Home Phone | | + + + | Preferred Language | Unknown | + + + | Marital Status | | + + + | Cheondoism Affiliation | Unknown | + + + [...] Team Providers + +------+ + | Care Lace Paper Machine Operator Name | Role | Phone | + +------+ + | Bird Talbot | PCP | | | MD | | | + +------+ + Reason for Visit +--------+--------+ + | Reason | Onset | Comments | | | Date | | +--------+--------+ + | Other | 11/27/ | | | | 2018 | | +--------+--------+ + Encounter Details +--------+ + + + + | Date | Type | Department | Care Team | Description | +--------+ + + + + | 11/27/ | Telephone | [facility] | [facility], | Other | | 2018 | | GASTROENTEROLOGY | MICAELA Romero [address] | | | | | [address] | [address] [facility] [address] | | | | | [address] [place], [place] | [place] | | | | | [address] | [address] | | | | | [phone] | | | +--------+ + + + [...] Telephone Encounter - Kary Fowler CMA - 11/29/2017 1:04 PM PDTNotified patient ifeoma t Humira has been approved. Patient verbalized understanding. elephone Encounter - Cathryn Rodriguez RN - 11/28 1:18 PM PDTPer [place]essa she is sending updated records from most recent visit with Rahel miguel with urgent status, and rep at insurance told her they will try and ghotra and have decision within 24 hours; LVM for patient informing her on home number. elephone Encounter - Cathryn Rodriguez RN - 2017 12:57 PM PDTPatient called for status on Humira; sent PA asset specialist message to mike lopez out status of Humira and she said she never received fax from insurance company yesterday stating request was denied so she will call them again now elephone Encounter - Kary Fowler CMA - 11/28/19 18 10:43 [address]Notified patient's that CT has been approved and the order is at [facility]. Patient's was also concerned about the Humira not being approved. Cathryn has already contacted the wildland fire operations specialist and she is looking into this.Electronic ally signed by Kary Fowler CMA at 11/27/2017 10:46 AM PDTTelephone Encounter - Cathryn Rodriguez RN - 11/27/2017 10:18 AM PDTPatient called again concerned because she got letter of denial for Humira and Felix out all well; sent message to [place] in authorizations and s he is calling insurance company to find out more elephone Encounter - Nate Corrales - 11/27/2017 10:04 AM PDTNa me of Caller: Nyla Nye Name of Patient: Nyla Nye Reason for call: Pt calling in regarding to CT scan. The imaging dept has not received orde r, pt states. Marline placed the order on 11/06/17. Please give pt a call once CT scan as be or dered. Provider/Nurse: Maikel Call back number: [phone] documented in this enco unter Plan of Treatment +--------+ + + + [...]
--- OUTSIDE RECORDS SUMMARY | ~2020-01-09 | XMS | Encounter Summary ---
Demographics + + + | Address | [address] | | | [place] [address] | + + + | Home Phone [...] + + + | Author | [facility] | | | and [place] | + + + | Organization | [facility] | | [...] Team Providers + +------+ + | Care Financial Aid Administrator Name | Role | Phone | + +------+ + | Bird Talbot | PCP | | | MD | | | + +------+ + Reason for Referral Evaluate & Treat (Routine) +--------+--------+ + + + + | Status | Reason | Specialty | Diagnoses / | Referred By | Referred To | | | | | Procedures | Contact | Contact | +--------+--------+ + + + + | Closed | | Infusion | Diagnoses | [facility] | [facility], | | | | Therapy | Crohn's | Gastroentero | Felix W, | | | | | disease of | [address] | PharmD [address] | | | | | small | [address] | [address] | | | | | intestine | [address] | [place], | | | | | with | [place], | [place] [address] | | | | | complication | [place] | Phone: | | | | | ([facility]) | [address] | [phone] | | | | | | Phone: | Fax: | | | | | | [phone] | [phone] | | | | | | Fax: | | | | | | | [phone] | | +--------+--------+ + + + + Encounter Details +--------+ + + + + | Date | Type | Department | Care Team | Description | +--------+ + + + + | 10/31/ | Orders Only | [facility] [place] | Malcolm, | Crohn's disease of | | 2019 | | GASTROENTEROLOGY | Kary, MEDICAL NUMERICAL CONTROL OPERATOR | small intestine with | | | | [address] | | complication (HCC) | | | | [address] [place], [place] | | (Primary Dx) | | | | [address] | | | | | | [phone] | | | +--------+ + + + [...] Routin | Crohn's disease of | Ordered: 10/31/2018 | | PharmD - AMB | Referral | e | small intestine | | | Referral | | | with complication | | | | | | (HCC) | | + + +--------+ + + documented as of this encounter Visit Diagnoses + + | Diagnosis | + + | Crohn's disease of small intestine with complication (HCC) - Primary Regional | | enteritis of small intestine | + + documented in this encounter"
--- OUTSIDE RECORDS SUMMARY | ~2020-01-09 | XMS | Encounter Summary ---
Demographics + + + | Address | [address] | | | [place] [address] | + + + | Home Phone [...] Team Providers + +------+ + | Care Bomb Loader Name | Role | Phone | + +------+ + | Bird Talbot | PCP | | | MD | | | + +------+ + Reason for Visit + +--------+ + | Reason | Onset | Comments | | | Date | | + +--------+ + | Lab Results | 08/18/ | | | | 2019 | | + +--------+ + Encounter Details +--------+ + + + + | Date | Type | Department | Care Team | Description | +--------+ + + + + | 08/18/ | Telephone | [facility] | Felix Troy, | Lab Results | | 2020 | | [facility] | PharmD [address] | | | | | PHARMACOTHERAPY | [place], [place] | | | | | CLINIC [address] | [id number] | | | | | [place], [place] | | | | | | [address] | | | | | | [phone] | | | +--------+ + + + [...] Telephone Encounter - Felix Troy PharmD - 08/19/2019 11:18 AM PDTFormatting of this no te might be different from the original. PHARMAC[facility]Y CLINIC Inflammatory Bowel Disease Follow Up Provider: Felix Troy PharmD Encounter Date: 08/19/2019 Patient: Nyla Nye : 1980 CSN: [id number] ASSESSMENT Entyvio follow up Nyla Nye is a 39 y.o. female who has been referred to the [facility] by MICAELA Snider for DMT management. [...] [] [x] Severe abdominal pain [x] [] Signs and Symptoms of Infection/TB Recent onset [...] [x] New onset of pain [] [x] Called Nyla today to discuss her results of her recent stool labs. She reports that she i s still having some symptoms but has really restricted her diet because everything upsets he r. Says that she has lost about 20 lbs over the last month due to not being able to eat. H er stool cultures and lactoferrin came back negative but her calprotectin came back at 179 u g/g which is considered high. I explained to Nyla that I thought her informatory markers m ight be elevated as she was due for her entyvio that day but this result is high. I relayed that I spoke with Heather Alvarez and am in agreement that given her symptoms and lab res ults she is having some break through crohn's disease. We would like to trial her on a oral immunomodulator (Imuran) and see how she does. We dont want to change her biologic given h er good response to the entyvio and we would like to avoid long periods of steroids given th e snf side effects. Nyla is hesitant to agree to therapy as she said that she knows someone with crohns also on imuran and they have lots of side effects and the risk of skin c ancer. I explained to Nyla that while there are side effects with the medication most are related to dose and can be adjusted. We will continue to monitor her labs and encourage her to follow up with PCP for the risk of skin cancer as she is already on a biologic. Educated Nyla that we would need to draw a lab for TPMT prior to starting the imuran to ch celeste for how well she can metabolize the medication. Given that she has some hesitations for starting I recommended she get the lab drawn and take a few days to think about the medicat ion. She did not have any questions regarding the imuran but said she probable would after researching it. PLAN 1. Nyla will have the lab drawn for the TPMT and get back to us about wanting to start imu ran. Laboratory Findings @LASTCREAT@ Lab Results Component Value Date HGB 13.5 08/06/2019 HCT 39.1 08/06/2019 PLT 262 08/06/2019 AST 14 08/06/2019 ALT 8 (L) 08/06/2019 WBC 7.5 08/06/2019 Lab Results Component Value Date HCV <0.1 06/20/2017 HBV Negative 06/20/2017 Total time spent on the phone with Nyla was 10 minutes with greater than 50% of time spent reviewing medications with patient, counseling, education, and/or coordinating care as outl ined above. Felix Troy PharmD DATE/TIME: 08/19/2019 11:30 AM documented in this encounter Plan of [...]
--- OUTSIDE RECORDS SUMMARY | ~2020-01-09 | XMS | Encounter Summary ---
Demographics + + + | Address | [address] | | | [place] [address] | + + + | Home Phone | | + + + | Preferred Language | Unknown | + + + | Marital Status | | + + + | Presybeterian Affiliation | Unknown | + + + | Race | White | + + + | Ethnic Group | Not or | + + + Author + + + | Author | [facility] | | | and [place] | + + + | Organization | [facility] | | | and [...] Team Providers + +------+ + | Care Plant Production Worker Name | Role | Phone | + +------+ + | Bird Talbot | PCP | | | MD | | | + +------+ + Reason for Visit +--------+--------+ + | Reason | Onset | Comments | | | Date | | +--------+--------+ + | Other | 06/27/ | | | | 2019 | | +--------+--------+ + Encounter Details +--------+ + + + + | Date | Type | Department | Care Team | Description | +--------+ + + + + | 06/27/ | Telephone | [facility] | [facility], | Other | | 2019 | | GASTROENTEROLOGY | MICAELA Romero [address] | | | | | [address] | [address] [facility] [address] | | | | | [address] [place], [place] | [place] | | | | | [address] | [address] | | | | | [phone] | | | +--------+ + + + [...] Telephone Encounter - Heather Ko ARNP - 07/02/2018 9:36 AM PDTSpoke with patient . She will continue to have infusions here for her Crohn's disease. She reports increased v aginal bleeding following discontinuation of Depo-Provera injections. She is also had recen t FOREIGN EXCHANGE TRADER procedure for uterine fibroids. Highly encourage patient to follow-up with her FOREIGN EXCHANGE TRADER of conchita. Patient verbalized understanding. elephone Encounter - Nate Corrales - 06/27/2018 1:46 PM PDTName of Caller: Nyla Nye Name of Patient: Nye, Nyla Burris Reason for call: Patient returning [facility] call . Didn't elaborate on what it's daisha dang Provider/Nurse: Maikel Call back number: [phone] documented in this encou nter Plan of Treatment +--------+ + + + [...]
--- OUTSIDE RECORDS SUMMARY | ~2020-01-09 | XMS | Encounter Summary ---
Demographics + + + | Address | [address] | | | [place] [address] | + + + | Home Phone | | + + + | Preferred Language | Unknown | + + + | Marital Status | | + + + | Yarsanism Affiliation | Unknown | + + + | Race | White | + + + | Ethnic Group | Not or | + + + Author + + + | Author | [facility] | | | and [place] | + + + | Organization | [facility] | | [...] Team Providers + +------+ + | Care Head Bone Grinder Name | Role | Phone | [...] | Services | Therapy | Crohn's | [place], | Felix W, | | | Required | | disease of | Heather, | PharmD [address] | | | | | small | SH[employer]TLE [employer] [address] | | | | | intestine | [address] | [place], | | | | | with | [address] | [place] [address] | | | | | complication | [place], | Phone: | | | | | ([facility]) | [place] [address] | [phone] | | | | | | Phone: | Fax: | | | | | | [phone] | [phone] | | | | | | Fax: | | | | | | | [phone] | | +--------+ + + + + + Reason for Visit Evaluate & Treat (Routine) +--------+ + + [...] | | | | | small | 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, | Crohn's disease of | | 2018 | Encounter | MED CTR OP INFUSION | HeatherMICAELA bhardwaj [address] | small intestine with | | | | [address] | [address] | complication (HCC) | | | | [place], [place] | [place], [place] | | | | | [address] | [address] | | | | | [phone] | | | | | | | Felix Troy W, | | | | | | PharmD [address] | | | | | | [address] [place], [place] | | | | | | [address] | | | | | | | [...] + + + | Blood Pressure | 112/74 | 07/04/2017 9:59 AM | | | | | PDT | | + + + + + | Pulse | 68 | 07/04/2017 9:59 AM | | | | | PDT | | + + + + + | Temperature | 36.4 C (97.5 F) | 07/04/2017 9:59 AM | | | | | PDT | | + + + + + | Respiratory Rate | - | - | | + + + + + | Oxygen Saturation | 98% | 07/04/2017 9:59 AM | | | | | PDT [...] Discharge Instructions Instructions Felix Troy, PharmD - 07/04/2017I will write for Jonatan starting kit. This will start the prior authroization and may take 2-4 weeks to get a answer. If you have any questions please give me a call at [phone]. AttachmentsThe following attachments cannot be sent through Care Everywhere.Crohn's Disease (Hebrew)Adalimumab Injection (Hebrew)documented in this encounter Medications at Time of [...] of this encounter Progress Notes Felix Troy, PharmD - 07/04/2017 8:33 AM PDT [facility]INIC Office Visit for Inflammatory Bowel Disease Provider: Felix Troy, PharmD Visit Date: 07/04/2017 Patient: Nyla Nye : 1980 CSN: [id number] Nyla Nye is a 37 y.o. female who has Diarrhea; Generalized abdominal pain; and Abnorm al CT of the abdomen on her problem list. Nyla [facility]; she is here today to establish care for disease modifying therapy management. The y have been referred by MICAELA Snider. ASSESSMENT/PLAN CROHN'S DISEASE: Nyla is here today with her to discuss biologic therapy and started with saying th ey had a lot of questions. Number of bowel movements a day: 2-3 varies a lot day to day, mostly diarrhea or non-formed . Amount of movements with blood: none Abdominal pain: present and highly dependent on diet. Currently only eating carb's/bread products. This is worrisome as she is missing a lot of d ietary nutrients by only being able to eat certain foods. IBD THERAPY: Patient is currently taking Lialda and Budesonide. Unable to wean off steroid without flare of symptoms occurring. Currently taking 9 mg of budesonide. Start HUMIRA (adil imamab) subcutaneous injections. Inject 160 mg subcutaneously as soon as you receive your me dication. Inject 80 mg subcutaneously 2 weeks after your first dose (day 15). Maintain with 40 mg every other week starting at week 4 (day 29). Nyla will have a CBC with differential and CMP every three months and a CRP as needed ever y 6 months. Nyla is a female within child-bearing age; education regarding has been delivere d verbally and in writing Nyla also verbalized understanding of the increased risk for developing certain cancers i ncluding lymphoma and skin cancer and verbalizes understanding of the importance of yearly s kin exams. IBD FLARE PREVENTION: Discussed the avoidance of NSAID, avoidance of antibiotics without cl early documented bacterial infection, and avoidance of tobacco. HEPATITIS B/TB STATUS: Nyla is core antibody negative and surface antigen negative for Hep atitis B; therefore further monitoring for hepatitis B infection is unnecessary at this time . ~Patients last Hep B screenin06/20/17 Nyla verbalized agreement to report any signs/symptoms of infection, tuberculosis and new or worsening heart failure. ~Patients last TB screenin06/20/17 MEDICATION COMPLIANCE: Nyla reports a lot of questions regarding to affording and how insu avril will cover her medication.. After education and teach-back about disease modifying therapy the patient and/or caregiver has good understanding of appropriate administration, timing, indication, side effects, goa ls of therapy, and importance of adherence. She will schedule a follow-up appointment for th e first dose so that injection education can be provided and patient learn how to give the i njections herself. Counseled on the importance of not missing doses or double up on doses. We also discussed the importance of how the pens are stored and MEDICATION RECONCILIATION AND REVIEW: Reconciled 5 medications today with no identified int eractions and no changes recommended. Nyla agrees to contact the clinic with any medication changes including OTC/herbals/supplements. HEALTH MAINTENANCE: Patient brought up that she was told her Hep B series did not work an d she needed to get a booster shot. After review of lab results patients Hep B surface Anti body Qual came back as reactive which shows consistency with immunity, greater than 9.9mIU/m L. Further immunization was not recommended. BONE HEALTH: Recommend baseline DEXA scans PCP. It is known that extensive steroid use is found to cause osteoporosis. Depending on the results of DEXA scan, the patient may benefit from calcium, vitamin D, or bisphosphonate supplementation, as well as examination to evalu ate improvement in bone density. NUTRITION: Do to our climate in the [facility], recommend periodic vitamin D testin g I PCP. If small bowel Crohn's disease present, patient also may benefit from periodic mon itoring of B12, ferritin, folate, and zinc. SUBJECTIVE Allergies: Allergies Allergen Reactions Clarithromycin Nausea And Vomiting Nitrofuran Derivatives Hives, Diarrhea, Nausea And Vomiting and Rash Sulfa Antibiotics Hives and Rash Medical, Surgical, and Social History Nyla has a past medical history of Abnormal weight gain; Acrochordon; Allergic rhinitis du e to pollen; Allergic urticaria; Anaphylaxis; Asthma, intrinsic; Chronic pansinusitis; Adel und nevus; Constipation; Fecal urgency; Heartburn; Hemorrhagic condition (HCC); Nausea; and Umbilical hernia. Nyla has a past surgical history that includes ceasarean section, multiples (2003); Tonsil lectomy and adenoidectomy (2005); Appendectomy (2002); [place] tooth extraction (1999); Esoph mili dilation (12/13/2016); Colonoscopy; Upper gastrointestinal endoscopy; and Colonoscopy ( N/A, 03/21/2017). Nyla's family history includes Arthritis in her mother; Cancer in her father; Hepatitis C in her father; Other (see comment) in her mother. Nyla indicated that her mother is alive. She indicated that her father is . Nyla reports that she has never smoked. She has never used smokeless tobacco. She reports that she drinks alcohol. She reports that she does not use drugs. Social History Social History Narrative No narrative on file OBJECTIVE Vitals: BP 112/74 | Pulse 68 | Temp 36.4 C (97.5 F) (Oral) | SpO2 98% Medications: Outpatient Medications budesonide (ENTOCORT EC) 3 mg 24 hr capsule Take 3 capsules by mouth every morning. Take 3 tablets by mouth daily. Continue to wean off the medcation cetirizine (ZYRTEC ALLERGY) 10 mg tablet Take 10 mg by mouth Daily. diphenhydrAMINE (BENADRYL) 25 mg tablet Take 50 mg by mouth every 4 hours. mesalamine (LIALDA) 1.2 g EC tablet Take 3 tablets by mouth Daily. psyllium (KONSYL) 28.3 % PACK Take 1 packet by mouth Daily. PERTINENT LABORATORY FINDINGS No results found for: QUANTTB, CRP, HGB, HCT, PLT, AST, ALT, ANC, LIPASE, WBC Lab Results Component Value Date HCV <0.1 06/20/2017 HBV Negative 06/20/2017 I spent 30 minutes was spent face to face with the patient, >50% was spent in education of her condition, treatment options, the risks and benefits of proceeding as above, and answeri ng her many questions regarding treatment and outcomes. Felix Troy PharmD 07/04/2017 documented in this encounter Plan of Treatment [...] | Routin | Crohn's disease of | 1 Occurrences | | PharmD - AMB | Referral | e | small intestine | starting 07/04/2017 | | Referral | | | with complication | until 07/04/2017 | | | | | (HCC) | | + + +--------+ + + documented as of this encounter Procedures + +--------+ + + + | Procedure Name | Priori | Date/Time | Associated Diagnosis | Comments | | | ty | | | | + +--------+ + + + | LABS - EXTERNAL SCAN | | 10/05/2017 | | Results for this | | | | 12:00 AM | | procedure are in the | | | | PDT | | results section. | + +--------+ + + + documented in this encounter Results LABS - EXTERNAL SCAN (10/05/2017 12:00 AM PDT) + + + | [...]
--- OUTSIDE RECORDS SUMMARY | ~2020-01-09 | XMS | Encounter Summary ---
Demographics + + + | Address | [address] | | | [place] [address] | + + + | Home Phone | | + + + | Preferred Language | Unknown | + + + | Marital Status | | + + + | Christianity Affiliation | Unknown | + + + [...] Team Providers + +------+ + | Care Customer Sales Representative Name | Role | Phone | + [...] | disease, | PharmD [address] | | | | | unspecified, | [address] | [place], | | | | | with | [place] | [place] [address] | | | | | unspecified | [place] | Phone: | | | | | complication | [phone] | [phone] | | | | | s (HCC) | Phone: | Fax: | | | | | Procedures | [phone] | [phone] | | | | | HC ID [id number] | Fax: | | | | | | STELARA ID | [phone] | | | | | | USTEKINUMAB | | | | | | | SUB CU INJ, | | | | | | | 1 MG ID | | | | | | | INJECTION, | | | | | | | VEDOLIZUMAB, | | | | | | | 1MG ID IV | | | | | | [...] | +--------+ + + + + | 07/12/ | Hospital | [facility] | [facility], | Crohn's disease with | | 2019 | Encounter | MED CTR OP INFUSION | MICAELA Romero [address] | complication, | | | | [address] | [address] | unspecified | | | | [place], [place] | [place], [place] | gastrointestinal | | | | [address] | [address] | tract location (HCC) | | | | [phone] | | (Primary Dx) | +--------+ + [...] + + + | Blood Pressure | 112/69 | 07/12/2018 4:00 PM | | | | | PDT | | + + + + + | Pulse | 62 | 07/12/2018 4:00 PM | | | | | PDT | | + + + + + | Temperature | 36.6 C (97.9 F) | 07/12/2018 2:38 PM | | | | | PDT | | + + + + + | Respiratory Rate | 16 | 07/12/2018 2:38 PM | | | | | PDT | | + + + + + | Oxygen Saturation | 98% | 07/12/2018 4:00 PM | | | | | PDT [...] + + + +---------+ + + | marlonaiFENesin | Take 1,200 mg by | | [...] | | 9 | | yl Estrad (APPLE, | | | | | | | [...] documented as of this encounter Progress Notes Luz Andrade RN - 07/12/2018 4:27 PM PDT Vitals: 07/12/18 1438 07/12/18 1600 BP: 117/69 112/69 Pulse: 54 62 Resp: 16 Temp: 36.6 C (97.9 F) TempSrc: Oral SpO2: 98% 98% Administrations This Visit acetaminophen (TYLENOL) tablet 650 mg Admin Date 07/12/2018 Action Given Dose 650 mg Route Oral Administered By Helen Juarez RN loratadine (CLARITIN) tablet 10 mg Admin Date 07/12/2018 Action Given Dose 10 mg Route Oral Administered By Helen Juarez RN vedolizumab (ENTYVIO) 300 mg in sodium chloride 0.9% 250 mL IVPB Admin Date 07/12/2018 Action New Bag Dose 300 mg Rate 510 mL/hr Route Intravenous Administered By Luz Andrade RN Monitored throughout treatment; treatment completed without untoward effects from medicatio n noted. Next visit has been scheduled. Verbalizes understanding of plan of care. VS stable. Discharged ambulatory to home in stable condition. Electronically signed by: Luz Andrade RN 07/12/2018 16:27 Helen Goldberg RN - 0 07/12/2018 3:02 PM PDT Vitals: 07/12/18 1438 BP: 117/69 Pulse: 54 Resp: 16 Temp: 36.6 C (97.9 F) Nyla Nye received into room 443, independent ambulation accompanied by mom. Sta rebecca here for entivio infusion. Reports no change in condition, plan of care since last MD berg sit. Alert, oriented x 4, cooperative. Electronically signed by: Helen Juarez RN 07/12/2018 15:03 Felix Godoy PharmD - 07/12/2018 2:40 PM PDTFormatt ing of this note might be different from the original. [facility] CLINIC Inflammatory Bowel Disease Follow Up Provider: Felix Troy PharmD Encounter Date: 07/12/2018 Patient: Nyla Nye : 1980 CSN: [id number] ASSESSMENT 8 week maintenance follow up Nyla Nye is a 38 y.o. female who [facility] by MICAELA Snider for DMT management. [...] B screenin06/20/17 Last TB screenin06/20/17 Nyla reports the the Entyvio is still working. She does have occasional abdominal pain, bu fatou denies other GI symptoms. She did have a question about hand pain and nausea related to h er Entyvio infusion. Explained that the package insert does list nausea and arthralgia as p otential adverse reactions but the fact that they are only showing up know may be due to mavis ething else. Recommended Nyla keep and eye on them and see if any food or activities set t hem off. We also discussed patients recent vaginal bleeding issue and her follow up with her MIXER RUNNER. E xplained that if she needed to have surgery to just make sure the provider knows she is on t he Entyvio. Discussed that some surgeons would prefer to coordinate when a patients last im mune suppressant dose was before surgery. Nyla said that their next plan will be for possi ble IUD with surgery as a reserve. Told to her to just let us know if she needs anything fr om the clinic. PLAN 1. Compliance was discussed and Nyla [...] (CBC w/diff and CMP) will be due 3rd quarter. 6. Nyla is on a biologic and the importance of sunscreen was reinforced. Last skin exam wa s less than one year ago. 7. Nyla is on a biologic and the importance of reporting upcoming procedures was discussed . Nyla denies any upcoming procedures. 8. Nyla does not have any questions at this time. Laboratory Findings Lab Results Component Value Date HGB 14.3 06/13/2018 HCT 43.0 06/13/2018 PLT 275 06/13/2018 WBC 8.5 06/13/2018 Lab Results Component Value Date HCV <0.1 06/20/2017 HBV Negative 06/20/2017 Total time spent face to face with Nyla was 15 minutes with greater than 50% of time spent reviewing medications with patient, counseling, education, and/or coordinating care as outl ined above. Felix Troy PharmD DATE/TIME: 07/12/2018 14:40 documented in this encounter Plan of Treatment [...] + | CBC WITH | STAT | 07/12/2018 | Crohn's disease | Results for this | | DIFFERENTIAL | | 3:01 PM | with complication, | procedure are in the | | | | PDT | unspecified | results section. | | | | | gastrointestinal | | | | | | tract location (HCC) | | + +--------+ + + + | COMPREHENSIVE | Routin | 07/12/2018 | Crohn's disease | Results for this | | METABOLIC PANEL | e | 3:01 PM | with complication, | procedure are in the | | | | PDT | unspecified | results section. | | | | | gastrointestinal | | | | | | tract location (HCC) | | + +--------+ + + + documented in this encounter Results Comprehensive Metabolic Panel (07/12/2018 3:01 PM PDT) + + + + + [...] + + + + | K | 3.6 | 3.4 - 5.1 | [facility] | [...] + + + + | CO2 | 25 | 20 - 31 mmol/L | [facility] | | | | | | [facility] | | | | | | MEDICAL | | | | | | CENTER - | | | | | | LABORATORY | | + + + + + + | Anion Gap | 8 | 3 - 16 mmol/L | [facility] | | | | | | [facility] | | | | | | MEDICAL | | | | | | CENTER - | | | | | | LABORATORY | | + + + + + + | Glucose | 83 | 60 - 106 mg/dL | [facility] | | | | | | [facility] | | | | | | MEDICAL | | | | | | CENTER - | | | | | | LABORATORY | | + + + + + + | BUN | 12 | 9 - 23 mg/dL | [facility] | | | | | | [facility] | | | | | | MEDICAL | | | | | | CENTER - | | | | | | LABORATORY | | + + + + + + | Creatinine | 1.06 (H) | 0.55 - 1.02 | [facility] | | | | | mg/dL | [facility] | | | | | | MEDICAL | | | | | | CENTER - | | | | | | LABORATORY | | + + + + + + | eGFR, | 58 (L) | >=60 | [facility] | | | non- | | mL/min/1.73m2 | [facility] | | | [place] | | | MEDICAL | | | | | | CENTER - | | | | | | LABORATORY | | + + + + + + | Calcium | 9.2 | 8.7 - 10.4 | [facility] | [...] + + + + | Total | 6.5 | 5.7 - 8.2 g/dL | [facility] | | | Protein | | | [facility] | | | | | | MEDICAL | | | | | | CENTER - | | | | | | LABORATORY | | + + + + + + | AST | 22 | 0 - 34 U/L | [facility] [...] + + + + | Alkaline | 57 | 46 - 116 U/L | [facility] [...] + + + + | BUN/Creatin | 11.3 | | [facility] | | | ine [...] + | [facility] | [address] | [place], [place] | [phone] | | [facility] | | [address] | | | - LABORATORY | | | | + + + + + CBC with Differential (07/12/2018 3:01 PM PDT) + + + + + + | Component | Value | Ref Range | Performed | Pathologist | | | | | At | Signature | + + + + + + | White Blood | 8.5 | 4.0 - 11.0 K/uL | [facility] | | | Cells | | | [facility] | | | | | | MEDICAL | | | | | | CENTER - | | | | | | LABORATORY | | + + + + + + | Red Blood | 3.53 (L) | 3.70 - 5.20 | [facility] | | | Cells | | M/uL | [facility] | | | | | | MEDICAL | | | | | | CENTER - | | | | | | LABORATORY | | + + + + + + | Hemoglobin | 12.0 | 11.5 - 16.0 | [facility] | | | | | g/dL | [facility] | | | | | | MEDICAL | | | | | | CENTER - | | | | | | LABORATORY | | + + + + + + | Hematocrit | 34.7 | 34.0 - 47.0 % | [facility] | | | | | | [facility] | | | | | | MEDICAL | | | | | | CENTER - | | | | | | LABORATORY | | + + + + + + | MCV | 98.3 | 83.0 - 101.0 fL | [facility] | | | | | | [facility] | | | | | | MEDICAL | | | | | | CENTER - | | | | | | LABORATORY | | + + + + + + | MCH | 34.0 | 28.0 - 35.0 pg | [facility] | | | | | | [facility] | | | | | | MEDICAL | | | | | | CENTER - | | | | | | LABORATORY | | + + + + + + | MCHC | 34.6 | 32.0 - 36.0 | [facility] | | | | | g/dL | [facility] | | | | | | MEDICAL | | | | | | CENTER - | | | | | | LABORATORY | | + + + + + + | RDW-CV | 12.3 | <15.0 % | [facility] | | | | | | [facility] | | | | | | MEDICAL | | | | | | CENTER - | | | | | | LABORATORY | | + + + + + + | RDW-SD | 44.3 | 35.1 - 46.3 fL | [facility] | | | | | | [facility] | | | | | | MEDICAL | | | | | | CENTER - | | | | | | LABORATORY | | + + + + + + | Platelet | 281 | 140 - 440 K/uL | [facility] | | | Count | | | [facility] | | | | | | MEDICAL | | | | | | CENTER - | | | | | | LABORATORY | | + + + + + + | MPV | 9.6 | 6.5 - 12.4 fL | [facility] | | | | | | [facility] | | | | | | MEDICAL | | | | | | CENTER - | | | | | | LABORATORY | | + + + + + + | % | 62.9 | 45.0 - 82.0 % | [facility] | | | Neutrophils | | | [facility] | | | | | | MEDICAL | | | | | | CENTER - | | | | | | LABORATORY | | + + + + + + | % | 27.4 | 20.0 - 45.0 % | [facility] | | | Lymphocytes | | | [facility] | | | | | | MEDICAL | | | | | | CENTER - | | | | | | LABORATORY | | + + + + + + | % Monocytes | 6.7 | 4.0 - 12.0 % | [facility] | | | | | | [facility] | | | | | | MEDICAL | | | | | | CENTER - | | | | | | LABORATORY | | + + + + + + | % | 2.0 | 0.0 - 5.0 % | [facility] [...] + + + + | Absolute | 5.34 | 1.80 - 8.50 | [facility] | | | Neutrophils | | K/uL | [facility] | | | | | | MEDICAL | | | | | | CENTER - | | | | | | LABORATORY | | + + + + + + | Absolute | 2.33 | 0.60 - 3.20 | [facility] | | | Lymphocytes | | K/uL | [facility] | | | | | | MEDICAL | | | | | | CENTER - | | | | | | LABORATORY | | + + + + + + | Absolute | 0.57 | 0.00 - 1.00 | [facility] | | | Monocytes | | K/uL | [facility] | | | | | | MEDICAL | | | | | | CENTER - | | | | | | LABORATORY | | + + + + + + | Absolute | 0.17 | 0.00 - 0.40 | [facility] | | | Eosinophils | | K/uL | [facility] | | | | | | MEDICAL | | | | | | CENTER - | | | | | | LABORATORY | | + + + + + + | Absolute | 0.07 | 0.00 - 0.10 | [facility] | [...] 0.003-0.091 K/uL 0.0-0.9% 2nd 0.007-0.247 K/uL | MEDICAL CENTER | | 0.1-2.0% 3rd 0.018-0.456 K/uL 0.1-2.0% | - LABORATORY | + + + + + + + + | Performing | Address | City/State/Zipcode | Phone Number | | Organization | | | | + + + + + | [facility] | [address] | [place], [place] | [phone] | | [facility] | | [address] | | | - LABORATORY | | [...] | acetaminophen (TYLENOL) tablet | Given | 07/13/19 | 650 mg | | | | 650 mg 650 mg, Oral, ONCE, Shaylee | | 19 2:58 | | | | | 07/12/18 at 1505, For 1 dose | | PM PDT | | | | + +--------+ +--------+------+------+ +---+---+ | | | +---+---+ + +-------+ +-------+---+---+ | loratadine (CLARITIN) tablet 10 | Given | 07/13/19 | 10 mg | | | | mg 10 mg, Oral, ONCE, Shaylee | | 19 2:58 | | | | | 07/12/18 at 1505, For 1 dose | | PM PDT | | | | + +-------+ +-------+---+---+ +---+---+ | | | +---+---+ + +---------+ +--------+-------+---+ | vedolizumab (ENTYVIO) 300 mg in | New Bag | 07/13/19 | 300 mg | 510 | | | sodium chloride 0.9% 250 mL IVPB | | 19 3:24 | | mL/hr | | | 300 mg, Intravenous, Administer | | PM PDT | | | | | over 30 Minutes, ONCE, Shaylee | | | | | | | 07/12/18 at 1505, For 1 dose, | | | | | | | EVERY 8 WEEKS MAINTENANCE. Flush | | | | | | | with 30 mL NS after giving. Keep | | | | | | | in refrigerator., | | | | | | + +---------+ +--------+-------+---+ +---+---+ | | | +---+---+ documented in this encounter"
--- OUTSIDE RECORDS SUMMARY | ~2020-01-09 | XMS | Encounter Summary ---
Demographics + + + | Address | [address] | | | [place] [address] | + + + | Home Phone | | + + + | Preferred Language | Unknown | + + + | Marital Status | | + + + | Orthodox Affiliation | Unknown | + + + | Race | White | + + + | Ethnic Group | Not or | + + + Author + + + | Author | [facility] | | | and [place] | + + + | Organization | [facility] | | | [...] Providers + +------+ + | Care Chemical Dependency Nurse Name | Role | Phone | + +------+ + | Bird Talbot | PCP | | | MD | | | + +------+ + Encounter Details +--------+ + + + + | Date | Type | Department | Care Team | Description | +--------+ + + + + | 03/11/ | Orders Only | [facility] | Sarabjitl, Felix W, | | | 2018 | | MED CTR | PharmD [address] | | | | | PHARMACOTHERAPY | ST [place] | | | | | CLINIC [address] | [address] | | | | | ST [place], [place] | | | | | | [address] | | | | | | [phone] | | | +--------+ + + + [...]
--- OUTSIDE RECORDS SUMMARY | ~2020-01-09 | XMS | Encounter Summary ---
Demographics + + + | Address | [address] | | | [place] [address] | + + + | Home Phone | | + + + | Preferred Language | Unknown | + + + | Marital Status | | + + + | Yazidi Affiliation | Unknown | + + + | Race | White | + + + | Ethnic Group | Not or | + + + Author + + + | Author | [facility] | | | and [place] | + + + | Organization | [facility] | | | and [place] | + [...] Team Providers + +------+ + | Care Market Research Lead Name | Role | Phone | + +------+ + | Bird Talbot | PCP | | | MD | | | + +------+ + Encounter Details +--------+ + + + + | Date | Type | Department | Care Team | Description | +--------+ + + + + | 05/04/ | Orders Only | [facility] [place] | [facility], | | | 2018 | | GASTROENTEROLOGY | MICAELA Romero [address] | | | | | [address] | [address] | | | | | [address] [place], [place] | [place], [place] | | | | | [address] | [address] | | | | | [phone] | | | +--------+ + + + [...]
--- OUTSIDE RECORDS SUMMARY | ~2020-01-09 | XMS | Encounter Summary ---
Demographics + + + | Address | [address] | | | [place] [address] | + + + | Home Phone | | + + + | Preferred Language | Unknown | + + + | Marital Status | | + + + | Lutheran Affiliation | Unknown | + + + [...] Team Providers + +------+ + | Care Oyster Opener Name | Role | Phone | + +------+ + PCP | Unavailable | + +------+ + Encounter Details +--------+ + + + + | Date | Type | Department | Care Team | Description | +--------+ + + + + | 02/07/ | Hospital | [facility] | | | | 1995 | Encounter | MED CTR XRAY [address] | | | | | | [address] | | | | | | [place] [address] | | | | | | [phone] | | | +--------+ + + + [...]
--- OUTSIDE RECORDS SUMMARY | ~2020-01-09 | XMS | Encounter Summary ---
Demographics + + + | Address | [address] | | | [place] [address] | + + + | Home Phone [...] + | Author | [facility] | | | and [place] | + + + | Organization | [facility] | | | [...] Team Providers + +------+ + | Care Physician Gynecologist Name | Role | Phone | + +------+ + | Bird Talbot | PCP | | | MD | | | + +------+ + Reason for Visit + +--------+ + | Reason | Onset | Comments | | | Date | | + +--------+ + | Medication | 06/18/ | | | Management | 2019 | | + +--------+ + Encounter Details +--------+ + + + + | Date | Type | Department | Care Team | Description | +--------+ + + + + | 06/18/ | Telephone | [facility] | Ana Cervantes, | Medication | | 2019 | | MED CTR | PharmD [address] | Management | | | | PHARMACOTHERAPY | [facility] | | | | | CLINIC [address] | [place] [address] | | | | | [place], [place] | [phone] | | | | | [address] | | | | | | [phone] | | | +--------+ + + + [...] this encounter Miscellaneous Notes Telephone Encounter - Ana Cervantes, International Student Advisor - 06/18/2018 1:53 PM PDTCalled Demar electronics parts sales representative, Nyla at [phone], to discuss Entyvio copay card and other possib le options to bring down patient's cost. Left a voicemail for her to call back at [phone]. documented in this encounter Plan of Treatment [...] Diagnoses Not on filedocumented in this encounter Additional Health Concerns + + + + + | Infection | Onset Date | Last Indicated | Resolved Time | + + + + + | Rule out | 09/03/2019 | 08/08/2019 | 09/04/2019 3:54 AM | | Gastroenteritis | | | PDT | + + + + + documented as of this encounter"
--- OUTSIDE RECORDS SUMMARY | ~2020-01-09 | XMS | Encounter Summary ---
Demographics + + + | Address | [address] | | | [place] [address] | + + + | Home Phone | | + + + | Preferred Language | Unknown | + + + | Marital Status | | + + + | Bahai Affiliation | Unknown | + + + | Race | White | + + + | Ethnic Group | Not or | + + + Author + + + | Author | [facility] | | | and [place] | + + + | Organization | [facility] | | [...] Team Providers + +------+ + | Care Marble Coper Name | Role | Phone | + +------+ + | Bird Talbot | PCP | | | MD | | | + +------+ + Reason for Visit + +--------+ + | Reason | Onset | Comments | | | Date | | + +--------+ + | Appointment | 09/08/ | | | | 2020 | | + +--------+ + Encounter Details +--------+ + + + + | Date | Type | Department | Care Team | Description | +--------+ + + + + | 09/08/ | Telephone | [facility] | [facility], | [facility] | | 2019 | | GASTROENTEROLOGY | M[address] Romero [address] | | | | | [address] | [address] | | | | | [address] [place], [place] | [place], [place] | | | | | [address] | [id number] | | | | | [phone] | | | +--------+ + + + [...] Telephone Encounter - Kary Fowler CMA - 09/09/2019 8:14 AM PDTPatient is scheduled today with Marline, called patient to go over medication, allergies and medical history. Could not get through. d ocumented in this encounter Plan of Treatment +--------+ [...]
--- OUTSIDE RECORDS SUMMARY | ~2020-01-09 | XMS | Encounter Summary ---
Demographics + + + | Address | [address] | | | [place] [address] | + + + | Home Phone | | + + + | Preferred Language | Unknown | + + + | Marital Status | | + + + | Baptist Affiliation | Unknown | + + + | Race | White | + + + | Ethnic Group | Not or | + + + Author + + + | Author | [facility] | | | and [place] | + + + | Organization | [facility] | | [...] Team Providers + +------+ + | Care Dog Handler Or Trainer Name | Role | Phone | + +------+ + | Bird Talbot | PCP | | | MD | | | + +------+ + Reason for Visit + +--------+ + | Reason | Onset | Comments | | | Date | | + +--------+ + | Medication Question | 05/10/ | | | | 2017 | | + +--------+ + Encounter Details +--------+ + + + + | Date | Type | Department | Care Team | Description | +--------+ + + + + | 05/10/ | Telephone | [facility] | [facility], | Medication Question | | 2018 | | GASTROENTEROLOGY | MICAELA Romero [address] | | | | | [address] | [address] | | | | | [address] [place], [place] | [place] | | | | | [address] | [id number] | | | | | [phone] | | | +--------+ + + + [...] Telephone Encounter - Kary Fowler CMA - 05/10/2017 8:22 AM PSTSent patient an nimesh edmond elephone Encoun ter - Heather Ko ARNP - 05/10/2017 8:11 AM PSTPlease call patient and advised ifeoma t refill was sent to pharmacy. Not sure where she is in the weaning process. May need to con aircraft de icer installer stronger medication if Lialda not working. Thank you documented in this encounter Plan of Treatment [...]
--- OUTSIDE RECORDS SUMMARY | ~2020-01-09 | XMS | Encounter Summary ---
Demographics + + + | Address | [address] | | | [place] [address] | + + + | Home Phone | | + + + | Preferred Language | Unknown | + + + | Marital Status | | + + + | Spiritism Affiliation | Unknown | + + + [...] Team Providers + +------+ + | Care Lawn Technician Name | Role | Phone | + +------+ + | Bird Talbot | PCP | | | MD | | | + +------+ + Reason for Visit + +--------+ + | Reason | Onset | Comments | | | Date | | + +--------+ + | Referral | 12/03/ | | | (PreAuthorization) | 2020 | | + +--------+ + Encounter Details +--------+ + + + + | Date | Type | Department | Care Team | Description | +--------+ + + + + | 12/03/ | Telephone | [facility] | Felix Troy W, | Referral | | 2019 | | MED CTR | PharmD [address] | (PreAuthorization) | | | | PHARMACOTHERAPY | [place], [place] | | | | | CLINIC [address] | [id number] | | | | | [place], [place] | | | | | | [address] | | | | | | [phone] | | | +--------+ + + + [...] Telephone Encounter - Felix Troy PharmD - 12/20/2019 11:07 AM PDTReceived new orders f or [facility]yla from [facility]. I have updated her infusion plan with Dr. Asheralu name. New insurance is [employer]. Notes from [facility] says that an approval is not req uired for this service. Will send orders and notes down to medical records to be scanned in . Felix Troy PharmD 12/20/2019 11:16 AM PDT elephone Encounte r - Felix Troy PharmD - 12/04/2019 10:26 AM PDTCalled the [facility] to discuss Suzy rosa's case and if there was a update. Was transferred back to their infusion department but h ad to leave a message (not sure if the correct area). Left message asking for a call back t o discuss her case and if her dosing would change and about authorization information. Felix Troy PharmD 12/04/2019 10:27 AM PDT documented in this encounter Plan of Treatment [...]
--- OUTSIDE RECORDS SUMMARY | ~2020-01-09 | XMS | Encounter Summary ---
Demographics + + + | Address | [address] | | | [place] [address] | + + + | Home Phone | | + + + | Preferred Language | Unknown | + + + | Marital Status | | + + + | Denominational Affiliation | Unknown | + + + [...] Team Providers + +------+ + | Care Privacy Officer Name | Role | Phone | [...] [address] | | | | | ([facility]) | [address] | [place], | | | | | Felix Mohl, | [place] | [place] [address] | | | | | Entyvio | [facility], [place] | Phone: | | | | | 300mg. Q 8 | [address] | [phone] | | | | | wks., | Phone: | Fax: | | | | | Crohn's | [phone] | [phone] | | | | | Procedures | Fax: | | | | | | [place] | [phone] | | | | | | INJECTION, [...] | +--------+ + + + + | 02/20/ | Hospital | [facility] | [facility], | Crohn's disease with | | 2019 | Encounter | MED CTR OP INFUSION | MICAELA Romero [address] | complication, | | | | [address] | [address] | unspecified | | | | [place], [place] | [place], [place] | gastrointestinal | | | | [address] | [address] | tract location (HCC) | | | | [phone] | | (Primary Dx) | +--------+ + [...] + + + | Blood Pressure | 118/79 | 02/20/2019 6:25 PM | | | | | PST | | + + + + + | Pulse | 66 | 02/20/2019 6:25 PM | | | | | PST | | + + + + + | Temperature | 36.4 C (97.5 F) | 02/20/2019 6:25 PM | | | | | PST | | + + + + + | Respiratory Rate | 16 | 02/20/2019 6:25 PM | | | | | PST | | + + + + + | Oxygen Saturation | 96% | 02/20/2019 6:25 PM | | | | | PST [...] encounter Progress Notes Reny Eduardo RN - 02/20/2019 6:30 PM PST Vitals: 02/20/19 1659 02/20/19 1825 BP: 111/64 118/79 Pulse: 73 66 Resp: 16 16 Temp: 36.4 C (97.5 F) 36.4 C (97.5 F) TempSrc: Oral Oral SpO2: 98% 96% Administrations This Visit acetaminophen (TYLENOL) tablet 650 mg Admin Date 02/20/2019 Action Given Dose 650 mg Route Oral Administered By Reny Eduardo RN loratadine (CLARITIN) tablet 10 mg Admin Date 02/20/2019 Action Given Dose 10 mg Route Oral Administered By Reny Eduardo RN vedolizumab (ENTYVIO) 300 mg in sodium chloride 0.9% 250 mL IVPB Admin Date 02/20/2019 Action New Bag Dose 300 mg Rate 510 mL/hr Route Intravenous Administered By Reny Eduardo RN Monitored throughout treatment; treatment completed without untoward effects from medicatio n noted. Next visit April 17. Verbalizes understanding of plan of care. VS stable. Dischar ged ambulatory to home in stable condition. Electronically signed by: Reny Eduardo RN 02/20/2019 7:10 PM Reny Chung RN - 1 04/22/2018 5:00 PM PST Vitals: 02/20/19 1825 BP: 118/79 Pulse: 66 Resp: 16 Temp: 36.4 C (97.5 F) Nyla Burris Nye received into room 440, independent ambulation . States here for Entyv io infusion. Reports no change in condition, plan of care since last MD visit. Alert, orient ed x 4, cooperative. Electronically signed by: Reny Eduardo RN 02/20/2019 7:09 PM documented in this enc ounter Plan [...] + | CBC WITH | STAT | 02/20/2019 | Crohn's disease | Results for this | | DIFFERENTIAL | | 5:19 PM | with complication, | procedure are in the | | | | PST | unspecified | results section. | | | | | gastrointestinal | | | | | | tract location (HCC) | | + +--------+ + + + | COMPREHENSIVE | Routin | 02/20/2019 | Crohn's disease | Results for this | | METABOLIC PANEL | e | 5:08 PM | with complication, | procedure are in the | | | | PST | unspecified | results section. | | | | | gastrointestinal | | | | | | tract location (HCC) | | + +--------+ + + + documented in this encounter Results CBC with Differential (02/20/2019 5:19 PM PST) + + + + + + | Component | Value | Ref Range | Performed | Pathologist | | | | | At | Signature | + + + + + + | White Blood | 10.0 | 4.0 - 11.0 K/uL | [facility] | | | Cells | | | [facility] | | | | | | [facility] | | | | | | CENTER - | | | | | | LABORATORY | | + + + + + + | Red Blood | 3.94 | 3.70 - 5.20 | [facility] | | | Cells | | M/uL | [facility] | | | | | | MEDICAL | | | | | | CENTER - | | | | | | LABORATORY | | + + + + + + | Hemoglobin | 12.9 | 11.5 - 16.0 | [facility] | | | | | g/dL | [facility] | | | | | | [facility] | | | | | | CENTER - | | | | | | LABORATORY | | + + + + + + | Hematocrit | 38.7 | 34.0 - 47.0 % | [facility] [...] + + + + | MCH | 32.7 | 28.0 - 35.0 pg | [facility] | | | | | | [facility] | | | | | | [facility]ICAL | | | | | | CENTER - | | | | | | LABORATORY | | + + + + + + | MCHC | 33.3 | 32.0 - 36.0 | [facility] | | | | | g/dL | [facility] | | | | | | [facility]ICAL | | | | | | CENTER - | | | | | | LABORATORY | | + + + + + + | RDW-CV | 11.9 | <15.0 % | [facility] | | | | | | [facility] | | | | | | [facility]ICAL | | | | | | CENTER - | | | | | | LABORATORY | | + + + + + + | RDW-SD | 43.6 | 35.1 - 46.3 fL | [facility] | | | | | | [facility] | | | | | | [facility] | | | | | | C[facility] - | | | | | | LABORATORY | | + + + + + + | Platelet | 303 | 140 - 440 K/uL | [facility] [...] + + + + | % | 58.6 | 45.0 - 82.0 % | [facility] | | | Neutrophils | | | [facility] | | | | | | MED[facility] | | | | | | CENTER - | | | | | | LABORATORY | | + + + + + + | % | 32.2 | 20.0 - 45.0 % | [facility] | | | Lymphocytes | | | [facility] | | | | | | MEDICAL | | | | | | CENTER - | | | | | | LABORATORY | | + + + + + + | % Monocytes | 5.8 | 4.0 - 12.0 % | [facility] | | | | | | [facility] | | | | | | MEDICAL | | | | | | CENTER - | | | | | | LABORATORY | | + + + + + + | % | 2.4 | 0.0 - 5.0 % | [facility] [...] + + + + | Absolute | 5.83 | 1.80 - 8.50 | [facility] | | | Neutrophils | | K/uL | [facility] | | | | | | MEDICAL | | | | | | CENTER - | | | | | | LABORATORY | | + + + + + + | Absolute | 3.21 (H) | 0.60 - 3.20 | [facility] | | | Lymphocytes | | K/uL | [facility] | | | | | | MEDICAL | | | | | | CENTER - | | | | | | LABORATORY | | + + + + + + | Absolute | 0.58 | 0.00 - 1.00 | [facility] | | | Monocytes | | K/uL | [facility] | | | | | | MEDICAL | | | | | | CENTER - | | | | | | LABORATORY | | + + + + + + | Absolute | 0.24 | 0.00 - 0.40 | [facility] | [...] | | nRBC | | K/uL | [facility] | | | | | [...] ranges: Trim. Absolute (K/uL) Percentage (%) | [facility] | | 1st 0.003-0.091 K/uL 0.0-0.9% 2nd 0.007-0.247 K/uL | MEDICAL CENTER | | 0.1-2.0% 3rd 0.018-0.456 K/uL 0.1-2.0% | - LABORATORY | + + + + + + + + | Performing | Address | City/State/Zipcode | Phone Number | | Organization | | | | + + + + + | [facility] | [address] | [place] | [phone] | | [facility] | | [address] | | | - LABORATORY | | | | + + + + + Comprehensive Metabolic Panel (02/20/2019 5:08 PM PST) + + + + + [...] + + + + | CO2 | 30 | 20 - 31 mmol/L | [facility] | | | | | | [facility] | | | | | | MEDICAL | | | | | | CENTER - | | | | | | LABORATORY | | + + + + + + | Anion Gap | 5 | 3 - 16 mmol/L | [facility] | | | | | | [facility] | | | | | | MEDICAL | | | | | | CENTER - | | | | | | LABORATORY | | + + + + + + | Glucose | 107 (H) | 60 - 106 mg/dL | [facility] | | | | | | [facility] | | | | | | MEDICAL | | | | | | CENTER - | | | | | | LABORATORY | | + + + + + + | BUN | 10 | 9 - 23 mg/dL | [facility] | | | | | | [facility] | | | | | | MEDICAL | | | | | | CENTER - | | | | | | LABORATORY | | + + + + + + | Creatinine | 0.99 | 0.55 - 1.02 | [facility] | | | | | mg/dL | [facility] | | | | | | MEDICAL | | | | | | CENTER - | | | | | | LABORATORY | | + + + + + + | eGFR, | >60Comment: GLOMERULAR | >=60 | [facility] | | | non- | FILTRATION | mL/min/1.73m2 | [facility] | | | [place] | RATE,ESTIMATED | | MEDICAL | | | | mL/min/1.18a3Rckc than | | CENTER - | | [...] + + + + | Calcium | 9.5 | 8.7 - 10.4 | [facility] | | | | | mg/dL | [facility] | | | | | | MEDICAL | | | | | | CENTER - | | | | | | LABORATORY | | + + + + + + | Albumin | 4.3 | 3.2 - 4.8 g/dL | [facility] | | | | | | [facility] | | | | | | MEDICAL | | | | | | CENTER - | | | | | | LABORATORY | | + + + + + + | Bilirubin | 0.6 | 0.3 - 1.2 mg/dL | [facility] | | | Total | | | [facility] | | | | | | MEDICAL | | | | | | CENTER - | | | | | | LABORATORY | | + + + + + + | Total | 7.0 | 5.7 - 8.2 g/dL | [facility] | | | Protein | | | [facility] | | | | | | MEDICAL | | | | | | CENTER - | | | | | | LABORATORY | | + + + + + + | AST | 17 | 0 - 34 U/L | [facility] | | | | | | [facility] | | | | | | MEDICAL | | | | | | CENTER - | | | | | | LABORATORY | | + + + + + + | ALT | 9 (L) | 10 - 49 U/L | [facility] | | | | | | [facility] | | | | | | MEDICAL | | | | | | CENTER - | | | | | | LABORATORY | | + + + + + + | Alkaline | 81 | 46 - 116 U/L | [facility] | | | Phosphatase | | | [facility] | | | | | | MEDICAL | | | | | | CENTER - | | | | | | LABORATORY | | + + + + + + | Globulin | 2.7 | 2.1 - 3.8 g/dL | [facility] [...] + + + + | BUN/Creatin | 10.1 | | [facility] | | | ine [...] ST. | [address] | [place] | [phone] | | [facility] | | [address] | | | - LABORATORY | | [...] | acetaminophen (TYLENOL) tablet | Given | 02/21/20 | 650 mg | | | | 650 mg 650 mg, Oral, ONCE, Wed | | 19 5:16 | | | | | 02/20/19 at 1715, For 1 dose | | PM PST | | | | + +--------+ +--------+------+------+ +---+---+ | | | +---+---+ + +-------+ +-------+---+---+ | loratadine (CLARITIN) tablet 10 | Given | 02/21/20 | 10 mg | | | | mg 10 mg, Oral, ONCE, Wed | | 19 5:16 | | | | | 02/20/19 at 1715, For 1 dose | | PM PST | | | | + +-------+ +-------+---+---+ +---+---+ | | | +---+---+ + +---------+ +--------+-------+---+ | vedolizumab (ENTYVIO) 300 mg in | New Bag | 02/21/20 | 300 mg | 510 | | | sodium chloride 0.9% 250 mL IVPB | | 19 5:35 | | mL/hr | | | 300 mg, Intravenous, Administer | | PM PST | | | | | over 30 Minutes, ONCE, Wed | | | | | | | 02/20/19 at 1715, For 1 dose, | | | | | | | EVERY 8 WEEKS MAINTENANCE. Flush | | | | | | | with 30 mL NS after giving. Keep | | | | | | | in refrigerator., | | | | | | + +---------+ +--------+-------+---+ +---+---+ | | | +---+---+ documented in this encounter"
--- OUTSIDE RECORDS SUMMARY | ~2020-01-09 | XMS | Encounter Summary ---
Demographics + + + | Address | [address] | | | [place] [address] | + + + | Home Phone | | + + + | Preferred Language | Unknown | + + + | Marital Status | | + + + | Scientology Affiliation | Unknown | + + + [...] Team Providers + +------+ + | Care Enterprise Manager Name | Role | Phone | + +------+ + | Bird Talbot | PCP | | | MD | | | + +------+ + Encounter Details +--------+ + + + + | Date | Type | Department | Care Team | Description | +--------+ + + + + | 09/02/ | Abstract | [facility] | [place]ad[place], | | | 2019 | | GASTROENTEROLOGY | [address] | | | | | [address] | Jennifer [place] | | | | | [address] [place] | [place] [address] | | | | | [address] | | | | | | [phone] | | | +--------+ + + + [...] | + +--------+ + + + | CALPROTECTIN, STOOL | Routin | 08/08/2019 | | Results for this | | | e | | | procedure are in the | | | | | | results section. | + +--------+ + + + | OVA AND PARASITE | Routin | 08/08/2019 | | Results for this | | EXAMINATION | e | | | procedure are in the | | | | | | results section. | + +--------+ + + + | CULTURE, STOOL | Routin | 08/08/2019 | | Results for this | | | e | | | procedure are in the | | | | | | results section. | + +--------+ + + + documented in this encounter Results Calprotectin, Stool (08/08/2019) + +---------+ + + + | Component | Value | Ref Range | Performed | Pathologist | | | | | At | Signature | + +---------+ + + + | CALPROTECTI | 179 (A) | 0 - 50 ug/g | | | | N FECAL | | | | | + +---------+ + + + + + | Specimen | + + | Stool - Stool | | specimen (specimen) | + + Ova and Parasite Examination (08/08/2019) + + + + + + | Component | Value | Ref Range | Performed | Pathologist | | | | | At | Signature | + + + + + + | Ova + | 08/09/2019 No ova and | | | | | Parasite | parasites seen. | | | | | Exam | (Direct, concentrate, | | | | | | and trichrome performed | | | | | | as indicated.) | | | | + + + + + + + + | Specimen | + + | Stool - Stool | | specimen (specimen) | + + Culture, Stool (08/08/2019) + + + + + + | Component | Value | Ref Range | Performed | Pathologist | | | | | At | Signature | + + + + + + | Result | 08/09/2019 Specimen has | | | | | | been received and plated | | | | | | by [facility]biology Lab. | | | | + + + + + + | Result | 08/10/2019 Heavy growth | | | | | | normal enteric anyi. | | | | + + + + + + | Result | 08/12/2019 No change in | | | | | | growth. No Salmonella, | | | | | | Shigella, Escherichia | | | | | | coli O157, | | | | | | Campylobacter, or | | | | | | yersinia isolated. Not | | | | | | specifically tested for | | | | | | other enteric pathogens. | | | | + + + [...]
--- OUTSIDE RECORDS SUMMARY | ~2020-01-09 | XMS | Encounter Summary ---
Demographics + + + | Address | [address] | | | [place] [address] | + + + | Home Phone | | + + + | Preferred Language | Unknown | + + + | Marital Status | | + + + | Latter-Day Affiliation | Unknown | + + + | Race | White | + + + | Ethnic Group | Not or | + + + Author + + + | Author | [facility] | | | and [place] | + + + | Organization | [facility] | | | and [place] | + + + | Address | Unknown | + + + | Phone | Unavailable | + + + Support + + +---------+ + | Name | Relationship | Address | Phone | + + +---------+ + | Enrique Nye | ECON | Unknown | | + + +---------+ + | Liborio Combs/Celine aMria Isabel | ECON | Unknown | | | [place] | | | | + + +---------+ + Care Team Providers + +------+ + | Care Assessment Nurse Practitioner Name | Role | Phone | + +------+ + | Bird Talbot | PCP | | | MD | | | + +------+ + Reason for Visit + + + | Reason | Comments | + + + | Follow-up | | + + + Evaluate & Treat (Routine) +--------+--------+ + + + + | Status | Reason | Specialty | Diagnoses / | Referred By | Referred To | | | | | Procedures | Contact | Contact | +--------+--------+ + + + + | Closed | | Nurse | Diagnoses | Cornelio, | Maikel, | | | | Practitioner | Crohn's | OTIS Hines | Heather, | | | | / | disease of | [address] | [address] [facility] | | | | Gastroenterol | small | [address] | [address] | | | | ogy | intestine | [place], | [address] | | | | | with other | [place] | [place], | | | | | complication | [address] | [place] [address] | | | | | ([facility]) | Phone: | Phone: | | | | | medication | [phone] | [phone] | | | | | follow | Fax: | Fax: | | | | | /[facility] | [phone] | [phone] | | | | | [email or web address]/[email or web address] | | | | | | | an/self | | | | | | | Procedures | | | | | | | OFFICE VISIT | | | | | | | REGULAR | | | +--------+--------+ + + + + Encounter Details +--------+---------+ + + + | Date | Type | Department | Care Team | Description | +--------+---------+ + + + | 06/13/ | Office | [facility] | [facility], | Crohn's disease of | | 2019 | Visit | GASTROENTEROLOGY | [address] | small intestine with | | | | [address] | [address] | complication (HCC) | | | | [address] [place], [place] | [facility], [place] | (Primary Dx) | | | | [address] | [address] | | | | | [phone] | | | +--------+---------+ + + + [...] + + + | Blood Pressure | 100/72 | 06/13/2018 9:42 AM | | | | | PDT | | + + + + + | Pulse | 76 | 06/13/2018 9:42 AM | | | | | PDT | | + + + + + | Temperature | 37 C (98.6 F) | 06/13/2018 9:42 AM | | | | | PDT | | + + + + + | Respiratory Rate | 14 | 06/13/2018 9:42 AM | | | | | PDT | | + + + + + | Oxygen Saturation | 98% | 06/13/2018 9:42 AM | | | | | PDT | | + + + + + | Inhaled Oxygen | - | - | | | Concentration | | | | + + + + + | Weight | 76.1 kg (167 lb 12.3 | 06/13/2018 9:42 AM | | | | oz) | PDT | | + + + + + | Height | - | - | | + + + + + | Body Mass Index | 28.8 | 04/18/2017 9:29 AM | | | | | PST | | + + + + + documented in this encounter Progress Notes Heather oK ARNP - 06/13/2018 10:30 AM PDTFormatting of this note might be differe nt from the original. PATIENT NAME: Nyla Nye : 1980: AGE: 38 y.o. REFERRED BY: Magda Grimes PRIMARY CARE: Bird Talbot MD Subjective: CHIEF COMPLAINT: Nyla Nye is a 38 y.o. female is here for a follow up. She is being seen today for follow up Crohn's disease. HISTORY OF PRESENT ILLNESS: Patient notes that she feels better since starting Entyvio. She has been able to eat more f oods and is not having as much pain. She has small round stools daily. She can have thin loose stools. She is here for annual follow up. She denies rashes, sores, or joint pains. She does not some cystic acne that is new for the last month. She thinks this may be relate d to weaning off Depo Provera. She had uterine fibroid removed and was advised to start the Depo Provera following the procedure. MEDICAL, SURGICAL, AND PERSONAL HISTORY Allergies Allergen [...] Procedure: COLONOSCOPY; Surgeon: Sumit Mariee MD; Location: [facility] MED[facility] PROC[facility]URE [facility] EGD AND COLONOSCOPY [...] History Narrative No narrative on file Review of Systems Constitutional: Negative for chills, fever and unexpected weight change. Respiratory: Negative for cough, shortness of breath and wheezing. Cardiovascular: Negative for chest pain, palpitations and leg swelling. Gastrointestinal: Negative except as stated above Objective: Physical Exam Constitutional: She is oriented to person, place, and time. She appears well-developed and well-nourished. HENT: Head: Normocephalic and atraumatic. Abdominal: Soft. Bowel sounds are normal. She exhibits no ascites. There is no splenomegaly or hepatomegaly. There is tenderness in the right lower quadrant. There is no rebound, no g uarding and negative Hathaway's sign. Musculoskeletal: Normal range of motion. She exhibits no edema or deformity. Neurological: She is alert and oriented to person, place, and time. Skin: Skin is warm and dry. Psychiatric: She has a normal mood and affect. Her speech is normal and behavior is normal. Nursing note and vitals reviewed. No visits with results within 1 Month(s) from this visit. Latest known visit with results is: Abstract on 01/08/2018 Component Date Value Ref Range Status Creatinine, External 01/01/2018 0.96 0.6 - 1.35 Final eGFR, External 01/01/2018 65 60 - 99,999 Final WBC, External 01/01/2018 8.5 4.5 - 11 Final HGB, External 01/01/2018 12.9 12 - 16 Final HCT, External 01/01/2018 37.5 35 - 45 Final PLT, External 01/01/2018 265 140 - 440 Final Neutrophils %, External 01/01/2018 61.4 39 - 80 Final Lymphocytes %, External 01/01/2018 30.8 24 - 44 Final RBC, External 01/01/2018 3.81 3.8 - 5.1 Final MCV, External 01/01/2018 99 81 - 99 Final RDW, External 01/01/2018 14.1 10.5 - 15 Final Sodium, External 01/01/2018 137 132 - 143 Final Potassium, External 01/01/2018 3.9 3.6 - 5.1 Final Chloride, External 01/01/2018 102 95 - 112 Final Carbon Dioxide, External 01/01/2018 24 19 - 31 Final Calcium, External 01/01/2018 9.0 8.5 - 10.3 Final Protein, Total, External 01/01/2018 7.3 6 - 8.3 Final Albumin, External 01/01/2018 3.9 3.5 - 6 Final Bilirubin, Total, External 01/01/2018 0.7 0 - 1.2 Final ALP, External 01/01/2018 53 31 - 130 Final AST, External 01/01/2018 15 13 - 39 Final ALT, External 01/01/2018 9 7 - 52 Final Glucose, External 01/01/2018 78 70 - 100 Final BUN, External 01/01/2018 13 6 - 23 Final Anion Gap 01/01/2018 15 7 - 21 mmol/L Final Bun/Creatinine 01/01/2018 13.5 6 - 28.6 Ratio Final Globulin 01/01/2018 3.4 1.8 - 3.5 g/dl Final Albumin/Globulin Ratio 01/01/2018 1.1 1.1 - 2.4 Ratio Final MCH 01/01/2018 34.0* 26.0 - 33.0 pg Final MCHC 01/01/2018 34.0 30.0 - 36.0 % Final BASOPHILS % 01/01/2018 1.3 0.0 - 2.0 % Final ESR 01/01/2018 3 0 - 20 mm/hr Final Monocytes %, External 01/01/2018 5.2 0 - 12 Final Eosinophils %, External 01/01/2018 1.3 0 - 6 Final Assessment: 1. Crohn's disease of small intestine with complication (HCC) Ferritin Folate Vitamin B-12 Zinc Vitamin D, Deficiency Screen (25-Hydroxy) CBC with Differential Plan: IBD diagnosis: Patient was diagnosed with inflammatory bowel disease 03/2017. Last colonos copy was 03/2017. Due for repeat endoscopy procedure 8-10 years after initial diagnosis or s ooner if symptoms indicate. . IBD therapy: Patient is currently taking Entyvio. Changes to medications include none. She continues to follow up with GI pharmacy. IBD flare prevention: Discussed the avoidance of [...] Nutrition: Do to our climate in the [facility], recommend periodic vitamin D testin g I PCP. If small bowel Crohn's disease present, patient also may benefit from periodic mon itoring of B12, ferritin, folate, and zinc. These have been ordered. Healthcare maintenance: Recommend annual flu shots. Pneumovax [...] | LABS - EXTERNAL SCAN | | 08/08/2019 | | Results for this | | | | 12:00 AM | | procedure are in the | | | | PDT | | results section. | + +--------+ + + + | LABS - EXTERNAL SCAN | | 08/08/2019 | | Results for this | | | | 12:00 AM | | procedure are in the | | | | PDT | | results section. | + +--------+ + + + documented in this encounter Results LABS - EXTERNAL SCAN (08/08/2019 12:00 AM PDT) + + + | Narrative | Performed At | + + + | Ordered by an | | | unspecified provider. | | + + + LABS - EXTERNAL SCAN (08/08/2019 12:00 AM PDT) + + + | Narrative | Performed At | + + + | Ordered by an | | | unspecified provider. | | + + + CBC with Differential (06/13/2018 10:54 AM PDT) + + + + + + | Component | Value | Ref Range | Performed | Pathologist | | | | | At | Signature | + + + + + + | White Blood | 8.5 | 4.0 - 11.0 K/uL | [facility] | | | Cells | | | [facility] | | | | | | MEDICAL | | | | | | CENTER - | | | | | | LABORATORY | | + + + + + + | Red Blood | 4.29 | 3.70 - 5.20 | [facility] | | | Cells | | M/uL | [facility] | | | | | | MEDICAL | | | | | | CENTER - | | | | | | LABORATORY | | + + + + + + | Hemoglobin | 14.3 | 11.5 - 16.0 | [facility] | | | | | g/dL | [facility] | | | | | | MEDICAL | | | | | | CENTER - | | | | | | LABORATORY | | + + + + + + | Hematocrit | 43.0 | 34.0 - 47.0 % | [facility] | | | | | | [facility] | | | | | | MEDICAL | | | | | | CENTER - | | | | | | LABORATORY | | + + + + + + | MCV | 100.2 | 83.0 - 101.0 fL | [facility] | | | | | | [facility] | | | | | | MEDICAL | | | | | | CENTER - | | | | | | LABORATORY | | + + + + + + | MCH | 33.3 | 28.0 - 35.0 pg | [facility] [...] + + + + | RDW-CV | 12.2 | <15.0 % | [facility] | | | | | | [facility] | | | | | | MEDICAL | | | | | | CENTER - | | | | | | LABORATORY | | + + + + + + | RDW-SD | 45.1 | 35.1 - 46.3 fL | [facility] | | | | | | [facility] | | | | | | MEDICAL | | | | | | CENTER - | | | | | | LABORATORY | | + + + + + + | Platelet | 275 | 140 - 440 K/uL | [facility] [...] + + + + | % | 64.2 | 45.0 - 82.0 % | [facility] | | | Neutrophils | | | [facility] | | | | | | MEDICAL | | | | | | CENTER - | | | | | | LABORATORY | | + + + + + + | % | 25.1 | 20.0 - 45.0 % | [facility] [...] + + + + | % | 2.5 | 0.0 - 5.0 % | [facility] | | | Eosinophils | | | [facility] | | | | | | MEDICAL | | | | | | CENTER - | | | | | | LABORATORY | | + + + + + + | % Basophils | 0.9 | 0.0 - 1.0 % | [facility] | | | | | | [facility] | | | | | | MEDICAL | | | | | | CENTER - | | | | | | LABORATORY | | + + + + + + | % Immature | 0.4Comment: For | 0.0 - 0.4 % | [facility] | | | Granulocyte | patients, use the | | [facility] | | | s | special reference ranges | | MEDICAL | | | | listed below. | | CENTER - | | | | | | LABORATORY | | + + + + + + | Absolute | 5.43 | 1.80 - 8.50 | [facility] | | | Neutrophils | | K/uL | [facility] | | | | | | MEDICAL | | | | | | CENTER - | | | | | | LABORATORY | | + + + + + + | Absolute | 2.12 | 0.60 - 3.20 | [facility] | [...] + + + + | Absolute | 0.21 | 0.00 - 0.40 | [facility] | [...] | Basophils | | K/uL | [facility] | | | | | | MEDICAL | | | | | | CENTER - | | | | | | LABORATORY | | + + + + + + | Absolute | 0.03Comment: For | 0.00 - 0.03 | [facility] [...] | [facility] | | | | | WBC's | [facility] | | | | [...] ranges: Trim. Absolute (K/uL) Percentage (%) | [facility] | | 1st 0.003-0.091 K/uL 0.0-0.9% 2nd 0.007-0.247 K/uL | [facility] | | 0.1-2.0% 3rd 0.018-0.456 K/uL 0.1-2.0% | - LABORATORY | + + + + + + + + | Performing | Address | City/State/Zipcode | Phone Number | | Organization | | | | + + + + + | [facility] | [address] | [place] | [phone] | | [facility] | | [address] | | | - LABORATORY | | | | + + + + + Vitamin D, Deficiency Screen (25-Hydroxy) (06/13/2018 10:54 AM PDT) + +-------+ + + + | Component | Value | Ref Range | Performed | Pathologist | | | | | At | Signature | + +-------+ + + + | Vitamin D, | 45 | 30 - 100 ng/mL | [facility] | | | 25 Hydroxy | | | [facility] | | | | | | MEDICAL | | | | | | CENTER - | | | | | | LABORATORY | | + +-------+ + + + + + | Specimen | + + | Blood | + + + + + + + | Performing | Address | City/State/Zipcode | Phone Number | | Organization | | | | + + + + + | [facility] | [address] | [place] | [phone] | | [facility] | | [address] | | | - LABORATORY | | | | + + + + + Zinc (06/13/2018 10:54 AM PDT) + + + + + + | Component | Value | Ref Range | Performed | Pathologist | | | | | At | Signature | + + + + + + | ZINC | 93Comment: This test was | 56 - 134 ug/dL | [facility] | | | | developed and its | | [facility] | | | | performance | | - BKR | | | | characteristicsdetermine | | | | | | d by [employer]. It has not | | | | | | been cleared or | | | | | | approvedby the Food and | | | | | | Drug Administration. | | | | | | | | | | | | | | | | | | Detection Limit = 5 | | | | + + + + + + + + | Specimen | + + | Blood | + + + + + | Narrative | Performed At | + + + | Performed at: 01 - [facility] [address], | [facility] | | [place] [id number] Rn Progressive [facility]: Sg Pineda MD, Phone: | [facility] | | [phone] | | + + + + + + + + | Performing | Address | City/State/Zipcode | Phone Number | | Organization | | | | + + + + + | [facility] | [address] | [place], [place] | [phone] | | [facility] | [place] | [address] | | + + + + + Vitamin B-12 (06/13/2018 10:54 AM PDT) + +-------+ + + + | Component | Value | Ref Range | Performed | Pathologist | | | | | At | Signature | + +-------+ + + + | VITAMIN | 410 | 156 - 672 pg/mL | [facility] | | | B-12 | | | [facility] | | | | | | MEDICAL | | | | | | CENTER - | | | | | | LABORATORY | | + +-------+ + + + + + | Specimen | + + | Blood | + + + + + + + | Performing | Address | City/State/Zipcode | Phone Number | | Organization | | | | + + + + + | [facility] | [address] | [place] | [phone] | | [facility] | | [address] | | | - LABORATORY | | | | + + + + + Folate (06/13/2018 10:54 AM PDT) + +-------+ + + + | Component | Value | Ref Range | Performed | Pathologist | | | | | At | Signature | + +-------+ + + + | FOLATE | 29.5 | >5.4 ng/mL | [facility] | | | | | | [facility] | | | | | | MEDICAL | | | | | | CENTER - | | | | | | LABORATORY | | + +-------+ + + + + + | Specimen | + + | Blood | + + + + + + + | Performing | Address | City/State/Zipcode | Phone Number | | Organization | | | | + + + + + | [facility] | [address] | [place] | [phone] | | [facility] | | [address] | | | - LABORATORY | | | | + + + + + Ferritin (06/13/2018 10:54 AM PDT) + +-------+ + + + | Component | Value | Ref Range | Performed | Pathologist | | | | | At | Signature | + +-------+ + + + | FERRITIN | 44 | 7 - 271 ng/mL | [facility] | | | | | | [facility] | | | | | | MEDICAL | | | | | | CENTER - | | | | | | LABORATORY | | + +-------+ + + + + + | Specimen | + + | Blood | + + + + + + + | Performing | Address | City/State/Zipcode | Phone Number | | Organization | | | | + + + + + | [facility] | [address] | [place] | [phone] | | [facility] | | [address] | | | - LABORATORY | | | | + + + + + documented in this encounter Visit Diagnoses + + | Diagnosis | + + | Crohn's disease of small intestine with complication (HCC) - [facility] | | enteritis of small intestine | + + documented in this encounter"
--- OUTSIDE RECORDS SUMMARY | ~2020-01-09 | XMS | Encounter Summary ---
Demographics + + + | Address | [address] | | | [place] [address] | + + + | Home Phone | | + + + | Preferred Language | Unknown | + + + | Marital Status | | + + + | Church Affiliation | Unknown | + + + [...] Team Providers + +------+ + | Care Blowing Engineer Name | Role | Phone | + +------+ + | Bird Talbot | PCP | | | MD | | | + +------+ + Reason for Visit + +--------+ + | Reason | Onset | Comments | | | Date | | + +--------+ + | Medication | 07/18/ | | | Self-administration | 2018 | | | Assessment | | | + +--------+ + Encounter Details +--------+ + + + + | Date | Type | Department | Care Team | Description | +--------+ + + + + | 07/18/ | Telephone | [facility] | Felix Troy W, | Medication | | 2018 | | [facility] | PharmD [address] | Self-administration | | | | [address] | [place], [place] | Assessment | | | | [place] [address] | [phone] | | | | | [phone] | | | +--------+ + + + [...] Telephone Encounter - Felix Troy PharmD - 07/18/2017 11:59 AM PDTCalled patient to set up appointment for injection education and medication management. Appointment set up for 07/19 @ 0930. Felix Troy PharmD 07/18/2017 12:00 documented in this encounter Plan of Treatment [...]
--- OUTSIDE RECORDS SUMMARY | ~2020-01-09 | XMS | Encounter Summary ---
Demographics + + + | Address | [address] | | | [place] [address] | + + + | Home Phone | | + + + | Preferred Language | Unknown | + + + | Marital Status | | + + + | Methodist Affiliation | Unknown | + + + | Race | White | + + + | Ethnic Group | Not or | + + + Author + + + | Author | [facility] | | | and [place] | + + + | Organization | [facility] | | [...] Team Providers + +------+ + | [employer] Name | Role | Phone | + [...] | | | | cuff, | | [address] | | | | | unspecified | | Phone: | | | | | whether | | [phone] | | | | | traumatic | | Fax: | | | | | Impingement | | [phone] | | | | | syndrome of [...] | | | | | | | DE EXCIS | | | | | | | BENNAYAN TUMR | | | | | | | PROX | | | | | | | HUMER,JOANNA | | | | | | | FT DE | | | | | | | SHOULDER | | | | | | | SCOPE BONE | | | | | | | SHAVING DE | | | | | | | [...] + + + + | 12/27/ | Anesthesia | [facility] | Gavino Kraus | | | 2019 | Event | MED CTR OR [facility] OP | DO [address] | | | | | [address] | [facility] | | | | | [place] [address] [place] | [place] [address] | | | | | [address] | [phone] | | | | | [phone] | | | | | | | Valentín Tavarez P, | | | | | | MD [address] | | | | | | [place] | | | | | | [address] | | | | | | [phone] | | | | | | | | +--------+ + + + + Anesthesia Record + + + + + | Procedure Name | Responsible | Anesthesia Start | Anesthesia Stop Time | | | Anesthesiologist | Time | | + + + + + | Right Shoulder | Gavino Rodriguez | 12/27/18 1002 | 12/27/18 1144 | | Scope, Rotator Cuff | DO Nayana | | | | Repair, Subacromial | | | | | Decompression, Bone | | | | | Grafting of Humeral | | | | | Head Bone Cyst | | | | | (Right Shoulder) | | | | + + + + + +----+---+ + + | Da | T | Event | Comment | | te | i | | | | | m | | | | | e | | | +----+---+ + + | 09 | 0 | An Checkout | Pre-use anesthesia machine/equipment checkout. | | /2 | 9 | | | | 6/ | 4 | | | | 20 | 7 | | | | 19 | | | | +----+---+ + + | | 0 | | | | | 9 | | | | | 4 | | | | | 8 | | | +----+---+ + + | | 0 | Block Start | | | | 9 | | | | | 4 | | | | | 9 | | | +----+---+ + + | | 0 | AN Block | | | | 9 | End | | | | 5 | | | | | 9 | | | +----+---+ + + | | 1 | An Start | Reassessment prior to anesthesia induction/procedure. | | | 0 | | | | | 0 | | | | | 2 | | | +----+---+ + + | | 1 | An Start | | | | 0 | Data | | | | 0 | | | | | 3 | | | +----+---+ + + | | 1 | Preoxygenat | | | | 0 | ed | | | | 0 | | | | | 5 | | | +----+---+ + + | | 1 | An | | | | 0 | Induction | | | | 0 | | | | | 7 | | | +----+---+ + + | | 1 | An | | | | 0 | Intubation | | | | 0 | | | | | 9 | | | +----+---+ + + | | 1 | Anesthesia | | | | 0 | Ready | | | | 1 | | | | | 0 | | | +----+---+ + + | | 1 | Antibiotic | | | | 0 | Given | | | | 1 | | | | | 5 | | | +----+---+ + + | | 1 | [place] | | | | 0 | 43-degrees | | | | 1 | | | | | 9 | | | +----+---+ + + | | 1 | Pre-Procedu | | | | 0 | ral Timeout | | | | 2 | Completed | | | | 0 | | | +----+---+ + + | | 1 | First | | | | 0 | Inc/Proc St | | | | 2 | | | | | 5 | | | +----+---+ + + | | 1 | [place] off | | | | 1 | | | | | 3 | | | | | 5 | | | +----+---+ + + | | 1 | Oropharynx | | | | 1 | Suctioned | | | | 3 | | | | | 6 | | | +----+---+ + + | | 1 | Extubation/ | | | | 1 | Airway LDA | | | | 3 | Removal | | | | 8 | | | +----+---+ + + | | 1 | an stop | | | | 1 | data | | | | 3 | | | | | 9 | | | +----+---+ + + | | 1 | An Stop | Patient handed off to recovery nurse. | | | 4 | | | | | 4 | | | +----+---+ + + +------+ | Meds | +------+ + + + | Name | Total | + + + | fentaNYL | 150 mcg | + + + | lidocaine 2% | 80 mg | + + + | lidocaine 2% | 5 mL | + + + | propofol | 240 mg | + + + | Phenylephrine 100mcg/mL SYRINGE | 300 mcg | + + + | ondansetron | 4 mg | + + + | dexamethasone (PF) injection 10 | 10 mg | | mg/mL | | + + + | ropivacaine 0.5% | 15 mL | + + + | ceFAZolin (ANCEF, KEFZOL) 100 | 2 g | | mg/mL IV syringe 2 g | | + + + | glycopyrrolate (ROBINUL) | 0.2 mg | | injection (5 mL vial) | | + + + | lactated ringers (LR) infusion | 1,700 mL | + + + + + | Name | + + | N2O Flow Rate (L/Min) | + + | O2 Flow Rate (L/Min) | + + | Insp O2 | + + | Exp SEV | + + | Air Flow Rate (L/Min) | + + + + | No blood administrations on file. | + + +--------+ + + + | Type | Details | Placement | Removal | +--------+ + + + | Periph | 12/27/18; 0830; Left; Hand; | 12/27/18 0830 by | 12/27/18 1356 by | | eral | [id number] catheter system; | Elena Zhang RN | Ania Milan, | | IV | 20 gauge, 1 1/4 in length; | | RN | | | distraction, intradermal | | | | | injection, tolerated well; no | | | | | longer indicated, removed per | | | | | policy/procedure, catheter/device | | | | | intact; 12/27/18; 1356 | | | +--------+ + + + | Airway | Placement Date: 12/27/18; | 12/27/18 100 by | 12/27/18 1138 by | | | Placement Time: 1009 (created via | Gavino Michael | Gavino Michael | | | procedure documentation); | DO Nayana | DO Nayana | | | Attempts: 1; Airway Type: | | | | | laryngeal mask; Size: 4; Trauma: | | | | | none; Placement Check: exhaled | | | | | CO2 detection device, bilateral | | | | | chest rise, breath sounds equal | | | | | bilaterally; Removal Date: | | | | | 12/27/18; Removal Time: 1138 | | | +--------+ + + + | Wound | 12/27/18; 1033; Incision; Right; | 12/27/18 1033 by | 12/27/18 1356 by | | | shoulder; Healing; 12/27/18; 1356 | Jessica Darling RN | Ania Milan, | | | | | RN | +--------+ + + + documented in this encounter Social History + +-------+ +--------+------+ | Tobacco [...] + + documented as of this encounter OR Notes Anesthesia Postprocedure Evaluation - Gavino Kraus DO - 12/27/2018 12:54 PM PDTFo rmatting of this note might be different from the original. ANESTHESIA POSTANESTHESIA EVALUATION Nyla Nye 38 y.o. female 1980 [id number] Procedure(s) Right Shoulder Scope, Rotator Cuff Repair, Subacromial Decompression, Bone Gr afting of Humeral Head Bone Cyst (Right Shoulder) Cooperates? Yes Mental Status Performs simple tasks. Respiratory Satisfactory - Airway patent (self maintained). Cardiovascular Satisfactory - Blood pressure and heart rate acceptable Temperature Satisfactory Pain Satisfactory N/V Control Satisfactory Hydration Satisfactory - No signs of dehydration Vitals Value Taken Time Temp 36.4 C (97.5 F) 12/27/2018 11:42 Pulse 92 12/27/2018 12:54 Resp 14 12/27/2018 12:37 BP 121/76 12/27/2018 12:47 Arterial Line BP Arterial Line BP 2 SpO2 96 % 12/27/2018 12:54 Vitals shown include unvalidated device data. Electronically signed by Gavino Kraus DO 12/27/2018 12:54 [facility] G[facility]us DO a t 12/27/2018 12:54 PM PDTAnesthesia Procedure Notes - Gavino Kraus DO - 12/27/2018 10:22 AM PDTAssociated Order(s): Nerve BlockPerineural Procedure Note 12/27/2018 10:00 Nerve block: interscalene-brachial plexus Laterality: right Provider requested procedure: [place] Indication: postoperative analgesia Preprocedure check: patient identified, procedure and rescue equipment checked, preevaluati on including airway assessment complete, risks/benefits discussed, consent obtained, timeout performed, reassessment prior to procedure and monitors applied Patient position: sitting Preparation: chlorhexidine/isopropyl alcohol Technique: ultrasound Radiology image stored in patient's chart: ultrasound Needle: echogenic Needle size: 21 g Needle length: 4 in Medication administered through: needle Negative findings: no blood aspirated and no paresthesia Total volume of local anesthetic solution administered: 20 mL Attempts: 1 Ease of procedure: easy Comments: Under ultrasound guidance, a 4 inch 21 gauge needle was inserted and placed in cl ose proximity to the brachial plexus nerve bundle. Ultrasound was also used to visualize th e spread of the anesthetic in close proximity to the nerve being blocked. The nerve appeared anatomically normal, and there were no apparent abnormal pathological findings. The patient tolerated the procedure well and a permanent ultrasound image was saved in the patient's re cord. Please see anesthesia record or flowsheet for vital sign documentation and see anesthesia r ecord or MAR for additional medication documentation. Performing provider: Gavino Kraus DO nesthesia Proc edure Notes - Gavino Kraus DO - 12/27/2018 10:22 AM PDTAssociated Order(s): Airway Anesthesia Airway Placement 12/27/2018 10:09 Preprocedure check: patient identified, suction, airway equipment checked, oxygen, airway a ssessed and patient reassessment prior to induction Attempts: 1 Airway type: laryngeal mask Size: 4 Trauma: none Tube placement verification: bilateral chest rise, equal bilateral breath sounds and carbon dioxide detection Performing provider: Gavino Kraus DO Please see intraoperative grid for any additional medication documentation. nesthesia Prep rocedure Evaluation - Gavino Kraus DO - 12/26/2018 8:39 PM PDT ANESTHESIA PREANESTHESIA EVALUATION Nyla Nye 38 y.o. female 1980 [id number] Procedure(s): Right Shoulder Scope, Rotator Cuff Repair, Subacromial Decompression, Bone Gr afting of Humeral Head Bone Cyst (Right Shoulder) Medical,anesthesia, drug, allergy histories reviewed, NPO status verified. ECG reviewed. Labs reviewed. . Review of Systems / Med History Anesthesia History (-) PONV, difficult intubation, malignant hyperthermia . Cardiovascular Last EKG: No results found for this or any previous visit. . (-) hypertension, (-) congestive heart failure. (-) coronary artery disease. . Pulmonary (-) shortness of breath, recent URI, Chronic Obstructive Pulmonary Disease. (-) sleep apnea . (+) asthma. Gastrointestinal/Hepatic (-) hypercholesterolemia. (+) acid reflux. (+) inflammatory rayna l disease and Crohn's disease. Renal (-) chronic renal insufficiency. Endocrine (-) Diabetes. Hematology/Other (-) anemia. Neuromuscular (-) neuromuscular disease. Physical Exam Airway MP II, TM >3 FB, Mouth opening >2 FB. Neck: full ROM, extends >30 degrees. Jaw protrus ion normal. CV cardiovascular normal Rhythm regular. Rate normal. Pulm Clear to auscultation bilaterally. Neuro Grossly normal. Anesthesia Plan ASA 2 Type: General, PNB. Induction: Intravenous. Potential problems: None anticipated. Monitors: Standard ASA monitors. Peripheral Nerve Block Consent statement:Anesthetic plan, alternatives, risks and benefits discussed with patient. discussed risks to teeth, drug reaction, heart problems, muscle aches, nausea, pain, periop erative CV events, respiratory events, sore throat, stroke, deliriumfailed or inadequate blo ck, bleeding, nerve damage, intravascular injection. Consenting person understands and agrees to proceed . PARQ. Interscalene single-shot peripheral nerve block requested by patient and surgeon for posto perative pain control. Full PARQ held. All questions answered. . Electronically Signed by: Gavino Kraus DO ESig date/time: 12/26/2018 20:39 documented in t his encounter Miscellaneous Notes Anesthesia Post-op Handoff - Gavino Kraus DO - 12/27/2018 11:43 AM PDT ANESTHESIA HANDOFF NOTE Nyla Burris Parris 38 y.o. female 1980 [id number] Right Shoulder Scope, Rotator Cuff Repair, Subacromial Decompression, Bone Grafting of [place] r[place] Head Bone Cyst (Right Shoulder) HANDOFF NOTE Handoff Protocol Used: post-procedure handoff checklist completed The following were completed during the transfer of care: 1. Identification of patient 2. Identification of responsible practitioner (primary service) 3. Discussion of pertinent medical history 4. Discussion of the surgical/procedure course (procedure, reason for surgery, procedure pe rformed) 5. Intraoperative anesthetic management and issues/concerns 6. Expectations/plans for the early post-procedure period 7. Opportunity for questions and acknowledgement of understanding of report from receiving team Patient Location: Phase I Condition: sedated Airway/O2: other (see comments) Multimodal analgesia: multimodal analgesia used between 6 hours prior to anesthesia start t o PACU discharge Comments: Supplemental Oxygen used as necessary to maintain Oxygen Saturation at or above 9 2% The significant anesthesia concerns and VS in Epic were reviewed with the receiving team. Gavino Kraus DO 12/27/2018 11:43 [facility] kourtney Haq 12/27/2018 11:43 AM PDTdocumented in this encounter Plan of [...] | + +--------+ + + + | ANE NERVE BLOCK | Routin | 12/27/2018 | | Results for this | | CATHETER NOTE | e | 10:22 AM | | procedure are in the | | | | PDT | | results section. | + +--------+ + + + | ANE AIRWAY NOTE | Routin | 12/27/2018 | | Results for this | | | e | 10:22 AM | | procedure are in the | | | | PDT | | results section. | + +--------+ + + + documented in this encounter Results Nerve Block (12/27/2018 10:22 AM PDT) + + + | Narrative | Performed At | + + + | Gavino Kraus DO 12/27/2018 10:24 Perineural Procedure | | | Note 12/27/2018 10:00 Nerve block: interscalene-brachial plexus | | | Laterality: right Provider requested procedure: [place] Indication: | | | postoperative analgesia Preprocedure check: patient identified, | | | procedure and rescue equipment checked, preevaluation including | | | airway assessment complete, risks/benefits discussed, consent | | | obtained, timeout performed, reassessment prior to procedure and | | | monitors applied Patient position: sitting Preparation: | | | chlorhexidine/isopropyl alcohol Technique: ultrasound Radiology | | | image stored in patient's chart: ultrasound Needle: echogenic Needle | | | size: 21 g Needle length: 4 in Medication administered through: | | | needle Negative findings: no blood aspirated and no paresthesia | | | Total volume of local anesthetic solution administered: 20 mL | | | Attempts: 1 Ease of procedure: easy Comments: Under ultrasound | | | guidance, a 4 inch 21 gauge needle was inserted and placed in close | | | proximity to the brachial plexus nerve bundle. Ultrasound was also | | | used to visualize the spread of the anesthetic in close proximity | | | to the nerve being blocked. The nerve appeared anatomically normal, | | | and there were no apparent abnormal pathological findings. The | | | patient tolerated the procedure well and a permanent ultrasound | | | image was saved in the patient's record. Please see | | | anesthesia record or flowsheet for vital sign documentation and see | | | anesthesia record or MAR for additional medication documentation. | | | Performing provider: Gavino Kraus DO | | + + + + + | Procedure Note | + + | Gavino Kraus DO - 12/27/2018 10:22 AM PDT Perineural Procedure | | Note12/27/2018 10:00Nerve block: interscalene-brachial plexusLaterality: rightProvider | | requested procedure: WilwandIndication: postoperative analgesiaPreprocedure check: | | patient identified, procedure and rescue equipment checked, preevaluation including | | airway assessment complete, risks/benefits discussed, consent obtained, timeout | | performed, reassessment prior to procedure and monitors appliedPatient position: | | sittingPreparation: chlorhexidine/isopropyl alcoholTechnique: ultrasoundRadiology image | | stored in patient's chart: ultrasoundNeedle: echogenicNeedle size: 21 gNeedle length: 4 | | inMedication administered through: needleNegative findings: no blood aspirated and no | | paresthesiaTotal volume of local anesthetic solution administered: 20 mLAttempts: 1Ease | | of procedure: easyComments: Under ultrasound guidance, a 4 inch 21 gauge needle was | | inserted and placed in close proximity to the brachial plexus nerve bundle. Ultrasound | | was also used to visualize the spread of the anesthetic in close proximity to the nerve | | being blocked. The nerve appeared anatomically normal, and there were no apparent | | abnormal pathological findings. The patient tolerated the procedure well and a permanent | | ultrasound image was saved in the patient's record. Please see anesthesia record or | | flowsheet for vital sign documentation and see anesthesia record or MAR for additional | | medication documentation.Performing provider: Gavino Kraus DO | |Attempts: 1 | |Ease of procedure: easy | | | |Comments: Under ultrasound guidance, a 4 inch 21 gauge needle was inserted and placed in cl ose proximity to the brachial plexus nerve bundle. Ultrasound was also used to visualize th e spread of the anesthetic in | |close proximity to the nerve being blocked. The nerve appeared anatomically normal, and the re were no apparent abnormal pathological findings. The patient tolerated the procedure well and a permanent ultrasound image was saved in the patient's record. | | | | | | | | | | | |Please see anesthesia record or flowsheet for vital sign documentation and see anesthesia r ecord or MAR for additional medication documentation. | | | | | |Performing provider: Gavino Kraus DO | + + Airway (12/27/2018 10:22 AM PDT) + + + | Narrative | Performed At | + + + | Gavino Kraus DO 12/27/2018 10:22 Anesthesia Airway | | | Placement 12/27/2018 10:09 Preprocedure check: patient identified, | | | suction, airway equipment checked, oxygen, airway assessed and | | | patient reassessment prior to induction Attempts: 1 Airway type: | | | laryngeal mask Size: 4 Trauma: none Tube placement verification: | | | bilateral chest rise, equal bilateral breath sounds and carbon | | | dioxide detection Performing provider: aGvino Kraus DO | | | Please see intraoperative grid for any additional medication | | | documentation. | | + + + + + | Procedure Note | + + | Gavino Kraus DO - 12/27/2018 10:22 AM PDT Anesthesia Airway | | Placement12/27/2018 10:09Preprocedure check: patient identified, suction, airway | | equipment checked, oxygen, airway assessed and patient reassessment prior to | | inductionAttempts: 1Airway type: laryngeal maskSize: 4Trauma: noneTube placement | | verification: bilateral chest rise, equal bilateral breath sounds and carbon dioxide | | detectionPerforming provider: Yovani Haq see intraoperative grid for | | any additional medication documentation. | |Trauma: none | |Tube placement verification: bilateral chest rise, equal bilateral breath sounds and carbon dioxide detection | |Performing provider: Gavino Kraus DO | | | | | | | |Please see intraoperative grid for any additional medication documentation. | + + documented in this encounter Visit Diagnoses Not on filedocumented in this encounter Administered Medications + +--------+ +------+------+------+ | Medication Order | MAR | Action | Dose | Rate | Site | | | Action | Date | | | | + +--------+ +------+------+------+ | ceFAZolin (ANCEF, KEFZOL) 100 | Given | 12/28/19 | 2 g | | | | mg/mL IV syringe 2 g 2 g, | | 19 10:15 | | | | | Intravenous, Administer over 30 | | AM PDT | | | | | Minutes, Prior to Incision, | | | | | | | Starting Shaylee 12/27/18 at 1012, For | | | | | | | 1 dose, Pre-op, Indications: | | | | | | | Surgical Prophylaxis | | | | | | + +--------+ +------+------+------+ +---+---+ | | | +---+---+ + +-------+ +-------+---+---+ | dexamethasone (PF) 10 mg/mL | Given | 12/28/19 | 10 mg | | | | injection Intravenous, PRN, | | 19 10:15 | | | | | Starting Shaylee 12/27/18 at 1015, | | AM PDT | | | | | Anesthesia Intra-op | | | | | | + +-------+ +-------+---+---+ +---+---+ | | | +---+---+ + +-------+ +--------+---+---+ | fentaNYL (PF) injection | Given | 12/28/19 | 50 mcg | | | | Intravenous, PRN, Starting Shaylee | | 19 11:26 | | | | | 12/27/18 at 0952, Anesthesia | | AM PDT | | | | | Intra-op | | | | | | + +-------+ +--------+---+---+ +-------+ +--------+---+---+ | Given | 12/28/19 | 25 mcg | | | | | 19 10:51 | | | | | | AM PDT | | | | +-------+ +--------+---+---+ | Given | 12/28/19 | 25 mcg | | | | | 19 10:28 | | | | | | AM PDT | | | | +-------+ +--------+---+---+ +---+---+ | | | +---+---+ + +-------+ +--------+---+---+ | glycopyrrolate (FUAD) | Given | 12/28/19 | 0.1 mg | | | | injection Intravenous, PRN, | | 19 10:21 | | | | | Starting [facility] 12/27/18 at 1021, | | AM PDT | | | | | Anesthesia Intra-op | | | | | | + +-------+ +--------+---+---+ +-------+ +--------+---+---+ | Given | 12/28/19 | 0.1 mg | | | | | 19 10:18 | | | | | | AM PDT | | | | +-------+ +--------+---+---+ +---+---+ | | | +---+---+ + +-------+ +-------+---+---+ | lidocaine (PF) 2% injection | Given | 12/28/19 | 5 mLs | | | | PRN, Starting Shaylee 12/27/18 at | | 19 9:58 | | | | | 0958, Anesthesia Intra-op | | AM PDT | | | | + +-------+ +-------+---+---+ +---+---+ | | | +---+---+ + +-------+ +-------+---+---+ | lidocaine (PF) 2% injection | Given | 12/28/19 | 80 mg | | | | Intravenous, PRN, Starting Mon | | 19 10:07 | | | | | 12/27/18 at 1007, Anesthesia | | AM PDT | | | | | Intra-op | | | | | | + +-------+ +-------+---+---+ +---+---+ | | | +---+---+ + +-------+ +------+---+---+ | ondansetron (ZOFRAN) injection | Given | 12/28/19 | 4 mg | | | | Intravenous, PRN, Starting Shaylee | | 19 10:15 | | | | | 12/27/18 at 1015, Anesthesia | | AM PDT | | | | | Intra-op | | | | | | + +-------+ +------+---+---+ +---+---+ | | | +---+---+ + +-------+ +---------+---+---+ | phenylephrine (WILLARD-SYNEPHRINE) | Given | 12/28/19 | 100 mcg | | | | 100 mcg/mL injection | | 19 10:52 | | | | | Intravenous, PRN, Starting Shaylee | | AM PDT | | | | | 12/27/18 at 1034, Anesthesia | | | | | | | Intra-op | | | | | | + +-------+ +---------+---+---+ +-------+ +---------+---+---+ | Given | 12/28/19 | 100 mcg | | | | | 19 10:43 | | | | | | AM PDT | | | | +-------+ +---------+---+---+ | Given | 12/28/19 | 100 mcg | | | | | 19 10:34 | | | | | | AM PDT | | | | +-------+ +---------+---+---+ +---+---+ | | | +---+---+ + +-------+ +-------+---+---+ | propofol (DIPRIVAN) injection | Given | 12/28/19 | 40 mg | | | | Intravenous, PRN, Starting Shaylee | | 19 11:25 | | | | | 12/27/18 at 1007, Anesthesia | | AM PDT | | | | | Intra-op | | | | | | + +-------+ +-------+---+---+ +-------+ +--------+---+---+ | Given | 12/28/19 | 200 mg | | | | | 19 10:07 | | | | | | AM PDT | | | | +-------+ +--------+---+---+ +---+---+ | | | +---+---+ + +-------+ +--------+---+---+ | ropivacaine (NAROPIN) 5 mg/mL | Given | 12/28/19 | 15 mLs | | | | (0.5%) injection PERINEURAL, | | 19 9:58 | | | | | PRN, Starting Shaylee 12/27/18 at | | AM PDT | | | | | 0958, Anesthesia Intra-op | | | | | | + +-------+ +--------+---+---+ +---+---+ | | | +---+---+ documented in this encounter"
--- OUTSIDE RECORDS SUMMARY | ~2020-01-09 | XMS | Encounter Summary ---
Demographics + + + | Address | [address] | | | [place] [address] | + + + | Home Phone [...] Team Providers + +------+ + | Care Scuba Dive Training Instructor Name | Role | Phone | + [...] W Anamaria | | | | | ([facility]) | [address] | [place], | | | | | Felix Mohl, | [place] | [place] [address] | | | | | Entyvio | [facility], [place] | Phone: | | | | | 300mg. Q 8 | [address] | [phone] | | | | | wks., | Phone: | Fax: | | | | | Crohn's | [phone] | [phone] | | | | | Procedures | Fax: | | | | | | [place] | [phone] | | | | | | INJECTION, | | | | | | | VEDOLIZUMAB, | | | | | | | 1MG [place] IV | | | | | | [...] | +--------+ + + + + | 09/06/ | Hospital | [facility] | [facility], | Crohn's disease with | | 2019 | Encounter | MED CTR OP INFUSION | MICAELA Romero [address] | complication, | | | | [address] | [address] | unspecified | | | | [place], [place] | [place], [place] | gastrointestinal | | | | [address] | [address] | tract location (HCC) | | | | [phone] | | (Primary Dx) | +--------+ + [...] + + + | Blood Pressure | 106/67 | 09/06/2018 2:48 PM | | | | | PDT | | + + + + + | Pulse | 60 | 09/06/2018 2:48 PM | | | | | PDT | | + + + + + | Temperature | 36.4 C (97.5 F) | 09/06/2018 1:22 PM | | | | | PDT | | + + + + + | Respiratory Rate | 18 | 09/06/2018 2:48 PM | | | | | PDT | | + + + + + | Oxygen Saturation | 100% | 09/06/2018 2:48 PM | | | | | PDT [...] encounter Progress Notes Luz Andrade RN - 09/06/2018 2:49 PM PDT Vitals: 09/06/18 1322 09/06/18 1448 BP: 106/64 106/67 Pulse: 62 60 Resp: (!) 97 18 Temp: 36.4 C (97.5 F) TempSrc: Oral SpO2: 97% 100% Administrations This Visit acetaminophen (TYLENOL) tablet 650 mg Admin Date 09/06/2018 Action Given Dose 650 mg Route Oral Administered By Reny Eduardo RN loratadine (CLARITIN) tablet 10 mg Admin Date 09/06/2018 Action Given Dose 10 mg Route Oral Administered By Reny Eduardo RN vedolizumab (ENTYVIO) 300 mg in sodium chloride 0.9% 250 mL IVPB Admin Date 09/06/2018 Action New Bag Dose 300 mg Rate 510 mL/hr Route Intravenous Administered By Luz Andrade RN Monitored throughout treatment; treatment completed without untoward effects from medicatio n noted. Next visit has been scheduled for 8 weeks. Verbalizes understanding of plan of care . VS stable. Discharged ambulatory to home in stable condition. Electronically signed by: Luz Andrade RN 09/06/2018 14:49 Reny Villatoro RN - 0 09/06/2018 1:23 PM PDT Vitals: 09/06/18 1322 BP: 106/64 Pulse: 62 Resp: (!) 97 Temp: 36.4 C (97.5 F) Nyla Nye received into room 441, independent ambulation accompanied by her sons . States here for Entyvio infusion. Reports no change in condition, plan of care since last MD visit. Alert, oriented x 4, cooperative. Electronically signed by: Reny Eduardo RN 09/06/2018 13:23 documented in this enc ounter Plan of [...] | acetaminophen (TYLENOL) tablet | Given | 09/07/19 | 650 mg | | | | 650 mg 650 mg, Oral, ONCE, Shaylee | | 19 1:33 | | | | | 09/06/18 at 1335, For 1 dose | | PM PDT | | | | + +--------+ +--------+------+------+ +---+---+ | | | +---+---+ + +-------+ +-------+---+---+ | loratadine (CLARITIN) tablet 10 | Given | 09/07/19 | 10 mg | | | | mg 10 mg, Oral, ONCE, Shaylee | | 19 1:33 | | | | | 09/06/18 at 1335, For 1 dose | | PM PDT | | | | + +-------+ +-------+---+---+ +---+---+ | | | +---+---+ + +---------+ +--------+-------+---+ | vedolizumab (ENTYVIO) 300 mg in | New Bag | 09/07/19 | 300 mg | 510 | | | sodium chloride 0.9% 250 mL IVPB | | 19 2:06 | | mL/hr | | | 300 mg, Intravenous, Administer | | PM PDT | | | | | over 30 Minutes, ONCE, Shaylee | | | | | | | 09/06/18 at 1335, For 1 dose, EVERY | | | | | | | 8 WEEKS MAINTENANCE. Flush with | | | | | | | 30 mL NS after giving. Keep in | | | | | | | refrigerator., | | | | | | + +---------+ +--------+-------+---+ +---+---+ | | | +---+---+ documented in this encounter"
--- OUTSIDE RECORDS SUMMARY | ~2020-01-09 | XMS | Encounter Summary ---
Demographics + + + | Address | [address] | | | [place] [address] | + + + | Home Phone [...] Team Providers + +------+ + | Care Direct Chill Casting Operator Name | Role | Phone | + +------+ + | Bird Talbot | PCP | | | MD | | | + +------+ + Reason for Visit + +--------+ + | Reason | Onset | Comments | | | Date | | + +--------+ + | Medication Refill | 04/19/ | | | Assistance | 2018 | | + +--------+ + Encounter Details +--------+ + + + + | Date | Type | Department | Care Team | Description | +--------+ + + + + | 04/19/ | Telephone | [facility] | [facility] | Medication Refill | | 2018 | | GASTROENTEROLOGY | MICAELA Romero [address] | Assistance | | | | [address] | [address] | | | | | [address] [place], [place] | [place], [place] | | | | | [address] | [id number] | | | | | [phone] | | | +--------+ + + + [...] Telephone Encounter - Kary Fowler CMA - 04/24/2017 10:04 AM PSTLeft message for kaushal tyler that Marline would like her to have the Delzicol due to it being a better choice for her c ondition. I also called Miriam Garcia in [place] and asked that they send another prior authori zation form to fill out. Magdiel the pharmacist assistant speech language pathologist said he will fax this over.Lindsey rivas signed by Kary Fowler CMA at 04/24/2017 10:08 AM PSTTelephone Encounter - Cathryn Cyr RN - 04/19/2017 2:39 PM Mahendra, please see patient email that mesalamine pres cribed requires a PA as not on formulary but Lialda 1.2g is on formulary, do you want to swi tch or do PA for original prescription?Electronically signed by Cathryn Rodriguez RN at 2017 2:41 PM PSTdocumented in this encounter Plan of [...]
--- OUTSIDE RECORDS SUMMARY | ~2020-01-09 | XMS | Encounter Summary ---
Demographics + + + | Address | [address] | | | [place] [address] | + + + | Home Phone | | + + + | Preferred Language | Unknown | + + + | Marital Status | | + + + | Zoroastrianism Affiliation | Unknown | + + + | Race | White | + + + | Ethnic Group | Not or | + + + Author + + + | Author | [facility] | | | and [place] | + + + | Organization | [facility] | | [...] Team Providers + +------+ + | Care Airborne Missions Systems Name | Role | Phone | + +------+ + | Bird Talbot | PCP | | | MD | | | + +------+ + Reason for Visit +---------+--------+ + | Reason | Onset | Comments | | | Date | | +---------+--------+ + | Results | 09/02/ | CT | | | 2020 | | +---------+--------+ + Encounter Details +--------+ + + + + | Date | Type | Department | Care Team | Description | +--------+ + + + + | 09/02/ | Telephone | [facility] | [facility] | Results (CT) | | 2019 | | GASTROENTEROLOGY | MICAELA Romero [address] | | | | | [address] | [address] [facility] [address] | | | | | [address] [place], [place] | [place], [place] | | | | | [address] | [phone] | | | | | [phone] | | | +--------+ + + + [...] Telephone Encounter - Kary Fowler CMA - 09/03/2019 1:45 PM PDTNotified patient ifeoma t CT shows narrowing of colon. No changes. No other findings. Also Marline will refer patient t o colorectal surgeon to talk about possible resection. Patient said she will think about thi s and get back to Marline. Told her Marline is leaving the area and will be done at our clinic nex t week. Patient verbalized understanding. documented in this encounter Plan of Treatment [...]
--- OUTSIDE RECORDS SUMMARY | ~2020-01-09 | XMS | Encounter Summary ---
Demographics + + + | Address | [address] | | | [place] [address] | + + + | Home Phone | | + + + | Preferred Language | Unknown | + + + | Marital Status | | + + + | Christianity Affiliation | Unknown | + + + | Race | White | + + + | Ethnic Group | Not or | + + + Author + + + | Author | [facility] | | | and [place] | + + + | Organization | [facility] | | | [...] Team Providers + +------+ + | Care Painter Supervisor Name | Role | Phone | + +------+ + | Bird Talbot | PCP | | | MD | | | + +------+ + Reason for Visit + +--------+ + | Reason | Onset | Comments | | | Date | | + +--------+ + | Medication Follow-up | 08/03/ | | | | 2018 | | + +--------+ + Encounter Details +--------+ + + + + | Date | Type | Department | Care Team | Description | +--------+ + + + + | 08/03/ | Telephone | [facility] | Felix Troy, | Medication Follow-up | | 2018 | | MED CTR OP INFUSION | PharmD [address] | | | | | [address] | [place], [place] | | | | | [place], [place] | [address] | | | | | [address] | | | | | | [phone] | | | +--------+ + + + [...] Telephone Encounter - Felix Troy PharmD - 08/03/2017 11:36 AM PDTFormatting of this no te might be different from the original. [facility]AC[facility]Y CLINIC Inflammatory Bowel Disease Follow Up Provider: Felix Troy PharmD Encounter Date: 08/03/2017 Patient: Nyla Nye : 1980 CSN: [id number] ASSESSMENT 2week follow up Nyla Nye is a 37 y.o. female who has been referred to the [facility] by MICAELA Snider for DMT management. Nyla [...] [x] Number of bowel movements a day: 3-5 Nyla reports little to no abdominal pain, stools are semi-formed but can be liquid still a t times, and feels better overall Signs and Symptoms of Infection/TB Recent onset [...] B screenin06/20/17 Last TB screenin06/20/17 Nyla says she is feeling better. Has kept a reserved diet but did expand out one day and ate a jalapeno. She thought she would regret it but surprisingly she had little to no GI sym ptoms from it. She is going to take her next dose of 2 pens today and continue to expand di et so she is no longer eating only carbs. We discussed her budesonide and lialda as well. She is going to start tapering her budesonide by 1 tablet every 2 weeks to coincide with her humira dose. Once the steroid is off then we will remove the lialda. Is she has any issues with the taper is to call me as soon as possible and stop the taper until we have discussed the situation. PLAN 1. Compliance was discussed and Nyla [...] and CMP) will be due in September. Would like [facility] s [facility]. 6. Nyla is on a biologic and [...] outl ined above. Felix Troy, PharmD DATE/TIME: 08/03/2017 11:36 elephone Felix Victor PharmD - 08/03/2017 9:35 AM PDTTried to call Nyla to get 2 week follow -up after starting her Humira. She should be due for her second dose of two pens today. No answer left message. Need to also discuss steroid taper. Felix Troy PharmD 08/03/2017 9:38 documented in this encounter Plan of Treatment [...]
--- OUTSIDE RECORDS SUMMARY | ~2020-01-09 | XMS | Encounter Summary ---
Demographics + + + | Address | [address] | | | [place] [address] | + + + | Home Phone | | + + + | Preferred Language | Unknown | + + + | Marital Status | | + + + | Church Affiliation | Unknown | + + + | Race | White | + + + | Ethnic Group | Not or | + + + Author + + + | Author | [facility] | | | and [place] | + + + | Organization | [facility] | | | [...] Team Providers + +------+ + | Care Parking Patroller Name | Role | Phone | + +------+ + | Bird Talbot | PCP | | | MD | | | + +------+ + Encounter Details +--------+ + + + + | Date | Type | Department | Care Team | Description | +--------+ + + + + | 04/18/ | Orders Only | [facility] | Mohl, Felix W, | Crohn's disease with | | 2019 | | MED CTR | PharmD [address] | complication, | | | | PHARMACOTHERAPY | [place], [place] | unspecified | | | | CLINIC [address] | [address] | gastrointestinal | | | | ST [place], [place] | | tract location (HCC) | | | | [address] | | (Primary Dx) | | | | [phone] | | | +--------+ + + + [...]
--- OUTSIDE RECORDS SUMMARY | ~2020-01-09 | XMS | Encounter Summary ---
Demographics + + + | Address | [address] | | | [place] [address] | + + + | Home Phone [...] Team Providers + +------+ + | Care Sand Car Worker Name | Role | Phone | + +------+ + | Bird Talbot | PCP | | | MD | | | + +------+ + Reason for Visit + +--------+ + | Reason | Onset | Comments | | | Date | | + +--------+ + | Medication Prior | 11/21/ | Jonatan | | Authorization | 2017 | | + +--------+ + Encounter Details +--------+ + + + + | Date | Type | Department | Care Team | Description | +--------+ + + + + | 11/21/ | Telephone | [facility] | Felix Troy, | Medication Prior | | 2018 | | MED CTR OP INFUSION | PharmD [address] | Authorization | | | | [address] | [place], [place] | (Jonatan ) | | | | [place], [place] | [id number] | | | | | [address] | | | | | | [phone] | | | +--------+ + + + [...] Encounter - Kary Fowler CMA - 11/29/2017 3:41 PM PDTSpoke to patient abo ut contacting [facility] for her medication. She has been in contact with them and they have her in formation and also have the authorization. elephone Encounter - Jan, Od[place] Joel - 11/29/2017 3:28 PM PDTHumira has been approved. [facility] pharmacy notified of approval. Please see referral on details. Sent a pproval letter to HIM to be scanned along with form. Patient will have to call [facility] to set up shipment. elephone Encount er - Jan Odessa Joel - 11/21/2017 9:40 AM PDTReceived prior authorization request for Jonatan. Referral was created by Felix Troy, please see referral#[id number] on status details. Pending processing. documented in t his encounter Plan of [...]
--- OUTSIDE RECORDS SUMMARY | 2020-01-09 12:58 | XMS ---
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 Justina has no Care Guidelines for this patient. Mayra VISIT COUNT (12 MO.) 1 ARLETTE Pathak TOTAL 1 NOTE: Visits indicate total known visits. ED/C VISIT TRACKING (12 MO.) 01/09/2020 12:57 ARLETTE Mackenzie [place] TYPE: Emergency COMPLAINT: - HEAD INJURY INPATIENT VISIT TRACKING (12 MO.) No inpatient visits to display in this time frame [email or web address]
[2020-01-09] MEDS ORDERED: OLOPATADINE HC2.5 ML OP (13:28)
[2020-01-09] MEDS ORDERED: ESCITALOPRAM OX20 MG PO (13:28)
[2020-01-09] MEDS ORDERED: ENTYVIO300 MG IV (13:30)
== END 2020-01-09 14:25 | disposition home or self-care (01) ==
LOC: ED 12:56
DX: S06.0X0A Concussion without loss of consciousness, initial encounter (principal); S00.83XA Contusion of other part of head, initial encounter; W22.8XXA Striking against or struck by other objects, initial encounter; Y99.0 Civilian activity done for income or pay; J45.909 Unspecified asthma, uncomplicated; Z88.8 Allergy status to other drugs, medicaments and biological substances; Z88.2 Allergy status to sulfonamides; Z88.1 Allergy status to other antibiotic agents; Z79.899 Other long term (current) drug therapy
CPT/HCPCS: 99283

== ENCOUNTER 2020-02-24 07:00 | Day surgery (SDC) | payer OTHER ==
[~2020-02-24] VITALS: Ht 162.6 cm; Wt 72.7 kg
[~2020-02-24 07:00] MED LIST changes: +ENTYVIO300 MG IV; +ESCITALOPRAM OX20 MG PO; +OLOPATADINE HC2.5 ML OP
--- NOTE | 2020-02-24 10:10 | NUR ---
02/24/20 1010 Monalisa Clark 1005- PT TO PACU IN SF POSITION. EYES CLOSED DOES NOT RESPOND TO VERBAL STIMULI. BREATHING EASY AND UNLABORED. SPO2 >95% ON 6 L O2 VIA SIMPLE MASK. STENT STRINGS IN PLACE, TAPED TO ABDOMEN.
--- NOTE | 2020-02-24 10:38 | NUR ---
PT IS BACK TO FROM PACU. SHE IS SLIGHTLY DROWSY. IS AT THE BEDSIDE TABLE. WATER ON BEDSIDE TABLE. CALL LIGHT WITHIN REACH. NO ADDITIONAL NEEDS AT THIS TIME.
[2020-02-24] MEDS ORDERED: PERCOCET 5-3251 EACH PO (10:57)
[2020-02-24] MEDS ORDERED: CIPRO500 MG PO (10:57)
[2020-02-24] MEDS ORDERED: KETOROLAC TROME10 MG PO (10:58)
--- NOTE | 2020-02-24 11:56 | NUR ---
PT IS ASSISTED UP OOB TO THE BATHROOM. SHE IS ABLE TO VOID QS. SHE REPORTS BLADDER DISCOMFORT, BUT OVERALL HAS NO PAIN. CALL LIGHT WITHIN REACH. SHE IS AGREEABLE TO JELLO AND COFFEE. NO ADDITIONAL NEEDS.
--- NOTE | 2020-02-24 13:02 | NUR ---
LE 1225: PT IS GIVEN VERBAL DC INSTRUCTIONS, SHE VERBALIZES UNDERSTANDING. NO QUESTIONS AT THIS TIME. PT IS TAKEN TO VEHICLE VIA WC, SHE IS ABLE TO TRANSFER HERSELF FROM WC TO CAR.
--- NOTE | 2020-02-25 17:10 | OR ---
[facility] [address] [place], [place] [address] Signed DATE OF OPERATION: 02/24/2020 SURGEON: Jeanine Beal MD DATE OF PROCEDURE: 02/24/2020 PREOPERATIVE DIAGNOSIS: Right flank pain, secondary to multiple right renal calculi. POSTOPERATIVE DIAGNOSES: 1. Right flank pain, secondary to multiple right renal calculi. 2. 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 NAME OF PROCEDURES: 1. Cystoscopy with right retrograde pyelogram. 2. Right flexible nephroscopy with laser lithotripsy and basket extraction of stone fragments. 3. Insertion of an indwelling right ureteral stent. ANESTHESIA: General. ESTIMATED BLOOD LOSS: Minimal. COMPLICATIONS: None. SPECIMENS: Fragments of right renal calculi sent to the lab for stone analysis. DRAINS: 6 x 24 cm double-J ureteral stent inserted into the right collecting system. INDICATIONS FOR PROCEDURE: Ms. Nye is a very pleasant 39-year-old female who recently presented to my clinic with complaints of right-sided flank pain. She had undergone a workup by her primary care physician who ordered a CT scan. The CT scan revealed multiple nonobstructing right renal calculi, namely a 6 mm stone in the lower pole of the kidney as well as a 4 Electronically Signed By: JEANINE BEAL MD 02/25/20 1710 PATIENT NAME: CHIARA NYE OPERATIVE REPORT DATE OF : [birth year] REPORT #: [id number] PHYSICIAN: JEANINE BEAL MD PCP: JULIO CESAR TALBOT MD REPORT IS CONFIDENTIAL AND NOT TO BE RELEASED WITHOUT AUTHORIZATION [facility] [address] [place], [place] [address] Signed mm stone in the mid pole of the right kidney. After discussion of the risks and benefits of the procedure, the patient elected to undergo elective ureteroscopic extraction of her nonobstructing right renal calculi in hopes to improve her intermittent right flank pain. She presents today to undergo the aforementioned procedure. OPERATIVE FINDINGS: 1. On cystoscopy, there was no evidence of any suspicious masses, lesions, or stones. Bilateral ureteral orifices are in their normal anatomic location and effluxing clear urine. 2. Right retrograde pyelogram was performed which revealed no evidence of any obvious calyceal dilation. However, there is a small calyceal diverticulum noted in the midpole of the right kidney with a small stone present within the diverticulum. I see no other suspicious filling defects. There is a larger stone noted in the lower pole of the right kidney. Flexible nephroscopy was performed, which did confirm the presence of the calyceal diverticulum that is connected to the mid renal pelvis with a relatively long calyceal infundibulum. With some effort, I was able to pass ureteroscope through the infundibular tunnel and into the mid pole calyceal diverticulum. I was able to extract the 3 mm stone that was present within the diverticulum in toto without the need for fragmentation. 3. The other 6 mm stone was noted in the lower pole of the right kidney. The stone was fragmented using a holmium laser at 8 and 0.8 settings using a 270 micron fiber. The stone fragments were then collected using a Zero tip basket without difficulty. Overall 98% of the stone burden was successfully extracted today. 4. Diagnostic nephroscopy revealed no evidence of any other significant renal calculi within the right kidney. A 6 x 24 cm double-J ureteral stent was inserted into the right collecting system at the end of the procedure. DESCRIPTION OF PROCEDURE: After informed consent was obtained, the patient was taken back to the operating room. She was transferred from [facility] to the operating room table, where general anesthesia was induced. She was placed in the dorsal lithotomy position and her genitalia were prepped and draped in the standard sterile fashion. Using a 30-degree lens on a 22.5 [place] introducer, rigid cystoscope was inserted through the urethra and into her bladder under direct visualization. Panendoscopic views of the bladder was then obtained. Please see above findings. Attention was turned to the right ureteral orifice. A cone-tipped catheter was then used to perform a right retrograde pyelogram. Please see the above findings. I then passed a 0.035 Sensor wire through the right ureter and up into the right collecting system. Adequate placement of the wire was confirmed on fluoroscopy. Over the wire, I passed a 13/15 ureteral access sheath into the right collecting system under fluoroscopic guidance without difficulty. I repeated a retrograde pyelogram through the internal obturator of the ureteral access sheath. Electronically Signed By: JEANINE BEAL MD 02/25/20 4120 PATIENT NAME: CHIARA NYE OPERATIVE REPORT DATE OF : 80 REPORT #: [id number] PHYSICIAN: JEANINE BEAL MD PCP: JULIO CESAR TALBOT MD REPORT IS CONFIDENTIAL AND NOT TO BE RELEASED WITHOUT AUTHORIZATION [address] [address] Signed Please see the above findings. The internal obturator was then removed and a flexible ureteroscope was advanced through the sheath and into the right kidney. A complete diagnostic nephroscopy was performed. I 1st located the lower pole 6 mm stone. The stone was fragmented using a 270 micron fiber and holmium laser at 8 and 0.8 settings. The stone fragmented easily and 97% of the stone fragments were successfully extracted. I then continued my nephroscopy at which point, I noticed the slightly stenotic opening into the mid pole infundibulum on the right side. I was able to squeeze my ureteroscope through the infundibulum, which was somewhat long and into the diverticulum at the end of the infundibulum. It was there that I noticed noted a 3 or 4 mm stone that I extracted in toto from the diverticulum. The stone was extracted completely and was placed in a specimen that to be sent for stone analysis. I continued my nephroscopy and did not appreciate any other significant stones in the right renal pelvis. I removed the ureteroscope and inserted a 0.035 Sensor wire through the sheath and into the right renal pelvis. The sheath was removed fully intact. Over the wire, I passed a 6 x 24 cm double-J ureteral stent into the right renal collecting system. Once the wire was pulled, an adequate coil was seen within the right renal pelvis, namely the upper pole of the right renal pelvis. An adequate coil was seen on cystoscopy. There was a string left on the stent. The patient's bladder was then drained and the cystoscope was removed. The procedure was then terminated. The patient tolerated the procedure well without any complication. She will now be transferred to the postanesthesia care unit in stable condition. DISPOSITION: I discussed the details of today's procedure with the patient's and notified him that all of the significant stone burden had been removed from her right kidney. He was also notified of the presence of calyceal diverticulum with a stenotic but long infundibular neck. I told him that she is at risk of developing a stone in this particular calyx in the future. She will be sent home today with Percocet 5/325 dispense #20 as needed for pain along with ketorolac 10 mg one tablet p.o. daily p.r.n. pain and Cipro 1 tablet p.o. b.i.d. for a total of 7 days. She will be scheduled to return to clinic in late May for her first postoperative evaluation, at which time we will discuss the results of her stone analysis. Jeanine Beal MD AR/MODL /[id number] Electronically Signed By: JEANINE BEAL MD 02/25/20 1710 PATIENT NAME: CHIARA NYE OPERATIVE REPORT DATE OF : 80 REPORT #: [id number] PHYSICIAN: JEANINE BEAL MD PCP: JULIO CESAR TALBOT MD REPORT IS CONFIDENTIAL AND NOT TO BE RELEASED WITHOUT AUTHORIZATION [facility] [address] [place], [place] [address] Signed cc: Julio Cesar Talbot MD Copies: JULIO CESAR TALBOT MD ~ Electronically Signed By: JEANINE BEAL MD 11/24/20 1710 PATIENT NAME: CHIARA NYE OPERATIVE REPORT DATE OF : [birth year] REPORT #: [id number] PHYSICIAN: JEANINE BEAL MD PCP: JULIO CESAR TALBOT MD REPORT IS CONFIDENTIAL AND NOT TO BE RELEASED WITHOUT AUTHORIZATION
== END 2020-02-24 12:30 | disposition home or self-care (01) ==
LOC: OPS 07:00 → DS 07:00 → OPS 09:00
PROVIDERS: ATTEND Urology
PROC: BT1DZZZ Fluoroscopy of Right Kidney, Ureter and Bladder (ICD-10-PCS; 2020-02-24)
PROC: 0TC38ZZ Extirpation of Matter from Right Kidney Pelvis, Via Natural or Artificial Opening Endoscopic (ICD-10-PCS; principal; 2020-02-24 09:00)
PROC: 0T768DZ Dilation of Right Ureter with Intraluminal Device, Via Natural or Artificial Opening Endoscopic (ICD-10-PCS; 2020-02-24 09:00)
DX: N20.0 Calculus of kidney (principal); N39.0 Urinary tract infection, site not specified; K50.90 Crohn's disease, unspecified, without complications; J45.909 Unspecified asthma, uncomplicated; Z79.899 Other long term (current) drug therapy; Z88.1 Allergy status to other antibiotic agents; Z88.2 Allergy status to sulfonamides; Z20.828 Contact with and (suspected) exposure to other viral communicable diseases
CPT/HCPCS: 00918; 71045; 74420; 82365; 84703; C1769; C2617; J0690; J1100; J1885; J2001; J2250; J2405; J2704; J7121; Q9967